=== PATIENT | male | born 1960 | race American Indian/Alaskan Native ===

== ENCOUNTER 2018-12-29 13:14 | Emergency (ER) | payer MEDICARE ==
--- NOTE | 2018-12-29 14:07 | Event Note ---
ED Screening Note Date of service: 12/29/18 Time: 14:04 ED Screening Note: 58 y o male presents to ED with cc of generalized body aches and weakness x this morning when he woke up PMH: kidney trx 2 years taking traplant rejection medication This initial assessment/diagnostic orders/clinical plan/treatment(s) is/are subject to change based on patients health status, clinical progression and re- assessment by fellow clinical providers in the ED. Further treatment and workup at subsequent clinical providers discretion. Patient/guardian urged not to elope from the ED as their condition may be serious if not clinically assessed and managed. Initial orders include: labs,IVF,UA
[2018-12-29 14:39] LABS: Bilirubin,Urine NEG (Negative); Blood,Urine NEG (Negative); Color,Urine Yellow (Yellow); Protein,Urine <15 mg/dL mg/dL (Negative); Urobilinogen,Urine < 2.0 mg/dL (<2.0)
[2018-12-29 14:41] LABS: Basophils % (Auto) 0.1 % (0.0-1.8); Eosinophils % (Auto) 0.1 % (0.0-4.3); Hematocrit 43.8 % (35.5-45.6); Hemoglobin 14.9 gm/dl (11.8-15.2); Lymphocytes # (Auto) 0.9 K/mm3 (1.2-5.4); Lymphocytes % (Auto) 11.1 % (13.4-35.0); Mean Corpuscular HGB Conc 34 % (32-34); Mean Corpuscular Volume 91 fl (84-94); Monocytes # (Auto) 0.9 K/mm3 (0.0-0.8); Monocytes % (Auto) 10.7 % (0.0-7.3); Platelet Count 113 K/mm3 (140-440); Red Cell Distribution Width 14.7 % (13.2-15.2)
[2018-12-29 14:48] LABS: Alanine Aminotransferase 10 units/L (7-56); BUN/Creatinine Ratio 8; Blood Urea Nitrogen 10 mg/dL (9-20); Calcium 9.5 mg/dL (8.4-10.2); Hemolysis Index 11
[2018-12-29] MEDS ORDERED: NACL 0.9% 500 ML 500 ML IV ONE (18:52)
[2018-12-29] MEDS ORDERED: REGLAN IV ONE (18:52)
[2018-12-29] MEDS ORDERED: BENADRYL IV ONE (18:52)
--- NOTE | 2018-12-29 19:01 | Emergency Department Report ---
ED General Adult HPI - General Chief complaint: Weakness Stated complaint: Abdominal pain, weakness Time Seen by Provider: 12/29/18 14:04 Source: patient Mode of arrival: Ambulatory Limitations: No Limitations - History of Present Illness Initial comments: 58-year-old male chief complaint of generalized weakness and chills x one day. Patient reports that he was in the rain yesterday, and began to experience some cold-like symptoms. Patient complains of diffuse abdominal tenderness and burning into his chest. Patient denies any sick contacts. Patient reports dry cough. Patient denies specific chest pain shortness of breath or vomiting. -: days(s) (1) Location: abdomen Quality: aching Consistency: constant Improves with: none Worsens with: none Associated Symptoms: cough - Related Data Home Medications Medication Instructions Recorded Confirmed Last Taken Metoprolol [Lopressor TAB] 100 mg PO BID 12/28/14 04/15/18 04/15/18 09:00 NIFEdipine 60 mg PO DAILY 02/21/15 04/15/18 04/15/18 09:30 Lisinopril [Zestril TAB] 10 mg PO DAILY 04/10/18 04/15/18 04/15/18 09:00 Mycophenolate [Cellcept] 250 mg PO BID 04/10/18 04/15/18 04/15/18 09:00 Omeprazole 40 mg PO DAILY 04/10/18 04/15/18 04/15/18 09:00 Prednisone [predniSONE (Mariluz) ER 5 mg PO QDAY 04/10/18 04/15/18 04/15/18 09:00 TAB] Tacrolimus [Prograf] 1 mg PO BID 04/10/18 04/15/18 04/15/18 09:00 Tamsulosin HCl [Flomax] 0.4 mg PO DAILY 04/10/18 04/15/18 04/15/18 09:00 Previous Rx's Medication Instructions Recorded Last Taken Type Oseltamivir [Tamiflu] 75 mg PO BID 5 Days #10 cap 12/29/18 Unknown Rx Allergies Allergy/AdvReac Type Severity Reaction Status Date / Time No Known Allergies Allergy Verified 02/21/15 11:15 ED Review of Systems ROS: Stated complaint: CHEST PAIN/DIZZINESS Other details as noted in HPI Constitutional: chills, weakness. denies: fever Respiratory: cough Cardiovascular: denies: chest pain, palpitations, dyspnea on exertion, syncope Gastrointestinal: abdominal pain, nausea Genitourinary: denies: urgency Musculoskeletal: myalgia. denies: as per HPI Neurological: denies: headache, weakness, paresthesias Psychiatric: denies: anxiety, depression ED Past Medical Hx - Past Medical History Previous Medical History?: Yes Hx Hypertension: Yes (X 18 YRS) Hx GERD: Yes Hx Renal Disease: Yes (Kidney transplant 2016) Hx HIV: No Additional medical history: Dialysis M-W-F. ANEMIA - Surgical History Past Surgical History?: Yes Hx Cholecystectomy: Yes Additional Surgical History: av graft LEFT ARM. Hernia surgery October 2014 - Social History Smoking Status: Never Smoker Substance Use Type: None - Medications Home Medications: Home Medications Medication Instructions Recorded Confirmed Last Taken Type Metoprolol [Lopressor TAB] 100 mg PO BID 12/28/14 04/15/18 04/15/18 09:00 History NIFEdipine 60 mg PO DAILY 02/21/15 04/15/18 04/15/18 09:30 History Lisinopril [Zestril TAB] 10 mg PO DAILY 04/10/18 04/15/18 04/15/18 09:00 History Mycophenolate [Cellcept] 250 mg PO BID 04/10/18 04/15/18 04/15/18 09:00 History Omeprazole 40 mg PO DAILY 04/10/18 04/15/18 04/15/18 09:00 History Prednisone [predniSONE (Mariluz) ER 5 mg PO QDAY 04/10/18 04/15/18 04/15/18 09:00 History TAB] Tacrolimus [Prograf] 1 mg PO BID 04/10/18 04/15/18 04/15/18 09:00 History Tamsulosin HCl [Flomax] 0.4 mg PO DAILY 04/10/18 04/15/18 04/15/18 09:00 History Oseltamivir [Tamiflu] 75 mg PO BID 5 Days #10 cap 12/29/18 Unknown Rx ED Physical Exam - General Limitations: No Limitations General appearance: alert, in no apparent distress - Head Head exam: Present: atraumatic, normocephalic - Eye Eye exam: Present: PERRL, EOMI - ENT ENT exam: Present: normal exam, mucous membranes moist - Neck Neck exam: Present: normal inspection, full ROM. Absent: tenderness, meningismus - Respiratory Respiratory exam: Present: normal lung sounds bilaterally. Absent: respiratory distress, wheezes, rales - Cardiovascular Cardiovascular Exam: Present: regular rate, normal rhythm, normal heart sounds - GI/Abdominal GI/Abdominal exam: Present: tenderness, normal bowel sounds. Absent: distended, guarding, rebound, hyperactive bowel sounds - Rectal Rectal exam: Present: deferred - Extremities Exam Extremities exam: Present: normal inspection, full ROM - Back Exam Back exam: Present: normal inspection, full ROM. Absent: tenderness, CVA tenderness (R), CVA tenderness (L) - Neurological Exam Neurological exam: Present: alert, altered, oriented X3, CN II-XII intact, normal gait - Psychiatric Psychiatric exam: Present: normal affect, normal mood - Skin Skin exam: Present: warm ED Course Vital Signs 12/29/18 12/29/18 12/29/18 14:02 17:10 19:28 Temperature 99.6 F 99.8 F H Pulse Rate 63 67 Respiratory 18 17 18 Rate Blood Pressure 122/79 Blood Pressure 133/69 [Left] O2 Sat by Pulse 96 97 Oximetry 12/29/18 12/29/18 21:08 23:37 Temperature 100.2 F H Pulse Rate 78 69 Respiratory 16 16 Rate Blood Pressure Blood Pressure 148/91 119/76 [Left] O2 Sat by Pulse 98 98 Oximetry - Reevaluation(s) Reevaluation #1: 12/29/18 23:11 Patient resting comfortably in no distress. Patient denies any chest pain shortness of breath. Chills and abdominal cramping has resolved. Patient needed to be discharged. Plan at discharge his second troponin is negative with no EKG changes. Reevaluation #2: 12/29/18 23:34 Patient still resting comfortably in no acute distress.. Patient needed be discharged. Repeat EKG done with no acute changes. Patient stable for [facility] vital signs stable Reevaluation #3: 12/29/18 23:42 Informed by nurse that patient now has a temperature of 100.2, just prior to discharge. Patient still asymptomatic and symptoms of markedly improved. No elevated white count on exam CT is negative. Patient comfortable and eager to be discharged and will follow-up with primary care doctor in the morning and imm ediately return to ED if sx persist. 12/29/18 23:55 ED Medical Decision Making - Lab Data Result diagrams: 12/29/18 14:17 12/29/18 14:17 - EKG Data 12/29/18 22:13 Normal sinus rhythm, normal axis, no ST elevation depression. Rate of 74. First-degree AV block. EKG changes where T-wave inversions V4 V5 and V6 are not now present when compared to EKG done 12/28/2014. 12/29/18 22:14 12/29/18 23:35 Repeat EKG Normal sinus rhythm, normal axis, no ST elevation or depression. Rate is 67. First-degree AV block. EKG similar to previous EKG done on arrival to ED. - Radiology Data FINDINGS: LOWER CHEST: No significant abnormality. LIVER: No significant abnormality. A few small cysts in the liver are stable, the largest near the dome in the right lobe. GALLBLADDER: Postcholecystectomy. BILE DUCTS: No significant abnormality. PANCREAS: No significant abnormality. SPLEEN: No significant abnormality. ADRENALS: No significant abnormality. RIGHT KIDNEY and URETER: Chronically atrophied. There are small calculi but no evidence of hydronephrosis. No acute inflammatory stranding. LEFT KIDNEY and URETER: Chronically atrophied. There are small calculi but no evidence of hydronephrosis. No acute inflammatory stranding. A transplant kidney is noted in the right lower quadrant, without hydronephrosis or acute inflammatory change. STOMACH and SMALL BOWEL: No significant abnormality. COLON: No significant abnormality. APPENDIX: Not identified. PERITONEUM: No free fluid. No free air. No fluid collection. LYMPH NODES: No significant adenopathy. AORTA and ARTERIES: No significant abnormality. IVC and VEINS: No significant abnormality. URINARY BLADDER: No significant abnormality. REPRODUCTIVE ORGANS: Penile prosthesis is noted. ADDITIONAL FINDINGS: None. SKELETAL SYSTEM: No significant abnormality. IMPRESSION: 1. No acute abnormality. No clear cause for the patient's abdominal pain is identified. FINDINGS: Support devices: None. Heart: Within normal limits. Lungs/Pleura: No acute air space or interstitial disease. No significant pleural effusion. Metallic foreign bodies at the anterior upper chest are unchanged. IMPRESSION: No acute findings. Critical Care Time: No Critical care attestation.: If time is entered above; I have spent that time in minutes in the direct care of this critically ill patient, excluding procedure time. ED Disposition Clinical Impression: Kidney transplant recipient Abdominal pain Qualifiers: Abdominal location: generalized Qualified Code(s): R10.84 - Generalized abdominal pain Disposition: TO HOME OR SELFCARE Is pt being admited?: No Does the pt Need Aspirin: No Condition: Fair Instructions: Influenza (ED), Acute Abdominal Pain (ED) Prescriptions: Oseltamivir [Tamiflu] 75 mg PO BID 5 Days #10 cap Referrals: PRIMARY CARE, [Primary Care Provider] - 3-5 Days Time of Disposition: 23:37
--- NOTE | 2018-12-29 22:52 | XRay Report ---
CHEST 2 VIEWS INDICATION: cough. COMPARISON: 12/28/2014. FINDINGS: Support devices: None. Heart: Within normal limits. Lungs/Pleura: No acute air space or interstitial disease. No significant pleural effusion. Metallic foreign bodies at the anterior upper chest are unchanged. IMPRESSION: No acute findings. Signer Name: Krunal Tate MD Signed: 12/29/2018 10:48 PM Workstation Name: [id number]
--- NOTE | 2018-12-29 22:54 | Cat Scan Report ---
CT ABDOMEN AND PELVIS WITHOUT CONTRAST INDICATION / CLINICAL INFORMATION: ABDOMINAL PAIN. TECHNIQUE: Axial CT images were obtained through the abdomen and pelvis without IV contrast. All CT scans at [facility] location are performed using CT dose reduction for ALARA by means of automated exposure control. COMPARISON: Contrast-enhanced CT of the abdomen and pelvis 12/30/2014 FINDINGS: LOWER CHEST: No significant abnormality. LIVER: No significant abnormality. A few small cysts in the liver are stable, the largest near the do me in the right lobe. GALLBLADDER: Postcholecystectomy. BILE DUCTS: No significant abnormality. PANCREAS: No significant abnormality. SPLEEN: No significant abnormality. ADRENALS: No significant abnormality. RIGHT KIDNEY and URETER: Chronically atrophied. There are small calculi but no evidence of hydronephr osis. No acute inflammatory stranding. LEFT KIDNEY and URETER: Chronically atrophied. There are small calculi but no evidence of hydronephro sis. No acute inflammatory stranding. A transplant kidney is noted in the right lower quadrant, without hydronephrosis or acute inflammator y change. STOMACH and SMALL BOWEL: No significant abnormality. COLON: No significant abnormality. APPENDIX: Not identified. PERITONEUM: No free fluid. No free air. No fluid collection. LYMPH NODES: No significant adenopathy. AORTA and ARTERIES: No significant abnormality. IVC and VEINS: No significant abnormality. URINARY BLADDER: No significant abnormality. REPRODUCTIVE ORGANS: Penile prosthesis is noted. ADDITIONAL FINDINGS: None. SKELETAL SYSTEM: No significant abnormality. IMPRESSION: 1. No acute abnormality. No clear cause for the patient's abdominal pain is identified. Signer Name: Cody Salgado MD Signed: 12/29/2018 10:49 PM Workstation Name: [id number]
[2018-12-29 23:37] VITALS: BP 119/76
[2018-12-29] MEDS ORDERED: TYLENOL PO ONE (23:50)
[2018-12-30] MEDS ORDERED: TYLENOL ONE (00:01)
== END 2018-12-30 00:08 | disposition home or self-care (01) ==
LOC: ED 13:14
DX: R10.9 Unspecified abdominal pain (principal); I10 Essential (primary) hypertension; K21.9 Gastro-esophageal reflux disease without esophagitis; D64.9 Anemia, unspecified; Z94.0 Kidney transplant status; Z98.890 Other specified postprocedural states; Z90.49 Acquired absence of other specified parts of digestive tract; Z79.899 Other long term (current) drug therapy
CPT/HCPCS: 36415; 71046; 74176; 80053; 81001; 82550; 83615; 83690; 84484; 85025; 93005; 93010; 96374; 96375; 99285; J1200; J2765; J7040

== ENCOUNTER 2020-02-14 08:22 | Outpatient (CLI) | payer MEDICARE ==
[2020-02-14] MEDS ORDERED: LIDOCAINE (4%) 40 MG/ML TOPICAL SOLN 50 ML BOTTLE TP NR (08:47)
== END 2020-02-14 08:23 | disposition home or self-care (01) ==
LOC: WOUND 08:22
PROVIDERS: ATTEND Surgery
DX: S81.801A Unspecified open wound, right lower leg, initial encounter (principal); I10 Essential (primary) hypertension; N40.0 Benign prostatic hyperplasia without lower urinary tract symptoms; Z94.0 Kidney transplant status; Z87.891 Personal history of nicotine dependence; W22.8XXA Striking against or struck by other objects, initial encounter; Y93.89 Activity, other specified; Y92.89 Other specified places as the place of occurrence of the external cause; Y99.8 Other external cause status
CPT/HCPCS: 11042; G0463; 99204; 99214

== ENCOUNTER 2020-12-14 14:44 | Inpatient (IN) | payer MEDICARE ==
[2020-12-14] MEDS ORDERED: ASPIRIN 325 MG TAB PO ONE (15:42)
--- NOTE | 2020-12-14 16:05 | XRay Report ---
CHEST 2 VIEWS INDICATION / CLINICAL INFORMATION: Chest pain and body aches beginning 4 days ago with nausea and shortness of breath. COMPARISON: 2 views of the chest from 12/29/2018. FINDINGS: SUPPORT DEVICES: None. HEART / MEDIASTINUM: No significant abnormality. LUNGS / PLEURA: No significant pulmonary abnormality. No significant pleural effusion. No pneumothora x. ADDITIONAL FINDINGS: Radiopaque foreign bodies are again noted at the level of the right sternoclavic ular joint. Mild thoracic spondylosis is unchanged. IMPRESSION: 1. No acute abnormality of the chest. Signer Name: Juventino Grijalva MD Signed: 12/14/2020 4:00 PM Workstation Name: [id number]
[2020-12-14 16:37] LABS: Alanine Aminotransferase 8 units/L (7-56); Albumin 3.8 g/dL (3.9-5); BUN/Creatinine Ratio 9; Blood Urea Nitrogen 12 mg/dL (9-20); Calcium 8.9 mg/dL (8.4-10.2); Hemolysis Index 6
[2020-12-14 16:54] LABS: Basophils % (Auto) 0.1 % (0.0-1.8); Eosinophils % (Auto) 0.1 % (0.0-4.3); Hematocrit 40.9 % (35.5-45.6); Lymphocytes % (Auto) 21.4 % (13.4-35.0); Mean Corpuscular HGB Conc 34 % (32-34); Mean Corpuscular Volume 90 fl (84-94); Monocytes # (Auto) 0.5 K/mm3 (0.0-0.8); Monocytes % (Auto) 10.7 % (0.0-7.3); Red Blood Count 4.53 M/mm3 (3.65-5.03); Red Cell Distribution Width 14.1 % (13.2-15.2)
[2020-12-14 16:55] LABS: Platelet Count 97 K/mm3 (140-440)
--- NOTE | 2020-12-14 23:23 | Event Note ---
ED Screening Note Date of service: 12/12/20 Time: 23:20 ED Screening Note: 60 y/o male pt w/ hx of left kidney transplant on immunusuppresive therapy presents to ED w/ complaints of abdominal pain and myalgias starting this week. No known sick contacts. Patient did not receive his COVID-19 vaccine series. Patient has been compliant with his transplant medications. Temperature 100.9 in triage. General: Awake, appropriately interactive, no acute distress. Neck: Supple. Full range of motion intact. Cardiovascular: Normal peripheral perfusion. Pulmonary: No respiratory distress. Patient is speaking normally without use of accessory muscles. Skin: No apparent rashes or lesions. Neurological: No facial asymmetry. Speech is clear. Follows commands. Patient is alert and oriented. Musculoskeletal: Moves all four extremities spontaneously with normal range of motion. Psych: Cooperative. Appropriate mood and affect. I have greeted and performed a focused rapid initial assessment of this patient. A comprehensive ED assessment and evaluation of the patient, analysis of all test results, and completion of the medical decision-making process will be conducted by additional ED providers. This initial assessment/diagnostic orders/clinical plan/treatment(s) is/are subject to change based on patients health status, clinical progression and re-assessment. Further treatment and workup at subsequent clinical provider's discretion. Patient/guardian urged not to elope from the ED as their condition may be serious if not clinically assessed and managed.
--- NOTE | 2020-12-15 04:14 | Emergency Department Report ---
ED General Adult HPI - General Chief complaint: Abdominal Pain Stated complaint: BODYACHES PUI?: No Time Seen by Provider: 12/15/20 04:09 Source: patient Mode of arrival: Ambulatory Limitations: No Limitations - History of Present Illness Initial comments: Patient is a 60-year-old male who presents emergency complaints of abdominal pain, body aches, fever, cough. Patient states his symptoms started 2 days ago. Patient dates his symptoms are worsening. Patient states he had both of his COVID-19 vaccines. Patient states the cough is dry. Patient states the abdominal pain is in his lower abdomen as well as his bilateral flanks. Patient denies nausea vomiting. Patient states body aches and abdominal pain are worsening. Patient states the abdominal pain is a 6 out of 10. Patient denies diarrhea. Patient denies chest pain. Patient denies shortness of breath. Patient denies recent travel. Patient denies recent international travel. Patient denies exposure to the novel coronavirus. Patient denies sick contacts. Patient denies loss of smell. Patient denies diarrhea. Patient denies coming in contact with anybody with symptoms of the novel coronavirus. -: Sudden Location: abdomen Severity scale (0 -10): 6 Quality: aching Consistency: constant Improves with: rest Worsens with: movement Associated Symptoms: cough, fever/chills. denies: confusion, chest pain, diaphoresis, headaches, loss of appetite, nausea/vomiting, rash, seizure, shortness of breath, syncope, weakness - Related Data Home Medications Medication Instructions Recorded Confirmed Last Taken Metoprolol [Lopressor TAB] 100 mg PO BID 12/28/14 04/15/18 04/15/18 09:00 NIFEdipine 60 mg PO DAILY 02/21/15 04/15/18 04/15/18 09:30 Mycophenolate [Cellcept] 250 mg PO BID 04/10/18 04/15/18 04/15/18 09:00 Omeprazole 40 mg PO DAILY 04/10/18 04/15/18 04/15/18 09:00 Prednisone [predniSONE (Mariluz) ER 5 mg PO QDAY 04/10/18 04/15/18 04/15/18 09:00 TAB] Tacrolimus [Prograf] 1 mg PO BID 04/10/18 04/15/18 04/15/18 09:00 Tamsulosin HCl [Flomax] 0.4 mg PO DAILY 04/10/18 04/15/18 04/15/18 09:00 lisinopriL [Zestril TAB] 10 mg PO DAILY 04/10/18 04/15/18 04/15/18 09:00 Previous Rx's Medication Instructions Recorded Last Taken Type Oseltamivir [Tamiflu] 75 mg PO BID 5 Days #10 cap 12/29/18 Unknown Rx Allergies Allergy/AdvReac Type Severity Reaction Status Date / Time No Known Allergies Allergy Verified 12/14/20 15:36 ED Review of Systems ROS: Stated complaint: BODYACHES Other details as noted in HPI Constitutional: chills, fever Eyes: denies: eye pain, eye discharge, vision change ENT: denies: ear pain, throat pain Respiratory: cough. denies: shortness of breath, wheezing Cardiovascular: denies: chest pain, palpitations Endocrine: no symptoms reported Gastrointestinal: abdominal pain. denies: nausea, diarrhea Genitourinary: denies: urgency, dysuria Musculoskeletal: denies: back pain, joint swelling, arthralgia Skin: denies: rash, lesions Neurological: denies: headache, weakness, paresthesias Psychiatric: denies: anxiety, depression Hematological/Lymphatic: denies: easy bleeding, easy bruising ED Past Medical Hx - Past Medical History Previous Medical History?: Yes Hx Hypertension: Yes (X 18 YRS) Hx GERD: Yes Hx Renal Disease: Yes (Kidney transplant 2016) Hx HIV: No Additional medical history: Dialysis M-W-F. ANEMIA - Surgical History Past Surgical History?: Yes Hx Cholecystectomy: Yes Additional Surgical History: av graft LEFT ARM. Hernia surgery October 2014 - Family History Family history: no significant - Social History Smoking Status: Never Smoker Substance Use Type: None - Medications Home Medications: Home Medications Medication Instructions Recorded Confirmed Last Taken Type Metoprolol [Lopressor TAB] 100 mg PO BID 12/28/14 04/15/18 04/15/18 09:00 History NIFEdipine 60 mg PO DAILY 02/21/15 04/15/18 04/15/18 09:30 History Mycophenolate [Cellcept] 250 mg PO BID 04/10/18 04/15/18 04/15/18 09:00 History Omeprazole 40 mg PO DAILY 04/10/18 04/15/18 04/15/18 09:00 History Prednisone [predniSONE (Mariluz) ER 5 mg PO QDAY 04/10/18 04/15/18 04/15/18 09:00 History TAB] Tacrolimus [Prograf] 1 mg PO BID 04/10/18 04/15/18 04/15/18 09:00 History Tamsulosin HCl [Flomax] 0.4 mg PO DAILY 04/10/18 04/15/18 04/15/18 09:00 History lisinopriL [Zestril TAB] 10 mg PO DAILY 04/10/18 04/15/18 04/15/18 09:00 History Oseltamivir [Tamiflu] 75 mg PO BID 5 Days #10 cap 12/29/18 Unknown Rx ED Physical Exam - General Limitations: No Limitations General appearance: alert, in no apparent distress - Head Head exam: Present: atraumatic, normocephalic - Eye Eye exam: Present: normal appearance - ENT ENT exam: Present: mucous membranes moist - Neck Neck exam: Present: normal inspection - Respiratory Respiratory exam: Present: normal lung sounds bilaterally. Absent: respiratory distress - Cardiovascular Cardiovascular Exam: Present: regular rate, normal rhythm. Absent: systolic murmur, diastolic murmur, rubs, gallop - GI/Abdominal GI/Abdominal exam: Present: soft, tenderness, normal bowel sounds - Rectal Rectal exam: Present: deferred - Extremities Exam Extremities exam: Present: normal inspection - Back Exam Back exam: Present: normal inspection - Neurological Exam Neurological exam: Present: alert, oriented X3 - Psychiatric Psychiatric exam: Present: normal affect, normal mood - Skin Skin exam: Present: warm, dry, intact, normal color. Absent: rash ED Course Vital Signs 12/14/20 12/15/20 12/15/20 15:39 04:22 04:31 Temperature 100.9 F H Pulse Rate 75 67 68 Respiratory 20 19 13 Rate Blood Pressure 117/68 O2 Sat by Pulse 97 99 98 Oximetry 12/15/20 12/15/20 12/15/20 04:49 05:01 05:07 Temperature Pulse Rate 71 66 Respiratory 22 19 Rate Blood Pressure O2 Sat by Pulse 98 98 100 Oximetry - Reevaluation(s) Reevaluation #1: I discussed all results with patient. I discussed plan of care with patient. Patient agrees with plan of care and admission. Patient to be admitted to the hospitalist service. 12/15/20 05:35 - Consultations Consultation #1: Hospitalist consulted for admission. Hospitalist to admit patient. 12/15/20 0538 ED Medical Decision Making - Lab Data Result diagrams: 12/14/20 15:59 12/14/20 15:59 - EKG Data -: EKG Interpreted by Me EKG shows normal: sinus rhythm, axis, intervals, QRS complexes, ST-T waves Rate: normal - Radiology Data Radiology results: report reviewed, image reviewed interpreted by me: Chest x-ray: No pneumonia, no pneumothorax, no foreign body, no osseous findings, no acute findings CHEST 2 VIEWS INDICATION / CLINICAL INFORMATION: Chest pain and body aches beginning 4 days ago with nausea and shortness of breath. COMPARISON: 2 views of the chest from 12/29/2018. FINDINGS: SUPPORT DEVICES: None. HEART / MEDIASTINUM: No significant abnormality. LUNGS / PLEURA: No significant pulmonary abnormality. No significant pleural effusion. No pneumothorax. ADDITIONAL FINDINGS: Radiopaque foreign bodies are again noted at the level of the right sternoclavicular joint. Mild thoracic spondylosis is unchanged. IMPRESSION: 1. No acute abnormality of the chest. CT ABDOMEN AND PELVIS WITHOUT CONTRAST HISTORY: Patient complains of abd pain, fever and cough x 2 days.. COMPARISON: CT abdomen/pelvis from 12/29/2018 TECHNIQUE: CT images of the abdomen and pelvis were obtained without administration of intravenous contrast. All CT scans at this location are performed using CT dose reduction for ALARA by means of automated exposure control. FINDINGS: Lungs/bones: There is minimal patchy groundglass airspace disease in the lungs. Degenerative changes are present in the spine and pelvis with nothing acute. Abdomen/pelvis: There is a simple cyst in the liver. Liver is otherwise unremarkable. The gallbladder surgically absent. The spleen, pancreas, adrenals, and proximal GI tract appear unremarkable. There is bilateral renal atrophy. A right pelvic transplant kidney is present. The urinary bladder is unremarkable. No pelvic free fluid. No acute colonic abnormality identified. Penile prosthesis is in place. IMPRESSION: 1. Findings in the lungs worrisome for Covid pneumonia. 2. No acute abnormality in the abdomen or pelvis. - Medical Decision Making Patient is a 60-year-old male who presents emergency room with complaints of fever, cough, body aches, abdominal pain. Patient states he is already had his COVID-19 vaccine. Patient had labs done which were consistent with renal insufficiency. Patient has a history of a kidney transplant is compliant with antirejection medication. Patient had a abdominal CT to rule out intra-abdominal process infection. Patient's abdominal CT was negative for acute finding however showed Covid pneumonia. Patient is high risk due to being on antirejection medications. Patient will be admitted to the hospital service for further evaluation treatment and observation. Critical care time documented due to the multiple reassessments, prolonged time at the bedside, interpretation of diagnostics and labs. - Differential Diagnosis Fever, Covid, [place], gastroenteritis, abdominal pain, cough Critical Care Time: Yes Critical care time in (mins) excluding proc time.: 35 Critical care attestation.: If time is entered above; I have spent that time in minutes in the direct care of this critically ill patient, excluding procedure time. Critical Care Time: 35 minutes ED Disposition Clinical Impression: COVID, Person under investigation for COVID-19, Renal insufficiency, Kidney transplant recipient, Cough Fever Qualifiers: Fever type: unspecified Qualified Code(s): R50.9 - Fever, unspecified Disposition: 09 ADMITTED INPATIENT Is pt being admited?: Yes Does the pt Need Aspirin: No Condition: Critical Time of Disposition: 05:38
[2020-12-15 04:56] LABS: Bilirubin,Urine NEG (Negative); Blood,Urine NEG (Negative); Color,Urine Amber (Yellow); Mucus,Urine FEW /HPF; Urobilinogen,Urine < 2.0 mg/dL (<2.0)
--- NOTE | 2020-12-15 05:13 | Cat Scan Report ---
CT ABDOMEN AND PELVIS WITHOUT CONTRAST HISTORY: Patient complains of abd pain, fever and cough x 2 days.. COMPARISON: CT abdomen/pelvis from 12/29/2018 TECHNIQUE: CT images of the abdomen and pelvis were obtained without administration of intravenous co ntrast. All CT scans at this location are performed using CT dose reduction for ALARA by means of au tomated exposure control. FINDINGS: Lungs/bones: There is minimal patchy groundglass airspace disease in the lungs. Degenerative changes are present in the spine and pelvis with nothing acute. Abdomen/pelvis: There is a simple cyst in the liver. Liver is otherwise unremarkable. The gallbladde r surgically absent. The spleen, pancreas, adrenals, and proximal GI tract appear unremarkable. There is bilateral renal atrophy. A right pelvic transplant kidney is present. The urinary bladder is unremarkable. No pelvic free flui d. No acute colonic abnormality identified. Penile prosthesis is in place. IMPRESSION: 1. Findings in the lungs worrisome for Covid pneumonia. 2. No acute abnormality in the abdomen or pelvis. Signer Name: Puma Little MD Signed: 12/15/2020 5:09 AM Workstation Name: [id number]
[2020-12-15] MEDS ORDERED: dexAMETHasone 4 MG/ML VIAL IV ONE (05:33)
--- NOTE | 2020-12-15 06:19 | History and Physical Report ---
History of Present Illness Date of examination: 12/15/20 Date of admission: 12/15/20 Chief complaint: Abdominal pain Body aches Fever Cough History of present illness: 60-year-old male with past medical history of hypertension, GERD, kidney transplant in 2017 was brought to the emergency room because of abdominal pain, body aches, fever, cough for last 2 days. Patient dates his symptoms are worsening. Patient states he had both of his COVID-19 vaccines. Patient states the cough is dry. Patient states the abdominal pain is 6/10 in his lower abdomen as well as his bilateral flanks. Patient denies nausea vomiting. Patient states body aches and abdominal pain are worsening. Patient denies diarrhea. Patient denies chest pain. Patient denies shortness of breath. Patient denies any sick contact. Patient denies loss of smell. In the emergency room CT scan of the abdomen pelvis showed suspected Covid pneumonia. Past History Past Medical History: anemia, GERD, hypertension, renal failure Medications and Allergies Allergies Allergy/AdvReac Type Severity Reaction Status Date / Time No Known Allergies Allergy Verified 12/14/20 15:36 Home Medications Medication Instructions Recorded Confirmed Last Taken Type Metoprolol [Lopressor TAB] 100 mg PO BID 12/28/14 04/15/18 04/15/18 09:00 History NIFEdipine 60 mg PO DAILY 02/21/15 04/15/18 04/15/18 09:30 History Mycophenolate [Cellcept] 250 mg PO BID 04/10/18 04/15/18 04/15/18 09:00 History Omeprazole 40 mg PO DAILY 04/10/18 04/15/18 04/15/18 09:00 History Prednisone [predniSONE (Mariluz) ER 5 mg PO QDAY 04/10/18 04/15/18 04/15/18 09:00 History TAB] Tacrolimus [Prograf] 1 mg PO BID 04/10/18 04/15/18 04/15/18 09:00 History Tamsulosin HCl [Flomax] 0.4 mg PO DAILY 04/10/18 04/15/18 04/15/18 09:00 History lisinopriL [Zestril TAB] 10 mg PO DAILY 04/10/18 04/15/18 04/15/18 09:00 History Oseltamivir [Tamiflu] 75 mg PO BID 5 Days #10 cap 12/29/18 Unknown Rx Active Meds: Active Medications Acetaminophen (Acetaminophen 325 Mg Tab) 650 mg PO Q4H PRN PRN Reason: Pain MILD(1-3)/Fever >100.5/BHARDWAJ Albuterol (Albuterol 2.5 Mg/3 Ml Nebu) 2.5 mg IH Q4HRT PRN PRN Reason: Shortness Of Breath Albuterol/Ipratropium (Ipratropium/Albuterol Sulfate 3 Ml Ampul.Neb) 1 ampul IH Q6HRT COUNT INCLUDES THE [facility] Dexamethasone (Dexamethasone 4 Mg/Ml Vial) 6 mg IV DAILY COUNT INCLUDES THE [facility] Famotidine (Famotidine 20 Mg Tab) 20 mg PO BID COUNT INCLUDES THE [facility] Heparin Sodium (Porcine) (Heparin 5,000 Unit/1 Ml Vial) 5,000 unit SUB-Q Q8HR COUNT INCLUDES THE [facility] Hydralazine HCl (Hydralazine 20 Mg/1 Ml Inj) 10 mg IV Q6H PRN PRN Reason: Blood Pressure Hydromorphone HCl (Hydromorphone 1 Mg/1 Ml Inj) 0.5 mg IV Q3H PRN PRN Reason: Pain , Severe (7-10) Azithromycin (Zithromax/Ns) 500 mg in 250 mls @ 250 mls/hr IV ONCE ONE; Protocol Stop: 12/15/20 06:32 Ceftriaxone Sodium (Rocephin/Ns 2 Gm/100 Ml) 2 gm in 100 mls @ 200 mls/hr IV Q24H COUNT INCLUDES THE [facility]; Protocol Azithromycin (Zithromax/Ns) 500 mg in 250 mls @ 250 mls/hr IV Q24H COUNT INCLUDES THE [facility]; Protocol Lisinopril (Lisinopril 40 Mg Tab) 10 mg PO DAILY COUNT INCLUDES THE [facility] Metoprolol Tartrate (Metoprolol Tartrate 50 Mg Tab) 100 mg PO BID COUNT INCLUDES THE [facility] Miscellaneous Medication (Nifedipine) 60 mg PO DAILY COUNT INCLUDES THE [facility] Miscellaneous Medication (Prednisone [Prednisone (Mariluz) Er Tab]) 5 mg PO QDAY COUNT INCLUDES THE [facility] Mycophenolate Mofetil (Mycophenolate 250 Mg Cap) 250 mg PO BID COUNT INCLUDES THE [facility] Ondansetron HCl (Ondansetron 4 Mg/2 Ml Inj) 4 mg IV Q8H PRN PRN Reason: Nausea And Vomiting Oseltamivir Phosphate (Oseltamivir 75 Mg Cap) 75 mg PO BID COUNT INCLUDES THE [facility] Oxycodone/Acetaminophen (Oxycodone /Acetaminophen 5-325mg Tab) 1 tab PO Q6H PRN PRN Reason: Pain, Moderate (4-6) Sodium Chloride (Sodium Chloride 0.9% 10 Ml Flush Syringe) 10 ml IV BID TIAN Sodium Chloride (Sodium Chloride 0.9% 10 Ml Flush Syringe) 10 ml IV PRN PRN PRN Reason: LINE FLUSH Tacrolimus (Tacrolimus 1 Mg Cap) 1 mg PO BID TIAN Tamsulosin HCl (Tamsulosin 0.4 Mg Cap) 0.4 mg PO DAILY TIAN Review of Systems Constitutional: fever (Body ache), chills, other Gastrointestinal: abdominal pain Exam - Constitutional Vitals: Temp Pulse Resp BP Pulse Ox 100.9 F H 65 16 109/70 97 12/14/20 15:39 12/15/20 06:01 12/15/20 06:01 12/15/20 06:01 12/15/20 06:01 General appearance: Present: no acute distress, well-nourished - EENT Eyes: Present: PERRL ENT: hearing intact, clear oral mucosa - Neck Neck: Present: supple, normal ROM - Respiratory Respiratory effort: normal Respiratory: bilateral: CTA - Cardiovascular Heart Sounds: Present: S1 & S2. Absent: rub, click - Extremities Extremities: pulses symmetrical, No edema Peripheral Pulses: within normal limits - Abdominal General gastrointestinal: Present: soft, non-tender, non-distended, normal bowel sounds Male genitourinary: Present: normal - Integumentary Integumentary: Present: clear, warm, dry - Musculoskeletal Musculoskeletal: gait normal, strength equal bilaterally - Psychiatric Psychiatric: appropriate mood/affect, intact judgment & insight - Neurologic Neurologic: CNII-XII intact, moves all extremities HEART Score - HEART Score Troponin: Troponin T < 0.010 ng/mL (0.00-0.029) 12/14/20 18:49 Results - Labs CBC & Chem 7: 12/14/20 15:59 12/14/20 15:59 Labs: Laboratory Last Values WBC 4.6 K/mm3 (4.5-11.0) 12/14/20 15:59 RBC 4.53 M/mm3 (3.65-5.03) 12/14/20 15:59 Hgb 14.0 gm/dl (11.8-15.2) 12/14/20 15:59 Hct 40.9 % (35.5-45.6) 12/14/20 15:59 MCV 90 fl (84-94) 12/14/20 15:59 MCH 31 pg (28-32) 12/14/20 15:59 MCHC 34 % (32-34) 12/14/20 15:59 RDW 14.1 % (13.2-15.2) 12/14/20 15:59 Plt Count 97 K/mm3 (140-440) L 12/14/20 15:59 Lymph % (Auto) 21.4 % (13.4-35.0) 12/14/20 15:59 [place] % (Auto) 10.7 % (0.0-7.3) H 12/14/20 15:59 Eos % (Auto) 0.1 % (0.0-4.3) 12/14/20 15:59 Baso % (Auto) 0.1 % (0.0-1.8) 12/14/20 15:59 Lymph # (Auto) 1.0 K/mm3 (1.2-5.4) L 12/14/20 15:59 [place] # (Auto) 0.5 K/mm3 (0.0-0.8) 12/14/20 15:59 Eos # (Auto) 0.0 K/mm3 (0.0-0.4) 12/14/20 15:59 Baso # (Auto) 0.0 K/mm3 (0.0-0.1) 12/14/20 15:59 Seg Neutrophils % 67.7 % (40.0-70.0) 12/14/20 15:59 Seg Neutrophils # 3.1 K/mm3 (1.8-7.7) 12/14/20 15:59 Sodium 129 mmol/L (137-145) L 12/14/20 15:59 Potassium 4.2 mmol/L (3.6-5.0) 12/14/20 15:59 Chloride 100.6 mmol/L (98-107) 12/14/20 15:59 Carbon Dioxide 21 mmol/L (22-30) L 12/14/20 15:59 Anion Gap 12 mmol/L 12/14/20 15:59 BUN 12 mg/dL (9-20) 12/14/20 15:59 Creatinine 1.4 mg/dL (0.8-1.3) H 12/14/20 15:59 Estimated GFR > 60 ml/min 12/14/20 15:59 BUN/Creatinine Ratio 9 % 12/14/20 15:59 Glucose 92 mg/dL (75-100) 12/14/20 15:59 Calcium 8.9 mg/dL (8.4-10.2) 12/14/20 15:59 Magnesium 1.40 mg/dL (1.7-2.3) L 12/14/20 23:30 Total Bilirubin 0.50 mg/dL (0.1-1.2) 12/14/20 15:59 AST 23 units/L (5-40) 12/14/20 15:59 ALT 8 units/L (7-56) 12/14/20 15:59 Alkaline Phosphatase 53 units/L (35-129) 12/14/20 15:59 Total Creatine Kinase 186 units/L (55-170) H 12/14/20 23:30 Troponin T < 0.010 ng/mL (0.00-0.029) 12/14/20 18:49 Total Protein 7.3 g/dL (6.3-8.2) 12/14/20 15:59 Albumin 3.8 g/dL (3.9-5) L 12/14/20 15:59 Albumin/Globulin Ratio 1.1 % 12/14/20 15:59 Urine Color [place] (Yellow) 12/15/20 04:25 Urine Turbidity Slightly-cloudy (Clear) 12/15/20 04:25 Urine pH 5.0 (5.0-7.0) 12/15/20 04:25 Ur Specific [place] 1.020 (1.003-1.030) 12/15/20 04:25 Urine Protein 30 mg/dl mg/dL (Negative) 12/15/20 04:25 Urine Glucose (UA) Neg mg/dL (Negative) 12/15/20 04:25 Urine Ketones 20 mg/dL (Negative) 12/15/20 04:25 Urine Blood Neg (Negative) 12/15/20 04:25 Urine Nitrite Neg (Negative) 12/15/20 04:25 Urine Bilirubin Neg (Negative) 12/15/20 04:25 Urine Urobilinogen < 2.0 mg/dL (<2.0) 12/15/20 04:25 Ur Leukocyte Esterase Neg (Negative) 12/15/20 04:25 Urine WBC (Auto) 1.0 /HPF (0.0-6.0) 12/15/20 04:25 Urine RBC (Auto) 2.0 /HPF (0.0-6.0) 12/15/20 04:25 U Epithel Cells (Auto) 1.0 /HPF (0-13.0) 12/15/20 04:25 Urine Mucus Few /HPF 12/15/20 04:25 - Imaging and Cardiology CT scan - abdomen: report reviewed Assessment and Plan VTE prophylaxis?: Chemical Plan of care discussed with patient/family: Yes - Patient Problems (1) Person under investigation for COVID-19 Current Visit: Yes Status: Acute Plan to address problem: Admit the patient to the medical floor. Oxygen via nasal cannula 3 L/min. DuoNeb by nebulizer every 4 hours. Albuterol via nebulizer every 4 hours as needed. Rocephin 2 g IV daily. Zithromax 500 mg IV daily. We do the blood cultures sputum culture. Reconsult infectious disease for evaluation. Follow the Covid PCR and Covid inflammatory marker (2) Fever Current Visit: Yes Status: Acute Qualifiers: Fever type: unspecified Qualified Code(s): R50.9 - Fever, unspecified Plan to address problem: Tylenol 650 mg p.o. every 6 hours as needed. Rocephin 2 g IV daily. Zithromax 500 mg IV daily. We do the blood cultures sputum culture. Reconsult infectious disease for evaluation. Follow the Covid PCR and Covid inflammatory marker (3) Renal insufficiency Current Visit: Yes Status: Acute Plan to address problem: Avoid nephrotoxic drug. Renally dose medication. Continue home medication. R echeck BMP in the morning. Consult nephrology if needed (4) GERD (gastroesophageal reflux disease) Current Visit: No Status: Acute Qualifiers: Esophagitis presence: without esophagitis Qualified Code(s): K21.9 - Gastro-esophageal reflux disease without esophagitis Plan to address problem: Pepcid 20 mg p.o. every 12 hours for GERD. We will continue the home medication (5) HTN (hypertension) Current Visit: No Status: Acute Qualifiers: Hypertension type: essential hypertension Qualified Code(s): I10 - Essential (primary) hypertension Plan to address problem: Hydralazine 10 mg IV every 6 hours as needed. We will monitor the blood pressure closely. We will continue the home medication (6) DVT prophylaxis Current Visit: No Status: Acute Plan to address problem: Heparin 5000 units subcu every 8 hours for DVT prophylaxis. Pepcid 20 mg p.o. twice daily for GI prophylaxis. Patient is a full code
[2020-12-15] MEDS: cefTRIAXone/NS 2 GM/100 ML 2 GM/100 ML BAG IV ONE ×2 (06:25→10:54)
[2020-12-15] MEDS: AZITHROMYCIN/NS 500 MG/250 ML 500 MG/250 ML BAG IV ONE ×2 (06:25→10:54)
[2020-12-15] MEDS ORDERED: ALBUTEROL 2.5 MG/3 ML NEBU IH PRN (08:00)
[2020-12-15] MEDS ORDERED: HYDROmorphone 1 MG/1 ML INJ IV PRN (08:00)
[2020-12-15] MEDS ORDERED: ONDANSETRON 4 MG/2 ML INJ IV PRN (08:00)
[2020-12-15] MEDS ORDERED: oxyCODONE /ACETAMINOPHEN 5-325MG TAB PO PRN (08:00)
[2020-12-15] MEDS: IPRATROPIUM/ALBUTEROL SULFATE 3 ML AMPUL.NEB IH SCH ×3 (08:22→20:55)
[2020-12-15 09:50] LABS: BUN/Creatinine Ratio 12; Blood Urea Nitrogen 14 mg/dL (9-20); Calcium 9.1 mg/dL (8.4-10.2); Hemolysis Index 7
[2020-12-15] MEDS ORDERED: hydrALAZINE 20 MG/1 ML INJ IV PRN (10:00)
[2020-12-15] MEDS ORDERED: NON-FORMULARY EACH (Nifedipine 60 MG) PO SCH (10:00)
[2020-12-15] MEDS ORDERED: LISINOPRIL 40 MG TAB PO SCH (10:00)
[2020-12-15] MEDS ORDERED: NON-FORMULARY EACH (Prednisone [Prednisone (Rayos) Er Tab] 5 MG Tablet.Dr) PO SCH (10:00)
--- NOTE | 2020-12-15 10:04 | Event Note ---
Date: 12/15/20 Patient with fever, cough. To r/o Covid infection.
[2020-12-15] MEDS: FAMOTIDINE 20 MG TAB PO SCH (10:15)
[2020-12-15] MEDS: METOPROLOL TARTRATE 50 MG TAB PO SCH (10:15)
[2020-12-15] MEDS: TAMSULOSIN 0.4 MG CAP PO SCH (10:15)
[2020-12-15] MEDS: MYCOPHENOLATE 250 MG CAP PO SCH (10:56)
[2020-12-15] MEDS: NIFEdipine XL 60 MG TAB PO SCH (10:57)
[2020-12-15] MEDS: TACROLIMUS 1 MG CAP PO SCH (10:58)
[2020-12-15] MEDS: OSELTAMIVIR 75 MG CAP PO SCH (10:58)
[2020-12-15] MEDS: LISINOPRIL 10 MG TAB PO SCH (13:46)
--- NOTE | 2020-12-15 14:57 | Consultation ---
History of Present Illness - Reason for Consult Consult date: 12/15/20 - History of Present Illness 60-year-old man past medical history hypertension, GERD, prior kidney transplant 2017 presented to hospital complaining of abdominal pain, myalgias, fevers. This began approximately 2 days prior to admission associated with cough. He complains that his symptoms are worsening since onset. He reports being vaccinated against Covid. Febrile to 100.9 with a white count 4.6. Covid pending. Elevated inflammatory markers. Normal renal function. On ceftriaxone and azithromycin. Currently on room air. Imaging personally reviewed: CT abdomen pelvis: Patchy groundglass bilateral lung bases no abdominal pathology Review of systems: Deferred to reduce to the risk of transmission of COVID-19 Past History Past Medical History: anemia, GERD, hypertension, renal failure Medications and Allergies Allergies Allergy/AdvReac Type Severity Reaction Status Date / Time No Known Allergies Allergy Verified 12/14/20 15:36 Home Medications Medication Instructions Recorded Confirmed Last Taken Type Metoprolol [Lopressor TAB] 100 mg PO BID 12/28/14 04/15/18 04/15/18 09:00 History NIFEdipine 60 mg PO DAILY 02/21/15 04/15/18 04/15/18 09:30 History Mycophenolate [Cellcept] 250 mg PO BID 04/10/18 04/15/18 04/15/18 09:00 History Omeprazole 40 mg PO DAILY 04/10/18 04/15/18 04/15/18 09:00 History Prednisone [predniSONE (Mariluz) ER 5 mg PO QDAY 04/10/18 04/15/18 04/15/18 09:00 History TAB] Tacrolimus [Prograf] 1 mg PO BID 04/10/18 04/15/18 04/15/18 09:00 History Tamsulosin HCl [Flomax] 0.4 mg PO DAILY 04/10/18 04/15/18 04/15/18 09:00 History lisinopriL [Zestril TAB] 10 mg PO DAILY 04/10/18 04/15/18 04/15/18 09:00 History Oseltamivir [Tamiflu] 75 mg PO BID 5 Days #10 cap 12/29/18 Unknown Rx Active Meds: Active Medications Acetaminophen (Acetaminophen 325 Mg Tab) 650 mg PO Q4H PRN PRN Reason: Pain MILD(1-3)/Fever >100.5/BHARDWAJ Albuterol (Albuterol 2.5 Mg/3 Ml Nebu) 2.5 mg IH Q4HRT PRN PRN Reason: Shortness Of Breath Albuterol/Ipratropium (Ipratropium/Albuterol Sulfate 3 Ml Ampul.Neb) 1 ampul IH Q6HRT [facility] Last Admin: 12/15/20 14:06 Dose: 1 ampul Documented by: Dexamethasone (Dexamethasone 4 Mg/Ml Vial) 6 mg IV DAILY [facility] Famotidine (Famotidine 20 Mg Tab) 20 mg PO BID [facility] Last Admin: 12/15/20 10:15 Dose: Not Given Documented by: Heparin Sodium (Porcine) (Heparin 5,000 Unit/1 Ml Vial) 5,000 unit SUB-Q Q8HR [facility] Hydralazine HCl (Hydralazine 20 Mg/1 Ml Inj) 10 mg IV Q6H PRN PRN Reason: Blood Pressure Hydromorphone HCl (Hydromorphone 1 Mg/1 Ml Inj) 0.5 mg IV Q3H PRN PRN Reason: Pain , Severe (7-10) Ceftriaxone Sodium (Rocephin/Ns 2 Gm/100 Ml) 2 gm in 100 mls @ 200 mls/hr IV Q24H [facility]; Protocol Azithromycin (Zithromax/Ns) 500 mg in 250 mls @ 250 mls/hr IV Q24H [facility]; Protocol Lisinopril (Lisinopril 10 Mg Tab) 10 mg PO QDAY [facility] Last Admin: 12/15/20 13:46 Dose: Not Given Documented by: Metoprolol Tartrate (Metoprolol Tartrate 50 Mg Tab) 100 mg PO BID [facility] Last Admin: 12/15/20 10:15 Dose: 100 mg Documented by: Miscellaneous Medication (Prednisone [Prednisone (Mariluz) Er Tab]) 5 mg PO QDAY [facility] Last Admin: 12/15/20 10:57 Dose: Not Given Documented by: Mycophenolate Mofetil (Mycophenolate 250 Mg Cap) 250 mg PO BID [facility] Last Admin: 12/15/20 10:56 Dose: Not Given Documented by: Nifedipine (Nifedipine Xl 60 Mg Tab) 60 mg PO QDAY [facility] Last Admin: 12/15/20 10:57 Dose: Not Given Documented by: Ondansetron HCl (Ondansetron 4 Mg/2 Ml Inj) 4 mg IV Q8H PRN PRN Reason: Nausea And Vomiting Oseltamivir Phosphate (Oseltamivir 75 Mg Cap) 75 mg PO BID [facility] Last Admin: 12/15/20 10:58 Dose: Not Given Documented by: Oxycodone/Acetaminophen (Oxycodone /Acetaminophen 5-325mg Tab) 1 tab PO Q6H PRN PRN Reason: Pain, Moderate (4-6) Sodium Chloride (Sodium Chloride 0.9% 10 Ml Flush Syringe) 10 ml IV BID [facility] Last Admin: 12/15/20 10:58 Dose: Not Given Documented by: Sodium Chloride (Sodium Chloride 0.9% 10 Ml Flush Syringe) 10 ml IV PRN PRN PRN Reason: LINE FLUSH Tacrolimus (Tacrolimus 1 Mg Cap) 1 mg PO BID [facility] Last Admin: 12/15/20 10:58 Dose: Not Given Documented by: Tamsulosin HCl (Tamsulosin 0.4 Mg Cap) 0.4 mg PO DAILY [facility] Last Admin: 12/15/20 10:15 Dose: 0.4 mg Documented by: Physical Examination - Physical Exam Narrative exam: Physical exam deferred to reduce risk of transmission of COVID-19. Please refer to primary team's note. - Constitutional Vitals: Vital Signs Temp Pulse Resp BP Pulse Ox 100.9 F H 71 16 109/70 96 12/14/20 15:39 12/15/20 14:04 12/15/20 14:04 12/15/20 06:45 12/15/20 08:22 Temperature -Last 24 Hours Temperature 100.9 F Results - Labs CBC & Chem 7: 12/14/20 15:59 12/15/20 09:19 Labs: Abnormal lab results 12/14/20 12/14/20 12/14/20 Range/Units 15:59 15:59 23:30 Plt Count 97 L (140-440) K/mm3 [place] % (Auto) 10.7 H (0.0-7.3) % Lymph # (Auto) 1.0 L (1.2-5.4) K/mm3 D-Dimer (0-234) ng/mlDDU Sodium 129 L (137-145) mmol/L Carbon Dioxide 21 L (22-30) mmol/L Creatinine 1.4 H (0.8-1.3) mg/dL Magnesium 1.40 L (1.7-2.3) mg/dL Ferritin (30.0-300.0) ng/mL Total Creatine Kinase 186 H (55-170) units/L C-Reactive Protein (0.00-1.30) mg/dL Albumin 3.8 L (3.9-5) g/dL Coronavirus (PCR) (Negative) 12/15/20 12/15/20 12/15/20 Range/Units 05:53 05:53 05:53 Plt Count (140-440) K/mm3 [place] % (Auto) (0.0-7.3) % Lymph # (Auto) (1.2-5.4) K/mm3 D-Dimer 342.13 H (0-234) ng/mlDDU Sodium (137-145) mmol/L Carbon Dioxide (22-30) mmol/L Creatinine (0.8-1.3) mg/dL Magnesium (1.7-2.3) mg/dL Ferritin 2188.0 H (30.0-300.0) ng/mL Total Creatine Kinase (55-170) units/L C-Reactive Protein 2.00 H (0.00-1.30) mg/dL Albumin (3.9-5) g/dL Coronavirus (PCR) (Negative) 12/15/20 12/15/20 Range/Units 09:19 Unknown Plt Count (140-440) K/mm3 [place] % (Auto) (0.0-7.3) % Lymph # (Auto) (1.2-5.4) K/mm3 D-Dimer (0-234) ng/mlDDU Sodium 133 L (137-145) mmol/L Carbon Dioxide 21 L (22-30) mmol/L Creatinine (0.8-1.3) mg/dL Magnesium (1.7-2.3) mg/dL Ferritin (30.0-300.0) ng/mL Total Creatine Kinase (55-170) units/L C-Reactive Protein (0.00-1.30) mg/dL Albumin (3.9-5) g/dL Coronavirus (PCR) Positive A (Negative) Assessment and Plan Cultures: Covid PCR: Pending A/P: 60-year-old man past medical history hypertension, GERD, prior kidney transplant 2017 admitted as Covid PUI #Covid PUI: PCR pending, CT abdomen pelvis was concerning for groundglass opacities typical Covid. His symptoms are also concerning. He was vaccinated against Covid however due to immunosuppressed status may not have had robust response. On room air. #History of kidney transplant/immunosuppressed host: Currently on mycophenolate and tacrolimus. Renal function is good. #Hypertension Recs: -Follow-up Covid PCR -Recommend starting remdesivir if positive given immunocompromise state -Continue ceftriaxone and azithromycin to complete 5 days -If Covid negative and improving, okay to discharge with Levaquin 750 mg every 2 4 hours to complete the above 5 days. -Anticoagulation per hospital protocol -New recommendations include a third dose of COVID-19 vaccine for immunocompromised individuals. Thank you for the consult, we will continue to follow. Dr. Foss covering this weekend, Dr. Goodrich taking over Friday Kai Rene MD [facility] O: [phone] F: [phone]
[2020-12-15] MEDS: HEPARIN 5,000 UNIT/1 ML VIAL SUB-Q SCH (15:13)
[2020-12-16] MEDS: HEPARIN 5,000 UNIT/1 ML VIAL SUB-Q SCH ×4 (02:43→22:41)
[2020-12-16] MEDS: METOPROLOL TARTRATE 50 MG TAB PO SCH ×3 (02:44→22:39)
[2020-12-16] MEDS: FAMOTIDINE 20 MG TAB PO SCH ×3 (02:46→22:41)
[2020-12-16] MEDS: IPRATROPIUM/ALBUTEROL SULFATE 3 ML AMPUL.NEB IH SCH (02:49)
[2020-12-16] MEDS: cefTRIAXone/NS 2 GM/100 ML 2 GM/100 ML BAG IV SCH (08:27)
[2020-12-16] MEDS: AZITHROMYCIN/NS 500 MG/250 ML 500 MG/250 ML BAG IV SCH (09:00)
[2020-12-16] MEDS: TAMSULOSIN 0.4 MG CAP PO SCH (09:04)
[2020-12-16] MEDS: NIFEdipine XL 60 MG TAB PO SCH (09:04)
[2020-12-16] MEDS: LISINOPRIL 10 MG TAB PO SCH (09:13)
[2020-12-16] MEDS: dexAMETHasone 4 MG/ML VIAL IV SCH (09:13)
[2020-12-16] MEDS: MYCOPHENOLATE 250 MG CAP PO SCH ×3 (10:25→22:38)
[2020-12-16] MEDS: TACROLIMUS 1 MG CAP PO SCH ×3 (10:25→22:39)
[2020-12-16] MEDS: OSELTAMIVIR 75 MG CAP PO SCH ×3 (10:25→22:41)
--- NOTE | 2020-12-16 10:49 | Progress Note ---
Assessment and Plan Assessment and plan: - Patient Problems (1) Person under investigation for COVID-19 Current Visit: Yes Status: Acute Plan to address problem: Admit the patient to the medical floor. Oxygen via nasal cannula 3 L/min. DuoNeb by nebulizer every 4 hours. Albuterol via nebulizer every 4 hours as needed. Rocephin 2 g IV daily. Zithromax 500 mg IV daily. We do the blood cultures sputum culture. Reconsult infectious disease for evaluation. Follow the Covid PCR and Covid inflammatory marker (2) Fever Current Visit: Yes Status: Acute Qualifiers: Fever type: unspecified Qualified Code(s): R50.9 - Fever, unspecified Plan to address problem: Tylenol 650 mg p.o. every 6 hours as needed. Rocephin 2 g IV daily. Zithromax 500 mg IV daily. We do the blood cultures sputum culture. Reconsult infectious disease for evaluation. Follow the Covid PCR and Covid inflammatory marker (3) Renal insufficiency Current Visit: Yes Status: Acute Plan to address problem: Avoid nephrotoxic drug. Renally dose medication. Continue home medication. Recheck BMP in the morning. Consult nephrology if needed (4) GERD (gastroesophageal reflux disease) Current Visit: No Status: Acute Qualifiers: Esophagitis presence: without esophagitis Qualified Code(s): K21.9 - Gastro-esophageal reflux disease without esophagitis Plan to address problem: Pepcid 20 mg p.o. every 12 hours for GERD. We will continue the home medication (5) HTN (hypertension) Current Visit: No Status: Acute Qualifiers: Hypertension type: essential hypertension Qualified Code(s): I10 - Essential (primary) hypertension Plan to address problem: Hydralazine 10 mg IV every 6 hours as needed. We will monitor the blood pressure closely. We will continue the home medication (6) DVT prophylaxis Current Visit: No Status: Acute Plan to address problem: Heparin 5000 units subcu every 8 hours for DVT prophylaxis. Pepcid 20 mg p.o. twice daily for GI prophylaxis. Patient is a full code 12/16/20 Patient with acute respiratory failure due to Covid-19 infection. He feels better. No more fever. He is on room air History Interval history: Fever Cough Hospitalist Physical - Physical exam Narrative exam: Gen:Not in acute distress, lying in bed HEENT:Normocephalic, atraumatic Neck:supple, no JVD Lungs: bilateral rales, no wheeze Heart:S1 and S2 reg, no murmurs, rubs or gallop Abd:Soft, non tender, non distended, normal bowel sounds Ext:No edema. no clubbing, no cyanosis Neuro:Awake, alert, oriented X 3, No focal neurological signs - Constitutional Vitals: Temp Pulse Resp BP Pulse Ox 98.6 F 60 18 131/77 98 12/16/20 05:43 12/16/20 09:13 12/16/20 05:43 12/16/20 09:13 12/16/20 07:23 General appearance: Present: no acute distress, well-nourished HEART Score - HEART Score Troponin: Troponin T < 0.010 ng/mL (0.00-0.029) 12/14/20 18:49 Results - Labs CBC & Chem 7: 12/14/20 15:59 12/15/20 09:19 Labs: Laboratory Last Values WBC 4.6 K/mm3 (4.5-11.0) 12/14/20 15:59 RBC 4.53 M/mm3 (3.65-5.03) 12/14/20 15:59 Hgb 14.0 gm/dl (11.8-15.2) 12/14/20 15:59 Hct 40.9 % (35.5-45.6) 12/14/20 15:59 MCV 90 fl (84-94) 12/14/20 15:59 MCH 31 pg (28-32) 12/14/20 15:59 MCHC 34 % (32-34) 12/14/20 15:59 RDW 14.1 % (13.2-15.2) 12/14/20 15:59 Plt Count 97 K/mm3 (140-440) L 12/14/20 15:59 Lymph % (Auto) 21.4 % (13.4-35.0) 12/14/20 15:59 [place] % (Auto) 10.7 % (0.0-7.3) H 12/14/20 15:59 Eos % (Auto) 0.1 % (0.0-4.3) 12/14/20 15:59 Baso % (Auto) 0.1 % (0.0-1.8) 12/14/20 15:59 Lymph # (Auto) 1.0 K/mm3 (1.2-5.4) L 12/14/20 15:59 [place] # (Auto) 0.5 K/mm3 (0.0-0.8) 12/14/20 15:59 Eos # (Auto) 0.0 K/mm3 (0.0-0.4) 12/14/20 15:59 Baso # (Auto) 0.0 K/mm3 (0.0-0.1) 12/14/20 15:59 Seg Neutrophils % 67.7 % (40.0-70.0) 12/14/20 15:59 Seg Neutrophils # 3.1 K/mm3 (1.8-7.7) 12/14/20 15:59 D-Dimer 342.13 ng/mlDDU (0-234) H 12/15/20 05:53 Sodium 133 mmol/L (137-145) L 12/15/20 09:19 Potassium 4.1 mmol/L (3.6-5.0) 12/15/20 09:19 Chloride 98.2 mmol/L (98-107) 12/15/20 09:19 Carbon Dioxide 21 mmol/L (22-30) L 12/15/20 09:19 Anion Gap 18 mmol/L 12/15/20 09:19 BUN 14 mg/dL (9-20) 12/15/20 09:19 Creatinine 1.2 mg/dL (0.8-1.3) 12/15/20 09:19 Estimated GFR > 60 ml/min 12/15/20 09:19 BUN/Creatinine Ratio 12 % 12/15/20 09:19 Glucose 90 mg/dL (75-100) 12/15/20 09:19 Calcium 9.1 mg/dL (8.4-10.2) 12/15/20 09:19 Magnesium 1.40 mg/dL (1.7-2.3) L 12/14/20 23:30 Ferritin 2188.0 ng/mL (30.0-300.0) H 12/15/20 05:53 Total Bilirubin 0.50 mg/dL (0.1-1.2) 12/14/20 15:59 AST 23 units/L (5-40) 12/14/20 15:59 ALT 8 units/L (7-56) 12/14/20 15:59 Alkaline Phosphatase 53 units/L (35-129) 12/14/20 15:59 Lactate Dehydrogenase 158 units/L (91-180) 12/15/20 05:53 Total Creatine Kinase 186 units/L (55-170) H 12/14/20 23:30 Troponin T < 0.010 ng/mL (0.00-0.029) 12/14/20 18:49 C-Reactive Protein 2.00 mg/dL (0.00-1.30) H 12/15/20 05:53 Total Protein 7.3 g/dL (6.3-8.2) 12/14/20 15:59 Albumin 3.8 g/dL (3.9-5) L 12/14/20 15:59 Albumin/Globulin Ratio 1.1 % 12/14/20 15:59 Procalcitonin < 0.05 ng/mL (<0.15) 12/15/20 05:53 Urine Color [place] (Yellow) 12/15/20 04:25 Urine Turbidity Slightly-cloudy (Clear) 12/15/20 04:25 Urine pH 5.0 (5.0-7.0) 12/15/20 04:25 Ur Specific [place] 1.020 (1.003-1.030) 12/15/20 04:25 Urine Protein 30 mg/dl mg/dL (Negative) 12/15/20 04:25 Urine Glucose (UA) Neg mg/dL (Negative) 12/15/20 04:25 Urine Ketones 20 mg/dL (Negative) 12/15/20 04:25 Urine Blood Neg (Negative) 12/15/20 04:25 Urine Nitrite Neg (Negative) 12/15/20 04:25 Urine Bilirubin Neg (Negative) 12/15/20 04:25 Urine Urobilinogen < 2.0 mg/dL (<2.0) 12/15/20 04:25 Ur Leukocyte Esterase Neg (Negative) 12/15/20 04:25 Urine WBC (Auto) 1.0 /HPF (0.0-6.0) 12/15/20 04:25 Urine RBC (Auto) 2.0 /HPF (0.0-6.0) 12/15/20 04:25 U Epithel Cells (Auto) 1.0 /HPF (0-13.0) 12/15/20 04:25 Urine Mucus Few /HPF 12/15/20 04:25 Coronavirus (PCR) Positive (Negative) A 12/15/20 Unknown [place]/IV: Voiding Method Urinal Active Medications - Current Medications Current Medications: Generic Name Dose Route Start Last Admin Trade Name Freq PRN Reason Stop Dose Admin Acetaminophen 650 mg 12/15/20 08:00 Acetaminophen 325 Mg Tab PO Q4H PRN Pain MILD(1-3)/Fever >100.5/BHARDWAJ Albuterol 2.5 mg 12/15/20 08:00 Albuterol 2.5 Mg/3 Ml Nebu IH Q4HRT PRN Shortness Of Breath Dexamethasone 6 mg 12/16/20 10:00 12/16/20 09:13 Dexamethasone 4 Mg/Ml Vial IV 6 mg DAILY TIAN Administration Famotidine 20 mg 12/15/20 10:00 12/16/20 09:04 Famotidine 20 Mg Tab PO 20 mg BID TIAN Administration Heparin Sodium (Porcine) 5,000 unit 12/15/20 14:00 12/16/20 06:47 Heparin 5,000 Unit/1 Ml Vial SUB-Q 5,000 unit Q8HR TIAN Administration Hydralazine HCl 10 mg 12/15/20 10:00 Hydralazine 20 Mg/1 Ml Inj IV Q6H PRN Blood Pressure Hydromorphone HCl 0.5 mg 12/15/20 08:00 Hydromorphone 1 Mg/1 Ml Inj IV Q3H PRN Pain , Severe (7-10) Ceftriaxone Sodium 2 gm in 100 mls @ 200 mls/hr 12/16/20 08:00 12/16/20 08:57 Rocephin/Ns 2 Gm/100 Ml IV Infused Q24H TIAN Infusion Protocol Azithromycin 500 mg in 250 mls @ 250 mls/hr 12/16/20 08:00 12/16/20 09:00 Zithromax/Ns IV 250 mls/hr Q24H TIAN Administration Protocol Lisinopril 10 mg 12/15/20 12:00 12/16/20 09:13 Lisinopril 10 Mg Tab PO 10 mg QDAY TIAN Administration Metoprolol Tartrate 100 mg 12/15/20 10:00 12/16/20 09:04 Metoprolol Tartrate 50 Mg Tab PO 100 mg BID TIAN Administration Mycophenolate Mofetil 250 mg 12/15/20 10:00 12/16/20 10:25 Mycophenolate 250 Mg Cap PO 250 mg BID TIAN Administration Nifedipine 60 mg 12/15/20 10:00 12/16/20 09:04 Nifedipine Xl 60 Mg Tab PO 60 mg QDAY TIAN Administration Ondansetron HCl 4 mg 12/15/20 08:00 Ondansetron 4 Mg/2 Ml Inj IV Q8H PRN Nausea And Vomiting Oseltamivir Phosphate 75 mg 12/15/20 10:00 12/16/20 10:25 Oseltamivir 75 Mg Cap PO 75 mg BID TIAN Administration Oxycodone/Acetaminophen 1 tab 12/15/20 08:00 Oxycodone /Acetaminophen 5-325mg Tab PO Q6H PRN Pain, Moderate (4-6) Sodium Chloride 10 ml 12/15/20 10:00 12/16/20 09:04 Sodium Chloride 0.9% 10 Ml Flush Syringe IV 10 ml BID TIAN Administration Sodium Chloride 10 ml 12/15/20 08:00 Sodium Chloride 0.9% 10 Ml Flush Syringe IV PRN PRN LINE FLUSH Tacrolimus 1 mg 12/15/20 10:00 12/16/20 10:25 Tacrolimus 1 Mg Cap PO 1 mg BID TIAN Administration Tamsulosin HCl 0.4 mg 12/15/20 10:00 12/16/20 09:04 Tamsulosin 0.4 Mg Cap PO 0.4 mg DAILY TIAN Administration
[2020-12-16 11:34] LABS: Basophils % (Auto) 0.3 % (0.0-1.8); Hematocrit 38.9 % (35.5-45.6); Hemoglobin 13.5 gm/dl (11.8-15.2); Lymphocytes # (Auto) 0.7 K/mm3 (1.2-5.4); Lymphocytes % (Auto) 18.4 % (13.4-35.0); Mean Corpuscular HGB Conc 35 % (32-34); Mean Corpuscular Volume 90 fl (84-94); Monocytes # (Auto) 0.2 K/mm3 (0.0-0.8); Monocytes % (Auto) 4.5 % (0.0-7.3); Red Blood Count 4.32 M/mm3 (3.65-5.03); Red Cell Distribution Width 14.4 % (13.2-15.2)
[2020-12-16 11:42] LABS: Platelet Count 81 K/mm3 (140-440)
[2020-12-16 11:57] LABS: BUN/Creatinine Ratio 11; Blood Urea Nitrogen 12 mg/dL (9-20); Calcium 8.2 mg/dL (8.4-10.2); Hemolysis Index 0
[2020-12-16] MEDS: ACETAMINOPHEN 325 MG TAB PO PRN (13:47)
[2020-12-17] MEDS: HEPARIN 5,000 UNIT/1 ML VIAL SUB-Q SCH ×3 (06:20→21:57)
[2020-12-17] MEDS: TACROLIMUS 1 MG CAP PO SCH ×2 (10:08→21:58)
[2020-12-17] MEDS: MYCOPHENOLATE 250 MG CAP PO SCH ×2 (10:08→21:57)
[2020-12-17] MEDS: OSELTAMIVIR 75 MG CAP PO SCH ×2 (10:09→22:00)
[2020-12-17] MEDS: TAMSULOSIN 0.4 MG CAP PO SCH (10:09)
[2020-12-17] MEDS: NIFEdipine XL 60 MG TAB PO SCH ×2 (10:09→10:35)
[2020-12-17] MEDS: FAMOTIDINE 20 MG TAB PO SCH ×2 (10:10→21:58)
[2020-12-17] MEDS: dexAMETHasone 4 MG/ML VIAL IV SCH (10:10)
[2020-12-17] MEDS: cefTRIAXone/NS 2 GM/100 ML 2 GM/100 ML BAG IV SCH (10:16)
[2020-12-17] MEDS: AZITHROMYCIN/NS 500 MG/250 ML 500 MG/250 ML BAG IV SCH (10:16)
[2020-12-17] MEDS: LISINOPRIL 10 MG TAB PO SCH (10:34)
[2020-12-17] MEDS: METOPROLOL TARTRATE 50 MG TAB PO SCH ×2 (10:34→21:57)
--- NOTE | 2020-12-17 11:14 | Progress Note ---
Assessment and Plan Assessment and plan: - Patient Problems (1) Person under investigation for COVID-19 Current Visit: Yes Status: Acute Plan to address problem: Admit the patient to the medical floor. Oxygen via nasal cannula 3 L/min. DuoNeb by nebulizer every 4 hours. Albuterol via nebulizer every 4 hours as needed. Rocephin 2 g IV daily. Zithromax 500 mg IV daily. We do the blood cultures sputum culture. Reconsult infectious disease for evaluation. Follow the Covid PCR and Covid inflammatory marker (2) Fever Current Visit: Yes Status: Acute Qualifiers: Fever type: unspecified Qualified Code(s): R50.9 - Fever, unspecified Plan to address problem: Tylenol 650 mg p.o. every 6 hours as needed. Rocephin 2 g IV daily. Zithromax 500 mg IV daily. We do the blood cultures sputum culture. Reconsult infectious disease for evaluation. Follow the Covid PCR and Covid inflammatory marker (3) Renal insufficiency Current Visit: Yes Status: Acute Plan to address problem: Avoid nephrotoxic drug. Renally dose medication. Continue home medication. Recheck BMP in the morning. Consult nephrology if needed (4) GERD (gastroesophageal reflux disease) Current Visit: No Status: Acute Qualifiers: Esophagitis presence: without esophagitis Qualified Code(s): K21.9 - Gastro-esophageal reflux disease without esophagitis Plan to address problem: Pepcid 20 mg p.o. every 12 hours for GERD. We will continue the home medication (5) HTN (hypertension) Current Visit: No Status: Acute Qualifiers: Hypertension type: essential hypertension Qualified Code(s): I10 - Essential (primary) hypertension Plan to address problem: Hydralazine 10 mg IV every 6 hours as needed. We will monitor the blood pressure closely. We will continue the home medication (6) DVT prophylaxis Current Visit: No Status: Acute Plan to address problem: Heparin 5000 units subcu every 8 hours for DVT prophylaxis. Pepcid 20 mg p.o. twice daily for GI prophylaxis. Patient is a full code 12/16/20 Patient with acute respiratory failure due to Covid-19 infection. He feels better. No more fever. He is on room air 12/17/20 Patient with acute respiratory failure due to Covid-19 infection. He feels better. Fever yesterday. T max 100.0 F. patient has history of renal transplant on Immunosupressants History Interval history: Fever. T max 100.0 F Cough Shortness of breath Kidney transplant about 5 yrs ago Hospitalist Physical - Physical exam Narrative exam: Gen:Not in acute distress, lying in bed HEENT:Normocephalic, atraumatic Neck:supple, no JVD Lungs: bilateral rales, no wheeze Heart:S1 and S2 reg, no murmurs, rubs or gallop Abd:Soft, non tender, non distended, normal bowel sounds Ext:No edema. no clubbing, no cyanosis Neuro:Awake, alert, oriented X 3, No focal neurological signs - Constitutional Vitals: Temp Pulse Resp BP Pulse Ox 99.1 F 72 20 109/63 99 12/17/20 04:28 12/17/20 10:34 12/17/20 10:33 12/17/20 10:34 12/17/20 10:00 General appearance: Present: no acute distress, well-nourished HEART Score - HEART Score Troponin: Troponin T < 0.010 ng/mL (0.00-0.029) 12/14/20 18:49 Results - Labs CBC & Chem 7: 12/16/20 09:40 12/16/20 09:40 Labs: Laboratory Last Values WBC 3.8 K/mm3 (4.5-11.0) L 12/16/20 09:40 RBC 4.32 M/mm3 (3.65-5.03) 12/16/20 09:40 Hgb 13.5 gm/dl (11.8-15.2) 12/16/20 09:40 Hct 38.9 % (35.5-45.6) 12/16/20 09:40 MCV 90 fl (84-94) 12/16/20 09:40 MCH 31 pg (28-32) 12/16/20 09:40 MCHC 35 % (32-34) H 12/16/20 09:40 RDW 14.4 % (13.2-15.2) 12/16/20 09:40 Plt Count 81 K/mm3 (140-440) L 12/16/20 09:40 Lymph % (Auto) 18.4 % (13.4-35.0) 12/16/20 09:40 [place] % (Auto) 4.5 % (0.0-7.3) 12/16/20 09:40 Eos % (Auto) 0.0 % (0.0-4.3) 12/16/20 09:40 Baso % (Auto) 0.3 % (0.0-1.8) 12/16/20 09:40 Lymph # (Auto) 0.7 K/mm3 (1.2-5.4) L 12/16/20 09:40 [place] # (Auto) 0.2 K/mm3 (0.0-0.8) 12/16/20 09:40 Eos # (Auto) 0.0 K/mm3 (0.0-0.4) 12/16/20 09:40 Baso # (Auto) 0.0 K/mm3 (0.0-0.1) 12/16/20 09:40 Seg Neutrophils % 76.8 % (40.0-70.0) H 12/16/20 09:40 Seg Neutrophils # 2.9 K/mm3 (1.8-7.7) 12/16/20 09:40 D-Dimer 342.13 ng/mlDDU (0-234) H 12/15/20 05:53 Sodium 135 mmol/L (137-145) L 12/16/20 09:40 Potassium 4.1 mmol/L (3.6-5.0) 12/16/20 09:40 Chloride 103.1 mmol/L (98-107) 12/16/20 09:40 Carbon Dioxide 19 mmol/L (22-30) L 12/16/20 09:40 Anion Gap 17 mmol/L 12/16/20 09:40 BUN 12 mg/dL (9-20) 12/16/20 09:40 Creatinine 1.1 mg/dL (0.8-1.3) 12/16/20 09:40 Estimated GFR > 60 ml/min 12/16/20 09:40 BUN/Creatinine Ratio 11 % 12/16/20 09:40 Glucose 132 mg/dL (75-100) H 12/16/20 09:40 Calcium 8.2 mg/dL (8.4-10.2) L 12/16/20 09:40 Magnesium 1.40 mg/dL (1.7-2.3) L 12/14/20 23:30 Ferritin 2188.0 ng/mL (30.0-300.0) H 12/15/20 05:53 Total Bilirubin 0.50 mg/dL (0.1-1.2) 12/14/20 15:59 AST 23 units/L (5-40) 12/14/20 15:59 ALT 8 units/L (7-56) 12/14/20 15:59 Alkaline Phosphatase 53 units/L (35-129) 12/14/20 15:59 Lactate Dehydrogenase 158 units/L (91-180) 12/15/20 05:53 Total Creatine Kinase 186 units/L (55-170) H 12/14/20 23:30 Troponin T < 0.010 ng/mL (0.00-0.029) 12/14/20 18:49 C-Reactive Protein 2.00 mg/dL (0.00-1.30) H 12/15/20 05:53 Total Protein 7.3 g/dL (6.3-8.2) 12/14/20 15:59 Albumin 3.8 g/dL (3.9-5) L 12/14/20 15:59 Albumin/Globulin Ratio 1.1 % 12/14/20 15:59 Procalcitonin < 0.05 ng/mL (<0.15) 12/15/20 05:53 Urine Color [place] (Yellow) 12/15/20 04:25 Urine Turbidity Slightly-cloudy (Clear) 12/15/20 04:25 Urine pH 5.0 (5.0-7.0) 12/15/20 04:25 Ur Specific [place] 1.020 (1.003-1.030) 12/15/20 04:25 Urine Protein 30 mg/dl mg/dL (Negative) 12/15/20 04:25 Urine Glucose (UA) Neg mg/dL (Negative) 12/15/20 04:25 Urine Ketones 20 mg/dL (Negative) 12/15/20 04:25 Urine Blood Neg (Negative) 12/15/20 04:25 Urine Nitrite Neg (Negative) 12/15/20 04:25 Urine Bilirubin Neg (Negative) 12/15/20 04:25 Urine Urobilinogen < 2.0 mg/dL (<2.0) 12/15/20 04:25 Ur Leukocyte Esterase Neg (Negative) 12/15/20 04:25 Urine WBC (Auto) 1.0 /HPF (0.0-6.0) 12/15/20 04:25 Urine RBC (Auto) 2.0 /HPF (0.0-6.0) 12/15/20 04:25 U Epithel Cells (Auto) 1.0 /HPF (0-13.0) 12/15/20 04:25 Urine Mucus Few /HPF 12/15/20 04:25 Coronavirus (PCR) Positive (Negative) A 12/15/20 Unknown [place]/IV: Voiding Method Toilet Active Medications - Current Medications Current Medications: Generic Name Dose Route Start Last Admin Trade Name Freq PRN Reason Stop Dose Admin Acetaminophen 650 mg 12/15/20 08:00 12/16/20 13:47 Acetaminophen 325 Mg Tab PO 650 mg Q4H PRN Administration Pain MILD(1-3)/Fever >100.5/BHARDWAJ Albuterol 2.5 mg 12/15/20 08:00 Albuterol 2.5 Mg/3 Ml Nebu IH Q4HRT PRN Shortness Of Breath Dexamethasone 6 mg 12/16/20 10:00 12/17/20 10:10 Dexamethasone 4 Mg/Ml Vial IV 6 mg DAILY TIAN Administration Famotidine 20 mg 12/15/20 10:00 12/17/20 10:10 Famotidine 20 Mg Tab PO 20 mg BID TIAN Administration Heparin Sodium (Porcine) 5,000 unit 12/15/20 14:00 12/17/20 06:20 Heparin 5,000 Unit/1 Ml Vial SUB-Q 5,000 unit Q8HR TIAN Administration Hydralazine HCl 10 mg 12/15/20 10:00 Hydralazine 20 Mg/1 Ml Inj IV Q6H PRN Blood Pressure Hydromorphone HCl 0.5 mg 12/15/20 08:00 Hydromorphone 1 Mg/1 Ml Inj IV Q3H PRN Pain , Severe (7-10) Ceftriaxone Sodium 2 gm in 100 mls @ 200 mls/hr 12/16/20 08:00 12/17/20 10:16 Rocephin/Ns 2 Gm/100 Ml IV 12/20/20 08:29 200 mls/hr Q24H TIAN Administration Protocol Azithromycin 500 mg in 250 mls @ 250 mls/hr 12/16/20 08:00 12/17/20 10:16 Zithromax/Ns IV 12/20/20 08:59 250 mls/hr Q24H TIAN Administration Protocol Lisinopril 10 mg 12/15/20 12:00 12/17/20 10:34 Lisinopril 10 Mg Tab PO Not Given QDAY TIAN Metoprolol Tartrate 100 mg 12/15/20 10:00 12/17/20 10:34 Metoprolol Tartrate 50 Mg Tab PO Not Given BID TIAN Mycophenolate Mofetil 250 mg 12/15/20 10:00 12/17/20 10:08 Mycophenolate 250 Mg Cap PO 250 mg BID TIAN Administration Nifedipine 60 mg 12/15/20 10:00 12/17/20 10:35 Nifedipine Xl 60 Mg Tab PO Not Given QDAY TIAN Ondansetron HCl 4 mg 12/15/20 08:00 Ondansetron 4 Mg/2 Ml Inj IV Q8H PRN Nausea And Vomiting Oseltamivir Phosphate 75 mg 12/15/20 10:00 12/17/20 10:09 Oseltamivir 75 Mg Cap PO 75 mg BID TIAN Administration Oxycodone/Acetaminophen 1 tab 12/15/20 08:00 12/17/20 10:33 Oxycodone /Acetaminophen 5-325mg Tab PO 1 tab Q6H PRN Administration Pain, Moderate (4-6) Sodium Chloride 10 ml 12/15/20 10:00 12/17/20 10:12 Sodium Chloride 0.9% 10 Ml Flush Syringe IV 10 ml BID TIAN Administration Sodium Chloride 10 ml 12/15/20 08:00 Sodium Chloride 0.9% 10 Ml Flush Syringe IV PRN PRN LINE FLUSH Tacrolimus 1 mg 12/15/20 10:00 12/17/20 10:08 Tacrolimus 1 Mg Cap PO 1 mg BID TIAN Administration Tamsulosin HCl 0.4 mg 12/15/20 10:00 12/17/20 10:09 Tamsulosin 0.4 Mg Cap PO 0.4 mg DAILY TIAN Administration
[2020-12-17] MEDS ORDERED: MAGNESIUM SULFATE 3 GM in SODIUM CHLORIDE 0.9% 100 ML IV ONE (13:00)
[2020-12-18] MEDS: HEPARIN 5,000 UNIT/1 ML VIAL SUB-Q SCH ×3 (06:06→22:06)
[2020-12-18 06:53] LABS: BUN/Creatinine Ratio 14; Blood Urea Nitrogen 14 mg/dL (9-20); Calcium 9.1 mg/dL (8.4-10.2); Hemolysis Index 4
[2020-12-18] MEDS: cefTRIAXone/NS 2 GM/100 ML 2 GM/100 ML BAG IV SCH (08:55)
[2020-12-18] MEDS: AZITHROMYCIN/NS 500 MG/250 ML 500 MG/250 ML BAG IV SCH (08:55)
[2020-12-18] MEDS: OSELTAMIVIR 75 MG CAP PO SCH (09:04)
[2020-12-18] MEDS: NIFEdipine XL 60 MG TAB PO SCH (09:04)
[2020-12-18] MEDS: LISINOPRIL 10 MG TAB PO SCH (09:05)
[2020-12-18] MEDS: MYCOPHENOLATE 250 MG CAP PO SCH ×2 (09:05→22:15)
[2020-12-18] MEDS: TACROLIMUS 1 MG CAP PO SCH ×2 (09:05→22:12)
[2020-12-18] MEDS: dexAMETHasone 4 MG/ML VIAL IV SCH (09:07)
[2020-12-18] MEDS: FAMOTIDINE 20 MG TAB PO SCH ×2 (09:07→22:06)
[2020-12-18] MEDS: METOPROLOL TARTRATE 50 MG TAB PO SCH ×2 (09:07→22:21)
[2020-12-18] MEDS: TAMSULOSIN 0.4 MG CAP PO SCH (09:07)
[2020-12-18] MEDS: ACETAMINOPHEN 325 MG TAB PO PRN (10:28)
--- NOTE | 2020-12-18 11:38 | Progress Note ---
Assessment and Plan Assessment and plan: - Patient Problems (1) Person under investigation for COVID-19 Current Visit: Yes Status: Acute Plan to address problem: Admit the patient to the medical floor. Oxygen via nasal cannula 3 L/min. DuoNeb by nebulizer every 4 hours. Albuterol via nebulizer every 4 hours as needed. Rocephin 2 g IV daily. Zithromax 500 mg IV daily. We do the blood cultures sputum culture. Reconsult infectious disease for evaluation. Follow the Covid PCR and Covid inflammatory marker (2) Fever Current Visit: Yes Status: Acute Qualifiers: Fever type: unspecified Qualified Code(s): R50.9 - Fever, unspecified Plan to address problem: Tylenol 650 mg p.o. every 6 hours as needed. Rocephin 2 g IV daily. Zithromax 500 mg IV daily. We do the blood cultures sputum culture. Reconsult infectious disease for evaluation. Follow the Covid PCR and Covid inflammatory marker (3) Renal insufficiency Current Visit: Yes Status: Acute Plan to address problem: Avoid nephrotoxic drug. Renally dose medication. Continue home medication. Recheck BMP in the morning. Consult nephrology if needed (4) GERD (gastroesophageal reflux disease) Current Visit: No Status: Acute Qualifiers: Esophagitis presence: without esophagitis Qualified Code(s): K21.9 - Gastro-esophageal reflux disease without esophagitis Plan to address problem: Pepcid 20 mg p.o. every 12 hours for GERD. We will continue the home medication (5) HTN (hypertension) Current Visit: No Status: Acute Qualifiers: Hypertension type: essential hypertension Qualified Code(s): I10 - Essential (primary) hypertension Plan to address problem: Hydralazine 10 mg IV every 6 hours as needed. We will monitor the blood pressure closely. We will continue the home medication (6) DVT prophylaxis Current Visit: No Status: Acute Plan to address problem: Heparin 5000 units subcu every 8 hours for DVT prophylaxis. Pepcid 20 mg p.o. twice daily for GI prophylaxis. Patient is a full code 12/16/20 Patient with acute respiratory failure due to Covid-19 infection. He feels better. No more fever. He is on room air 12/17/20 Patient with acute respiratory failure due to Covid-19 infection. He feels better. Fever yesterday. T max 100.0 F. patient has history of renal transplant on Immunosupressants 12/18/20 Patient with acute respiratory failure due to Covid-19 infection. He feels better. No more fever x 24 hrs. Patient has history of renal transplant on Immunosupressants. ID Physician following. On Oxygen at 2 l/min History Interval history: Fever. T max 100.0 F Cough Shortness of breath Kidney transplant about 5 yrs ago Hospitalist Physical - Physical exam Narrative exam: Gen:Not in acute distress, lying in bed HEENT:Normocephalic, atraumatic Neck:supple, no JVD Lungs: bilateral rales, no wheeze Heart:S1 and S2 reg, no murmurs, rubs or gallop Abd:Soft, non tender, non distended, normal bowel sounds Ext:No edema. no clubbing, no cyanosis Neuro:Awake, alert, oriented X 3, No focal neurological signs - Constitutional Vitals: Temp Pulse Resp BP Pulse Ox 97.9 F 60 20 141/84 100 12/18/20 04:41 12/18/20 04:41 12/18/20 10:28 12/18/20 09:05 12/18/20 04:41 General appearance: Present: no acute distress, well-nourished HEART Score - HEART Score Troponin: Troponin T < 0.010 ng/mL (0.00-0.029) 12/14/20 18:49 Results - Labs CBC & Chem 7: 12/16/20 09:40 12/18/20 15:43 Labs: Laboratory Last Values WBC 3.8 K/mm3 (4.5-11.0) L 12/16/20 09:40 RBC 4.32 M/mm3 (3.65-5.03) 12/16/20 09:40 Hgb 13.5 gm/dl (11.8-15.2) 12/16/20 09:40 Hct 38.9 % (35.5-45.6) 12/16/20 09:40 MCV 90 fl (84-94) 12/16/20 09:40 MCH 31 pg (28-32) 12/16/20 09:40 MCHC 35 % (32-34) H 12/16/20 09:40 RDW 14.4 % (13.2-15.2) 12/16/20 09:40 Plt Count 81 K/mm3 (140-440) L 12/16/20 09:40 Lymph % (Auto) 18.4 % (13.4-35.0) 12/16/20 09:40 [place] % (Auto) 4.5 % (0.0-7.3) 12/16/20 09:40 Eos % (Auto) 0.0 % (0.0-4.3) 12/16/20 09:40 Baso % (Auto) 0.3 % (0.0-1.8) 12/16/20 09:40 Lymph # (Auto) 0.7 K/mm3 (1.2-5.4) L 12/16/20 09:40 [place] # (Auto) 0.2 K/mm3 (0.0-0.8) 12/16/20 09:40 Eos # (Auto) 0.0 K/mm3 (0.0-0.4) 12/16/20 09:40 Baso # (Auto) 0.0 K/mm3 (0.0-0.1) 12/16/20 09:40 Seg Neutrophils % 76.8 % (40.0-70.0) H 12/16/20 09:40 Seg Neutrophils # 2.9 K/mm3 (1.8-7.7) 12/16/20 09:40 D-Dimer 342.13 ng/mlDDU (0-234) H 12/15/20 05:53 Sodium 136 mmol/L (137-145) L 12/18/20 06:18 Potassium 4.4 mmol/L (3.6-5.0) 12/18/20 06:18 Chloride 104.1 mmol/L (98-107) 12/18/20 06:18 Carbon Dioxide 21 mmol/L (22-30) L 12/18/20 06:18 Anion Gap 15 mmol/L 12/18/20 06:18 BUN 14 mg/dL (9-20) 12/18/20 06:18 Creatinine 1.0 mg/dL (0.8-1.3) 12/18/20 06:18 Estimated GFR > 60 ml/min 12/18/20 06:18 BUN/Creatinine Ratio 14 % 12/18/20 06:18 Glucose 97 mg/dL (75-100) 12/18/20 06:18 POC Glucose 95 mg/dL (70-105) 12/18/20 07:46 Calcium 9.1 mg/dL (8.4-10.2) 12/18/20 06:18 Magnesium 2.00 mg/dL (1.7-2.3) 12/18/20 06:18 Ferritin 2188.0 ng/mL (30.0-300.0) H 12/15/20 05:53 Total Bilirubin 0.50 mg/dL (0.1-1.2) 12/14/20 15:59 AST 23 units/L (5-40) 12/14/20 15:59 ALT 8 units/L (7-56) 12/14/20 15:59 Alkaline Phosphatase 53 units/L (35-129) 12/14/20 15:59 Lactate Dehydrogenase 158 units/L (91-180) 12/15/20 05:53 Total Creatine Kinase 186 units/L (55-170) H 12/14/20 23:30 Troponin T < 0.010 ng/mL (0.00-0.029) 12/14/20 18:49 C-Reactive Protein 2.00 mg/dL (0.00-1.30) H 12/15/20 05:53 Total Protein 7.3 g/dL (6.3-8.2) 12/14/20 15:59 Albumin 3.8 g/dL (3.9-5) L 12/14/20 15:59 Albumin/Globulin Ratio 1.1 % 12/14/20 15:59 Procalcitonin < 0.05 ng/mL (<0.15) 12/15/20 05:53 Urine Color [place] (Yellow) 12/15/20 04:25 Urine Turbidity Slightly-cloudy (Clear) 12/15/20 04:25 Urine pH 5.0 (5.0-7.0) 12/15/20 04:25 Ur Specific [place] 1.020 (1.003-1.030) 12/15/20 04:25 Urine Protein 30 mg/dl mg/dL (Negative) 12/15/20 04:25 Urine Glucose (UA) Neg mg/dL (Negative) 12/15/20 04:25 Urine Ketones 20 mg/dL (Negative) 12/15/20 04:25 Urine Blood Neg (Negative) 12/15/20 04:25 Urine Nitrite Neg (Negative) 12/15/20 04:25 Urine Bilirubin Neg (Negative) 12/15/20 04:25 Urine Urobilinogen < 2.0 mg/dL (<2.0) 12/15/20 04:25 Ur Leukocyte Esterase Neg (Negative) 12/15/20 04:25 Urine WBC (Auto) 1.0 /HPF (0.0-6.0) 12/15/20 04:25 Urine RBC (Auto) 2.0 /HPF (0.0-6.0) 12/15/20 04:25 U Epithel Cells (Auto) 1.0 /HPF (0-13.0) 12/15/20 04:25 Urine Mucus Few /HPF 12/15/20 04:25 Coronavirus (PCR) Positive (Negative) A 12/15/20 Unknown [place]/IV: Voiding Method Toilet Active Medications - Current Medications Current Medications: Generic Name Dose Route Start Last Admin Trade Name Freq PRN Reason Stop Dose Admin Acetaminophen 650 mg 12/15/20 08:00 12/18/20 10:28 Acetaminophen 325 Mg Tab PO 650 mg Q4H PRN Administration Pain MILD(1-3)/Fever >100.5/BHARDWAJ Albuterol 2.5 mg 12/15/20 08:00 Albuterol 2.5 Mg/3 Ml Nebu IH Q4HRT PRN Shortness Of Breath Dexamethasone 6 mg 12/16/20 10:00 12/18/20 09:07 Dexamethasone 4 Mg/Ml Vial IV 12/24/20 10:01 6 mg DAILY TIAN Administration Famotidine 20 mg 12/15/20 10:00 12/18/20 09:07 Famotidine 20 Mg Tab PO 20 mg BID TIAN Administration Heparin Sodium (Porcine) 5,000 unit 12/15/20 14:00 12/18/20 06:06 Heparin 5,000 Unit/1 Ml Vial SUB-Q 5,000 unit Q8HR TIAN Administration Hydralazine HCl 10 mg 12/15/20 10:00 Hydralazine 20 Mg/1 Ml Inj IV Q6H PRN Blood Pressure Hydromorphone HCl 0.5 mg 12/15/20 08:00 Hydromorphone 1 Mg/1 Ml Inj IV Q3H PRN Pain , Severe (7-10) Ceftriaxone Sodium 2 gm in 100 mls @ 200 mls/hr 12/16/20 08:00 12/18/20 08:55 Rocephin/Ns 2 Gm/100 Ml IV 12/19/20 08:29 200 mls/hr Q24H TIAN Administration Protocol Azithromycin 500 mg in 250 mls @ 250 mls/hr 12/16/20 08:00 12/18/20 08:55 Zithromax/Ns IV 12/19/20 08:59 250 mls/hr Q24H TIAN Administration Protocol Lisinopril 10 mg 12/15/20 12:00 12/18/20 09:05 Lisinopril 10 Mg Tab PO 10 mg QDAY TIAN Administration Metoprolol Tartrate 100 mg 12/15/20 10:00 12/18/20 09:07 Metoprolol Tartrate 50 Mg Tab PO 100 mg BID TIAN Administration Mycophenolate Mofetil 250 mg 12/15/20 10:00 12/18/20 09:05 Mycophenolate 250 Mg Cap PO 250 mg BID TIAN Administration Nifedipine 60 mg 12/15/20 10:00 12/18/20 09:04 Nifedipine Xl 60 Mg Tab PO 60 mg QDAY TIAN Administration Ondansetron HCl 4 mg 12/15/20 08:00 12/18/20 10:28 Ondansetron 4 Mg/2 Ml Inj IV 4 mg Q8H PRN Administration Nausea And Vomiting Oxycodone/Acetaminophen 1 tab 12/15/20 08:00 12/17/20 10:33 Oxycodone /Acetaminophen 5-325mg Tab PO 1 tab Q6H PRN Administration Pain, Moderate (4-6) Sodium Chloride 10 ml 12/15/20 10:00 12/18/20 09:06 Sodium Chloride 0.9% 10 Ml Flush Syringe IV 10 ml BID TIAN Administration Sodium Chloride 10 ml 12/15/20 08:00 Sodium Chloride 0.9% 10 Ml Flush Syringe IV PRN PRN LINE FLUSH Tacrolimus 1 mg 12/15/20 10:00 12/18/20 09:05 Tacrolimus 1 Mg Cap PO 1 mg BID TIAN Administration Tamsulosin HCl 0.4 mg 12/15/20 10:00 12/18/20 09:07 Tamsulosin 0.4 Mg Cap PO 0.4 mg DAILY TIAN Administration
--- NOTE | 2020-12-18 15:40 | Progress Note ---
Assessment and Plan Cultures: COVID-19 PCR: Positive A/P: 60-year-old man past medical history hypertension, GERD, prior kidney transplant 2017 admitted as Covid PUI #COVID-19 pneumonia: PCR positive, CT abdomen pelvis was concerning for groundglass opacities typical Covid. He was vaccinated against Covid however due to immunosuppressed status may not have had robust response. #History of kidney transplant/immunosuppressed host: Currently on mycophenolate and tacrolimus. Renal function is good. #Hypertension #Leukopenia: Likely from COVID-19. Recs: -Procalcitonin is low, antibiotics discontinued -Continue steroids -IV remdesivir ordered given immunocompromised status Magno Goodrich MD, FACP [facility] ([facility] O: [phone] F: [phone] Subjective Date of service: 12/18/20 Interval history: Afebrile. On oxygen by nasal cannula 3 L/min. Objective - Exam Narrative Exam: Physical Exam (reviewed in chart to minimize risk of transmission) Constitutional: deferred Head, Ears, Nose: deferred Eyes: deferred Neck: deferred Oral: deferred Cardiovascular: deferred Respiratory: deferred GI: deferred Musculoskeletal: deferred Skin: deferred Hem/Lymphatic: deferred Psych: deferred Neurological: deferred - Constitutional Vitals: Vital Signs Temp Pulse Resp BP Pulse Ox 97.9 F 60 20 141/84 100 12/18/20 04:41 12/18/20 04:41 12/18/20 10:28 12/18/20 09:05 12/18/20 04:41 Temperature -Last 24 Hours Temperature 97.9 F Temperature 98.2 F Temperature 98.6 F - Labs CBC & Chem 7: 12/16/20 09:40 12/18/20 06:18 Labs: Abnormal lab results 12/17/20 12/17/20 12/18/20 Range/Units 16:40 21:37 06:18 Sodium 136 L (137-145) mmol/L Carbon Dioxide 21 L (22-30) mmol/L POC Glucose 158 H 139 H (70-105) mg/dL 12/18/20 Range/Units 11:43 Sodium (137-145) mmol/L Carbon Dioxide (22-30) mmol/L POC Glucose 135 H (70-105) mg/dL
[2020-12-18 16:23] LABS: Alanine Aminotransferase 12 units/L (7-56); Albumin 3.6 g/dL (3.9-5); BUN/Creatinine Ratio 13; Blood Urea Nitrogen 14 mg/dL (9-20); Calcium 8.8 mg/dL (8.4-10.2); Hemolysis Index 8
[2020-12-18] MEDS ORDERED: REMDESIVIR 200 MG in SODIUM CHLORIDE 0.9% 250ML 250 ML IV ONE (16:30)
[2020-12-18] MEDS: SODIUM CHLORIDE 0.9% 50 ML IVPB IV SCH ×2 (17:42→22:16)
--- NOTE | 2020-12-18 21:16 | Consultation ---
History of Present Illness - Reason for Consult Consult date: 12/18/20 other (Kidney transplant status) Requesting physician: FRANNIE STALLINGS - History of Present Illness 58-year-old male who is well-known to me with history of end-stage renal disease status post donor kidney transplant November 2016 after been on dialysis since March 2009. Stable transplant kidney function with no episodes of acute rejection and creatinine stable at around 1 mg/dL. Patient has longstanding history of hypertension which has been controlled. Presented to hospital on account of 2-day history of abdominal pain generalized body aches fever and cough. Patient denies any nausea or vomiting. COVID-19 PCR is positive and is being managed for COVID-19 pneumonia. He actually received 2 doses of the COVID-19 vaccine. Blood and sputum cultures were negative and procalcitonin level was low. I am consulted to assist with managing his kidney transplant status. Patient is receiving immunosuppression Past History Past Medical History: anemia, GERD, hypertension, renal failure Past Surgical History: Other (Kidney transplant, AV access placement) Social history: lives with family. denies: smoking (with smoking in 1998), alcohol abuse, prescription drug abuse, IV drug use Family history: hypertension Medications and Allergies Allergies Allergy/AdvReac Type Severity Reaction Status Date / Time No Known Allergies Allergy Verified 12/14/20 15:36 Home Medications Medication Instructions Recorded Confirmed Last Taken Type Metoprolol [Lopressor TAB] 100 mg PO BID 12/28/14 12/15/20 04/15/18 09:00 History NIFEdipine 60 mg PO 3XW 02/21/15 12/16/20 04/15/18 09:30 History Mycophenolate [Cellcept] 250 mg PO BID 04/10/18 12/15/20 04/15/18 09:00 History Omeprazole 40 mg PO DAILY 04/10/18 12/15/20 04/15/18 09:00 History Prednisone [predniSONE (Mariluz) ER 5 mg PO QDAY 04/10/18 12/15/20 04/15/18 09:00 History TAB] Tacrolimus [Prograf] 7 mg PO DAILY 04/10/18 12/16/20 04/15/18 09:00 History Tamsulosin HCl [Flomax] 0.4 mg PO BID 04/10/18 12/16/20 04/15/18 09:00 History lisinopriL [Zestril TAB] 40 mg PO QPM 04/10/18 12/16/20 04/15/18 09:00 History Oseltamivir [Tamiflu] 75 mg PO BID 5 Days #10 cap 12/29/18 12/15/20 Unknown Rx Active Meds: Active Medications Acetaminophen (Acetaminophen 325 Mg Tab) 650 mg PO Q4H PRN PRN Reason: Pain MILD(1-3)/Fever >100.5/BHARDWAJ Last Admin: 12/18/20 10:28 Dose: 650 mg Documented by: Albuterol (Albuterol 2.5 Mg/3 Ml Nebu) 2.5 mg IH Q4HRT PRN PRN Reason: Shortness Of Breath Dexamethasone (Dexamethasone 4 Mg/Ml Vial) 6 mg IV DAILY [facility] Stop: 12/24/20 10:01 Last Admin: 12/18/20 09:07 Dose: 6 mg Documented by: Famotidine (Famotidine 20 Mg Tab) 20 mg PO BID [facility] Last Admin: 12/18/20 09:07 Dose: 20 mg Documented by: Heparin Sodium (Porcine) (Heparin 5,000 Unit/1 Ml Vial) 5,000 unit SUB-Q Q8HR [facility] Last Admin: 12/18/20 13:44 Dose: 5,000 unit Documented by: Hydralazine HCl (Hydralazine 20 Mg/1 Ml Inj) 10 mg IV Q6H PRN PRN Reason: Blood Pressure Hydromorphone HCl (Hydromorphone 1 Mg/1 Ml Inj) 0.5 mg IV Q3H PRN PRN Reason: Pain , Severe (7-10) REMDESIVIR 100 mg/ Sodium (Chloride) 250 mls @ 500 mls/hr IV Q24HR@2100 [facility] Stop: 12/22/20 21:29 Lisinopril (Lisinopril 10 Mg Tab) 10 mg PO QDAY [facility] Last Admin: 12/18/20 09:05 Dose: 10 mg Documented by: Metoprolol Tartrate (Metoprolol Tartrate 50 Mg Tab) 100 mg PO BID [facility] Last Admin: 12/18/20 09:07 Dose: 100 mg Documented by: Mycophenolate Mofetil (Mycophenolate 250 Mg Cap) 250 mg PO BID [facility] Last Admin: 12/18/20 09:05 Dose: 250 mg Documented by: Nifedipine (Nifedipine Xl 60 Mg Tab) 60 mg PO QDAY [facility] Last Admin: 12/18/20 09:04 Dose: 60 mg Documented by: Ondansetron HCl (Ondansetron 4 Mg/2 Ml Inj) 4 mg IV Q8H PRN PRN Reason: Nausea And Vomiting Last Admin: 12/18/20 10:28 Dose: 4 mg Documented by: Oxycodone/Acetaminophen (Oxycodone /Acetaminophen 5-325mg Tab) 1 tab PO Q6H PRN PRN Reason: Pain, Moderate (4-6) Last Admin: 12/17/20 10:33 Dose: 1 tab Documented by: Sodium Chloride (Sodium Chloride 0.9% 10 Ml Flush Syringe) 10 ml IV BID [facility] Last Admin: 12/18/20 09:06 Dose: 10 ml Documented by: Sodium Chloride (Sodium Chloride 0.9% 10 Ml Flush Syringe) 10 ml IV PRN PRN PRN Reason: LINE FLUSH Sodium Chloride (Sodium Chloride 0.9% 50 Ml Ivpb) 50 ml IV Q24HR@2100 [facility] Stop: 12/21/20 21:01 Last Admin: 12/18/20 17:42 Dose: 50 ml Documented by: Tacrolimus (Tacrolimus 1 Mg Cap) 1 mg PO BID [facility] Last Admin: 12/18/20 09:05 Dose: 1 mg Documented by: Tamsulosin HCl (Tamsulosin 0.4 Mg Cap) 0.4 mg PO DAILY [facility] Last Admin: 12/18/20 09:07 Dose: 0.4 mg Documented by: Review of Systems All systems: negative (Unable to obtain due to ID- status decrease exposure of Physician) Exam - Vital Signs Vital signs: Vital Signs Temp Pulse Resp BP Pulse Ox 100.9 F H 75 20 117/68 97 12/14/20 15:39 12/14/20 15:39 12/14/20 15:39 12/14/20 15:39 12/14/20 15:39 - Physical Exam Narrative exam: Patient was not examined at the bedside today due to personal protective equipment preservation during the COVID-19 pandemic Results - Lab Results 12/20/20 07:35 12/20/20 07:35 Most recent lab results Calcium 8.8 mg/dL (8.4-10.2) 12/18/20 15:43 Magnesium 2.00 mg/dL (1.7-2.3) 12/18/20 06:18 Assessment and Plan - Patient Problems (1) Kidney transplant status Current Visit: Yes Status: Acute Plan to address problem: Continue immunosuppression. Follow-up Prograf level. (2) Hyponatremia Current Visit: Yes Status: Acute Plan to address problem: Improving. Follow-up level (3) Pneumonia due to COVID-19 virus Current Visit: Yes Status: Acute Plan to address problem: Continue management per infectious disease client relationship consultant. IV/PO Dexamethasone Supplemental oxygen/Respiratory support as needed Proning as tolerated Remdesevir Prophylactic anticoagulation Trend inflammatory markers to assess disease progression and prognosis (4) Leukopenia Current Visit: Yes Status: Acute Plan to address problem: Follow-up white blood cell count (5) Hypertensive chronic kidney disease with stage 1 through stage 4 chronic kidney disease, or unspecified chronic kidney disease Current Visit: No Status: Acute Plan to address problem: Follow-up blood pressure on current medications (6) GERD (gastroesophageal reflux disease) Current Visit: No Status: Chronic Plan to address problem: Continue proton pump inhibitor
[2020-12-19] MEDS: HEPARIN 5,000 UNIT/1 ML VIAL SUB-Q SCH ×3 (05:47→21:23)
--- NOTE | 2020-12-19 08:37 | Progress Note ---
Assessment and Plan - Patient Problems (1) Kidney transplant status Current Visit: Yes Status: Acute Plan to address problem: Continue immunosuppression but adjust to the correct doses patient was taking prior to admission. Follow-up Prograf level. (2) Hyponatremia Current Visit: Yes Status: Acute Plan to address problem: Improving. Follow-up level (3) Pneumonia due to COVID-19 virus Current Visit: Yes Status: Acute Plan to address problem: Continue management per infectious disease forestry consultant. IV/PO Dexamethasone Supplemental oxygen/Respiratory support as needed Proning as tolerated Remdesevir Prophylactic anticoagulation Trend inflammatory markers to assess disease progression and prognosis (4) Leukopenia Current Visit: Yes Status: Acute Plan to address problem: Follow-up white blood cell count (5) Hypertensive chronic kidney disease with stage 1 through stage 4 chronic kidney disease, or unspecified chronic kidney disease Current Visit: No Status: Acute Plan to address problem: Follow-up blood pressure on current medications (6) GERD (gastroesophageal reflux disease) Current Visit: No Status: Chronic Plan to address problem: Continue proton pump inhibitor Subjective Date of service: 12/19/20 Principal diagnosis: Kidney transplant status: COVID-19 pneumonia Interval history: Patient seen lying in bed. He has no complaints. Shortness of breath improv ing. No nausea vomiting. No chest pain. Patient notes he has not been getting the correct doses of mycophenolate and tacrolimus Objective - Exam Narrative Exam: Middle-aged -[place] male lying in bed in no acute distress HEENT: NCAT, Neck: Supple, no venous distention CVS: S1S2 RRR with no murmur, rub or gallop Chest: Coarse breath sounds bilaterally Abdomen: Protuberant, soft, nontender, no organomegaly, bowel sounds are present Extremities: No edema Neuro: Awake, alert no focal deficits - Vital Signs Vital signs: Vital Signs - 12hr 12/18/20 12/18/20 12/18/20 21:00 21:58 22:21 Temperature 98.8 F Pulse Rate 61 61 Respiratory 18 Rate Blood Pressure 123/71 123/71 O2 Sat by Pulse 100 98 Oximetry 12/19/20 04:41 Temperature 98.4 F Pulse Rate 77 Respiratory 18 Rate Blood Pressure 113/58 O2 Sat by Pulse 97 Oximetry - Lab 12/20/20 07:35 12/20/20 07:35 Most recent lab results Calcium 8.8 mg/dL (8.4-10.2) 12/18/20 15:43 Magnesium 2.00 mg/dL (1.7-2.3) 12/18/20 06:18 Medications & Allergies - Medications Allergies/Adverse Reactions: Allergies No Known Allergies Allergy (Verified 12/14/20 15:36) Home Medications: Home Medications Medication Instructions Recorded Confirmed Last Taken Type Metoprolol [Lopressor TAB] 100 mg PO BID 12/28/14 12/15/20 04/15/18 09:00 History NIFEdipine 60 mg PO 3XW 02/21/15 12/16/20 04/15/18 09:30 History Mycophenolate [Cellcept] 250 mg PO BID 04/10/18 12/15/20 04/15/18 09:00 History Omeprazole 40 mg PO DAILY 04/10/18 12/15/20 04/15/18 09:00 History Prednisone [predniSONE (Mariluz) ER 5 mg PO QDAY 04/10/18 12/15/20 04/15/18 09:00 History TAB] Tacrolimus [Prograf] 7 mg PO DAILY 04/10/18 12/16/20 04/15/18 09:00 History Tamsulosin HCl [Flomax] 0.4 mg PO BID 04/10/18 12/16/20 04/15/18 09:00 History lisinopriL [Zestril TAB] 40 mg PO QPM 04/10/18 12/16/20 04/15/18 09:00 History Oseltamivir [Tamiflu] 75 mg PO BID 5 Days #10 cap 12/29/18 12/15/20 Unknown Rx Active Medications: Generic Name Dose Route Start Last Admin Trade Name Freq PRN Reason Stop Dose Admin Acetaminophen 650 mg 12/15/20 08:00 12/18/20 10:28 Acetaminophen 325 Mg Tab PO 650 mg Q4H PRN Administration Pain MILD(1-3)/Fever >100.5/BHARDWAJ Albuterol 2.5 mg 12/15/20 08:00 Albuterol 2.5 Mg/3 Ml Nebu IH Q4HRT PRN Shortness Of Breath Dexamethasone 6 mg 12/16/20 10:00 12/18/20 09:07 Dexamethasone 4 Mg/Ml Vial IV 12/24/20 10:01 6 mg DAILY TIAN Administration Famotidine 20 mg 12/15/20 10:00 12/18/20 22:06 Famotidine 20 Mg Tab PO 20 mg BID TIAN Administration Heparin Sodium (Porcine) 5,000 unit 12/15/20 14:00 12/19/20 05:47 Heparin 5,000 Unit/1 Ml Vial SUB-Q 5,000 unit Q8HR TIAN Administration Hydralazine HCl 10 mg 12/15/20 10:00 Hydralazine 20 Mg/1 Ml Inj IV Q6H PRN Blood Pressure Hydromorphone HCl 0.5 mg 12/15/20 08:00 Hydromorphone 1 Mg/1 Ml Inj IV Q3H PRN Pain , Severe (7-10) REMDESIVIR 100 mg/ Sodium 250 mls @ 500 mls/hr 12/19/20 21:00 Chloride IV 12/22/20 21:29 Q24HR@2100 TIAN Lisinopril 10 mg 12/15/20 12:00 12/18/20 09:05 Lisinopril 10 Mg Tab PO 10 mg QDAY TIAN Administration Metoprolol Tartrate 100 mg 12/15/20 10:00 12/18/20 22:21 Metoprolol Tartrate 50 Mg Tab PO 100 mg BID TIAN Administration Mycophenolate Mofetil 250 mg 12/15/20 10:00 12/18/20 22:15 Mycophenolate 250 Mg Cap PO 250 mg BID TIAN Administration Nifedipine 60 mg 12/15/20 10:00 12/18/20 09:04 Nifedipine Xl 60 Mg Tab PO 60 mg QDAY TIAN Administration Ondansetron HCl 4 mg 12/15/20 08:00 12/18/20 10:28 Ondansetron 4 Mg/2 Ml Inj IV 4 mg Q8H PRN Administration Nausea And Vomiting Oxycodone/Acetaminophen 1 tab 12/15/20 08:00 12/17/20 10:33 Oxycodone /Acetaminophen 5-325mg Tab PO 1 tab Q6H PRN Administration Pain, Moderate (4-6) Sodium Chloride 10 ml 12/15/20 10:00 12/18/20 22:08 Sodium Chloride 0.9% 10 Ml Flush Syringe IV 10 ml BID TIAN Administration Sodium Chloride 10 ml 12/15/20 08:00 Sodium Chloride 0.9% 10 Ml Flush Syringe IV PRN PRN LINE FLUSH Sodium Chloride 50 ml 12/18/20 16:30 12/18/20 22:16 Sodium Chloride 0.9% 50 Ml Ivpb IV 12/21/20 21:01 50 ml Q24HR@2100 TIAN Administration Tacrolimus 1 mg 12/15/20 10:00 12/18/20 22:12 Tacrolimus 1 Mg Cap PO 1 mg BID TIAN Administration Tamsulosin HCl 0.4 mg 12/15/20 10:00 12/18/20 09:07 Tamsulosin 0.4 Mg Cap PO 0.4 mg DAILY TIAN Administration
[2020-12-19 09:18] LABS: BUN/Creatinine Ratio 17; Blood Urea Nitrogen 15 mg/dL (9-20); Calcium 9.4 mg/dL (8.4-10.2); Hemolysis Index 8
[2020-12-19 09:46] LABS: Mean Corpuscular HGB Conc 35 % (32-34); Mean Corpuscular Volume 88 fl (84-94); Platelet Count 108 K/mm3 (140-440); Red Cell Distribution Width 14.3 % (13.2-15.2)
[2020-12-19] MEDS: LISINOPRIL 10 MG TAB PO SCH (09:48)
[2020-12-19] MEDS: METOPROLOL TARTRATE 50 MG TAB PO SCH ×2 (09:48→21:36)
[2020-12-19] MEDS: NIFEdipine XL 60 MG TAB PO SCH (09:48)
[2020-12-19] MEDS: FAMOTIDINE 20 MG TAB PO SCH ×2 (09:48→23:55)
[2020-12-19] MEDS: dexAMETHasone 4 MG/ML VIAL IV SCH (09:49)
[2020-12-19] MEDS: TAMSULOSIN 0.4 MG CAP PO SCH (09:50)
[2020-12-19] MEDS: MYCOPHENOLATE 250 MG CAP PO SCH ×2 (10:28→21:19)
[2020-12-19] MEDS: TACROLIMUS 1 MG CAP PO SCH ×2 (10:28→21:21)
[2020-12-19] MEDS: guaiFENesin ER 600 MG TAB PO SCH ×2 (12:11→21:22)
--- NOTE | 2020-12-19 14:59 | Progress Note ---
Assessment and Plan Cultures: COVID-19 PCR: Positive A/P: 60-year-old man past medical history hypertension, GERD, prior kidney transplant 2017 admitted as Covid PUI #COVID-19 pneumonia: PCR positive, CT abdomen pelvis was concerning for groundglass opacities typical Covid. He was vaccinated against Covid however due to immunosuppressed status may not have had robust response. #History of kidney transplant/immunosuppressed host: Currently on mycophenolate and tacrolimus. Renal function is good. #Hypertension #Leukopenia: Likely from COVID-19. Recs: -rechecking markers tomorrow -Continue steroids -continue IV remdesivir, D2 -ambulatory sats in AM Magno Goodrich MD, FACP [facility] ([facility] O: [phone] F: [phone] Subjective Date of service: 12/19/20 Interval history: Afebrile. No respiratory distress. Objective - Exam Narrative Exam: Physical Exam (reviewed in chart to minimize risk of transmission) Constitutional: deferred Head, Ears, Nose: deferred Eyes: deferred Neck: deferred Oral: deferred Cardiovascular: deferred Respiratory: deferred GI: deferred Musculoskeletal: deferred Skin: deferred Hem/Lymphatic: deferred Psych: deferred Neurological: deferred - Constitutional Vitals: Vital Signs Temp Pulse Resp BP Pulse Ox 98.4 F 77 18 113/58 97 12/19/20 04:41 12/19/20 04:41 12/19/20 04:41 12/19/20 04:41 12/19/20 04:41 Temperature -Last 24 Hours Temperature 98.4 F Temperature 98.8 F Temperature 98.7 F - Labs CBC & Chem 7: 12/19/20 08:10 12/19/20 08:10 Labs: Abnormal lab results 12/18/20 12/18/20 12/18/20 Range/Units 15:43 16:46 21:55 WBC (4.5-11.0) K/mm3 MCHC (32-34) % Plt Count (140-440) K/mm3 Sodium 132 L (137-145) mmol/L Carbon Dioxide 20 L (22-30) mmol/L Glucose 138 H (75-100) mg/dL POC Glucose 128 H 139 H (70-105) mg/dL Albumin 3.6 L (3.9-5) g/dL 12/19/20 12/19/20 12/19/20 Range/Units 08:10 08:10 12:11 WBC 4.1 L (4.5-11.0) K/mm3 MCHC 35 H (32-34) % Plt Count 108 L (140-440) K/mm3 Sodium 135 L (137-145) mmol/L Carbon Dioxide (22-30) mmol/L Glucose (75-100) mg/dL POC Glucose 120 H (70-105) mg/dL Albumin (3.9-5) g/dL
--- NOTE | 2020-12-19 15:30 | Progress Note ---
Assessment and Plan 60-year-old male who had both of his COVID-19 vaccines with past medical history of hypertension, GERD, kidney transplant in 2017 was brought to the emergency room because of abdominal pain, body aches, fever, cough for last 2 days. In the emergency room CT scan of the abdomen pelvis showed suspected Covid pneumonia. Patient tested positive for COVID-19, admitted for further evaluation and management Assessment and plan: --COVID-19 pneumonia -Patient tested positive for COVID-19 -Placed on dexamethasone for total 10 days and remdesivir total 5 days -No need for antibiotic as procalcitonin level is normal -Infectious disease consulted, appreciate recommendations -Droplet/contact isolation -Continue SPO2 monitoring -Supplemental oxygen as needed -Pulmonary hygiene -Prone to sleep -Vitamin C, vitamin D, zinc -Anticoagulation per protocol -Lasix IV as needed to prevent pulmonary edema -- Fever due to COVID-19 --MARSHA due to vasomotor nephropathy, follow BMP, nephrology consulted --Status post kidney transplant, continue home meds -- GERD (gastroesophageal reflux disease), continue PPI -- HTN (hypertension), monitor BP and continue home meds --DVT prophylaxis Heparin 5000 units subcu every 8 hours for DVT prophylaxis. Pepcid 20 mg p.o. twice daily for GI prophylaxis. Patient is a full code Daily clinical course: 12/16/20 Patient with acute respiratory failure due to Covid-19 infection. He feels better. No more fever. He is on room air 12/17/20 Patient with acute respiratory failure due to Covid-19 infection. He feels better. Fever yesterday. T max 100.0 F. patient has history of renal transplant on Immunosupressants 12/18/20 Patient with acute respiratory failure due to Covid-19 infection. He feels better. No more fever x 24 hrs. Patient has history of renal transplant on Immunosupressants. ID Physician following. On Oxygen at 2 l/min 12/19/20: Continue dexamethasone for 10 days and added remdesivir for 5 days for patient's immunocompromised state with transplant kidney. Continue to follow inflammatory markers and renal function. Patient resting at room air. Subjective Date of service: 12/19/20 Interval history: Patient seen and examined. Medical records and medication list reviewed. No acute event overnight noted by the RN. Patient complains of pleuritic chest pain and difficulty breathing on ambulation and following cough. Patient is tolerating diet. Discussed plan of care at bedside with patient. Objective - Exam Narrative Exam: Limited physical exam due to COVID-19 pandemic to minimize transmission of the disease and to preserve PPE. Vital reviewed and stable. GENERAL: well-developed well-nourished sitting in a chair without any discomfort HEENT: Normocephalic. Atraumatic. NECK: Supple. CHEST/LUNGS: breathing nonlabored. HEART/CARDIOVASCULAR: Heart rate stable on telemetry ABDOMEN: Visibly not distended SKIN: There is no rash NEURO: No focal motor deficit. Follows command. MUSCULOSKELETAL: No joint effusion EXTRIMITY: No swelling, no cyanosis or clubbing. PSYCH: Cooperative. - Constitutional Vitals: Vital Signs - 12hr 12/19/20 04:41 Temperature 98.4 F Pulse Rate 77 Respiratory 18 Rate Blood Pressure 113/58 O2 Sat by Pulse 97 Oximetry - Labs CBC & Chem 7: 12/20/20 07:35 12/21/20 06:05 Labs: Abnormal lab results 12/18/20 12/18/20 12/18/20 Range/Units 15:43 16:46 21:55 WBC (4.5-11.0) K/mm3 MCHC (32-34) % Plt Count (140-440) K/mm3 Sodium 132 L (137-145) mmol/L Carbon Dioxide 20 L (22-30) mmol/L Glucose 138 H (75-100) mg/dL POC Glucose 128 H 139 H (70-105) mg/dL Albumin 3.6 L (3.9-5) g/dL 12/19/20 12/19/20 12/19/20 Range/Units 08:10 08:10 12:11 WBC 4.1 L (4.5-11.0) K/mm3 MCHC 35 H (32-34) % Plt Count 108 L (140-440) K/mm3 Sodium 135 L (137-145) mmol/L Carbon Dioxide (22-30) mmol/L Glucose (75-100) mg/dL POC Glucose 120 H (70-105) mg/dL Albumin (3.9-5) g/dL HEART Score - HEART Score Troponin: Troponin T < 0.010 ng/mL (0.00-0.029) 12/14/20 18:49
[2020-12-19] MEDS: SODIUM CHLORIDE 0.9% 50 ML IVPB IV SCH (21:23)
[2020-12-19] MEDS: REMDESIVIR 100 MG in SODIUM CHLORIDE 0.9% 250ML 250 ML IV SCH (21:23)
[2020-12-19] MEDS: DOCUSATE SODIUM 100 MG/10 ML ORAL LIQD PO SCH (21:23)
[2020-12-20] MEDS: HEPARIN 5,000 UNIT/1 ML VIAL SUB-Q SCH ×3 (06:03→22:15)
[2020-12-20 09:01] LABS: Basophils % (Auto) 0.1 % (0.0-1.8); Hemoglobin 13.7 gm/dl (11.8-15.2); Lymphocytes # (Auto) 0.7 K/mm3 (1.2-5.4); Lymphocytes % (Auto) 21.1 % (13.4-35.0); Mean Corpuscular HGB Conc 35 % (32-34); Mean Corpuscular Volume 88 fl (84-94); Monocytes # (Auto) 0.3 K/mm3 (0.0-0.8); Monocytes % (Auto) 8.4 % (0.0-7.3); Platelet Count 120 K/mm3 (140-440); Red Blood Count 4.42 M/mm3 (3.65-5.03); Red Cell Distribution Width 14.5 % (13.2-15.2)
[2020-12-20 09:37] LABS: Alanine Aminotransferase 15 units/L (7-56); Albumin 3.6 g/dL (3.9-5); BUN/Creatinine Ratio 18; Blood Urea Nitrogen 16 mg/dL (9-20); Calcium 8.8 mg/dL (8.4-10.2); Hemolysis Index 4
--- NOTE | 2020-12-20 10:24 | Progress Note ---
Assessment and Plan 60-year-old male who had both of his COVID-19 vaccines with past medical history of hypertension, GERD, kidney transplant in 2017 was brought to the emergency room because of abdominal pain, body aches, fever, cough for last 2 days. In the emergency room CT scan of the abdomen pelvis showed suspected Covid pneumonia. Patient tested positive for COVID-19, admitted for further evaluation and management Assessment and plan: --COVID-19 pneumonia -Patient tested positive for COVID-19 -Placed on dexamethasone for total 10 days and remdesivir total 5 days -No need for antibiotic as procalcitonin level is normal -Infectious disease consulted, appreciate recommendations -Droplet/contact isolation -Continue SPO2 monitoring -Supplemental oxygen as needed -Pulmonary hygiene -Prone to sleep -Vitamin C, vitamin D, zinc -Anticoagulation per protocol -Lasix IV as needed to prevent pulmonary edema -- Fever due to COVID-19 --MARSHA due to vasomotor nephropathy, follow BMP, nephrology consulted --Status post kidney transplant, continue home meds -- GERD (gastroesophageal reflux disease), continue PPI -- HTN (hypertension), monitor BP and continue home meds --DVT prophylaxis Heparin 5000 units subcu every 8 hours for DVT prophylaxis. Pepcid 20 mg p.o. twice daily for GI prophylaxis. Patient is a full code Daily clinical course: 12/16/20 Patient with acute respiratory failure due to Covid-19 infection. He feels better. No more fever. He is on room air 12/17/20 Patient with acute respiratory failure due to Covid-19 infection. He feels better. Fever yesterday. T max 100.0 F. patient has history of renal transplant on Immunosupressants 12/18/20 Patient with acute respiratory failure due to Covid-19 infection. He feels better. No more fever x 24 hrs. Patient has history of renal transplant on Immunosupressants. ID Physician following. On Oxygen at 2 l/min 12/19/20: Continue dexamethasone for 10 days and added remdesivir for 5 days for patient's immunocompromised state with transplant kidney. Continue to follow inflammatory markers and renal function. Patient resting at room air. 12/20/20; renal function remains stable, today's remdesivir day 3, continue dexamethasone and other home medications. Patient on 3 L nasal cannula today. Continue to follow clinically. Follow respiratory markers. Subjective Date of service: 12/20/20 Interval history: Patient seen and examined. Medical records and medication list reviewed. No acute event overnight noted by the RN. Patient complains of pleuritic chest pain and difficulty breathing on ambulation and following cough. Patient is tolerating diet. Discussed plan of care at bedside with patient. Objective - Exam Narrative Exam: Limited physical exam due to COVID-19 pandemic to minimize transmission of the disease and to preserve PPE. Vital reviewed and stable. GENERAL: well-developed well-nourished sitting in a chair without any discomfort HEENT: Normocephalic. Atraumatic. NECK: Supple. CHEST/LUNGS: breathing nonlabored. HEART/CARDIOVASCULAR: Heart rate stable on telemetry ABDOMEN: Visibly not distended SKIN: There is no rash NEURO: No focal motor deficit. Follows command. MUSCULOSKELETAL: No joint effusion EXTRIMITY: No swelling, no cyanosis or clubbing. PSYCH: Cooperative. - Constitutional Vitals: Vital Signs - 12hr 12/20/20 03:40 Temperature 99.1 F Pulse Rate 60 Respiratory 22 Rate Blood Pressure 108/73 O2 Sat by Pulse 91 Oximetry - Labs CBC & Chem 7: 12/20/20 07:35 12/21/20 06:05 Labs: Abnormal lab results 12/19/20 12/19/20 12/19/20 Range/Units 12:11 17:08 21:53 WBC (4.5-11.0) K/mm3 MCHC (32-34) % Plt Count (140-440) K/mm3 [place] % (Auto) (0.0-7.3) % Lymph # (Auto) (1.2-5.4) K/mm3 Seg Neutrophils % (40.0-70.0) % Sodium (137-145) mmol/L Carbon Dioxide (22-30) mmol/L POC Glucose 120 H 120 H 118 H (70-105) mg/dL Albumin (3.9-5) g/dL 12/20/20 12/20/20 Range/Units 07:35 07:35 WBC 3.1 L (4.5-11.0) K/mm3 MCHC 35 H (32-34) % Plt Count 120 L (140-440) K/mm3 [place] % (Auto) 8.4 H (0.0-7.3) % Lymph # (Auto) 0.7 L (1.2-5.4) K/mm3 Seg Neutrophils % 70.4 H (40.0-70.0) % Sodium 135 L (137-145) mmol/L Carbon Dioxide 19 L (22-30) mmol/L POC Glucose (70-105) mg/dL Albumin 3.6 L (3.9-5) g/dL HEART Score - HEART Score Troponin: Troponin T < 0.010 ng/mL (0.00-0.029) 12/14/20 18:49
[2020-12-20] MEDS: guaiFENesin ER 600 MG TAB PO SCH ×2 (11:21→22:15)
[2020-12-20] MEDS: DOCUSATE SODIUM 100 MG/10 ML ORAL LIQD PO SCH ×2 (11:21→22:14)
[2020-12-20] MEDS: MYCOPHENOLATE 250 MG CAP PO SCH ×2 (11:21→22:14)
[2020-12-20] MEDS: TAMSULOSIN 0.4 MG CAP PO SCH (11:22)
[2020-12-20] MEDS: dexAMETHasone 4 MG/ML VIAL IV SCH (11:23)
[2020-12-20] MEDS: TACROLIMUS 1 MG CAP PO SCH ×2 (11:24→22:14)
[2020-12-20] MEDS: FAMOTIDINE 20 MG TAB PO SCH ×2 (11:30→22:29)
[2020-12-20] MEDS: METOPROLOL TARTRATE 50 MG TAB PO SCH ×2 (11:55→22:16)
[2020-12-20] MEDS: LISINOPRIL 10 MG TAB PO SCH (11:57)
[2020-12-20] MEDS: NIFEdipine XL 60 MG TAB PO SCH ×2 (11:57→18:35)
--- NOTE | 2020-12-20 14:09 | Progress Note ---
Assessment and Plan Cultures: COVID-19 PCR: Positive A/P: 60-year-old man past medical history hypertension, GERD, prior kidney transplant 2017 admitted as Covid PUI #COVID-19 pneumonia: PCR positive, CT abdomen pelvis was concerning for groundglass opacities typical Covid. He was vaccinated against Covid however due to immunosuppressed status may not have had robust response. #History of kidney transplant/immunosuppressed host: Currently on mycophenolate and tacrolimus. Renal function is good. #Hypertension #Leukopenia: Likely from COVID-19. Also probably from cellcept. Recs: -f/u pending markers -Continue steroids -continue IV remdesivir, D3 -ambulatory sats and oxygen weaning Magno Goodrich MD, FACP [facility] ([facility] O: [phone] F: [phone] Subjective Date of service: 12/20/20 Interval history: Low-grade fever. Remains on oxygen by nasal cannula. D-dimer 186, other markers pending. Objective - Exam Narrative Exam: Physical Exam (reviewed in chart to minimize risk of transmission) Constitutional: deferred Head, Ears, Nose: deferred Eyes: deferred Neck: deferred Oral: deferred Cardiovascular: deferred Respiratory: deferred GI: deferred Musculoskeletal: deferred Skin: deferred Hem/Lymphatic: deferred Psych: deferred Neurological: deferred - Constitutional Vitals: Vital Signs Temp Pulse Resp BP Pulse Ox 99.2 F 62 16 109/64 93 12/20/20 11:51 12/20/20 11:51 12/20/20 11:51 12/20/20 11:51 12/20/20 11:51 Temperature -Last 24 Hours Temperature 99.2 F Temperature 99.1 F Temperature 99.0 F Temperature 98.7 F Temperature 100.0 F - Labs CBC & Chem 7: 12/20/20 07:35 12/20/20 07:35 Labs: Abnormal lab results 12/19/20 12/19/20 12/20/20 Range/Units 17:08 21:53 07:35 WBC (4.5-11.0) K/mm3 MCHC (32-34) % Plt Count (140-440) K/mm3 [place] % (Auto) (0.0-7.3) % Lymph # (Auto) (1.2-5.4) K/mm3 Seg Neutrophils % (40.0-70.0) % Sodium 135 L (137-145) mmol/L Carbon Dioxide 19 L (22-30) mmol/L POC Glucose 120 H 118 H (70-105) mg/dL Albumin 3.6 L (3.9-5) g/dL 12/20/ Range/Units 07:35 WBC 3.1 L (4.5-11.0) K/mm3 MCHC 35 H (32-34) % Plt Count 120 L (140-440) K/mm3 [place] % (Auto) 8.4 H (0.0-7.3) % Lymph # (Auto) 0.7 L (1.2-5.4) K/mm3 Seg Neutrophils % 70.4 H (40.0-70.0) % Sodium (137-145) mmol/L Carbon Dioxide (22-30) mmol/L POC Glucose (70-105) mg/dL Albumin (3.9-5) g/dL
--- NOTE | 2020-12-20 17:14 | Electrocardiograph Report ---
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
--- NOTE | 2020-12-20 18:10 | Progress Note ---
Assessment and Plan - Patient Problems (1) Kidney transplant status Current Visit: Yes Status: Acute Plan to address problem: transplant kidney function remains stable. Continue immunosuppression -adjusted back to his baseline. Follow-up Prograf level. (2) Hyponatremia Current Visit: Yes Status: Acute Plan to address problem: Improving. Follow-up level (3) Pneumonia due to COVID-19 virus Current Visit: Yes Status: Acute Plan to address problem: Continue management per infectious disease home energy consultant. IV/PO Dexamethasone Supplemental oxygen/Respiratory support as needed Proning as tolerated Remdesevir Prophylactic anticoagulation Trend inflammatory markers to assess disease progression and prognosis (4) Leukopenia Current Visit: Yes Status: Acute Plan to address problem: Follow-up white blood cell count (5) Hypertensive chronic kidney disease with stage 1 through stage 4 chronic kidney disease, or unspecified chronic kidney disease Current Visit: No Status: Acute Plan to address problem: Blood pressure is now low. Decrease hypotensive medications. Follow-up blood pressure on adjusted medications (6) GERD (gastroesophageal reflux disease) Current Visit: No Status: Chronic Plan to address problem: Continue proton pump inhibitor Subjective Date of service: 12/20/20 Principal diagnosis: Kidney transplant status: COVID-19 pneumonia Interval history: Patient was not examined today due to the Covid 19 status to decrease exposure of the rounding physician and for PPE preservation during Covid 19 pandemic. Objective - Exam Narrative Exam: patient was not examined at bedside today due to Covid 19 status - Vital Signs Vital signs: Vital Signs - 12hr 12/20/20 11:51 Temperature 99.2 F Pulse Rate 62 Respiratory 16 Rate Blood Pressure 109/64 [Right] O2 Sat by Pulse 93 Oximetry - Lab 12/20/20 07:35 12/20/20 07:35 Most recent lab results Calcium 8.8 mg/dL (8.4-10.2) 12/20/20 07:35 Magnesium 2.00 mg/dL (1.7-2.3) 12/18/20 06:18 Medications & Allergies - Medications Allergies/Adverse Reactions: Allergies No Known Allergies Allergy (Verified 12/14/20 15:36) Home Medications: Home Medications Medication Instructions Recorded Confirmed Last Taken Type Metoprolol [Lopressor TAB] 100 mg PO BID 12/28/14 12/15/20 04/15/18 09:00 History NIFEdipine 60 mg PO 3XW 02/21/15 12/16/2018 09:30 History Mycophenolate [Cellcept] 250 mg PO BID 04/10/18 12/15/20 04/15/18 09:00 History Omeprazole 40 mg PO DAILY 04/10/18 12/15/20 04/15/18 09:00 History Prednisone [predniSONE (Mariluz) ER 5 mg PO QDAY 04/10/18 12/15/20 04/15/18 09:00 History TAB] Tacrolimus [Prograf] 7 mg PO DAILY 04/10/18 12/16/20 04/15/18 09:00 History Tamsulosin HCl [Flomax] 0.4 mg PO BID 04/10/18 12/16/20 04/15/18 09:00 History lisinopriL [Zestril TAB] 40 mg PO QPM 04/10/18 12/16/20 04/15/18 09:00 History Oseltamivir [Tamiflu] 75 mg PO BID 5 Days #10 cap 12/29/18 12/15/20 Unknown Rx Active Medications: Generic Name Dose Route Start Last Admin Trade Name Freq PRN Reason Stop Dose Admin Acetaminophen 650 mg 12/15/20 08:00 12/18/20 10:28 Acetaminophen 325 Mg Tab PO 650 mg Q4H PRN Administration Pain MILD(1-3)/Fever >100.5/BHARDWAJ Albuterol 2.5 mg 12/15/20 08:00 Albuterol 2.5 Mg/3 Ml Nebu IH Q4HRT PRN Shortness Of Breath Dexamethasone 6 mg 12/21/20 10:00 Dexamethasone 4 Mg Tab PO 12/24/20 12:00 DAILY TIAN Docusate Sodium 100 mg 12/19/20 20:30 12/20/20 11:21 Docusate Sodium 100 Mg/10 Ml Oral Liqd PO 100 mg BID TIAN Administration Famotidine 20 mg 12/15/20 10:00 12/20/20 11:30 Famotidine 20 Mg Tab PO 20 mg BID TIAN Administration Guaifenesin 600 mg 12/19/20 11:00 12/20/20 11:21 Guaifenesin Er 600 Mg Tab PO 600 mg BID TIAN Administration Heparin Sodium (Porcine) 5,000 unit 12/15/20 14:00 12/20/20 06:03 Heparin 5,000 Unit/1 Ml Vial SUB-Q 5,000 unit Q8HR TIAN Administration Hydralazine HCl 10 mg 12/15/20 10:00 Hydralazine 20 Mg/1 Ml Inj IV Q6H PRN Blood Pressure Hydromorphone HCl 0.5 mg 12/15/20 08:00 Hydromorphone 1 Mg/1 Ml Inj IV Q3H PRN Pain , Severe (7-10) REMDESIVIR 100 mg/ Sodium 250 mls @ 500 mls/hr 12/19/20 21:00 12/20/20 00:00 Chloride IV 12/22/20 21:29 Infused Q24HR@2100 [facility] Infusion Lisinopril 10 mg 12/15/20 12:00 12/20/20 11:57 Lisinopril 10 Mg Tab PO Not Given QDAY TIAN Metoprolol Tartrate 100 mg 12/15/20 10:00 12/20/20 11:55 Metoprolol Tartrate 50 Mg Tab PO 100 mg BID TIAN Administration Mycophenolate Mofetil 500 mg 12/19/20 10:00 12/20/20 11:21 Mycophenolate 250 Mg Cap PO 500 mg BID TIAN Administration Nifedipine 30 mg 12/20/20 16:00 Nifedipine Xl 60 Mg Tab PO QDAY TIAN Ondansetron HCl 4 mg 12/15/20 08:00 12/18/20 10:28 Ondansetron 4 Mg/2 Ml Inj IV 4 mg Q8H PRN Administration Nausea And Vomiting Oxycodone/Acetaminophen 1 tab 12/15/20 08:00 12/17/20 10:33 Oxycodone /Acetaminophen 5-325mg Tab PO 1 tab Q6H PRN Administration Pain, Moderate (4-6) Prednisone 5 mg 12/25/20 10:00 Prednisone 5 Mg Tab PO QDAY TIAN Sodium Chloride 10 ml 12/15/20 10:00 12/20/20 11:32 Sodium Chloride 0.9% 10 Ml Flush Syringe IV 10 ml BID TIAN Administration Sodium Chloride 10 ml 12/15/20 08:00 Sodium Chloride 0.9% 10 Ml Flush Syringe IV PRN PRN LINE FLUSH Sodium Chloride 50 ml 12/18/20 16:30 12/19/20 21:23 Sodium Chloride 0.9% 50 Ml Ivpb IV 12/21/20 21:01 50 ml Q24HR@2100 TIAN Administration Tacrolimus 3 mg 12/19/20 10:00 12/20/20 11:24 Tacrolimus 1 Mg Cap PO 3 mg BID TIAN Administration Tamsulosin HCl 0.4 mg 12/15/20 10:00 12/20/20 11:22 Tamsulosin 0.4 Mg Cap PO 0.4 mg DAILY TIAN Administration
[2020-12-20] MEDS: REMDESIVIR 100 MG in SODIUM CHLORIDE 0.9% 250ML 250 ML IV SCH (22:15)
[2020-12-20] MEDS: SODIUM CHLORIDE 0.9% 50 ML IVPB IV SCH (22:16)
[2020-12-21] MEDS: HEPARIN 5,000 UNIT/1 ML VIAL SUB-Q SCH ×3 (05:53→22:00)
[2020-12-21 07:11] LABS: Alanine Aminotransferase 17 units/L (7-56); Albumin 3.5 g/dL (3.9-5); BUN/Creatinine Ratio 23; Blood Urea Nitrogen 18 mg/dL (9-20); Calcium 9.5 mg/dL (8.4-10.2); Hemolysis Index 5
--- NOTE | 2020-12-21 08:08 | Progress Note ---
Assessment and Plan - Patient Problems (1) Kidney transplant status Current Visit: Yes Status: Acute Plan to address problem: transplant kidney function remains stable. Continue immunosuppression -adjusted back to his baseline. Follow-up Prograf level -still pending. (2) Hyponatremia Current Visit: Yes Status: Acute Plan to address problem: Improving. Follow-up level (3) Pneumonia due to COVID-19 virus Current Visit: Yes Status: Acute Plan to address problem: Continue management per infectious disease technology methodology consultant. IV/PO Dexamethasone Supplemental oxygen/Respiratory support as needed Proning as tolerated Remdesevir Prophylactic anticoagulation Trend inflammatory markers to assess disease progression and prognosis (4) Leukopenia Current Visit: Yes Status: Acute Plan to address problem: Follow-up white blood cell count (5) Hypertensive chronic kidney disease with stage 1 through stage 4 chronic kidney disease, or unspecified chronic kidney disease Current Visit: No Status: Acute Plan to address problem: Blood pressure improved on adjusted medications.. Follow-up blood pressure (6) GERD (gastroesophageal reflux disease) Current Visit: No Status: Chronic Plan to address problem: Continue proton pump inhibitor Subjective Date of service: 12/22/20 Principal diagnosis: Kidney transplant status: COVID-19 pneumonia Interval history: Patient was not examined today due to the Covid 19 status to decrease exposure of the rounding physician and for PPE preservation during Covid 19 pandemic. Objective - Exam Narrative Exam: patient was not examined at bedside today due to Covid 19 status - Vital Signs Vital signs: Vital Signs - 12hr 12/20/20 12/21/20 22:16 04:40 Temperature 98.2 F Pulse Rate 65 61 Respiratory 18 Rate Blood Pressure 117/83 143/85 O2 Sat by Pulse 96 Oximetry - Lab 12/20/20 07:35 12/21/20 06:05 Most recent lab results Calcium 9.5 mg/dL (8.4-10.2) 12/21/20 06:05 Magnesium 2.00 mg/dL (1.7-2.3) 12/18/20 06:18 Medications & Allergies - Medications Allergies/Adverse Reactions: Allergies No Known Allergies Allergy (Verified 12/14/20 15:36) Home Medications: Home Medications Medication Instructions Recorded Confirmed Last Taken Type Metoprolol [Lopressor TAB] 100 mg PO BID 12/28/14 12/15/20 04/15/18 09:00 History NIFEdipine 60 mg PO 3XW 02/21/15 12/16/20 04/15/18 09:30 History Mycophenolate [Cellcept] 250 mg PO BID 04/10/18 12/15/20 04/15/18 09:00 History Omeprazole 40 mg PO DAILY 04/10/18 12/15/20 04/15/18 09:00 History Prednisone [predniSONE (Mariluz) ER 5 mg PO QDAY 04/10/18 12/15/20 04/15/18 09:00 History TAB] Tacrolimus [Prograf] 7 mg PO DAILY 04/10/18 12/16/20 04/15/18 09:00 History Tamsulosin HCl [Flomax] 0.4 mg PO BID 04/10/18 12/16/20 04/15/18 09:00 History lisinopriL [Zestril TAB] 40 mg PO QPM 04/10/18 12/16/20 04/15/18 09:00 History Oseltamivir [Tamiflu] 75 mg PO BID 5 Days #10 cap 12/29/18 12/15/20 Unknown Rx Active Medications: Generic Name Dose Route Start Last Admin Trade Name Freq PRN Reason Stop Dose Admin Acetaminophen 650 mg 12/15/20 08:00 12/18/20 10:28 Acetaminophen 325 Mg Tab PO 650 mg Q4H PRN Administration Pain MILD(1-3)/Fever >100.5/BHARDWAJ Albuterol 2.5 mg 12/15/20 08:00 Albuterol 2.5 Mg/3 Ml Nebu IH Q4HRT PRN Shortness Of Breath Dexamethasone 6 mg 12/21/20 10:00 Dexamethasone 4 Mg Tab PO 12/24/20 12:00 DAILY TIAN Docusate Sodium 100 mg 12/19/20 20:30 12/20/20 22:14 Docusate Sodium 100 Mg/10 Ml Oral Liqd PO 100 mg BID TIAN Administration Famotidine 20 mg 12/15/20 10:00 12/20/20 22:29 Famotidine 20 Mg Tab PO 20 mg BID TIAN Administration Guaifenesin 600 mg 12/19/20 11:00 12/20/20 22:15 Guaifenesin Er 600 Mg Tab PO 600 mg BID TIAN Administration Heparin Sodium (Porcine) 5,000 unit 12/15/20 14:00 12/21/20 05:53 Heparin 5,000 Unit/1 Ml Vial SUB-Q 5,000 unit Q8HR TIAN Administration Hydralazine HCl 10 mg 12/15/20 10:00 Hydralazine 20 Mg/1 Ml Inj IV Q6H PRN Blood Pressure Hydromorphone HCl 0.5 mg 12/15/20 08:00 Hydromorphone 1 Mg/1 Ml Inj IV Q3H PRN Pain , Severe (7-10) REMDESIVIR 100 mg/ Sodium 250 mls @ 500 mls/hr 12/19/20 21:00 12/20/20 22:15 Chloride IV 12/22/20 21:29 500 mls/hr Q24HR@2100 TIAN Administration Lisinopril 10 mg 12/15/20 12:00 12/20/20 11:57 Lisinopril 10 Mg Tab PO Not Given QDAY TIAN Metoprolol Tartrate 100 mg 12/15/20 10:00 12/20/20 22:16 Metoprolol Tartrate 50 Mg Tab PO 100 mg BID TIAN Administration Mycophenolate Mofetil 500 mg 12/19/20 10:00 12/20/20 22:14 Mycophenolate 250 Mg Cap PO 500 mg BID TIAN Administration Nifedipine 30 mg 12/20/20 16:00 12/20/20 18:35 Nifedipine Xl 60 Mg Tab PO Not Given QDAY [facility] Ondansetron HCl 4 mg 12/15/20 08:00 12/18/20 10:28 Ondansetron 4 Mg/2 Ml Inj IV 4 mg Q8H PRN Administration Nausea And Vomiting Oxycodone/Acetaminophen 1 tab 12/15/20 08:00 12/17/20 10:33 Oxycodone /Acetaminophen 5-325mg Tab PO 1 tab Q6H PRN Administration Pain, Moderate (4-6) Prednisone 5 mg 12/25/20 10:00 Prednisone 5 Mg Tab PO QDAY TIAN Sodium Chloride 10 ml 12/15/20 10:00 12/20/20 22:30 Sodium Chloride 0.9% 10 Ml Flush Syringe IV 10 ml BID TIAN Administration Sodium Chloride 10 ml 12/15/20 08:00 Sodium Chloride 0.9% 10 Ml Flush Syringe IV PRN PRN LINE FLUSH Sodium Chloride 50 ml 12/18/20 16:30 12/20/20 22:16 Sodium Chloride 0.9% 50 Ml Ivpb IV 12/21/20 21:01 50 ml Q24HR@2100 TIAN Administration Tacrolimus 3 mg 12/19/20 10:00 12/20/20 22:14 Tacrolimus 1 Mg Cap PO 3 mg BID TIAN Administration Tamsulosin HCl 0.4 mg 12/15/20 10:00 12/20/20 11:22 Tamsulosin 0.4 Mg Cap PO 0.4 mg DAILY TIAN Administration
[2020-12-21] MEDS: DOCUSATE SODIUM 100 MG/10 ML ORAL LIQD PO SCH ×2 (11:52→21:35)
[2020-12-21] MEDS: LISINOPRIL 10 MG TAB PO SCH (11:52)
[2020-12-21] MEDS: METOPROLOL TARTRATE 50 MG TAB PO SCH ×2 (11:52→22:00)
[2020-12-21] MEDS: NIFEdipine XL 60 MG TAB PO SCH (11:53)
[2020-12-21] MEDS: TACROLIMUS 1 MG CAP PO SCH ×2 (11:54→21:35)
[2020-12-21] MEDS: TAMSULOSIN 0.4 MG CAP PO SCH (11:54)
[2020-12-21] MEDS: FAMOTIDINE 20 MG TAB PO SCH ×2 (11:54→21:35)
[2020-12-21] MEDS: MYCOPHENOLATE 250 MG CAP PO SCH ×2 (11:54→21:34)
[2020-12-21] MEDS: guaiFENesin ER 600 MG TAB PO SCH ×2 (11:58→21:35)
[2020-12-21] MEDS: DEXAMETHASONE 4 MG TAB PO SCH (11:59)
--- NOTE | 2020-12-21 14:32 | Progress Note ---
Assessment and Plan 60-year-old male who had both of his COVID-19 vaccines with past medical history of hypertension, GERD, kidney transplant in 2017 was brought to the emergency room because of abdominal pain, body aches, fever, cough for last 2 days. In the emergency room CT scan of the abdomen pelvis showed suspected Covid pneumonia. Patient tested positive for COVID-19, admitted for further evaluation and management Assessment and plan: --COVID-19 pneumonia -Patient tested positive for COVID-19 -Placed on dexamethasone for total 10 days and remdesivir total 5 days -No need for antibiotic as procalcitonin level is normal -Infectious disease consulted, appreciate recommendations -Droplet/contact isolation -Continue SPO2 monitoring -Supplemental oxygen as needed -Pulmonary hygiene -Prone to sleep -Vitamin C, vitamin D, zinc -Anticoagulation per protocol -Lasix IV as needed to prevent pulmonary edema -- Fever due to COVID-19 --MARSHA due to vasomotor nephropathy, follow BMP, nephrology consulted --Status post kidney transplant, continue home meds -- GERD (gastroesophageal reflux disease), continue PPI -- HTN (hypertension), monitor BP and continue home meds --DVT prophylaxis Heparin 5000 units subcu every 8 hours for DVT prophylaxis. Pepcid 20 mg p.o. twice daily for GI prophylaxis. Patient is a full code Daily clinical course: 12/16/20 Patient with acute respiratory failure due to Covid-19 infection. He feels better. No more fever. He is on room air 12/17/20 Patient with acute respiratory failure due to Covid-19 infection. He feels better. Fever yesterday. T max 100.0 F. patient has history of renal transplant on Immunosupressants 12/18/20 Patient with acute respiratory failure due to Covid-19 infection. He feels better. No more fever x 24 hrs. Patient has history of renal transplant on Immunosupressants. ID Physician following. On Oxygen at 2 l/min 12/19/20: Continue dexamethasone for 10 days and added remdesivir for 5 days for patient's immunocompromised state with transplant kidney. Continue to follow inflammatory markers and renal function. Patient resting at room air. 12/20/20; renal function remains stable, today's remdesivir day 3, continue dexamethasone and other home medications. Patient on 3 L nasal cannula today. Continue to follow clinically. Follow respiratory markers. 12/21/20: Remains on 3 L nasal cannula, renal function is stable, day 4 of remdesivir today. Will assess for home O2 requirement, continue to follow inflammatory markers. ID and nephrology following. Subjective Date of service: 12/21/20 Principal diagnosis: Kidney transplant status: COVID-19 pneumonia Interval history: Patient seen and examined. Medical records and medication list reviewed. No acute event overnight noted by the RN. Patient complains of pleuritic chest pain and difficulty breathing on ambulation and following cough. Patient is tolerating diet. Discussed plan of care at bedside with patient. Objective - Exam Narrative Exam: Limited physical exam due to COVID-19 pandemic to minimize transmission of the disease and to preserve PPE. Vital reviewed and stable. GENERAL: well-developed well-nourished sitting in a chair without any discomfort HEENT: Normocephalic. Atraumatic. NECK: Supple. CHEST/LUNGS: breathing nonlabored. HEART/CARDIOVASCULAR: Heart rate stable on telemetry ABDOMEN: Visibly not distended SKIN: There is no rash NEURO: No focal motor deficit. Follows command. MUSCULOSKELETAL: No joint effusion EXTRIMITY: No swelling, no cyanosis or clubbing. PSYCH: Cooperative. - Constitutional Vitals: Vital Signs - 12hr 12/21/20 04:40 Temperature 98.2 F Pulse Rate 61 Respiratory 18 Rate Blood Pressure 143/85 O2 Sat by Pulse 96 Oximetry - Labs CBC & Chem 7: 12/20/20 07:35 12/21/20 06:05 Labs: Abnormal lab results 12/20/20 12/20/20 12/21/20 Range/Units 07:35 07:35 06:05 Sodium 136 L (137-145) mmol/L Carbon Dioxide 20 L (22-30) mmol/L Glucose 103 H (75-100) mg/dL Ferritin 2428.0 H (30.0-300.0) ng/mL C-Reactive Protein 5.00 H (0.00-1.30) mg/dL Albumin 3.5 L (3.9-5) g/dL HEART Score - HEART Score Troponin: Troponin T < 0.010 ng/mL (0.00-0.029) 12/14/20 18:49
--- NOTE | 2020-12-21 15:29 | Progress Note ---
Assessment and Plan Cultures: COVID-19 PCR: Positive A/P: 60-year-old man past medical history hypertension, GERD, prior kidney transplant 2017 admitted as Covid PUI #COVID-19 pneumonia: PCR positive, CT abdomen pelvis was concerning for groundglass opacities typical Covid. He was vaccinated against Covid however due to immunosuppressed status may not have had robust response. #History of kidney transplant/immunosuppressed host: Currently on mycophenolate and tacrolimus. Renal function is good. #Hypertension #Leukopenia: Likely from COVID-19. Also probably from cellcept. Recs: -CRP went up yesterday. -Continue steroids -continue IV remdesivir, D4 of 5 -ambulatory sats and oxygen weaning -rechecking CRP tomorrow Magno Goodrich MD, FACP [facility] O: [phone] F: [phone] Subjective Date of service: 12/21/20 Principal diagnosis: Kidney transplant status: COVID-19 pneumonia Interval history: No fever. Remains stable on nasal cannula oxygen. CRP went up yesterday. Objective - Exam Narrative Exam: Physical Exam (reviewed in chart to minimize risk of transmission) Constitutional: deferred Head, Ears, Nose: deferred Eyes: deferred Neck: deferred Oral: deferred Cardiovascular: deferred Respiratory: deferred GI: deferred Musculoskeletal: deferred Skin: deferred Hem/Lymphatic: deferred Psych: deferred Neurological: deferred - Constitutional Vitals: Vital Signs Temp Pulse Resp BP Pulse Ox 98.2 F 61 18 143/85 96 12/21/20 04:40 12/21/20 04:40 12/21/20 04:40 12/21/20 04:40 12/21/20 04:40 Temperature -Last 24 Hours Temperature 98.2 F Temperature 98.8 F - Labs CBC & Chem 7: 12/20/20 07:35 12/21/20 06:05 Labs: Abnormal lab results 12/20/20 12/21/20 Range/Units 07:35 06:05 Sodium 136 L (137-145) mmol/L Carbon Dioxide 20 L (22-30) mmol/L Glucose 103 H (75-100) mg/dL Ferritin 2428.0 H (30.0-300.0) ng/mL Albumin 3.5 L (3.9-5) g/dL
[2020-12-21] MEDS: SODIUM CHLORIDE 0.9% 50 ML IVPB IV SCH (21:34)
[2020-12-21] MEDS: REMDESIVIR 100 MG in SODIUM CHLORIDE 0.9% 250ML 250 ML IV SCH (21:34)
[2020-12-22] MEDS: HEPARIN 5,000 UNIT/1 ML VIAL SUB-Q SCH ×2 (05:59→17:35)
[2020-12-22] MEDS ORDERED: MYCOPHENOLATE 250 MG CAP PO SCH (07:48)
--- NOTE | 2020-12-22 09:02 | Progress Note ---
Assessment and Plan - Patient Problems (1) Kidney transplant status Current Visit: Yes Status: Acute Plan to address problem: transplant kidney function remains stable. Continue immunosuppression -adjusted back to his baseline. Prograf level was low but Prograf dose has been adjusted back to his baseline. Follow-up Prograf level again in the morning. Discussed with the nursing staff to ensure the patient receives his Prograf every 12 hours as prescribed. Follow-up kidney function and electrolytes (2) Hyponatremia Current Visit: Yes Status: Acute Plan to address problem: Improving. Follow-up level (3) Pneumonia due to COVID-19 virus Current Visit: Yes Status: Acute Plan to address problem: Continue management per infectious disease design center consultant. IV/PO Dexamethasone Supplemental oxygen/Respiratory support as needed Proning as tolerated Remdesevir Prophylactic anticoagulation Trend inflammatory markers to assess disease progression and prognosis (4) Leukopenia Current Visit: Yes Status: Acute Plan to address problem: Follow-up white blood cell count (5) Hypertensive chronic kidney disease with stage 1 through stage 4 chronic kidney disease, or unspecified chronic kidney disease Current Visit: No Status: Acute Plan to address problem: Blood pressure improved on adjusted medications.. Follow-up blood pressure (6) GERD (gastroesophageal reflux disease) Current Visit: No Status: Chronic Plan to address problem: Continue proton pump inhibitor Subjective Principal diagnosis: Kidney transplant status: COVID-19 pneumonia Interval history: Patient seen lying in bed. He is upset. He is not getting his Prograf as prescribed. Gets the morning dose of Lasix -12 noon yesterday-and he says he did not receive evening dose yesterday. I discussed this with the charge nurse. Breathing a bit better but still gets short of breath on walking to the bathroom Objective - Exam Narrative Exam: Middle-aged -[place] male lying in bed in no acute distress HEENT: NCAT, Neck: Supple, no venous distention CVS: S1S2 RRR with no murmur, rub or gallop Chest: Diminished breath sounds Abdomen: Protuberant, soft, nontender, no organomegaly, bowel sounds are present Extremities: No edema Neuro: Awake, alert no focal deficits - Vital Signs Vital signs: Vital Signs - 12hr 12/21/20 12/21/20 12/22/20 21:23 22:00 03:33 Temperature 97.6 F 98.6 F Pulse Rate 67 68 55 L Respiratory 22 18 Rate Respiratory 17 Rate [Abdomen] Blood Pressure 122/70 120/73 O2 Sat by Pulse 92 97 Oximetry - Lab 12/20/20 07:35 12/21/20 06:05 Most recent lab results Calcium 9.5 mg/dL (8.4-10.2) 12/21/20 06:05 Magnesium 2.00 mg/dL (1.7-2.3) 12/18/20 06:18 Medications & Allergies - Medications Allergies/Adverse Reactions: Allergies No Known Allergies Allergy (Verified 12/14/20 15:36) Home Medications: Home Medications Medication Instructions Recorded Confirmed Last Taken Type Metoprolol [Lopressor TAB] 100 mg PO BID 12/28/14 12/15/20 04/15/18 09:00 History NIFEdipine 60 mg PO 3XW 02/21/15 12/16/20 04/15/18 09:30 History Mycophenolate [Cellcept] 250 mg PO BID 04/10/18 12/15/20 04/15/18 09:00 History Omeprazole 40 mg PO DAILY 04/10/18 12/15/20 04/15/18 09:00 History Prednisone [predniSONE (Mariluz) ER 5 mg PO QDAY 04/10/18 12/15/20 04/15/18 09:00 History TAB] Tacrolimus [Prograf] 7 mg PO DAILY 04/10/18 12/16/20 04/15/18 09:00 History Tamsulosin HCl [Flomax] 0.4 mg PO BID 04/10/18 12/16/20 04/15/18 09:00 History lisinopriL [Zestril TAB] 40 mg PO QPM 04/10/18 12/16/20 04/15/18 09:00 History Oseltamivir [Tamiflu] 75 mg PO BID 5 Days #10 cap 12/29/18 12/15/20 Unknown Rx Active Medications: Generic Name Dose Route Start Last Admin Trade Name Freq PRN Reason Stop Dose Admin Acetaminophen 650 mg 12/15/20 08:00 12/18/20 10:28 Acetaminophen 325 Mg Tab PO 650 mg Q4H PRN Administration Pain MILD(1-3)/Fever >100.5/BHARDWAJ Albuterol 2.5 mg 12/15/20 08:00 Albuterol 2.5 Mg/3 Ml Nebu IH Q4HRT PRN Shortness Of Breath Dexamethasone 6 mg 12/21/20 10:00 12/21/20 11:59 Dexamethasone 4 Mg Tab PO 12/24/20 12:00 6 mg DAILY TIAN Administration Docusate Sodium 100 mg 12/19/20 20:30 12/21/20 21:35 Docusate Sodium 100 Mg/10 Ml Oral Liqd PO 100 mg BID TIAN Administration Famotidine 20 mg 12/15/20 10:00 12/21/20 21:35 Famotidine 20 Mg Tab PO 20 mg BID TIAN Administration Guaifenesin 600 mg 12/19/20 11:00 12/21/20 21:35 Guaifenesin Er 600 Mg Tab PO 600 mg BID TIAN Administration Heparin Sodium (Porcine) 5,000 unit 12/15/20 14:00 12/22/20 05:59 Heparin 5,000 Unit/1 Ml Vial SUB-Q 5,000 unit Q8HR TIAN Administration Hydralazine HCl 10 mg 12/15/20 10:00 Hydralazine 20 Mg/1 Ml Inj IV Q6H PRN Blood Pressure Hydromorphone HCl 0.5 mg 12/15/20 08:00 Hydromorphone 1 Mg/1 Ml Inj IV Q3H PRN Pain , Severe (7-10) REMDESIVIR 100 mg/ Sodium 250 mls @ 500 mls/hr 12/19/20 21:00 12/21/20 21:34 Chloride IV 12/22/20 21:29 500 mls/hr Q24HR@2100 TIAN Administration Lisinopril 10 mg 12/15/20 12:00 12/21/20 11:52 Lisinopril 10 Mg Tab PO 10 mg QDAY TIAN Administration Metoprolol Tartrate 100 mg 12/15/20 10:00 12/21/20 22:00 Metoprolol Tartrate 50 Mg Tab PO 100 mg BID TIAN Administration Mycophenolate Mofetil 1,000 mg 12/22/20 10:00 Mycophenolate 500 Mg Tab PO BID TIAN Nifedipine 30 mg 12/20/20 16:00 12/21/20 11:53 Nifedipine Xl 60 Mg Tab PO 30 mg QDAY TIAN Administration Ondansetron HCl 4 mg 12/15/20 08:00 12/18/20 10:28 Ondansetron 4 Mg/2 Ml Inj IV 4 mg Q8H PRN Administration Nausea And Vomiting Oxycodone/Acetaminophen 1 tab 12/15/20 08:00 12/17/20 10:33 Oxycodone /Acetaminophen 5-325mg Tab PO 1 tab Q6H PRN Administration Pain, Moderate (4-6) Prednisone 5 mg 12/25/20 10:00 Prednisone 5 Mg Tab PO QDAY TIAN Sodium Chloride 10 ml 12/15/20 10:00 12/21/20 21:36 Sodium Chloride 0.9% 10 Ml Flush Syringe IV 10 ml BID TIAN Administration Sodium Chloride 10 ml 12/15/20 08:00 Sodium Chloride 0.9% 10 Ml Flush Syringe IV PRN PRN LINE FLUSH Tacrolimus 3 mg 12/19/20 10:00 12/21/20 21:35 Tacrolimus 1 Mg Cap PO 3 mg BID TIAN Administration Tamsulosin HCl 0.4 mg 12/15/20 10:00 12/21/20 11:54 Tamsulosin 0.4 Mg Cap PO 0.4 mg DAILY TIAN Administration
[2020-12-22] MEDS ORDERED: MYCOPHENOLATE 500 MG TAB PO SCH (10:00)
[2020-12-22] MEDS: LISINOPRIL 10 MG TAB PO SCH (10:29)
[2020-12-22] MEDS: NIFEdipine XL 60 MG TAB PO SCH (10:29)
[2020-12-22] MEDS: METOPROLOL TARTRATE 50 MG TAB PO SCH (10:30)
[2020-12-22] MEDS: TAMSULOSIN 0.4 MG CAP PO SCH (10:30)
[2020-12-22] MEDS: TACROLIMUS 1 MG CAP PO SCH (10:30)
[2020-12-22] MEDS: FAMOTIDINE 20 MG TAB PO SCH (10:31)
[2020-12-22] MEDS: DEXAMETHASONE 4 MG TAB PO SCH (10:31)
[2020-12-22] MEDS: DOCUSATE SODIUM 100 MG/10 ML ORAL LIQD PO SCH (10:33)
[2020-12-22] MEDS: guaiFENesin ER 600 MG TAB PO SCH (10:38)
[2020-12-22 11:29] LABS: C-Reactive Protein 5.9 mg/dL (0.00-1.30)
[2020-12-22 12:21] VITALS: BP 129/74
--- NOTE | 2020-12-22 13:43 | Progress Note ---
Assessment and Plan Cultures: COVID-19 PCR: Positive A/P: 60-year-old man past medical history hypertension, GERD, prior kidney transplant 2017 admitted as Covid PUI #COVID-19 pneumonia: PCR positive, CT abdomen pelvis was concerning for groundglass opacities typical Covid. He was vaccinated against Covid however due to immunosuppressed status may not have had robust response. #History of kidney transplant/immunosuppressed host: Currently on mycophenolate and tacrolimus. Renal function is good. #Hypertension #Leukopenia: Likely from COVID-19. Also probably from cellcept. Recs: -Remains on oxygen. CRP 5.9. Did not clear ambulatory saturation test -Continue steroids -continue IV remdesivir, D5 of 5 -anticoagulation per protocol Magno Goodrich MD, FACP [facility] O: [phone] F: [phone] Subjective Date of service: 12/22/20 Principal diagnosis: Kidney transplant status: COVID-19 pneumonia Interval history: No fever. Remains on oxygen. CRP 5.9. Did not clear ambulatory saturation test Objective - Exam Narrative Exam: Physical Exam (reviewed in chart to minimize risk of transmission) Constitutional: deferred Head, Ears, Nose: deferred Eyes: deferred Neck: deferred Oral: deferred Cardiovascular: deferred Respiratory: deferred GI: deferred Musculoskeletal: deferred Skin: deferred Hem/Lymphatic: deferred Psych: deferred Neurological: deferred - Constitutional Vitals: Vital Signs Temp Pulse Resp BP Pulse Ox 98.0 F 71 20 129/74 98 12/22/20 12:19 12/22/20 12:19 12/22/20 12:54 12/22/20 12:19 12/22/20 12:54 Temperature -Last 24 Hours Temperature 98.0 F Temperature 98.6 F Temperature 97.6 F Temperature 99.0 F - Labs CBC & Chem 7: 12/20/20 07:35 12/21/20 06:05 Labs: Abnormal lab results 12/22/20 12/22/20 Range/Units 05:28 05:28 Lactate Dehydrogenase 269 H (91-180) units/L C-Reactive Protein 5.70 H 5.90 H (0.00-1.30) mg/dL
--- NOTE | 2020-12-22 15:28 | Discharge Summary ---
Providers - Providers Date of Admission: 12/15/20 15:55 Date of discharge: 12/22/20 Attending physician: ANGY SHAW 12/15/20 06:08 Consult to Physician [CONS] Routine Comment: Consulting Provider: MARISELA DYE Physician Instructions: Reason For Exam: covid 12/18/20 00:31 Consult to Physician [CONS] Routine Comment: Consulting Provider: IDALIA MACEDO Physician Instructions: Reason For Exam: esrd Primary care physician: MARCEL ASHER Hospitalization Condition: Critical Pertinent studies: Chest x-ray, CT abdomen pelvis Hospital course: 60-year-old male who had both of his COVID-19 vaccines with past medical history of hypertension, GERD, kidney transplant in 2017 was brought to the emergency room because of abdominal pain, body aches, fever, cough for last 2 days. In the emergency room CT scan of the abdomen pelvis showed suspected Covid pneumonia. Chest x-ray had no acute finding Patient tested positive for COVID-19, admitted for further evaluation and management. -Placed on dexamethasone for total 10 days and remdesivir total 5 days as patient is immunocompromised patient -Antibiotic was not required as procalcitonin level was normal - Placed on Droplet/contact isolation, continuous SPO2 monitoring, supplemental oxygen as needed, pulmonary hygiene, prone to sleep, Vitamin C, vitamin D, zinc -Patient was given anticoagulation per protocol, -Infectious disease was consulted. Assessed for Home O2 requirement. -Patient's symptoms improved with current Mx and was assessed for home O2 requirement. - Patient was then discharged home in stable condition with outpt followup. Daily clinical course: 12/16/20 Patient with acute respiratory failure due to Covid-19 infection. He feels better. No more fever. He is on room air Patient initiated on Covid protocol, ID consulted 12/17/20 Patient with acute respiratory failure due to Covid-19 infection. He feels better. Fever yesterday. T max 100.0 F. patient has history of renal transplant on Immunosupressants 12/18/20 Patient with acute respiratory failure due to Covid-19 infection. He feels better. No more fever x 24 hrs. Patient has history of renal transplant on Immunosupressants. ID Physician following. On Oxygen at 2 l/min 12/19/20: Continue dexamethasone for 10 days and added remdesivir for 5 days for patient's immunocompromised state with transplant kidney. Continue to follow inflammatory markers and renal function. Patient resting at room air. 12/20/20; renal function remains stable, today's remdesivir day 3, continue dexamethasone and other home medications. Patient on 3 L nasal cannula today. Continue to follow clinically. Follow respiratory markers. 12/21/20: Remains on 3 L nasal cannula, renal function is stable, day 4 of remdesivir today. Will assess for home O2 requirement, continue to follow inflammatory markers. ID and nephrology following. 12/22/20: Remains on 3 L nasal cannula, needs home O2 on discharge. Last dose of remdesivir today. Noted Prograf level which is lower than the therapeutic range. Discussed with button riveter and patient will take Prograf as instructed 3 mg in the morning and 4 mg at night., Will also need repeat level in 1 week as outpatient. Discharge planning management was thoroughly discussed with the patient and he verbalized understanding. Patient will be discharged home with home O2 after getting last dose of remdesivir. Disposition: HOME HEALTH CARE SERVICE Final Discharge Diagnosis (Prints w/discharge instructions): --COVID-19 pneumonia. -- Fever due to COVID-19. --MARSHA due to vasomotor nephropathy. --Status post kidney transplant. -- GERD (gastroesophageal reflux disease). -- HTN (hypertension). --Hyponatremia, stable Core Measure Documentation - Palliative Care Palliative Care/ Comfort Measures: Not Applicable - Core Measures Any of the following diagnoses?: none Exam - Physical Exam Narrative exam: Limited physical exam due to COVID-19 pandemic to minimize transmission of the disease and to preserve PPE. Vital reviewed and stable. GENERAL: well-developed well-nourished sitting in a chair without any discomfort HEENT: Normocephalic. Atraumatic. NECK: Supple. CHEST/LUNGS: breathing nonlabored. HEART/CARDIOVASCULAR: Heart rate stable on telemetry ABDOMEN: Visibly not distended SKIN: There is no rash NEURO: No focal motor deficit. Follows command. MUSCULOSKELETAL: No joint effusion EXTRIMITY: No swelling, no cyanosis or clubbing. PSYCH: Cooperative. - Constitutional Vitals: Temp Pulse Resp BP Pulse Ox 98.0 F 71 20 129/74 98 12/22/20 12:19 12/22/20 12:19 12/22/20 12:54 12/22/20 12:19 12/22/20 12:54 Plan Activity: advance as tolerated Weight Bearing Status: Weight Bear as Tolerated Diet: renal Additional Instructions: Need to repeat Prograf level in 1 week. Upon discharge patient should self-quarantine at home up to 2 weeks from the onset of sympt oms. Patients should return to hospital regardless if they have worsening fevers or respiratory status. Follow up with: MARCEL ASHER NP-C [Primary Care Provider] - 3-5 Days Prescriptions: Mycophenolate [Cellcept] 1,000 mg PO BID #60 tablet dexAMETHasone [Decadron] 6 mg PO DAILY #4 tablet guaiFENesin ER [Mucinex ER] 600 mg PO BID #14 tablet Albuterol Mdi (or & Nicu Only) [ProAir HFA Inhaler] 2 puff IH QID PRN #8.5 gram PRN Reason: Shortness Of Breath NIFEdipine XL [Procardia Xl] 30 mg PO QDAY #30 tablet lisinopriL [Zestril TAB] 10 mg PO QDAY #30 tablet
[2020-12-22] MEDS: REMDESIVIR 100 MG in SODIUM CHLORIDE 0.9% 250ML 250 ML IV SCH (17:34)
[2020-12-25] MEDS ORDERED: predniSONE 5 MG TAB PO SCH (10:00)
== END 2020-12-22 18:30 | disposition home or self-care (01) | DRG 177 ==
LOC: ED 14:44 → 3A 12-15 06:10 → OBSVTOIN 12-15 15:55 → 3A 12-15 20:40
PROVIDERS: ADMIT Hospitalist; ATTEND Internal Medicine
PROC: XW033E5 Introduction of Remdesivir Anti-infective into Peripheral Vein, Percutaneous Approach, New Technology Group 5 (ICD-10-PCS; principal; 2020-12-18)
DX: U07.1 COVID-19 (principal); J12.82 Pneumonia due to coronavirus disease 2019; N17.0 Acute kidney failure with tubular necrosis; J96.01 Acute respiratory failure with hypoxia; I12.9 Hypertensive chronic kidney disease with stage 1 through stage 4 chronic kidney disease, or unspecified chronic kidney disease; N18.9 Chronic kidney disease, unspecified; E87.1 Hypo-osmolality and hyponatremia; Z94.0 Kidney transplant status; K21.9 Gastro-esophageal reflux disease without esophagitis; Z79.899 Other long term (current) drug therapy; Z82.49 Family history of ischemic heart disease and other diseases of the circulatory system; Z90.49 Acquired absence of other specified parts of digestive tract
CPT/HCPCS: 36415; 71046; 74176; 80048; 80053; 80197; 81001; 82550; 82728; 82947; 82962; 83615; 83735; 84132; 84145; 84484; 85025; 85027; 85379; 86140; 93005; 94640; G0378; J0456; J0696; J1100; J1644; J2405; J3475; J7050; J7507; J7517; J8540; U0003

== ENCOUNTER 2020-12-25 06:46 | Inpatient (IN) | payer MEDICARE ==
[2020-12-25] MEDS ORDERED: CEFEPIME/NS 2 GM/100 ML 2 GM/100 ML BAG IV SCH (08:00)
--- NOTE | 2020-12-25 08:07 | Emergency Department Report ---
ED General Adult HPI - General Stated complaint: AZEB Time Seen by Provider: 12/25/20 07:44 Source: patient Limitations: No Limitations - History of Present Illness Initial comments: Patient presents to the emergency department the chief complaint of increasing shortness of breath. Patient was recently admitted to this hospital in December 15 for Covid pneumonia. Patient has a history of renal transplant and has been vaccinated completely for the novel coronavirus. Patient was discharged home on oxygen via nasal cannula 2 L. Upon EMS arrival to the home today the patient's O2 sats were in the 70s on 2 L nasal cannula. Patient states over the last week he has become more difficult to breathe. Patient complains of chest tightness but denies danya chest pain. Patient has no abdominal pain. -: Gradual, week(s) (1) Consistency: constant Improves with: none Worsens with: none Associated Symptoms: denies other symptoms Treatments Prior to Arrival: other (Nonrebreather at 15 L) - Related Data Home Medications Medication Instructions Recorded Confirmed Last Taken Metoprolol [Lopressor TAB] 100 mg PO BID 12/28/14 12/15/20 04/15/18 09:00 Omeprazole 40 mg PO DAILY 04/10/18 12/15/20 04/15/18 09:00 Prednisone [predniSONE (Mariluz) ER 5 mg PO QDAY 04/10/18 12/15/20 04/15/18 09:00 TAB] Tacrolimus [Prograf] 7 mg PO DAILY 04/10/18 12/16/20 04/15/18 09:00 Tamsulosin HCl [Flomax] 0.4 mg PO BID 04/10/18 12/16/20 04/15/18 09:00 Previous Rx's Medication Instructions Recorded Last Taken Type Albuterol Mdi (or & Nicu Only) 2 puff IH QID PRN #8.5 gram 12/22/20 Unknown Rx [ProAir HFA Inhaler] Mycophenolate [Cellcept] 1,000 mg PO BID #60 tablet 12/22/20 Unknown Rx NIFEdipine XL [Procardia Xl] 30 mg PO QDAY #30 tablet 12/22/20 Unknown Rx dexAMETHasone [Decadron] 6 mg PO DAILY #4 tablet 12/22/20 Unknown Rx guaiFENesin ER [Mucinex ER] 600 mg PO BID #14 tablet 12/22/20 Unknown Rx lisinopriL [Zestril TAB] 10 mg PO QDAY #30 tablet 12/22/20 Unknown Rx Allergies Allergy/AdvReac Type Severity Reaction Status Date / Time No Known Allergies Allergy Verified 12/14/20 15:36 ED Review of Systems ROS: Stated complaint: AZEB Other details as noted in HPI Comment: All other systems reviewed and negative Constitutional: denies: chills, fever Eyes: denies: eye pain, eye discharge, vision change ENT: denies: ear pain, throat pain Respiratory: shortness of breath. denies: cough, wheezing Cardiovascular: denies: chest pain, palpitations Endocrine: no symptoms reported Gastrointestinal: denies: abdominal pain, nausea, diarrhea Genitourinary: denies: urgency, dysuria Musculoskeletal: denies: back pain, joint swelling, arthralgia Skin: denies: rash, lesions Neurological: denies: headache, weakness, paresthesias Psychiatric: denies: anxiety, depression Hematological/Lymphatic: denies: easy bleeding, easy bruising ED Past Medical Hx - Past Medical History Hx Hypertension: Yes Hx GERD: Yes Hx Renal Disease: Yes (Kidney transplant 2016) Hx HIV: No Additional medical history: Dialysis M-W-F. ANEMIA - Surgical History Hx Cholecystectomy: Yes Additional Surgical History: av graft LEFT ARM. Hernia surgery October 2014 - Social History Smoking Status: Never Smoker - Medications Home Medications: Home Medications Medication Instructions Recorded Confirmed Last Taken Type Metoprolol [Lopressor TAB] 100 mg PO BID 12/28/14 12/15/20 04/15/18 09:00 History Omeprazole 40 mg PO DAILY 04/10/18 12/15/20 04/15/18 09:00 History Prednisone [predniSONE (Mariluz) ER 5 mg PO QDAY 04/10/18 12/15/20 04/15/18 09:00 History TAB] Tacrolimus [Prograf] 7 mg PO DAILY 04/10/18 12/16/20 04/15/18 09:00 History Tamsulosin HCl [Flomax] 0.4 mg PO BID 04/10/18 12/16/20 04/15/18 09:00 History Albuterol Mdi (or & Nicu Only) 2 puff IH QID PRN #8.5 gram 12/22/20 Unknown Rx [ProAir HFA Inhaler] Mycophenolate [Cellcept] 1,000 mg PO BID #60 tablet 12/22/20 Unknown Rx NIFEdipine XL [Procardia Xl] 30 mg PO QDAY #30 tablet 12/22/20 Unknown Rx dexAMETHasone [Decadron] 6 mg PO DAILY #4 tablet 12/22/20 Unknown Rx guaiFENesin ER [Mucinex ER] 600 mg PO BID #14 tablet 12/22/20 Unknown Rx lisinopriL [Zestril TAB] 10 mg PO QDAY #30 tablet 12/22/20 Unknown Rx ED Physical Exam - General General appearance: alert, in distress (mild) - Head Head exam: Present: atraumatic, normocephalic - Eye Eye exam: Present: normal appearance, PERRL, EOMI - ENT ENT exam: Present: mucous membranes moist - Neck Neck exam: Present: normal inspection - Respiratory Respiratory exam: Present: respiratory distress, rales, decreased breath sounds - Cardiovascular Cardiovascular Exam: Present: normal rhythm, tachycardia. Absent: systolic murmur, diastolic murmur, rubs, gallop - GI/Abdominal GI/Abdominal exam: Present: soft, normal bowel sounds. Absent: distended, tend erness - Rectal Rectal exam: Present: deferred - Extremities Exam Extremities exam: Present: normal inspection - Back Exam Back exam: Present: normal inspection - Neurological Exam Neurological exam: Present: alert, oriented X3, CN II-XII intact. Absent: motor sensory deficit - Psychiatric Psychiatric exam: Present: normal affect, normal mood - Skin Skin exam: Present: warm, dry, intact, normal color. Absent: rash ED Course Vital Signs 12/25/20 12/25/20 12/25/20 07:45 09:00 10:11 Temperature 99 F Pulse Rate 92 H 92 H Respiratory 33 H 46 H Rate Blood Pressure 126/81 132/88 O2 Sat by Pulse 90 91 97 Oximetry ED Medical Decision Making - Lab Data Result diagrams: 12/25/20 08:33 12/25/20 08:33 Lab Results 12/25/20 12/25/20 12/25/20 Range/Units 08:33 08:33 08:33 WBC 15.9 H (4.5-11.0) K/mm3 RBC 4.85 (3.65-5.03) M/mm3 Hgb 15.3 H (11.8-15.2) gm/dl Hct 42.6 (35.5-45.6) % MCV 88 (84-94) fl MCH 31 (28-32) pg MCHC 36 H (32-34) % RDW 14.1 (13.2-15.2) % Plt Count 133 L (140-440) K/mm3 Seg Neutrophils % Breast Worker APTT 32.3 (24.2-36.6) Sec. ABG pH (7.320-7.450) POC ABG pCO2 (32.0-48.0) mmHg POC ABG pO2 (83-108) mmHg POC ABG HCO3 ABG O2 Saturation (0-100) POC ABG Base Excess ABG Hemoglobin (12.0-17.5) ABG Oxyhemoglobin (94-98) ABG Methemoglobin (0.0-1.5) ABG Sodium (136.0-145.0) mmol/L ABG Potassium (3.40-4.50) mmol/L ABG Chloride (98-107) mmol/L ABG Glucose (65-95) mg/dL Carboxyhemoglobin (0.5-1.5) FiO2 % Sodium 120 L D (137-145) mmol/L Potassium 4.2 (3.6-5.0) mmol/L Chloride 90.2 L (98-107) mmol/L Carbon Dioxide 16 L (22-30) mmol/L Anion Gap 18 mmol/L BUN 15 (9-20) mg/dL Creatinine 0.8 (0.8-1.3) mg/dL Estimated GFR > 60 ml/min BUN/Creatinine Ratio 19 % Glucose 116 H (75-100) mg/dL Lactic Acid (0.7-2.0) mmol/L Calcium 9.5 (8.4-10.2) mg/dL Total Bilirubin 1.30 H (0.1-1.2) mg/dL AST 37 (5-40) units/L ALT 13 (7-56) units/L Alkaline Phosphatase 70 (35-129) units/L Troponin T < 0.010 (0.00-0.029) ng/mL Total Protein 7.5 (6.3-8.2) g/dL Albumin 3.1 L (3.9-5) g/dL Albumin/Globulin Ratio 0.7 % Arterial Blood Glucose (65-95) mg/dL Arterial Blood Ionized Calcium (4.6-5.3) mg/dL 08/23/21 08/23/21 Range/Units 08:33 10:13 WBC (4.5-11.0) K/mm3 RBC (3.65-5.03) M/mm3 Hgb (11.8-15.2) gm/dl Hct (35.5-45.6) % MCV (84-94) fl MCH (28-32) pg MCHC (32-34) % RDW (13.2-15.2) % Plt Count (140-440) K/mm3 Seg Neutrophils % APTT (24.2-36.6) Sec. ABG pH 7.481 H (7.320-7.450) POC ABG pCO2 20.7 L (32.0-48.0) mmHg POC ABG pO2 62.0 L (83-108) mmHg POC ABG HCO3 15.1 ABG O2 Saturation 92.4 (0-100) POC ABG Base Excess -5.8 ABG Hemoglobin 15.0 (12.0-17.5) ABG Oxyhemoglobin 91.6 L (94-98) ABG Methemoglobin 0.3 (0.0-1.5) ABG Sodium 119.3 L (136.0-145.0) mmol/L ABG Potassium 4.2 (3.40-4.50) mmol/L ABG Chloride 95.0 L (98-107) mmol/L ABG Glucose 122 H (65-95) mg/dL Carboxyhemoglobin 0.6 (0.5-1.5) FiO2 % 100.0 Sodium (137-145) mmol/L Potassium (3.6-5.0) mmol/L Chloride (98-107) mmol/L Carbon Dioxide (22-30) mmol/L Anion Gap mmol/L BUN (9-20) mg/dL Creatinine (0.8-1.3) mg/dL Estimated GFR ml/min BUN/Creatinine Ratio % Glucose (75-100) mg/dL Lactic Acid 2.40 H* (0.7-2.0) mmol/L Calcium (8.4-10.2) mg/dL Total Bilirubin (0.1-1.2) mg/dL AST (5-40) units/L ALT (7-56) units/L Alkaline Phosphatase (35-129) units/L Troponin T (0.00-0.029) ng/mL Total Protein (6.3-8.2) g/dL Albumin (3.9-5) g/dL Albumin/Globulin Ratio % Arterial Blood Glucose 122 H (65-95) mg/dL Arterial Blood Ionized Calcium 4.8 (4.6-5.3) mg/dL - Radiology Data Radiology results: report reviewed - Medical Decision Making Patient was placed on high flow O2 VQ scan was ordered for evaluation of pulmonary emboli Discussed results with patient Critical Care Time: Yes Critical care time in (mins) excluding proc time.: 35 Critical care attestation.: If time is entered above; I have spent that time in minutes in the direct care of this critically ill patient, excluding procedure time. ED Disposition Clinical Impression: Hypoxia, Acute respiratory failure Disposition: ADMITTED INPATIENT Is pt being admited?: Yes Does the pt Need Aspirin: No Condition: Fair Referrals: PRIMARY CARE, [Referring] - 3-5 Days
--- NOTE | 2020-12-25 08:55 | XRay Report ---
CHEST 1 VIEW INDICATION: sob. COMPARISON: 12/14/2020 FINDINGS: Support devices: None. Heart: Within normal limits. Lungs/Pleura: No acute air space or interstitial disease. Additional findings: Stable metallic foreign bodies in the right upper chest. IMPRESSION: No acute findings. No change since 12/14/2020. Signer Name: Jaylen Espinal Jr, MD Signed: 12/25/2020 8:50 AM Workstation Name: [id number]
[2020-12-25 09:00] LABS: Mean Corpuscular HGB Conc 36 % (32-34); Mean Corpuscular Volume 88 fl (84-94); Platelet Count 133 K/mm3 (140-440); Red Blood Count 4.85 M/mm3 (3.65-5.03); Red Cell Distribution Width 14.1 % (13.2-15.2)
[2020-12-25 09:10] LABS: Alanine Aminotransferase 13 units/L (7-56); Albumin 3.1 g/dL (3.9-5); BUN/Creatinine Ratio 19; Blood Urea Nitrogen 15 mg/dL (9-20); Calcium 9.5 mg/dL (8.4-10.2); Hemolysis Index 7
[2020-12-25] MEDS ORDERED: ONDANSETRON 4 MG/2 ML INJ IV ONE (09:35)
[2020-12-25] MEDS: CEFEPIME/NS 2 GM/100 ML 2 GM/100 ML BAG IV SCH ×2 (09:41→22:24)
[2020-12-25 10:17] LABS: Hematocrit 42.6 % (35.5-45.6); Hemoglobin 15.3 gm/dl (11.8-15.2)
--- NOTE | 2020-12-25 11:20 | Nuclear Medicine Report ---
NUCLEAR MEDICINE PERFUSION SCAN INDICATION: sob/covid CORRELATION: AP chest performed earlier today RADIOPHARMACEUTICAL: Perfusion: mCi Tc-99m MAA given IV FINDINGS: Perfusion images show symmetric and uniform radiotracer distribution throughout bilateral lung zones with no evidence of unmatched segmental perfusion defects. Normal cardiac silhouette. IMPRESSION: Low probability perfusion scan for pulmonary embolism. Signer Name: Jaylen Espinal Jr, MD Signed: 12/25/2020 11:16 AM Workstation Name: [id number]
--- NOTE | 2020-12-25 11:58 | History and Physical Report ---
History of Present Illness Chief complaint: I cannot breathe History of present illness: 60 YO Male with Obesity Hypoventilation Syndrome, HTN, GERD, Anemia Chronic Disease, Coronavirus Infection diagnosed 2 weeks who failed outpatient therapy and currently on 2L/min Home oxygen via [place], CKD S/P Renal Transplant currently on anti graft rejection therapy presents to ED for evaluation. Patient reports "I cannot breathe". Patient states that he has experienced shortness of breath over the past 1 week with persistent and worsening symptoms over the same timeframe. Patient was diagnosed with coronavirus infection 2 weeks ago and was treated with outpatient therapy as well as supplemental oxygen at 2 L via nasal cannula. Patient states that he has experienced worsening shortness of breath over the past 1 week, fatigue, malaise, generalized weakness. EMS was notified and upon arrival the patient was found to be in distress and was found to have a pulse oximetry in the 70s while on 2 L nasal cannula. The patient was treated with oxygen via nonrebreather mask and subsequently transported to [facility] for further care and evaluation of the aforementioned symptoms. The patient was seen and evaluated in the emergency department. All lab and imaging studies reviewed. Patient found to have a pulse oximetry in the 70s on submental oxygen and was subsequently placed on high flow supplemental oxygen due to acute hypoxemic respiratory failure. Patient underwent chest x-ray and was found to have bilateral pneumonia secondary to sepsis. Patient also found to have acidosis. Patient initiated on sepsis protocol as well as coronavirus pneumonia protocol and admitted to medical floor. Patient denies fever, chills, chest pain, palpitation, skin rash, trauma, or known ill contacts. Prior admission on 12/15/2020 reviewed. All medication listed at time of admission has been reconciled. Advanced care planning conducted in ED. Past History Past Medical History: anemia, GERD, hypertension, renal failure Past Surgical History: hernia repair, Other (Dialysis access, renal transplant,) Social history: . denies: smoking, alcohol abuse, prescription drug abuse Family history: diabetes, hypertension Medications and Allergies Allergies Allergy/AdvReac Type Severity Reaction Status Date / Time No Known Allergies Allergy Verified 12/14/20 15:36 Home Medications Medication Instructions Recorded Confirmed Last Taken Type Metoprolol [Lopressor TAB] 100 mg PO BID 12/28/14 12/15/20 04/15/18 09:00 Hi story Omeprazole 40 mg PO DAILY 1212/15/20 04/15/18 09:00 History Prednisone [predniSONE (Mariluz) ER 5 mg PO QDAY 04/10/18 12/15/20 04/15/18 09:00 History TAB] Tacrolimus [Prograf] 7 mg PO DAILY 04/10/18 12/16/20 04/15/18 09:00 History Tamsulosin HCl [Flomax] 0.4 mg PO BID 04/10/18 12/16/20 04/15/18 09:00 History Albuterol Mdi (or & Nicu Only) 2 puff IH QID PRN #8.5 gram 12/22/20 Unknown Rx [ProAir HFA Inhaler] Mycophenolate [Cellcept] 1,000 mg PO BID #60 tablet 12/22/20 Unknown Rx NIFEdipine XL [Procardia Xl] 30 mg PO QDAY #30 tablet 12/22/20 Unknown Rx dexAMETHasone [Decadron] 6 mg PO DAILY #4 tablet 12/22/20 Unknown Rx guaiFENesin ER [Mucinex ER] 600 mg PO BID #14 tablet 12/22/20 Unknown Rx lisinopriL [Zestril TAB] 10 mg PO QDAY #30 tablet 12/22/20 Unknown Rx Active Meds: Active Medications Cefepime HCl (Cefepime/Ns 2 Gm/100 Ml) 2 gm in 100 mls @ 200 mls/hr IV Q12H TIAN Last Admin: 12/25/20 09:41 Dose: 200 mls/hr Documented by: Review of Systems Constitutional: fatigue, weakness, malaise, lethargy, no weight loss, no weight gain Ears, nose, mouth and throat: no ear pain, no ear discharge, no tinnitis, no decreased hearing, no nose pain Cardiovascular: shortness of breath, no chest pain, no palpitations, no r apid/irregular heart beat Respiratory: cough, shortness of breath, no pleurisy, no pain on inspiration Gastrointestinal: no abdominal pain, no nausea, no vomiting, no diarrhea, no constipation Genitourinary Male: no hematuria, no flank pain, no discharge, no urinary frequency Rectal: no pain, no incontinence, no bleeding Musculoskeletal: no neck stiffness, no neck pain, no arm numbness/tingling, no low back pain, no leg numbness/tingling Integumentary: no rash, no pruritis, no redness, no sores, no wounds Neurological: no head injury, no transient paralysis, no paralysis, no weakness, no parathesias, no numbness, no tingling, no syncope Psychiatric: no anxiety, no change in sleep habits, no sleep disturbances, no hypersomnia, no change in appetite, no change in libido Endocrine: no cold intolerance, no polyphagia, no excessive thirst, no polyuria, no nocturia Hematologic/Lymphatic: no easy bruising, no lymphadenopathy Allergic/Immunologic: no urticaria, no allergic rhinitis, no persistent infections, no anaphylaxis Exam - Constitutional Vitals: Temp Pulse Resp BP Pulse Ox 99 F 92 H 46 H 132/88 97 12/25/20 07:45 12/25/20 09:00 12/25/20 09:00 12/25/20 09:00 12/25/20 10:11 General appearance: Present: mild distress, obese - EENT Eyes: Present: PERRL ENT: hearing intact, clear oral mucosa - Neck Neck: Present: supple, normal ROM - Respiratory Respiratory effort: labored, accessory muscle use, stridor Respiratory: bilateral: diminished, rhonchi - Cardiovascular Heart Sounds: Present: S1 & S2. Absent: rub, click - Extremities Extremities: pulses symmetrical, No edema Peripheral Pulses: within normal limits - Abdominal General gastrointestinal: Present: soft, non-tender, non-distended, normal bowel sounds Male genitourinary: Present: normal - Integumentary Integumentary: Present: clear, warm, dry - Musculoskeletal Musculoskeletal: gait normal, strength equal bilaterally - Psychiatric Psychiatric: appropriate mood/affect, intact judgment & insight - Neurologic Neurologic: CNII-XII intact, moves all extremities HEART Score - HEART Score Troponin: Troponin T < 0.010 ng/mL (0.00-0.029) 12/25/20 08:33 Results - Labs CBC & Chem 7: 12/25/20 12:11 12/25/20 08:33 Labs: Abnormal lab results 12/25/20 12/25/20 12/25/20 Range/Units 08:33 08:33 08:33 WBC 15.9 H (4.5-11.0) K/mm3 Hgb 15.3 H (11.8-15.2) gm/dl MCHC 36 H (32-34) % Plt Count 133 L (140-440) K/mm3 ABG pH (7.320-7.450) POC ABG pCO2 (32.0-48.0) mmHg POC ABG pO2 (83-108) mmHg ABG Oxyhemoglobin (94-98) ABG Sodium (136.0-145.0) mmol/L ABG Chloride (98-107) mmol/L ABG Glucose (65-95) mg/dL Sodium 120 L D (137-145) mmol/L Chloride 90.2 L (98-107) mmol/L Carbon Dioxide 16 L (22-30) mmol/L Glucose 116 H (75-100) mg/dL Lactic Acid 2.40 H* (0.7-2.0) mmol/L Total Bilirubin 1.30 H (0.1-1.2) mg/dL Albumin 3.1 L (3.9-5) g/dL Arterial Blood Glucose (65-95) mg/dL 12/25/20 Range/Units 10:13 WBC (4.5-11.0) K/mm3 Hgb (11.8-15.2) gm/dl MCHC (32-34) % Plt Count (140-440) K/mm3 ABG pH 7.481 H (7.320-7.450) POC ABG pCO2 20.7 L (32.0-48.0) mmHg POC ABG pO2 62.0 L (83-108) mmHg ABG Oxyhemoglobin 91.6 L (94-98) ABG Sodium 119.3 L (136.0-145.0) mmol/L ABG Chloride 95.0 L (98-107) mmol/L ABG Glucose 122 H (65-95) mg/dL Sodium (137-145) mmol/L Chloride (98-107) mmol/L Carbon Dioxide (22-30) mmol/L Glucose (75-100) mg/dL Lactic Acid (0.7-2.0) mmol/L Total Bilirubin (0.1-1.2) mg/dL Albumin (3.9-5) g/dL Arterial Blood Glucose 122 H (65-95) mg/dL Assessment and Plan - Patient Problems (1) Sepsis Current Visit: Yes Status: Acute Qualifiers: Acute respiratory failure type: with hypoxia Plan to address problem: Sepsis protocol: Chest x-ray, CBC, CMP, urinalysis, IV antibiotic therapy, IV fluid resuscitation therapy, monitor urine output every shift, monitor fluid balance, maintain mean arterial pressure greater than or equal to 65, blood culture. Serial lactic acid level. (2) Pneumonia Current Visit: Yes Status: Acute Plan to address problem: Pneumonia protocol: Chest x-ray, CBC, CMP, supplemental oxygen, pulse oximetry, nebulizer therapy, (3) Acidosis Current Visit: Yes Status: Acute Plan to address problem: Supportive care, BMP, repeat BMP in a.m. (4) Obesity hypoventilation syndrome Current Visit: Yes Status: Acute Plan to address problem: Balanced diet, increase physical activity discharge, outpatient pulmonary follow-up for sleep study. (5) Acute respiratory failure Current Visit: Yes Status: Acute Plan to address problem: Supplemental oxygen, pulse oximetry, nebulizer therapy, proposition while in bed, chest x-ray, pulmonary team consulted. (6) DVT prophylaxis Current Visit: Yes Status: Acute Plan to address problem: SCD to bilateral lower extremities while in bed, prophylactic anticoagulation (7) Advance care planning Current Visit: Yes Status: Acute Plan to address problem: Disease education conducted, care plan discussed, diagnosis discussed, prognosis discussed, patient is full code, patient knowledges understanding and agreement with care plan.
[2020-12-25] MEDS ORDERED: ALBUTEROL 2.5 MG/3 ML NEBU IH PRN (11:59)
[2020-12-25] MEDS ORDERED: ACETAMINOPHEN 325 MG TAB PO PRN ×2 (11:59→12:10)
[2020-12-25] MEDS ORDERED: HYDROmorphone 1 MG/1 ML INJ IV PRN (12:10)
[2020-12-25] MEDS ORDERED: SODIUM CHLORIDE 0.9% 1000 ML IV SOLN IV ONE (12:30)
[2020-12-25 13:39] LABS: Hematocrit 40.4 % (35.5-45.6); Hemoglobin 14.7 gm/dl (11.8-15.2)
[2020-12-25] MEDS: cefTRIAXone/NS 2 GM/100 ML 2 GM/100 ML BAG IV SCH (13:48)
[2020-12-25] MEDS: methylPREDNISolone Sod Succinate 40 MG/1 ML INJ IV SCH ×2 (13:48→22:43)
[2020-12-25 14:18] LABS: Bilirubin,Urine NEG (Negative); Blood,Urine SM (Negative); Color,Urine Straw (Yellow); Protein,Urine <15 mg/dL mg/dL (Negative); RBC,Urine < 1.0 /HPF (0.0-6.0); Urobilinogen,Urine < 2.0 mg/dL (<2.0)
[2020-12-25 15:56] LABS: Band Neutrophils # (Manual) 0.2 K/mm3; Total Cells Counted 100
[2020-12-25 15:57] LABS: Platelet Estimate Consistent w Auto; RBC Morphology Normal
[2020-12-25] MEDS: AZITHROMYCIN/NS 500 MG/250 ML 500 MG/250 ML BAG IV SCH (17:44)
[2020-12-25] MEDS: METOPROLOL TARTRATE 100 MG TAB PO SCH (22:22)
[2020-12-25] MEDS: guaiFENesin ER 600 MG TAB PO SCH (22:22)
[2020-12-25] MEDS: TAMSULOSIN 0.4 MG CAP PO SCH (22:22)
[2020-12-25] MEDS: MYCOPHENOLATE 500 MG TAB PO SCH (22:23)
[2020-12-25] MEDS: HEPARIN 5,000 UNIT/1 ML VIAL SUB-Q SCH (22:23)
[2020-12-25] MEDS: ASCORBIC ACID 500 MG TAB PO SCH (22:43)
[2020-12-25] MEDS: ZINC SULFATE 220 MG CAP PO SCH (22:43)
[2020-12-26] MEDS: ONDANSETRON 4 MG/2 ML INJ IV PRN (01:33)
[2020-12-26 05:51] LABS: Hematocrit 40.6 % (35.5-45.6); Hemoglobin 14.1 gm/dl (11.8-15.2); Mean Corpuscular HGB Conc 35 % (32-34); Mean Corpuscular Volume 90 fl (84-94); Platelet Count 113 K/mm3 (140-440); Red Blood Count 4.53 M/mm3 (3.65-5.03)
[2020-12-26 06:03] LABS: Blood Urea Nitrogen 14 mg/dL (9-20); Calcium 9.2 mg/dL (8.4-10.2); Hemolysis Index 4
[2020-12-26 06:08] LABS: BUN/Creatinine Ratio 20
[2020-12-26] MEDS: methylPREDNISolone Sod Succinate 125 MG/2 ML INJ IV SCH ×3 (08:58→22:24)
--- NOTE | 2020-12-26 09:07 | Consultation ---
History of Present Illness Consult date: 12/26/20 Requesting physician: MELINA YANEZ Reason for consult: other (PUI but patient is a known COVID positive patient) History of present illness: 60 y/o obese male, just discharge 3 days ago, known COVID readmitted yesterday with worsening respiratory failure. ID was following on last admit as well. Past History Past Medical History: anemia, GERD, hypertension, renal failure Past Surgical History: hernia repair, Other (Dialysis access, renal transplant,) Social history: . denies: smoking, alcohol abuse, prescription drug abuse Family history: diabetes, hypertension Medications and Allergies Allergies Allergy/AdvReac Type Severity Reaction Status Date / Time No Known Allergies Allergy Verified 12/14/20 15:36 Home Medications Medication Instructions Recorded Confirmed Last Taken Type Metoprolol [Lopressor TAB] 100 mg PO BID 12/28/14 12/28/20 04/15/18 09:00 History Omeprazole 40 mg PO DAILY 04/10/18 12/28/20 04/15/18 09:00 History Prednisone [predniSONE (Mariluz) ER 5 mg PO QDAY 04/10/18 12/28/20 04/15/18 09:00 History TAB] Tamsulosin HCl [Flomax] 0.4 mg PO BID 04/10/18 12/28/20 04/15/18 09:00 History Albuterol Mdi (or & Nicu Only) 2 puff IH QID PRN #8.5 gram 12/22/20 12/28/20 Unknown Rx [ProAir HFA Inhaler] Mycophenolate [Cellcept] 1,000 mg PO BID #60 tablet 12/22/20 12/28/20 Unknown Rx NIFEdipine XL [Procardia Xl] 30 mg PO QDAY #30 tablet 12/22/20 12/28/20 Unknown Rx dexAMETHasone [Decadron] 6 mg PO DAILY #4 tablet 12/22/20 12/28/20 Unknown Rx guaiFENesin ER [Mucinex ER] 600 mg PO BID #14 tablet 12/22/20 12/28/20 Unknown Rx lisinopriL [Zestril TAB] 10 mg PO QDAY #30 tablet 12/22/20 12/28/20 Unknown Rx Tacrolimus [Prograf] 4 mg PO QAM 12/26/20 12/28/20 Unknown History Tacrolimus [Prograf] 5 mg PO QPM 12/26/20 12/28/20 Unknown History Active Meds: Active Medications Acetaminophen (Acetaminophen 325 Mg Tab) 650 mg PO Q4H PRN PRN Reason: Pain MILD(1-3)/Fever >100.5/BHARDWAJ Albuterol (Albuterol 2.5 Mg/3 Ml Nebu) 2.5 mg IH Q4HRT PRN PRN Reason: Shortness Of Breath Ascorbic Acid (Ascorbic Acid 500 Mg Tab) 500 mg PO BID COUNTS INCLUDE 234 BEDS AT THE [facility] Last Admin: 12/25/20 22:43 Dose: 500 mg Documented by: Cholecalciferol (Cholecalciferol (Vit D3) 1000 Unit (25 Mcg) Tab) 1,000 unit PO QDAY COUNTS INCLUDE 234 BEDS AT THE [facility] Guaifenesin (Guaifenesin Er 600 Mg Tab) 600 mg PO BID COUNTS INCLUDE 234 BEDS AT THE [facility] Last Admin: 12/25/20 22:22 Dose: 600 mg Documented by: Heparin Sodium (Porcine) (Heparin 5,000 Unit/1 Ml Vial) 5,000 unit SUB-Q Q12HR COUNTS INCLUDE 234 BEDS AT THE [facility] Last Admin: 12/25/20 22:23 Dose: 5,000 unit Documented by: Hydromorphone HCl (Hydromorphone 1 Mg/1 Ml Inj) 0.5 mg IV Q12H PRN PRN Reason: Pain , Severe (7-10) Hydromorphone HCl (Hydromorphone 1 Mg/1 Ml Inj) 0.25 mg IV Q4H PRN PRN Reason: Pain, Moderate (4-6) Ceftriaxone Sodium (Rocephin/Ns 2 Gm/100 Ml) 2 gm in 100 mls @ 200 mls/hr IV Q2 4H COUNTS INCLUDE 234 BEDS AT THE [facility]; Protocol Stop: 12/29/20 14:29 Last Admin: 12/25/20 13:48 Dose: 200 mls/hr Documented by: Azithromycin (Zithromax/Ns) 500 mg in 250 mls @ 250 mls/hr IV Q24H COUNTS INCLUDE 234 BEDS AT THE [facility]; Protocol Stop: 12/29/20 13:59 Last Admin: 12/25/20 17:44 Dose: 250 mls/hr Documented by: Lisinopril (Lisinopril 10 Mg Tab) 10 mg PO QDAY COUNTS INCLUDE 234 BEDS AT THE [facility] Methylprednisolone Sodium Succinate (Methylprednisolone Sod Succinate 125 Mg/2 Ml Inj) 40 mg IV Q8H COUNTS INCLUDE 234 BEDS AT THE [facility] Last Admin: 12/26/20 08:58 Dose: 40 mg Documented by: Metoprolol Tartrate (Metoprolol Tartrate 100 Mg Tab) 100 mg PO BID COUNTS INCLUDE 234 BEDS AT THE [facility] Last Admin: 12/25/20 22:22 Dose: 100 mg Documented by: Mycophenolate Mofetil (Mycophenolate 500 Mg Tab) 1,000 mg PO BID COUNTS INCLUDE 234 BEDS AT THE [facility] Last Admin: 12/25/20 22:23 Dose: 1,000 mg Documented by: Nifedipine (Nifedipine Xl 30 Mg Tab) 30 mg PO QDAY COUNTS INCLUDE 234 BEDS AT THE [facility] Ondansetron HCl (Ondansetron 4 Mg/2 Ml Inj) 4 mg IV Q8H PRN PRN Reason: Nausea And Vomiting Last Admin: 12/26/20 01:33 Dose: 4 mg Documented by: Oxycodone/Acetaminophen (Oxycodone /Acetaminophen 5-325mg Tab) 1 tab PO Q12H PRN PRN Reason: Pain, Moderate (4-6) Pantoprazole Sodium (Pantoprazole 40 Mg Tab) 40 mg PO DAILY COUNTS INCLUDE 234 BEDS AT THE [facility] Sodium Chloride (Sodium Chloride 0.9% 10 Ml Flush Syringe) 10 ml IV BID COUNTS INCLUDE 234 BEDS AT THE [facility] Last Admin: 12/25/20 22:31 Dose: 10 ml Documented by: Sodium Chloride (Sodium Chloride 0.9% 10 Ml Flush Syringe) 10 ml IV PRN PRN PRN Reason: LINE FLUSH Tacrolimus (Tacrolimus 1 Mg Cap) 3 mg PO QAM TIAN Tacrolimus (Tacrolimus 1 Mg Cap) 4 mg PO QHS COUNTS INCLUDE 234 BEDS AT THE [facility] Tamsulosin HCl (Tamsulosin 0.4 Mg Cap) 0.4 mg PO BID COUNTS INCLUDE 234 BEDS AT THE [facility] Last Admin: 12/25/20 22:22 Dose: 0.4 mg Documented by: Zinc Sulfate (Zinc Sulfate 220 Mg Cap) 220 mg PO BID COUNTS INCLUDE 234 BEDS AT THE [facility] Last Admin: 12/25/20 22:43 Dose: 220 mg Documented by: Physical Examination Vital signs: Vital Signs Temp Pulse Resp BP Pulse Ox 99 F 92 H 33 H 126/81 90 12/25/20 07:45 12/25/20 07:45 12/25/20 07:45 12/25/20 07:45 12/25/20 07:45 Results - Laboratory Findings CBC and BMP: 12/28/20 10:02 12/28/20 10:02 ABG ABG pH 7.481 (7.320-7.450) H 12/25/20 10:13 POC ABG pCO2 20.7 mmHg (32.0-48.0) L 12/25/20 10:13 POC ABG pO2 62.0 mmHg (83-108) L 12/25/20 10:13 POC ABG HCO3 15.1 12/25/20 10:13 ABG O2 Saturation 92.4 (0-100) 12/25/20 10:13 Abnormal lab findings: Abnormal Labs 12/25/20 12/25/20 12/25/20 08:33 08:33 08:33 WBC 15.9 H Hgb 15.3 H MCHC 36 H Plt Count 133 L Seg Neuts % (Manual) 98.0 H Lymphocytes % (Manual) 1.0 L Seg Neutrophils # Man 15.6 H Lymphocytes # (Manual) 0.2 L ABG pH POC ABG pCO2 POC ABG pO2 ABG Oxyhemoglobin ABG Sodium ABG Chloride ABG Glucose Sodium 120 L D Chloride 90.2 L Carbon Dioxide 16 L Creatinine Glucose 116 H Lactic Acid 2.40 H* Total Bilirubin 1.30 H Albumin 3.1 L Arterial Blood Glucose 12/25/20 12/25/20 12/26/20 10:13 11:13 04:58 WBC 13.1 H Hgb MCHC 35 H Plt Count 113 L Seg Neuts % (Manual) Lymphocytes % (Manual) Seg Neutrophils # Man Lymphocytes # (Manual) ABG pH 7.481 H POC ABG pCO2 20.7 L POC ABG pO2 62.0 L ABG Oxyhemoglobin 91.6 L ABG Sodium 119.3 L ABG Chloride 95.0 L ABG Glucose 122 H Sodium Chloride Carbon Dioxide Creatinine Glucose Lactic Acid 2.20 H* Total Bilirubin Albumin Arterial Blood Glucose 122 H 12/26/20 04:58 WBC Hgb MCHC Plt Count Seg Neuts % (Manual) Lymphocytes % (Manual) Seg Neutrophils # Man Lymphocytes # (Manual) ABG pH POC ABG pCO2 POC ABG pO2 ABG Oxyhemoglobin ABG Sodium ABG Chloride ABG Glucose Sodium 129 L D Chloride Carbon Dioxide 17 L Creatinine 0.7 L Glucose 112 H Lactic Acid Total Bilirubin Albumin Arterial Blood Glucose - Diagnostic Findings Chest x-ray: image reviewed Assessment and Plan 60 y/o male with acute respiratory failure secondary to COVID 19 pneumonia 1. IV steroids 2. Remdesivir 3. Ask about Actemra 4. Prone 5. Net negative volume state 6. Guarded prognosis
[2020-12-26] MEDS ORDERED: TACROLIMUS 1 MG CAP PO SCH (10:00)
[2020-12-26] MEDS ORDERED: NON-FORMULARY EACH (Omeprazole [Omeprazole] 40 MG Capsule.Dr) PO SCH (10:00)
--- NOTE | 2020-12-26 10:21 | Electrocardiograph Report ---
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
[2020-12-26] MEDS: MYCOPHENOLATE 500 MG TAB PO SCH ×2 (11:29→22:21)
[2020-12-26] MEDS: TAMSULOSIN 0.4 MG CAP PO SCH ×2 (11:30→22:26)
[2020-12-26] MEDS: HEPARIN 5,000 UNIT/1 ML VIAL SUB-Q SCH (11:30)
[2020-12-26] MEDS: METOPROLOL TARTRATE 100 MG TAB PO SCH ×2 (11:30→22:22)
[2020-12-26] MEDS: guaiFENesin ER 600 MG TAB PO SCH (11:31)
[2020-12-26] MEDS: TACROLIMUS 1 MG CAP PO SCH ×2 (11:31→22:25)
[2020-12-26] MEDS: ASCORBIC ACID 500 MG TAB PO SCH ×2 (11:32→22:23)
[2020-12-26] MEDS: PANTOPRAZOLE 40 MG TAB PO SCH (11:32)
[2020-12-26] MEDS: LISINOPRIL 10 MG TAB PO SCH (11:33)
[2020-12-26] MEDS: ZINC SULFATE 220 MG CAP PO SCH ×2 (11:33→22:23)
[2020-12-26] MEDS: CHOLECALCIFEROL (VIT D3) 1000 UNIT (25 mcg) TAB PO SCH (11:33)
[2020-12-26] MEDS: NIFEdipine XL 30 MG TAB PO SCH (11:34)
[2020-12-26 13:50] LABS: Band Neutrophils # (Manual) 0.1 K/mm3; Total Cells Counted 100
[2020-12-26 13:51] LABS: Platelet Estimate Consistent w Auto; RBC Morphology Normal
--- NOTE | 2020-12-26 14:06 | Progress Note ---
Assessment and Plan Assessment and plan: 60 YO Male with Obesity Hypoventilation Syndrome, kidney transplant, HTN, GERD, Anemia Chronic Disease, Coronavirus Infection diagnosed 2 weeks and discharged 3 days sorry, who failed outpatient therapy and currently on 2L/min Home oxygen via NC, CKD S/P Renal Transplant currently on anti graft rejection therapy presents to ED for evaluation. Patient reports "I cannot breathe". Patient states that he has experienced shortness of breath over the past 1 week with persistent and worsening symptoms over the same timeframe. Patient was diagnosed with coronavirus infection 2 weeks ago and was treated with outpatient therapy as well as supplemental oxygen at 2 L via nasal cannula. Patient states that he has experienced worsening shortness of breath over the past 1 week, fatigue, malaise, generalized weakness. EMS was notified and upon arrival the patient was found to be in distress and was found to have a pulse oximetry in the 70s while on 2 L nasal cannula. The patient was treated with oxygen via nonrebreather mask and subsequently transported to [facility] for further care and evaluation of the aforementioned symptoms. The patient was seen and evaluated in the emergency department. All lab and imaging studies reviewed. Patient found to have a pulse oximetry in the 70s on submental oxygen and was subsequently placed on high flow supplemental oxygen due to acute hypoxemic respiratory failure. Patient underwent chest x- ray and was found to have bilateral pneumonia secondary to sepsis. Patient also found to have acidosis. Patient initiated on sepsis protocol as well as coronavirus pneumonia protocol and admitted to medical floor. Patient denies fever, chills, chest pain, palpitation, skin rash, trauma, or known ill contacts. Prior admission on 12/15/2020 reviewed. All medication listed at time of admission has been reconciled. Advanced care planning conducted in ED. Patient reports that he had both of his COVID-19 vaccines with past medical history of hypertension, GERD, kidney transplant in 2017 was brought to the emergency room because of abdominal pain, body aches, fever, cough for last 2 days. The patient had been treated on dexamethasone for total 10 days and remdesivir total 5 days as patient is immunocompromised patient,-Antibiotic was not required as procalcitonin level was normal, -Patient was given anticoagulation per protocol, Patient was deemed to be stable and was discharged on home oxygen but returned as noted above with worsening hypoxia and now on Full dose 12/26: Continue current management, will check d,dimer and possible VQ scan, Will keep on full dose anticoagulation until proven not to have Pulmonary Embolism. Check Doppler for DVT prophy. Monitor Plt. (1) Sepsis Current Visit: Yes Status: Acute Qualifiers: Acute respiratory failure type: with hypoxia Plan to address problem: Sepsis protocol: Chest x-ray, CBC, CMP, urinalysis, IV antibiotic therapy, IV fluid resuscitation therapy, monitor urine output every shift, monitor fluid balance, maintain mean arterial pressure greater than or equal to 65, blood culture. Serial lactic acid level. (2) Pneumonia Current Visit: Yes Status: Acute Plan to address problem: Pneumonia protocol: Chest x-ray, CBC, CMP, supplemental oxygen, pulse oximetry, nebulizer therapy, (3) Acidosis Current Visit: Yes Status: Acute Plan to address problem: Supportive care, BMP, repeat BMP in a.m. (4) Obesity hypoventilation syndrome Current Visit: Yes Status: Acute Plan to address problem: Balanced diet, increase physical activity discharge, outpatient pulmonary follow-up for sleep study. (5) Acute Hypoxia respiratory failure Current Visit: Yes Status: Acute Plan to address problem: Supplemental oxygen, pulse oximetry, nebulizer therapy, proposition while in bed, chest x-ray, pulmonary team consulted. (6) Hyponatremia (7) Thrombocytopenia (8) DVT prophylaxis Current Visit: Yes Status: Acute Plan to address problem: SCD to bilateral lower extremities while in bed, prophylactic anticoagulation (9) Advance care planning Current Visit: Yes Status: Acute Plan to address problem: Disease education conducted, care plan discussed, diagnosis discussed, prognosis discussed, patient is full code, patient knowledges understanding and agreement with care plan. History Interval history: Patient seen and examined, Hypoxic and on NRMB, High flow. Hospitalist Physical - Physical exam Narrative exam: Limited physical exam due to COVID-19 pandemic to minimize transmission of the disease and to preserve PPE. Vital reviewed and stable. GENERAL: well-developed well-nourished lying in bed, acute shortness of breath on NRBM AND Highflow HEENT: Normocephalic. Atraumatic. NECK: Supple. CHEST/LUNGS: breathing labored. HEART/CARDIOVASCULAR: Heart rate stable on telemetry ABDOMEN: Visibly not distended SKIN: There is no rash, left UE AV Fistula NEURO: No focal motor deficit. Follows command. MUSCULOSKELETAL: No joint effusion EXTRIMITY: No swelling, no cyanosis or clubbing. PSYCH: Cooperative. - Constitutional Vitals: Temp Pulse Resp BP Pulse Ox 98.2 F 95 H 29 H 125/85 90 12/25/20 20:00 12/26/20 10:46 12/26/20 10:46 12/26/20 10:46 12/26/20 10:46 General appearance: Present: mild distress, obese HEART Score - HEART Score Troponin: Troponin T < 0.010 ng/mL (0.00-0.029) 12/25/20 08:33 Results - Labs CBC & Chem 7: 12/26/20 04:58 12/26/20 04:58 Labs: Laboratory Last Values WBC 13.1 K/mm3 (4.5-11.0) H 12/26/20 04:58 RBC 4.53 M/mm3 (3.65-5.03) 12/26/20 04:58 Hgb 14.1 gm/dl (11.8-15.2) 12/26/20 04:58 Hct 40.6 % (35.5-45.6) 12/26/20 04:58 MCV 90 fl (84-94) 12/26/20 04:58 MCH 31 pg (28-32) 12/26/20 04:58 MCHC 35 % (32-34) H 12/26/20 04:58 RDW 14.0 % (13.2-15.2) 12/26/20 04:58 Plt Count 113 K/mm3 (140-440) L 12/26/20 04:58 Add Manual Diff Complete 12/26/20 04:58 Total Counted 100 12/26/20 04:58 Seg Neutrophils % Fish Liver Sorter 12/26/20 04:58 Seg Neuts % (Manual) 96.0 % (40.0-70.0) H 12/26/20 04:58 Band Neutrophils % 1.0 % 12/26/20 04:58 Lymphocytes % (Manual) 3.0 % (13.4-35.0) L 12/26/20 04:58 Nucleated RBC % Not Reportable 12/26/20 04:58 Seg Neutrophils # Man 12.6 K/mm3 (1.8-7.7) H 12/26/20 04:58 Band Neutrophils # 0.1 K/mm3 12/26/20 04:58 Lymphocytes # (Manual) 0.4 K/mm3 (1.2-5.4) L 12/26/20 04:58 Abs React Lymphs (Man) 0.0 K/mm3 12/26/20 04:58 Monocytes # (Manual) 0.0 K/mm3 (0.0-0.8) 12/26/20 04:58 Eosinophils # (Manual) 0.0 K/mm3 (0.0-0.4) 12/26/20 04:58 Basophils # (Manual) 0.0 K/mm3 (0.0-0.1) 12/26/20 04:58 Metamyelocytes # 0.0 K/mm3 12/26/20 04:58 Myelocytes # 0.0 K/mm3 12/26/20 04:58 Promyelocytes # 0.0 K/mm3 12/26/20 04:58 Blast Cells # 0.0 K/mm3 12/26/20 04:58 WBC Morphology Not Reportable 12/26/20 04:58 Hypersegmented Neuts Not Reportable 12/26/20 04:58 Hyposegmented Neuts Not Reportable 12/26/20 04:58 Hypogranular Neuts Not Reportable 12/26/20 04:58 Smudge Cells Not Reportable 12/26/20 04:58 Toxic Granulation Not Reportable 12/26/20 04:58 Toxic Vacuolation Not Reportable 12/26/20 04:58 Dohle Bodies Not Reportable 12/26/20 04:58 Pelger-Huet Anomaly Not Reportable 12/26/20 04:58 Marbin Rods Not Reportable 12/26/20 04:58 Platelet Estimate Consistent w auto 12/26/20 04:58 Clumped Platelets Not Reportable 12/26/20 04:58 Plt Clumps, EDTA Not Reportable 12/26/20 04:58 Large Platelets Not Reportable 12/26/20 04:58 Giant Platelets Not Reportable 12/26/20 04:58 Platelet Satelliting Not Reportable 12/26/20 04:58 Plt Morphology Comment Not Reportable 12/26/20 04:58 RBC Morphology Normal 12/26/20 04:58 Dimorphic RBCs Not Reportable 12/26/20 04:58 Polychromasia Not Reportable 12/26/20 04:58 Hypochromasia Not Reportable 12/26/20 04:58 Poikilocytosis Not Reportable 12/26/20 04:58 Anisocytosis Not Reportable 12/26/20 04:58 Microcytosis Not Reportable 12/26/20 04:58 Macrocytosis Not Reportable 12/26/20 04:58 Spherocytes Not Reportable 12/26/20 04:58 Pappenheimer Bodies Not Reportable 12/26/20 04:58 Sickle Cells Not Reportable 12/26/20 04:58 Target Cells Not Reportable 12/26/20 04:58 Tear Drop Cells Not Reportable 12/26/20 04:58 Ovalocytes Not Reportable 12/26/20 04:58 Helmet Cells Not Reportable 12/26/20 04:58 David-[place]worth Bodies Not Reportable 12/26/20 04:58 [place] Rings Not Reportable 12/26/20 04:58 [place] Cells Not Reportable 12/26/20 04:58 Bite Cells Not Reportable 12/26/20 04:58 Crenated Cell Not Reportable 12/26/20 04:58 Elliptocytes Not Reportable 12/26/20 04:58 Acanthocytes (Spur) Not Reportable 12/26/20 04:58 Rouleaux Not Reportable 12/26/20 04:58 Hemoglobin C Crystals Not Reportable 12/26/20 04:58 Schistocytes Not Reportable 12/26/20 04:58 Malaria parasites Not Reportable 12/26/20 04:58 Woodrow Bodies Not Reportable 12/26/20 04:58 Hem Pathologist Commnt No 12/26/20 04:58 APTT 32.3 Sec. (24.2-36.6) 12/25/20 08:33 ABG pH 7.481 (7.320-7.450) H 12/25/20 10:13 POC ABG pCO2 20.7 mmHg (32.0-48.0) L 12/25/20 10:13 POC ABG pO2 62.0 mmHg (83-108) L 12/25/20 10:13 POC ABG HCO3 15.1 12/25/20 10:13 ABG O2 Saturation 92.4 (0-100) 12/25/20 10:13 POC ABG Base Excess -5.8 12/25/20 10:13 ABG Hemoglobin 15.0 (12.0-17.5) 12/25/20 10:13 ABG Oxyhemoglobin 91.6 (94-98) L 12/25/20 10:13 ABG Methemoglobin 0.3 (0.0-1.5) 12/25/20 10:13 ABG Sodium 119.3 mmol/L (136.0-145.0) L 12/25/20 10:13 ABG Potassium 4.2 mmol/L (3.40-4.50) 12/25/20 10:13 ABG Chloride 95.0 mmol/L (98-107) L 12/25/20 10:13 ABG Glucose 122 mg/dL (65-95) H 12/25/20 10:13 Carboxyhemoglobin 0.6 (0.5-1.5) 12/25/20 10:13 FiO2 % 100.0 12/25/20 10:13 Sodium 129 mmol/L (137-145) L D 12/26/20 04:58 Potassium 4.7 mmol/L (3.6-5.0) 12/26/20 04:58 Chloride 103.1 mmol/L (98-107) 12/26/20 04:58 Carbon Dioxide 17 mmol/L (22-30) L 12/26/20 04:58 Anion Gap 14 mmol/L 12/26/20 04:58 BUN 14 mg/dL (9-20) 12/26/20 04:58 Creatinine 0.7 mg/dL (0.8-1.3) L 12/26/20 04:58 Estimated GFR > 60 ml/min 12/26/20 04:58 BUN/Creatinine Ratio 20 % 12/26/20 04:58 Glucose 112 mg/dL (75-100) H 12/26/20 04:58 Lactic Acid 1.50 mmol/L (0.7-2.0) 12/25/20 23:38 Calcium 9.2 mg/dL (8.4-10.2) 12/26/20 04:58 Total Bilirubin 1.30 mg/dL (0.1-1.2) H 12/25/20 08:33 AST 37 units/L (5-40) 12/25/20 08:33 ALT 13 units/L (7-56) 12/25/20 08:33 Alkaline Phosphatase 70 units/L (35-129) 12/25/20 08:33 Troponin T < 0.010 ng/mL (0.00-0.029) 12/25/20 08:33 Total Protein 7.5 g/dL (6.3-8.2) 12/25/20 08:33 Albumin 3.1 g/dL (3.9-5) L 12/25/20 08:33 Albumin/Globulin Ratio 0.7 % 12/25/20 08:33 Arterial Blood Glucose 122 mg/dL (65-95) H 12/25/20 10:13 Arterial Blood Ionized Calcium 4.8 mg/dL (4.6-5.3) 12/25/20 10:13 Urine Color Straw (Yellow) 12/25/20 13:30 Urine Turbidity Clear (Clear) 12/25/20 13:30 Urine pH 7.0 (5.0-7.0) 12/25/20 13:30 Ur Specific [place] 1.003 (1.003-1.030) 12/25/20 13:30 Urine Protein <15 mg/dl mg/dL (Negative) 12/25/20 13:30 Urine Glucose (UA) Neg mg/dL (Negative) 12/25/20 13:30 Urine Ketones Neg mg/dL (Negative) 12/25/20 13:30 Urine Blood Sm (Negative) 12/25/20 13:30 Urine Nitrite Neg (Negative) 12/25/20 13:30 Urine Bilirubin Neg (Negative) 12/25/20 13:30 Urine Urobilinogen < 2.0 mg/dL (<2.0) 12/25/20 13:30 Ur Leukocyte Esterase Neg (Negative) 12/25/20 13:30 Urine WBC (Auto) 1.0 /HPF (0.0-6.0) 12/25/20 13:30 Urine RBC (Auto) < 1.0 /HPF (0.0-6.0) 12/25/20 13:30 U Epithel Cells (Auto) < 1.0 /HPF (0-13.0) 12/25/20 13:30 Blood Type A POSITIVE 12/25/20 08:36 Antibody Screen Negative 12/25/20 08:36 Microbiology: Microbiology 12/25/20 Unknown Urine,Clean Catch Urine Culture - Preliminary NO GROWTH AFTER 24 HOURS 12/25/20 08:33 Peripheral/Venous Blood Culture - Preliminary NO GROWTH AFTER 24 HOURS 12/25/20 08:33 Peripheral/Venous Blood Culture - Preliminary NO GROWTH AFTER 24 HOURS Active Medications - Current Medications Current Medications: Generic Name Dose Route Start Last Admin Trade Name Freq PRN Reason Stop Dose Admin Acetaminophen 650 mg 12/25/20 11:59 Acetaminophen 325 Mg Tab PO Q4H PRN Pain MILD(1-3)/Fever >100.5/BHARDWAJ Albuterol 2.5 mg 12/25/20 11:59 Albuterol 2.5 Mg/3 Ml Nebu IH Q4HRT PRN Shortness Of Breath Ascorbic Acid 500 mg 12/25/20 22:00 12/26/20 11:32 Ascorbic Acid 500 Mg Tab PO 500 mg BID TIAN Administration Cholecalciferol 1,000 unit 12/26/20 10:00 12/26/20 11:33 Cholecalciferol (Vit D3) 1000 Unit (25 Mcg) Tab PO 1,000 unit QDAY TIAN Administration Guaifenesin 600 mg 12/25/20 22:00 12/26/20 11:31 Guaifenesin Er 600 Mg Tab PO 600 mg BID TIAN Administration Heparin Sodium (Porcine) 5,000 unit 12/25/20 22:00 12/26/20 11:30 Heparin 5,000 Unit/1 Ml Vial SUB-Q 5,000 unit Q12HR TIAN Administration Hydromorphone HCl 0.5 mg 12/25/20 11:59 Hydromorphone 1 Mg/1 Ml Inj IV Q12H PRN Pain , Severe (7-10) Hydromorphone HCl 0.25 mg 12/25/20 12:10 Hydromorphone 1 Mg/1 Ml Inj IV Q4H PRN Pain, Moderate (4-6) Ceftriaxone Sodium 2 gm in 100 mls @ 200 mls/hr 12/25/20 14:00 12/25/20 13:48 Rocephin/Ns 2 Gm/100 Ml IV 12/29/20 14:29 200 mls/hr Q24H TIAN Administration Protocol Azithromycin 500 mg in 250 mls @ 250 mls/hr 12/25/20 13:00 12/25/20 17:44 Zithromax/Ns IV 12/29/20 13:59 250 mls/hr Q24H TIAN Administration Protocol Lisinopril 10 mg 12/26/20 10:00 12/26/20 11:33 Lisinopril 10 Mg Tab PO 10 mg QDAY TIAN Administration Methylprednisolone Sodium Succinate 40 mg 12/26/20 06:00 12/26/20 08:58 Methylprednisolone Sod Succinate 125 Mg/2 Ml Inj IV 40 mg Q8H TIAN Administration Metoprolol Tartrate 100 mg 12/25/20 22:00 12/26/20 11:30 Metoprolol Tartrate 100 Mg Tab PO 100 mg BID TIAN Administration Mycophenolate Mofetil 1,000 mg 12/25/20 22:00 12/26/20 11:29 Mycophenolate 500 Mg Tab PO 1,000 mg BID TIAN Administration Nifedipine 30 mg 12/26/20 10:00 12/26/20 11:34 Nifedipine Xl 30 Mg Tab PO Not Given QDAY TIAN Ondansetron HCl 4 mg 12/25/20 11:59 12/26/20 01:33 Ondansetron 4 Mg/2 Ml Inj IV 4 mg Q8H PRN Administration Nausea And Vomiting Oxycodone/Acetaminophen 1 tab 12/25/20 11:59 Oxycodone /Acetaminophen 5-325mg Tab PO Q12H PRN Pain, Moderate (4-6) Pantoprazole Sodium 40 mg 12/26/20 10:00 12/26/20 11:32 Pantoprazole 40 Mg Tab PO 40 mg DAILY TIAN Administration Sodium Chloride 10 ml 12/25/20 22:00 12/25/20 22:31 Sodium Chloride 0.9% 10 Ml Flush Syringe IV 10 ml BID TIAN Administration Sodium Chloride 10 ml 12/25/20 11:59 Sodium Chloride 0.9% 10 Ml Flush Syringe IV PRN PRN LINE FLUSH Tacrolimus 3 mg 12/26/20 10:00 12/26/20 11:31 Tacrolimus 1 Mg Cap PO 3 mg QAM TIAN Administration Tacrolimus 4 mg 12/26/20 22:00 Tacrolimus 1 Mg Cap PO QHS TIAN Tamsulosin HCl 0.4 mg 12/25/20 22:00 12/26/20 11:30 Tamsulosin 0.4 Mg Cap PO 0.4 mg BID TIAN Administration Zinc Sulfate 220 mg 12/25/20 22:00 12/26/20 11:33 Zinc Sulfate 220 Mg Cap PO 220 mg BID TIAN Administration
[2020-12-26] MEDS: AZITHROMYCIN/NS 500 MG/250 ML 500 MG/250 ML BAG IV SCH (14:29)
[2020-12-26] MEDS: cefTRIAXone/NS 2 GM/100 ML 2 GM/100 ML BAG IV SCH (15:51)
[2020-12-26] MEDS: ENOXAPARIN 100 MG/1 ML INJ SUB-Q SCH ×2 (16:00→22:27)
--- NOTE | 2020-12-26 16:23 | Consultation ---
History of Present Illness - Reason for Consult Consult date: 12/26/20 COVID Requesting physician: CAMMY PARKER - History of Present Illness The patient is a 60-year-old male with obesity, renal transplant in 2017, hypertension, anemia was diagnosed with COVID-19 infection and was discharged on 12/22/2020 after having completed Remdesivir and was also receiving steroids has now been readmitted to the hospital with worsening shortness of breath. Noted to be hypoxic. Labs revealed increased leukocytosis, ferritin 2775, CRP pending Review of Systems: reviewed in the chart, unable to obtain, minimize risk of transmission Past History Past Medical History: anemia, GERD, hypertension, renal failure Past Surgical History: hernia repair, Other (Dialysis access, renal transplant,) Social history: . denies: smoking, alcohol abuse, prescription drug abuse Family history: diabetes, hypertension Medications and Allergies Allergies Allergy/AdvReac Type Severity Reaction Status Date / Time No Known Allergies Allergy Verified 12/14/20 15:36 Home Medications Medication Instructions Recorded Confirmed Last Taken Type Metoprolol [Lopressor TAB] 100 mg PO BID 12/28/14 12/15/20 04/15/18 09:00 History Omeprazole 40 mg PO DAILY 04/10/18 12/15/20 04/15/18 09:00 History Prednisone [predniSONE (Mariluz) ER 5 mg PO QDAY 04/10/18 12/15/20 04/15/18 09:00 History TAB] Tamsulosin HCl [Flomax] 0.4 mg PO BID 04/10/18 12/16/20 04/15/18 09:00 History Albuterol Mdi (or & Nicu Only) 2 puff IH QID PRN #8.5 gram 12/22/20 Unknown Rx [ProAir HFA Inhaler] Mycophenolate [Cellcept] 1,000 mg PO BID #60 tablet 12/22/20 12/26/20 Unknown Rx NIFEdipine XL [Procardia Xl] 30 mg PO QDAY #30 tablet 12/22/20 Unknown Rx dexAMETHasone [Decadron] 6 mg PO DAILY #4 tablet 12/22/20 Unknown Rx guaiFENesin ER [Mucinex ER] 600 mg PO BID #14 tablet 12/22/20 Unknown Rx lisinopriL [Zestril TAB] 10 mg PO QDAY #30 tablet 12/22/20 Unknown Rx Tacrolimus [Prograf] 4 mg PO QAM 12/26/20 12/26/20 Unknown History Tacrolimus [Prograf] 5 mg PO QPM 12/26/20 12/26/20 Unknown History Active Meds: Active Medications Acetaminophen (Acetaminophen 325 Mg Tab) 650 mg PO Q4H PRN PRN Reason: Pain MILD(1-3)/Fever >100.5/BHARDWAJ Albuterol (Albuterol 2.5 Mg/3 Ml Nebu) 2.5 mg IH Q4HRT PRN PRN Reason: Shortness Of Breath Ascorbic Acid (Ascorbic Acid 500 Mg Tab) 500 mg PO BID [facility] Last Admin: 12/26/20 11:32 Dose: 500 mg Documented by: Cholecalciferol (Cholecalciferol (Vit D3) 1000 Unit (25 Mcg) Tab) 1,000 unit PO QDAY [facility] Last Admin: 12/26/20 11:33 Dose: 1,000 unit Documented by: Enoxaparin Sodium (Enoxaparin 100 Mg/1 Ml Inj) 90 mg 1 mg/kg (90 mg) SUB-Q BID [facility]; Protocol Guaifenesin (Guaifenesin Er 600 Mg Tab) 600 mg PO BID [facility] Last Admin: 12/26/20 11:31 Dose: 600 mg Documented by: Hydromorphone HCl (Hydromorphone 1 Mg/1 Ml Inj) 0.5 mg IV Q12H PRN PRN Reason: Pain , Severe (7-10) Hydromorphone HCl (Hydromorphone 1 Mg/1 Ml Inj) 0.25 mg IV Q4H PRN PRN Reason: Pain, Moderate (4-6) Ceftriaxone Sodium (Rocephin/Ns 2 Gm/100 Ml) 2 gm in 100 mls @ 200 mls/hr IV Q24H [facility]; Protocol Stop: 12/29/20 14:29 Last Admin: 12/26/20 15:51 Dose: 200 mls/hr Documented by: Azithromycin (Zithromax/Ns) 500 mg in 250 mls @ 250 mls/hr IV Q24H [facility]; Protocol Stop: 12/29/20 13:59 Last Admin: 12/26/20 14:29 Dose: 250 mls/hr Documented by: Lisinopril (Lisinopril 10 Mg Tab) 10 mg PO QDAY [facility] Last Admin: 12/26/20 11:33 Dose: 10 mg Documented by: Methylprednisolone Sodium Succinate (Methylprednisolone Sod Succinate 125 Mg/2 Ml Inj) 40 mg IV Q8H [facility] Last Admin: 12/26/20 14:30 Dose: 40 mg Documented by: Metoprolol Tartrate (Metoprolol Tartrate 100 Mg Tab) 100 mg PO BID [facility] Last Admin: 12/26/20 11:30 Dose: 100 mg Documented by: Mycophenolate Mofetil (Mycophenolate 500 Mg Tab) 1,000 mg PO BID [facility] Last Admin: 12/26/20 11:29 Dose: 1,000 mg Documented by: Nifedipine (Nifedipine Xl 30 Mg Tab) 30 mg PO QDAY [facility] Last Admin: 12/26/20 11:34 Dose: Not Given Documented by: Ondansetron HCl (Ondansetron 4 Mg/2 Ml Inj) 4 mg IV Q8H PRN PRN Reason: Nausea And Vomiting Last Admin: 12/26/20 01:33 Dose: 4 mg Documented by: Oxycodone/Acetaminophen (Oxycodone /Acetaminophen 5-325mg Tab) 1 tab PO Q12H PRN PRN Reason: Pain, Moderate (4-6) Pantoprazole Sodium (Pantoprazole 40 Mg Tab) 40 mg PO DAILY [facility] Last Admin: 12/26/20 11:32 Dose: 40 mg Documented by: Sodium Chloride (Sodium Chloride 0.9% 10 Ml Flush Syringe) 10 ml IV BID [facility] Last Admin: 12/25/20 22:31 Dose: 10 ml Documented by: Sodium Chloride (Sodium Chloride 0.9% 10 Ml Flush Syringe) 10 ml IV PRN PRN PRN Reason: LINE FLUSH Tacrolimus (Tacrolimus 1 Mg Cap) 3 mg PO QAM [facility] Last Admin: 12/26/20 11:31 Dose: 3 mg Documented by: Tacrolimus (Tacrolimus 1 Mg Cap) 4 mg PO QHS [facility] Tamsulosin HCl (Tamsulosin 0.4 Mg Cap) 0.4 mg PO BID [facility] Last Admin: 12/26/20 11:30 Dose: 0.4 mg Documented by: Zinc Sulfate (Zinc Sulfate 220 Mg Cap) 220 mg PO BID [facility] Last Admin: 12/26/20 11:33 Dose: 220 mg Documented by: Physical Examination - Physical Exam Narrative exam: Physical Exam (reviewed in chart to minimize risk of transmission) Constitutional: deferred Head, Ears, Nose: deferred Eyes: deferred Neck: deferred Oral: deferred Cardiovascular: deferred Respiratory: deferred GI: deferred Musculoskeletal: deferred Skin: deferred Hem/Lymphatic: deferred Psych: deferred Neurological: deferred - Constitutional Vitals: Vital Signs Temp Pulse Resp BP Pulse Ox 98.2 F 95 H 29 H 125/85 90 12/25/20 20:00 12/26/20 10:46 12/26/20 10:46 12/26/20 10:46 12/26/20 10:46 Temperature -Last 24 Hours Temperature 98.2 F Results - Labs CBC & Chem 7: 12/26/20 04:58 12/26/20 04:58 Labs: Abnormal lab results 12/26/20 12/26/20 Range/Units 04:58 04:58 WBC 13.1 H (4.5-11.0) K/mm3 MCHC 35 H (32-34) % Plt Count 113 L (140-440) K/mm3 Seg Neuts % (Manual) 96.0 H (40.0-70.0) % Lymphocytes % (Manual) 3.0 L (13.4-35.0) % Seg Neutrophils # Man 12.6 H (1.8-7.7) K/mm3 Lymphocytes # (Manual) 0.4 L (1.2-5.4) K/mm3 Sodium 129 L D (137-145) mmol/L Carbon Dioxide 17 L (22-30) mmol/L Creatinine 0.7 L (0.8-1.3) mg/dL Glucose 112 H (75-100) mg/dL - Imaging and Cardiology Chest x-ray: report reviewed, image reviewed (b/l pna, no interval change) Assessment and Plan Cultures: 12/15/2020 SARS CoV2 PCR: Positive 12/25/2020 blood culture: No growth 12/25/2020 urine culture: No growth A/P: 60-year-old male with obesity, renal transplant in 2017, hypertension, anemia was diagnosed with COVID-19 infection and was discharged on 12/22/2020 after having completed Remdesivir and was also receiving steroids has now been readmitted to the hospital with worsening shortness of breath: #Bilateral pneumonia: Secondary to COVID-19. Rule out other complications including PE, VQ negative. #Acute hypoxic respiratory failure: secondary to above #Kidney transplant/immunosuppressed host: Currently on mycophenolate and tacrolimus. Recs: continue steroids, empiric abx Recently received remdesivir, no benefit with repeating course VTE evaluation. VQ negative f/u markers: d-dimer, CRP and procalcitonin prophylactic anticoagulation based on d-dimer per hospital protocol Magno Goodrich MD, FACP [facility] ([facility] O: [phone] F: [phone]
--- NOTE | 2020-12-26 16:58 | Vascular Lab Report ---
DUPLEX DOPPLER LOWER EXTREMITY VEINS, BILATERAL INDICATION / CLINICAL INFORMATION: dvt. TECHNIQUE: Duplex doppler imaging was performed through the veins of both lower extremities using taina ous compression and other maneuvers. COMPARISON: None available. FINDINGS: RIGHT COMMON FEMORAL VEIN: Negative. RIGHT FEMORAL VEIN: Negative. RIGHT POPLITEAL VEIN: Negative. RIGHT CALF VEINS: Negative. LEFT COMMON FEMORAL VEIN: Negative. LEFT FEMORAL VEIN: Negative. LEFT POPLITEAL VEIN: Negative. LEFT CALF VEINS: Negative. ADDITIONAL FINDINGS: None. IMPRESSION: 1. No sonographic evidence for DVT in either lower extremity. Signer Name: Jose Lay MD Signed: 12/26/2020 4:54 PM Workstation Name: [id number]
--- NOTE | 2020-12-26 18:35 | Cat Scan Report ---
CT CHEST WITHOUT CONTRAST INDICATION / CLINICAL INFORMATION: hypoxic respiratory failure. TECHNIQUE: Axial CT images were obtained through the chest without contrast. All CT scans at this location are p erformed using CT dose reduction for ALARA by means of automated exposure control. COMPARISON: One view of the chest dated 12/25/2020. CT abdomen and pelvis without contrast dated 12/15/2020. FINDINGS: HEART: No significant abnormality. CORONARY ARTERY CALCIFICATION: Moderate. THORACIC AORTA: Normal in caliber and mildly calcified. LYMPH NODES: Multiple shotty mediastinal nodes are present. No other significant adenopathy. TRACHEA AND BRONCHI:No significant abnormality. LUNGS: Generalized bilateral ground glass opacities are noted with interlobular septal thickening and more dense areas of consolidation that are most notable along the lower lobes. These changes have p rogressed significantly since the 12/15/2020 CT. PLEURA: No significant pleural effusion. No pneumothorax. UPPER ABDOMEN: No acute abnormality or other significant interval changes. BONES: No acute abnormality. Mild degenerative changes are seen along the spine. ADDITIONAL FINDINGS: None. IMPRESSION: 1. Interval progression of suspected bilateral pneumonia. 2. Shoddy mediastinal nodes are likely reactive. Signer Name: Juventino Grijalva MD Signed: 12/26/2020 6:31 PM Workstation Name: [employer]-[id number]
[2020-12-27] MEDS ORDERED: ZOLPIDEM 5 MG TAB PO ONE (01:00)
[2020-12-27] MEDS: guaiFENesin ER 600 MG TAB PO SCH ×3 (01:08→22:58)
[2020-12-27 06:31] LABS: Hematocrit 41.4 % (35.5-45.6); Hemoglobin 14.5 gm/dl (11.8-15.2); Mean Corpuscular HGB Conc 35 % (32-34); Mean Corpuscular Volume 89 fl (84-94); Platelet Count 108 K/mm3 (140-440); Red Blood Count 4.66 M/mm3 (3.65-5.03); Red Cell Distribution Width 14.1 % (13.2-15.2)
[2020-12-27 06:41] LABS: BUN/Creatinine Ratio 26; Blood Urea Nitrogen 21 mg/dL (9-20); Calcium 9.7 mg/dL (8.4-10.2); Hemolysis Index 13
[2020-12-27] MEDS: methylPREDNISolone Sod Succinate 125 MG/2 ML INJ IV SCH ×2 (09:00→16:54)
[2020-12-27] MEDS: ENOXAPARIN 100 MG/1 ML INJ SUB-Q SCH ×3 (10:19→22:57)
[2020-12-27] MEDS: TACROLIMUS 1 MG CAP PO SCH ×2 (13:00→23:00)
[2020-12-27] MEDS: CHOLECALCIFEROL (VIT D3) 1000 UNIT (25 mcg) TAB PO SCH (13:00)
[2020-12-27] MEDS: NIFEdipine XL 30 MG TAB PO SCH (13:00)
[2020-12-27] MEDS: PANTOPRAZOLE 40 MG TAB PO SCH (13:01)
[2020-12-27] MEDS: ASCORBIC ACID 500 MG TAB PO SCH ×2 (13:01→23:01)
[2020-12-27] MEDS: METOPROLOL TARTRATE 100 MG TAB PO SCH ×2 (13:01→23:42)
[2020-12-27] MEDS: TAMSULOSIN 0.4 MG CAP PO SCH ×2 (13:04→22:58)
[2020-12-27] MEDS: LISINOPRIL 10 MG TAB PO SCH (13:13)
[2020-12-27] MEDS: ZINC SULFATE 220 MG CAP PO SCH ×2 (13:13→23:01)
[2020-12-27] MEDS: MYCOPHENOLATE 500 MG TAB PO SCH ×2 (13:14→22:57)
[2020-12-27] MEDS: AZITHROMYCIN/NS 500 MG/250 ML 500 MG/250 ML BAG IV SCH (13:16)
--- NOTE | 2020-12-27 13:20 | Progress Note ---
Assessment and Plan Assessment and plan: 60 YO Male with Obesity Hypoventilation Syndrome, kidney transplant, HTN, GERD, Anemia Chronic Disease, Coronavirus Infection diagnosed 2 weeks and discharged 3 days sorry, who failed outpatient therapy and currently on 2L/min Home oxygen via NC, CKD S/P Renal Transplant currently on anti graft rejection therapy presents to ED for evaluation. Patient reports "I cannot breathe". Patient states that he has experienced shortness of breath over the past 1 week with persistent and worsening symptoms over the same timeframe. Patient was diagnosed with coronavirus infection 2 weeks ago and was treated with outpatient therapy as well as supplemental oxygen at 2 L via nasal cannula. Patient states that he has experienced worsening shortness of breath over the past 1 week, fatigue, malaise, generalized weakness. EMS was notified and upon arrival the patient was found to be in distress and was found to have a pulse oximetry in the 70s while on 2 L nasal cannula. The patient was treated with oxygen via nonrebreather mask and subsequently transported to [facility] for further care and evaluation of the aforementioned symptoms. The patient was seen and evaluated in the emergency department. All lab and imaging studies reviewed. Patient found to have a pulse oximetry in the 70s on submental oxygen and was subsequently placed on high flow supplemental oxygen due to acute hypoxemic respiratory failure. Patient underwent chest x- ray and was found to have bilateral pneumonia secondary to sepsis. Patient also found to have acidosis. Patient initiated on sepsis protocol as well as coronavirus pneumonia protocol and admitted to medical floor. Patient denies fever, chills, chest pain, palpitation, skin rash, trauma, or known ill contacts. Prior admission on 12/15/2020 reviewed. All medication listed at time of admission has been reconciled. Advanced care planning conducted in ED. Patient reports that he had both of his COVID-19 vaccines with past medical history of hypertension, GERD, kidney transplant in 2017 was brought to the emergency room because of abdominal pain, body aches, fever, cough for last 2 days. The patient had been treated on dexamethasone for total 10 days and remdesivir total 5 days as patient is immunocompromised patient,-Antibiotic was not required as procalcitonin level was normal, -Patient was given anticoagulation per protocol, Patient was deemed to be stable and was discharged on home oxygen but returned as noted above with worsening hypoxia and now on Full dose 12/26: Continue current management, will check d,dimer and possible VQ scan, Will keep on full dose anticoagulation until proven not to have Pulmonary Embolism. Check Doppler for DVT prophy. Monitor Plt. 12/27: Patient remains critically ill sepsis secondary to Covid plan to vaccine ID input noted patient had previously completed remdesivir no indication for noted. Continue steroid therapy and has home antirejection medications. No pulmonary embolism noted home or DVT noted continue to monitor on anticoagulation monitor thrombocytopenia closely. Will give additional dose of Lasix today for negative fluid balance we will monitor renal function closely (1) Sepsis Current Visit: Yes Status: Acute Qualifiers: Acute respiratory failure type: with hypoxia Plan to address problem: Sepsis protocol: Chest x-ray, CBC, CMP, urinalysis, IV antibiotic therapy, IV fluid resuscitation therapy, monitor urine output every shift, monitor fluid balance, maintain mean arterial pressure greater than or equal to 65, blood culture. Serial lactic acid level. (2) Pneumonia secondary to COVID-19 Current Visit: Yes Status: Acute Plan to address problem: Pneumonia protocol: Chest x-ray, CBC, CMP, supplemental oxygen, pulse oximetry, nebulizer therapy, (3) Acidosis Current Visit: Yes Status: Acute Plan to address problem: Supportive care, BMP, repeat BMP in a.m. (4) Obesity hypoventilation syndrome Current Visit: Yes Status: Acute Plan to address problem: Balanced diet, increase physical activity discharge, outpatient pulmonary follow-up for sleep study. (5) Acute Hypoxia respiratory failure Current Visit: Yes Status: Acute Plan to address problem: Supplemental oxygen, pulse oximetry, nebulizer therapy, proposition while in bed, chest x-ray, pulmonary team consulted. (6) Hyponatremia (7) Thrombocytopenia (8) DVT prophylaxis Current Visit: Yes Status: Acute Plan to address problem: SCD to bilateral lower extremities while in bed, prophylactic anticoagulation (9) Advance care planning Current Visit: Yes Status: Acute Plan to address problem: Disease education conducted, care plan discussed, diagnosis discussed, prognosis discussed, patient is full code, patient knowledges understanding and agreement with care plan. History Interval history: Patient seen and examined, Hypoxic and on NRMB, High flow. Denies any chest pain Hospitalist Physical - Physical exam Narrative exam: Limited physical exam due to COVID-19 pandemic to minimize transmission of the disease and to preserve PPE. Vital reviewed and stable. GENERAL: well-developed well-nourished lying in bed, acute shortness of breath on NRBM AND Highflow HEENT: Normocephalic. Atraumatic. NECK: Supple. CHEST/LUNGS: breathing labored. HEART/CARDIOVASCULAR: Heart rate stable on telemetry ABDOMEN: Visibly not distended SKIN: There is no rash, left UE AV Fistula NEURO: No focal motor deficit. Follows command. MUSCULOSKELETAL: No joint effusion EXTRIMITY: No swelling, clubbing. PSYCH: Cooperative. - Constitutional Vitals: Temp Pulse Resp BP Pulse Ox 98.2 F 108 H 28 H 124/88 88 12/25/20 20:00 12/27/20 13:01 12/26/20 16:46 12/27/20 13:01 12/27/20 09:00 General appearance: Present: mild distress, obese HEART Score - HEART Score Troponin: Troponin T < 0.010 ng/mL (0.00-0.029) 12/25/20 08:33 Results - Labs CBC & Chem 7: 12/27/20 05:28 12/27/20 05:28 Labs: Laboratory Last Values WBC 17.5 K/mm3 (4.5-11.0) H 12/27/20 05:28 RBC 4.66 M/mm3 (3.65-5.03) 12/27/20 05:28 Hgb 14.5 gm/dl (11.8-15.2) 12/27/20 05:28 Hct 41.4 % (35.5-45.6) 12/27/20 05:28 MCV 89 fl (84-94) 12/27/20 05:28 MCH 31 pg (28-32) 12/27/20 05:28 MCHC 35 % (32-34) H 12/27/20 05:28 RDW 14.1 % (13.2-15.2) 12/27/20 05:28 Plt Count 108 K/mm3 (140-440) L 12/27/20 05:28 Add Manual Diff Complete 12/26/20 04:58 Total Counted 100 12/26/20 04:58 Seg Neutrophils % Spiral Runner 12/26/20 04:58 Seg Neuts % (Manual) 96.0 % (40.0-70.0) H 12/26/20 04:58 Band Neutrophils % 1.0 % 12/26/20 04:58 Lymphocytes % (Manual) 3.0 % (13.4-35.0) L 12/26/20 04:58 Nucleated RBC % Not Reportable 12/26/20 04:58 Seg Neutrophils # Man 12.6 K/mm3 (1.8-7.7) H 12/26/20 04:58 Band Neutrophils # 0.1 K/mm3 12/26/20 04:58 Lymphocytes # (Manual) 0.4 K/mm3 (1.2-5.4) L 12/26/20 04:58 Abs React Lymphs (Man) 0.0 K/mm3 12/26/20 04:58 Monocytes # (Manual) 0.0 K/mm3 (0.0-0.8) 12/26/20 04:58 Eosinophils # (Manual) 0.0 K/mm3 (0.0-0.4) 12/26/20 04:58 Basophils # (Manual) 0.0 K/mm3 (0.0-0.1) 12/26/20 04:58 Metamyelocytes # 0.0 K/mm3 12/26/20 04:58 Myelocytes # 0.0 K/mm3 12/26/20 04:58 Promyelocytes # 0.0 K/mm3 12/26/20 04:58 Blast Cells # 0.0 K/mm3 12/26/20 04:58 WBC Morphology Not Reportable 12/26/20 04:58 Hypersegmented Neuts Not Reportable 12/26/20 04:58 Hyposegmented Neuts Not Reportable 12/26/20 04:58 Hypogranular Neuts Not Reportable 12/26/20 04:58 Smudge Cells Not Reportable 12/26/20 04:58 Toxic Granulation Not Reportable 12/26/20 04:58 Toxic Vacuolation Not Reportable 12/26/20 04:58 Dohle Bodies Not Reportable 12/26/20 04:58 Pelger-Huet Anomaly Not Reportable 12/26/20 04:58 Marbin Rods Not Reportable 12/26/20 04:58 Platelet Estimate Consistent w auto 12/26/20 04:58 Clumped Platelets Not Reportable 12/26/20 04:58 Plt Clumps, EDTA Not Reportable 12/26/20 04:58 Large Platelets Not Reportable 12/26/20 04:58 Giant Platelets Not Reportable 12/26/20 04:58 Platelet Satelliting Not Reportable 12/26/20 04:58 Plt Morphology Comment Not Reportable 12/26/20 04:58 RBC Morphology Normal 12/26/20 04:58 Dimorphic RBCs Not Reportable 12/26/20 04:58 Polychromasia Not Reportable 12/26/20 04:58 Hypochromasia Not Reportable 12/26/20 04:58 Poikilocytosis Not Reportable 12/26/20 04:58 Anisocytosis Not Reportable 12/26/20 04:58 Microcytosis Not Reportable 12/26/20 04:58 Macrocytosis Not Reportable 12/26/20 04:58 Spherocytes Not Reportable 12/26/20 04:58 Pappenheimer Bodies Not Reportable 12/26/20 04:58 Sickle Cells Not Reportable 12/26/20 04:58 Target Cells Not Reportable 12/26/20 04:58 Tear Drop Cells Not Reportable 12/26/20 04:58 Ovalocytes Not Reportable 12/26/20 04:58 Helmet Cells Not Reportable 12/26/20 04:58 David-Kiskimere Bodies Not Reportable 12/26/20 04:58 Hollister Rings Not Reportable 12/26/20 04:58 Spencer Cells Not Reportable 12/26/20 04:58 Bite Cells Not Reportable 12/26/20 04:58 Crenated Cell Not Reportable 12/26/20 04:58 Elliptocytes Not Reportable 12/26/20 04:58 Acanthocytes (Spur) Not Reportable 12/26/20 04:58 Rouleaux Not Reportable 12/26/20 04:58 Hemoglobin C Crystals Not Reportable 12/26/20 04:58 Schistocytes Not Reportable 12/26/20 04:58 Malaria parasites Not Reportable 12/26/20 04:58 Woodrow Bodies Not Reportable 12/26/20 04:58 Hem Pathologist Commnt No 12/26/20 04:58 APTT 32.3 Sec. (24.2-36.6) 12/25/20 08:33 D-Dimer > 27395 ng/mlDDU (0-234) H 12/27/20 05:28 ABG pH 7.481 (7.320-7.450) H 12/25/20 10:13 POC ABG pCO2 20.7 mmHg (32.0-48.0) L 12/25/20 10:13 POC ABG pO2 62.0 mmHg (83-108) L 12/25/20 10:13 POC ABG HCO3 15.1 12/25/20 10:13 ABG O2 Saturation 92.4 (0-100) 12/25/20 10:13 POC ABG Base Excess -5.8 12/25/20 10:13 ABG Hemoglobin 15.0 (12.0-17.5) 12/25/20 10:13 ABG Oxyhemoglobin 91.6 (94-98) L 12/25/20 10:13 ABG Methemoglobin 0.3 (0.0-1.5) 12/25/20 10:13 ABG Sodium 119.3 mmol/L (136.0-145.0) L 12/25/20 10:13 ABG Potassium 4.2 mmol/L (3.40-4.50) 12/25/20 10:13 ABG Chloride 95.0 mmol/L (98-107) L 12/25/20 10:13 ABG Glucose 122 mg/dL (65-95) H 12/25/20 10:13 Carboxyhemoglobin 0.6 (0.5-1.5) 12/25/20 10:13 FiO2 % 100.0 12/25/20 10:13 Sodium 131 mmol/L (137-145) L 12/27/20 05:28 Potassium 4.5 mmol/L (3.6-5.0) 12/27/20 05:28 Chloride 103.7 mmol/L (98-107) 12/27/20 05:28 Carbon Dioxide 17 mmol/L (22-30) L 12/27/20 05:28 Anion Gap 15 mmol/L 12/27/20 05:28 BUN 21 mg/dL (9-20) H 12/27/20 05:28 Creatinine 0.8 mg/dL (0.8-1.3) 12/27/20 05:28 Estimated GFR > 60 ml/min 12/27/20 05:28 BUN/Creatinine Ratio 26 % 12/27/20 05:28 Glucose 117 mg/dL (75-100) H 12/27/20 05:28 Lactic Acid 1.50 mmol/L (0.7-2.0) 12/25/20 23:38 Calcium 9.7 mg/dL (8.4-10.2) 12/27/20 05:28 Total Bilirubin 1.30 mg/dL (0.1-1.2) H 12/25/20 08:33 AST 37 units/L (5-40) 12/25/20 08:33 ALT 13 units/L (7-56) 12/25/20 08:33 Alkaline Phosphatase 70 units/L (35-129) 12/25/20 08:33 Troponin T < 0.010 ng/mL (0.00-0.029) 12/25/20 08:33 C-Reactive Protein 22.20 mg/dL (0.00-1.30) H 12/27/20 05:28 Total Protein 7.5 g/dL (6.3-8.2) 12/25/20 08:33 Albumin 3.1 g/dL (3.9-5) L 12/25/20 08:33 Albumin/Globulin Ratio 0.7 % 12/25/20 08:33 Arterial Blood Glucose 122 mg/dL (65-95) H 12/25/20 10:13 Arterial Blood Ionized Calcium 4.8 mg/dL (4.6-5.3) 12/25/20 10:13 Urine Color Straw (Yellow) 12/25/20 13:30 Urine Turbidity Clear (Clear) 12/25/20 13:30 Urine pH 7.0 (5.0-7.0) 12/25/20 13:30 Ur Specific Jennings 1.003 (1.003-1.030) 12/25/20 13:30 Urine Protein <15 mg/dl mg/dL (Negative) 12/25/20 13:30 Urine Glucose (UA) Neg mg/dL (Negative) 12/25/20 13:30 Urine Ketones Neg mg/dL (Negative) 12/25/20 13:30 Urine Blood Sm (Negative) 12/25/20 13:30 Urine Nitrite Neg (Negative) 12/25/20 13:30 Urine Bilirubin Neg (Negative) 12/25/20 13:30 Urine Urobilinogen < 2.0 mg/dL (<2.0) 12/25/20 13:30 Ur Leukocyte Esterase Neg (Negative) 12/25/20 13:30 Urine WBC (Auto) 1.0 /HPF (0.0-6.0) 12/25/20 13:30 Urine RBC (Auto) < 1.0 /HPF (0.0-6.0) 12/25/20 13:30 U Epithel Cells (Auto) < 1.0 /HPF (0-13.0) 12/25/20 13:30 Blood Type A POSITIVE 12/25/20 08:36 Antibody Screen Negative 12/25/20 08:36 Microbiology: Microbiology 12/25/20 08:33 Peripheral/Venous Blood Culture - Preliminary NO GROWTH AFTER 48 HOURS 12/25/20 08:33 Peripheral/Venous Blood Culture - Preliminary NO GROWTH AFTER 48 HOURS 12/25/20 Unknown Urine,Clean Catch Urine Culture - Preliminary NO GROWTH AFTER 24 HOURS Active Medications - Current Medications Current Medications: Generic Name Dose Route Start Last Admin Trade Name Freq PRN Reason Stop Dose Admin Acetaminophen 650 mg 12/25/20 11:59 Acetaminophen 325 Mg Tab PO Q4H PRN Pain MILD(1-3)/Fever >100.5/BHARDWAJ Albuterol 2.5 mg 12/25/20 11:59 Albuterol 2.5 Mg/3 Ml Nebu IH Q4HRT PRN Shortness Of Breath Ascorbic Acid 500 mg 12/25/20 22:00 12/27/20 13:01 Ascorbic Acid 500 Mg Tab PO 500 mg BID TIAN Administration Cholecalciferol 1,000 unit 12/26/20 10:00 12/27/20 13:00 Cholecalciferol (Vit D3) 1000 Unit (25 Mcg) Tab PO 1,000 unit QDAY TIAN Administration Enoxaparin Sodium 90 mg 12/26/20 15:00 12/27/20 13:04 Enoxaparin 100 Mg/1 Ml Inj 1 mg/kg (90 mg) Not Given SUB-Q BID [facility] Protocol Guaifenesin 600 mg 12/25/20 22:00 12/27/20 13:00 Guaifenesin Er 600 Mg Tab PO 600 mg BID TIAN Administration Hydromorphone HCl 0.5 mg 12/25/20 11:59 Hydromorphone 1 Mg/1 Ml Inj IV Q12H PRN Pain , Severe (7-10) Hydromorphone HCl 0.25 mg 12/25/20 12:10 Hydromorphone 1 Mg/1 Ml Inj IV Q4H PRN Pain, Moderate (4-6) Ceftriaxone Sodium 2 gm in 100 mls @ 200 mls/hr 12/25/20 14:00 12/26/20 15:51 Rocephin/Ns 2 Gm/100 Ml IV 12/29/20 14:29 200 mls/hr Q24H TIAN Administration Protocol Azithromycin 500 mg in 250 mls @ 250 mls/hr 12/25/20 13:00 12/27/20 13:16 Zithromax/Ns IV 12/29/20 13:59 250 mls/hr Q24H TIAN Administration Protocol Lisinopril 10 mg 12/26/20 10:00 12/27/20 13:13 Lisinopril 10 Mg Tab PO Not Given QDAY TIAN Methylprednisolone Sodium Succinate 40 mg 12/26/20 06:00 12/27/20 09:00 Methylprednisolone Sod Succinate 125 Mg/2 Ml Inj IV 40 mg Q8H TIAN Administration Metoprolol Tartrate 100 mg 12/25/20 22:00 12/27/20 13:01 Metoprolol Tartrate 100 Mg Tab PO 100 mg BID TIAN Administration Mycophenolate Mofetil 1,000 mg 12/25/20 22:00 12/27/20 13:14 Mycophenolate 500 Mg Tab PO Not Given BID TIAN Nifedipine 30 mg 12/26/20 10:00 12/27/20 13:00 Nifedipine Xl 30 Mg Tab PO 30 mg QDAY TIAN Administration Ondansetron HCl 4 mg 12/25/20 11:59 12/26/20 01:33 Ondansetron 4 Mg/2 Ml Inj IV 4 mg Q8H PRN Administration Nausea And Vomiting Oxycodone/Acetaminophen 1 tab 12/25/20 11:59 Oxycodone /Acetaminophen 5-325mg Tab PO Q12H PRN Pain, Moderate (4-6) Pantoprazole Sodium 40 mg 12/26/20 10:00 12/27/20 13:01 Pantoprazole 40 Mg Tab PO 40 mg DAILY TIAN Administration Sodium Chloride 10 ml 12/25/20 22:00 12/27/20 13:14 Sodium Chloride 0.9% 10 Ml Flush Syringe IV Not Given BID TIAN Sodium Chloride 10 ml 12/25/20 11:59 Sodium Chloride 0.9% 10 Ml Flush Syringe IV PRN PRN LINE FLUSH Tacrolimus 3 mg 12/26/20 10:00 12/27/20 13:00 Tacrolimus 1 Mg Cap PO 3 mg QAM TIAN Administration Tacrolimus 4 mg 12/26/20 22:00 12/26/20 22:25 Tacrolimus 1 Mg Cap PO 4 mg QHS TIAN Administration Tamsulosin HCl 0.4 mg 12/25/20 22:00 12/27/20 13:04 Tamsulosin 0.4 Mg Cap PO 0.4 mg BID TIAN Administration Zinc Sulfate 220 mg 12/25/20 22:00 12/27/20 13:13 Zinc Sulfate 220 Mg Cap PO Not Given BID TIAN
--- NOTE | 2020-12-27 13:58 | Progress Note ---
Assessment and Plan Cultures: 12/15/2020 SARS CoV2 PCR: Positive 12/25/2020 blood culture: No growth 12/25/2020 urine culture: No growth A/P: 60-year-old male with obesity, renal transplant in 2017, hypertension, anemia was diagnosed with COVID-19 infection and was discharged on 12/22/2020 after having completed Remdesivir and was also receiving steroids has now been readmitted to the hospital with worsening shortness of breath: #Bilateral pneumonia: Secondary to COVID-19. D-dimer extremely high but VQ negative for PE and DVT scan also negative. CT scan showed progression of pneumonia, CRP has worsened to 22.2. #Acute hypoxic respiratory failure: secondary to above #Kidney transplant/immunosuppressed host: Currently on mycophenolate and tacrolimus. Recs: continue steroids, empiric abx Recently received remdesivir, no benefit with repeating course D-dimer extremely high but VQ negative for PE and DVT scan also negative f/u procalcitonin prophylactic anticoagulation based on d-dimer per hospital protocol guarded prognosis given disease progression in spite of treatment. Magno Goodrich MD, FACP [facility] ([facility] O: [phone] F: [phone] Subjective Date of service: 12/27/20 Interval history: No fever. Remains hypoxic. CT scan showed progression of pneumonia, DVT scan negative. CRP has worsened to 22.2. Objective - Exam Narrative Exam: Physical Exam (reviewed in chart to minimize risk of transmission) Constitutional: deferred Head, Ears, Nose: deferred Eyes: deferred Neck: deferred Oral: deferred Cardiovascular: deferred Respiratory: deferred GI: deferred Musculoskeletal: deferred Skin: deferred Hem/Lymphatic: deferred Psych: deferred Neurological: deferred - Constitutional Vitals: Vital Signs Temp Pulse Resp BP Pulse Ox 98.2 F 108 H 28 H 124/88 88 12/25/20 20:00 12/27/20 13:01 12/26/20 16:46 12/27/20 13:01 12/27/20 09:00 - Labs CBC & Chem 7: 12/27/20 05:28 12/27/20 05:28 Labs: Abnormal lab results 12/26/20 12/27/20 12/27/20 Range/Units 04:58 05:28 05:28 WBC 17.5 H (4.5-11.0) K/mm3 MCHC 35 H (32-34) % Plt Count 108 L (140-440) K/mm3 Seg Neuts % (Manual) 96.0 H (40.0-70.0) % Lymphocytes % (Manual) 3.0 L (13.4-35.0) % Seg Neutrophils # Man 12.6 H (1.8-7.7) K/mm3 Lymphocytes # (Manual) 0.4 L (1.2-5.4) K/mm3 D-Dimer (0-234) ng/mlDDU Sodium 131 L (137-145) mmol/L Carbon Dioxide 17 L (22-30) mmol/L BUN 21 H (9-20) mg/dL Glucose 117 H (75-100) mg/dL C-Reactive Protein 22.20 H (0.00-1.30) mg/dL 12/27/20 Range/Units 05:28 WBC (4.5-11.0) K/mm3 MCHC (32-34) % Plt Count (140-440) K/mm3 Seg Neuts % (Manual) (40.0-70.0) % Lymphocytes % (Manual) (13.4-35.0) % Seg Neutrophils # Man (1.8-7.7) K/mm3 Lymphocytes # (Manual) (1.2-5.4) K/mm3 D-Dimer > 90824 H (0-234) ng/mlDDU Sodium (137-145) mmol/L Carbon Dioxide (22-30) mmol/L BUN (9-20) mg/dL Glucose (75-100) mg/dL C-Reactive Protein (0.00-1.30) mg/dL
[2020-12-27] MEDS ORDERED: FUROSEMIDE 40 MG/4 ML INJ IV ONE (14:11)
[2020-12-27] MEDS: cefTRIAXone/NS 2 GM/100 ML 2 GM/100 ML BAG IV SCH (16:54)
--- NOTE | 2020-12-27 18:31 | Progress Note ---
Assessment and Plan 60 y/o male with acute respiratory failure secondary to COVID 19 pneumonia 12/27/20: No new recs for today. Please see below. 1. IV steroids 2. Remdesivir 3. Ask about Actemra 4. Prone 5. Net negative volume state 6. Guarded prognosis Subjective Date of service: 12/27/20 Interval history: Patient now admitted with COVID 19. REmains on HFNC and NRB. Asleep, but not proned. Objective Vital Signs - 12hr 12/27/20 12/27/20 12/27/20 07:51 09:00 13:01 Pulse Rate 108 H Respiratory 26 H Rate Blood Pressure 124/88 O2 Sat by Pulse 90 88 Oximetry CBC and BMP: 12/27/20 05:28 12/27/20 05:28 ABG, PT/INR, D-dimer: ABG ABG pH 7.481 (7.320-7.450) H 12/25/20 10:13 POC ABG pCO2 20.7 mmHg (32.0-48.0) L 12/25/20 10:13 POC ABG pO2 62.0 mmHg (83-108) L 12/25/20 10:13 POC ABG HCO3 15.1 12/25/20 10:13 ABG O2 Saturation 92.4 (0-100) 12/25/20 10:13 PT/INR, D-dimer D-Dimer > 95511 ng/mlDDU (0-234) H 12/27/20 05:28 Abnormal lab findings: Abnormal Labs 12/25/20 12/25/20 12/25/20 08:33 08:33 08:33 WBC 15.9 H Hgb 15.3 H MCHC 36 H Plt Count 133 L Seg Neuts % (Manual) 98.0 H Lymphocytes % (Manual) 1.0 L Seg Neutrophils # Man 15.6 H Lymphocytes # (Manual) 0.2 L D-Dimer ABG pH POC ABG pCO2 POC ABG pO2 ABG Oxyhemoglobin ABG Sodium ABG Chloride ABG Glucose Sodium 120 L D Chloride 90.2 L Carbon Dioxide 16 L BUN Creatinine Glucose 116 H Lactic Acid 2.40 H* Total Bilirubin 1.30 H C-Reactive Protein Albumin 3.1 L Arterial Blood Glucose Coronavirus (PCR) 12/25/20 12/25/20 12/26/20 10:13 11:13 04:58 WBC 13.1 H Hgb MCHC 35 H Plt Count 113 L Seg Neuts % (Manual) 96.0 H Lymphocytes % (Manual) 3.0 L Seg Neutrophils # Man 12.6 H Lymphocytes # (Manual) 0.4 L D-Dimer ABG pH 7.481 H POC ABG pCO2 20.7 L POC ABG pO2 62.0 L ABG Oxyhemoglobin 91.6 L ABG Sodium 119.3 L ABG Chloride 95.0 L ABG Glucose 122 H Sodium Chloride Carbon Dioxide BUN Creatinine Glucose Lactic Acid 2.20 H* Total Bilirubin C-Reactive Protein Albumin Arterial Blood Glucose 122 H Coronavirus (PCR) 12/26/20 12/27/20 12/27/20 04:58 05:28 05:28 WBC 17.5 H Hgb MCHC 35 H Plt Count 108 L Seg Neuts % (Manual) Lymphocytes % (Manual) Seg Neutrophils # Man Lymphocytes # (Manual) D-Dimer ABG pH POC ABG pCO2 POC ABG pO2 ABG Oxyhemoglobin ABG Sodium ABG Chloride ABG Glucose Sodium 129 L D 131 L Chloride Carbon Dioxide 17 L 17 L BUN 21 H Creatinine 0.7 L Glucose 112 H 117 H Lactic Acid Total Bilirubin C-Reactive Protein 22.20 H Albumin Arterial Blood Glucose Coronavirus (PCR) 12/27/20 12/27/20 05:28 Unknown WBC Hgb MCHC Plt Count Seg Neuts % (Manual) Lymphocytes % (Manual) Seg Neutrophils # Man Lymphocytes # (Manual) D-Dimer > 50493 H ABG pH POC ABG pCO2 POC ABG pO2 ABG Oxyhemoglobin ABG Sodium ABG Chloride ABG Glucose Sodium Chloride Carbon Dioxide BUN Creatinine Glucose Lactic Acid Total Bilirubin C-Reactive Protein Albumin Arterial Blood Glucose Coronavirus (PCR) Positive A
[2020-12-28] MEDS: methylPREDNISolone Sod Succinate 125 MG/2 ML INJ IV SCH ×4 (01:10→21:12)
[2020-12-28 10:32] LABS: Hematocrit 44.6 % (35.5-45.6); Hemoglobin 15.5 gm/dl (11.8-15.2); Mean Corpuscular HGB Conc 35 % (32-34); Mean Corpuscular Volume 89 fl (84-94); Platelet Count 106 K/mm3 (140-440); Red Blood Count 5.03 M/mm3 (3.65-5.03); Red Cell Distribution Width 14.4 % (13.2-15.2)
--- NOTE | 2020-12-28 10:38 | Consultation ---
History of Present Illness - Reason for Consult chronic renal failure, hyponatremia - History of Present Illness 60 y/o male, with h/o of previous ESRD in the setting of HTN s/p DDKTx in 2017, with stable renal allograft function post transplant, who follows with my colleague Dr Menendez, presented to the ED secondary to worsening shortness of breath. Patient had just been discharged from this hospital ~1 week prior in the setting of COVID-19 pneumonia, having complete course of remdesivir as inpatient. Renal function had been stable throughout previous stay and remains so at this time. Past History Past Medical History: anemia, GERD, hypertension, renal failure Past Surgical History: hernia repair, Other (Dialysis access, renal transplant,) Social history: . denies: smoking, alcohol abuse, prescription drug abuse Family history: diabetes, hypertension Medications and Allergies Allergies Allergy/AdvReac Type Severity Reaction Status Date / Time No Known Allergies Allergy Verified 12/14/20 15:36 Home Medications Medication Instructions Recorded Confirmed Last Taken Type Metoprolol [Lopressor TAB] 100 mg PO BID 12/28/14 12/28/20 04/15/18 09:00 History Omeprazole 40 mg PO DAILY 04/10/18 12/28/20 04/15/18 09:00 History Prednisone [predniSONE (Mariluz) ER 5 mg PO QDAY 04/10/18 12/28/20 04/15/18 09:00 History TAB] Tamsulosin HCl [Flomax] 0.4 mg PO BID 04/10/18 12/28/20 04/15/18 09:00 History Albuterol Mdi (or & Nicu Only) 2 puff IH QID PRN #8.5 gram 12/22/20 12/28/20 Unknown Rx [ProAir HFA Inhaler] Mycophenolate [Cellcept] 1,000 mg PO BID #60 tablet 12/22/20 12/28/20 Unknown Rx NIFEdipine XL [Procardia Xl] 30 mg PO QDAY #30 tablet 12/22/20 12/28/20 Unknown Rx dexAMETHasone [Decadron] 6 mg PO DAILY #4 tablet 12/22/20 12/28/20 Unknown Rx guaiFENesin ER [Mucinex ER] 600 mg PO BID #14 tablet 12/22/20 12/28/20 Unknown Rx lisinopriL [Zestril TAB] 10 mg PO QDAY #30 tablet 12/22/20 12/28/20 Unknown Rx Tacrolimus [Prograf] 4 mg PO QAM 12/26/20 12/28/20 Unknown History Tacrolimus [Prograf] 5 mg PO QPM 12/26/20 12/28/20 Unknown History Active Meds: Active Medications Acetaminophen (Acetaminophen 325 Mg Tab) 650 mg PO Q4H PRN PRN Reason: Pain MILD(1-3)/Fever >100.5/BHARDWAJ Albuterol (Albuterol 2.5 Mg/3 Ml Nebu) 2.5 mg IH Q4HRT PRN PRN Reason: Shortness Of Breath Ascorbic Acid (Ascorbic Acid 500 Mg Tab) 500 mg PO BID [facility] Last Admin: 12/27/20 23:01 Dose: 500 mg Documented by: Cholecalciferol (Cholecalciferol (Vit D3) 1000 Unit (25 Mcg) Tab) 1,000 unit PO QDAY [facility] Last Admin: 12/27/20 13:00 Dose: 1,000 unit Documented by: Enoxaparin Sodium (Enoxaparin 100 Mg/1 Ml Inj) 90 mg 1 mg/kg (90 mg) SUB-Q BID [facility]; Protocol Last Admin: 12/27/20 22:57 Dose: 90 mg Documented by: Guaifenesin (Guaifenesin Er 600 Mg Tab) 600 mg PO BID [facility] Last Admin: 12/27/20 22:58 Dose: 600 mg Documented by: Hydromorphone HCl (Hydromorphone 1 Mg/1 Ml Inj) 0.5 mg IV Q12H PRN PRN Reason: Pain , Severe (7-10) Hydromorphone HCl (Hydromorphone 1 Mg/1 Ml Inj) 0.25 mg IV Q4H PRN PRN Reason: Pain, Moderate (4-6) Ceftriaxone Sodium (Rocephin/Ns 2 Gm/100 Ml) 2 gm in 100 mls @ 200 mls/hr IV Q24H [facility]; Protocol Stop: 12/29/20 14:29 Last Admin: 12/27/20 16:54 Dose: 200 mls/hr Documented by: Azithromycin (Zithromax/Ns) 500 mg in 250 mls @ 250 mls/hr IV Q24H [facility]; Protocol Stop: 12/29/20 13:59 Last Admin: 12/27/20 13:16 Dose: 250 mls/hr Documented by: Lisinopril (Lisinopril 10 Mg Tab) 10 mg PO QDAY [facility] Last Admin: 12/27/20 13:13 Dose: Not Given Documented by: Methylprednisolone Sodium Succinate (Methylprednisolone Sod Succinate 125 Mg/2 Ml Inj) 40 mg IV Q8H [facility] Last Admin: 12/28/20 06:38 Dose: 40 mg Documented by: Metoprolol Tartrate (Metoprolol Tartrate 100 Mg Tab) 100 mg PO BID [facility] Last Admin: 12/27/20 23:42 Dose: Not Given Documented by: Mycophenolate Mofetil (Mycophenolate 500 Mg Tab) 1,000 mg PO BID [facility] Last Admin: 12/27/20 22:57 Dose: 1,000 mg Documented by: Nifedipine (Nifedipine Xl 30 Mg Tab) 30 mg PO QDAY [facility] Last Admin: 12/27/20 13:00 Dose: 30 mg Documented by: Ondansetron HCl (Ondansetron 4 Mg/2 Ml Inj) 4 mg IV Q8H PRN PRN Reason: Nausea And Vomiting Last Admin: 12/26/20 01:33 Dose: 4 mg Documented by: Oxycodone/Acetaminophen (Oxycodone /Acetaminophen 5-325mg Tab) 1 tab PO Q12H PRN PRN Reason: Pain, Moderate (4-6) Pantoprazole Sodium (Pantoprazole 40 Mg Tab) 40 mg PO DAILY [facility] Last Admin: 12/27/20 13:01 Dose: 40 mg Documented by: Sodium Chloride (Sodium Chloride 0.9% 10 Ml Flush Syringe) 10 ml IV BID [facility] Last Admin: 12/27/20 23:00 Dose: 10 ml Documented by: Sodium Chloride (Sodium Chloride 0.9% 10 Ml Flush Syringe) 10 ml IV PRN PRN PRN Reason: LINE FLUSH Tacrolimus (Tacrolimus 1 Mg Cap) 3 mg PO QAM [facility] Last Admin: 12/27/20 13:00 Dose: 3 mg Documented by: Tacrolimus (Tacrolimus 1 Mg Cap) 4 mg PO QHS [facility] Last Admin: 12/27/20 23:00 Dose: 4 mg Documented by: Tamsulosin HCl (Tamsulosin 0.4 Mg Cap) 0.4 mg PO BID [facility] Last Admin: 12/27/20 22:58 Dose: 0.4 mg Documented by: Zinc Sulfate (Zinc Sulfate 220 Mg Cap) 220 mg PO BID [facility] Last Admin: 12/27/20 23:01 Dose: 220 mg Documented by: Exam - Vital Signs Vital signs: Vital Signs Temp Pulse Resp BP Pulse Ox 99 F 92 H 33 H 126/81 90 12/25/20 07:45 12/25/20 07:45 12/25/20 07:45 12/25/20 07:45 12/25/20 07:45 - Physical Exam Narrative exam: Patient not directly examined in order to preserve PPE and decrease chance of transmission of COVID-19. Physical examination from primary notes reviewed. Results - Lab Results 12/28/20 10:02 12/27/20 05:28 Most recent lab results ABG pH 7.481 (7.320-7.450) H 12/25/20 10:13 ABG O2 Saturation 92.4 (0-100) 12/25/20 10:13 Calcium 9.7 mg/dL (8.4-10.2) 12/27/20 05:28 Assessment and Plan - Patient Problems (1) Hyponatremia Current Visit: No Status: Chronic Plan to address problem: In the setting of COVID-19 pneumonia, possible SIADH component. Will obtain serum and urine osmolalities along with urine electrolytes. Serum sodium levels are showing slight improvement today. (2) Kidney transplant recipient Current Visit: No Status: Acute Plan to address problem: Continue current immunosuppression regimen. Overall renal allograft function remains stable. (3) Pneumonia due to COVID-19 virus Current Visit: No Status: Acute Plan to address problem: Continues on IV steriods and empiric antibiotics. CT chest was concerning for progression of b/l pneumonia. No clinical benefit from repeating another course of remdesivir, as he had completed the full regimen during his most recent hospital visit. ID recommendations appreciated. (4) Hypertensive chronic kidney disease with stage 1 through stage 4 chronic kidney disease, or unspecified chronic kidney disease Current Visit: No Status: Chronic Plan to address problem: Monitor blood pressure under current regimen.
[2020-12-28 10:47] LABS: Alanine Aminotransferase 16 units/L (7-56); Albumin 2.3 g/dL (3.9-5); BUN/Creatinine Ratio 33; Blood Urea Nitrogen 30 mg/dL (9-20); Hemolysis Index 17
--- NOTE | 2020-12-28 12:21 | Progress Note ---
Assessment and Plan Cultures: 12/15/2020 SARS CoV2 PCR: Positive 12/25/2020 blood culture: No growth 12/25/2020 urine culture: No growth A/P: 60-year-old male with obesity, renal transplant in 2017, hypertension, anemia was diagnosed with COVID-19 infection and was discharged on 12/22/2020 after having completed Remdesivir and was also receiving steroids has now been readmitted to the hospital with worsening shortness of breath: #Bilateral pneumonia: Secondary to COVID-19. D-dimer extremely high but VQ negative for PE and DVT scan also negative. CT scan showed progression of pneumonia, Hypoxia progressed to requiring nonrebreather mask with high flow nasal cannula. CRP 10.9, ferritin >2000 #Acute hypoxic respiratory failure: secondary to above. Progressed to requiring nonrebreather mask with high flow nasal cannula #Kidney transplant/immunosuppressed host: Currently on mycophenolate and tacrolimus. Recs: continue steroids, empiric abx Recently received remdesivir, no benefit with repeating course IV Actemra ordered Poor prognosis given disease progression in spite of treatment Magno Goodrich MD, FACP [facility] O: [phone] F: [phone] Subjective Date of service: 12/28/20 Interval history: No fever. Hypoxia progressed to requiring nonrebreather mask with high flow nasal cannula. CRP 10.9, ferritin >2000 Objective - Exam Narrative Exam: Physical Exam (reviewed in chart to minimize risk of transmission) Constitutional: deferred Head, Ears, Nose: deferred Eyes: deferred Neck: deferred Oral: deferred Cardiovascular: deferred Respiratory: deferred GI: deferred Musculoskeletal: deferred Skin: deferred Hem/Lymphatic: deferred Psych: deferred Neurological: deferred - Constitutional Vitals: Vital Signs Temp Pulse Resp BP Pulse Ox 98.2 F 117 H 32 H 123/77 87 12/28/20 09:06 12/28/20 09:06 12/28/20 09:06 12/28/20 09:06 12/28/20 09:06 Temperature -Last 24 Hours Temperature 98.2 F - Labs CBC & Chem 7: 12/28/20 10:02 12/28/20 10:02 Labs: Abnormal lab results 12/27/20 12/28/20 12/28/20 Range/Units Unknown 10:02 10:02 WBC 16.9 H (4.5-11.0) K/mm3 Hgb 15.5 H (11.8-15.2) gm/dl MCHC 35 H (32-34) % Plt Count 106 L (140-440) K/mm3 Sodium 132 L (137-145) mmol/L Carbon Dioxide 16 L (22-30) mmol/L BUN 30 H (9-20) mg/dL Glucose 127 H (75-100) mg/dL Ferritin (30.0-300.0) ng/mL C-Reactive Protein 10.90 H (0.00-1.30) mg/dL Albumin 2.3 L (3.9-5) g/dL Coronavirus (PCR) Positive A (Negative) 12/28/20 Range/Units 10:02 WBC (4.5-11.0) K/mm3 Hgb (11.8-15.2) gm/dl MCHC (32-34) % Plt Count (140-440) K/mm3 Sodium (137-145) mmol/L Carbon Dioxide (22-30) mmol/L BUN (9-20) mg/dL Glucose (75-100) mg/dL Ferritin > 2000.0 H (30.0-300.0) ng/mL C-Reactive Protein (0.00-1.30) mg/dL Albumin (3.9-5) g/dL Coronavirus (PCR) (Negative)
--- NOTE | 2020-12-28 12:35 | Progress Note ---
Assessment and Plan Assessment and plan: 60 YO Male with Obesity Hypoventilation Syndrome, kidney transplant, HTN, GERD, Anemia Chronic Disease, Coronavirus Infection diagnosed 2 weeks and discharged 3 days sorry, who failed outpatient therapy and currently on 2L/min Home oxygen via [place], CKD S/P Renal Transplant currently on anti graft rejection therapy presents to ED for evaluation. Patient reports "I cannot breathe". Patient states that he has experienced shortness of breath over the past 1 week with persistent and worsening symptoms over the same timeframe. Patient was diagnosed with coronavirus infection 2 weeks ago and was treated with outpatient therapy as well as supplemental oxygen at 2 L via nasal cannula. Patient states that he has experienced worsening shortness of breath over the past 1 week, fatigue, malaise, generalized weakness. EMS was notified and upon arrival the patient was found to be in distress and was found to have a pulse oximetry in the 70s while on 2 L nasal cannula. The patient was treated with oxygen via nonrebreather mask and subsequently transported to [facility] for further care and evaluation of the aforementioned symptoms. The patient was seen and evaluated in the emergency department. All lab and imaging studies reviewed. Patient found to have a pulse oximetry in the 70s on submental oxygen and was subsequently placed on high flow supplemental oxygen due to acute hypoxemic respiratory failure. Patient underwent chest x- ray and was found to have bilateral pneumonia secondary to sepsis. Patient also found to have acidosis. Patient initiated on sepsis protocol as well as coronavirus pneumonia protocol and admitted to medical floor. Patient denies fever, chills, chest pain, palpitation, skin rash, trauma, or known ill contacts. Prior admission on 12/15/2020 reviewed. All medication listed at time of admission has been reconciled. Advanced care planning conducted in ED. Patient reports that he had both of his COVID-19 vaccines with past medical history of hypertension, GERD, kidney transplant in 2017 was brought to the emergency room because of abdominal pain, body aches, fever, cough for last 2 days. The patient had been treated on dexamethasone for total 10 days and remdesivir total 5 days as patient is immunocompromised patient,-Antibiotic was not required as procalcitonin level was normal, -Patient was given anticoagulation per protocol, Patient was deemed to be stable and was discharged on home oxygen but returned as noted above with worsening hypoxia and now on Full dose 12/26: Continue current management, will check d,dimer and possible VQ scan, Will keep on full dose anticoagulation until proven not to have Pulmonary Embolism. Check Doppler for DVT prophy. Monitor Plt. 12/27: Patient remains critically ill sepsis secondary to Covid plan to vaccine ID input noted patient had previously completed remdesivir no indication for noted. Continue steroid therapy and has home antirejection medications. No pulmonary embolism noted home or DVT noted continue to monitor on anticoagulation monitor thrombocytopenia closely. Will give additional dose of Lasix today for negative fluid balance we will monitor renal function closely 12/28: Continue supportive care, steroids, oxygen, anticoagulation. Wean oxygen as tolerated, nephrology consulted to assist with management as patient is a renal transplant. Patient still with tachycardic. Will likely need LTAC for slow weaning. Unfortunately I cannot place him in IMCU or ICU due to lack of be d in the hospital ideally he is appropriate for dose units minimum stepdown unit. (1) Sepsis Current Visit: Yes Status: Acute Qualifiers: Acute respiratory failure type: with hypoxia Plan to address problem: Sepsis protocol: Chest x-ray, CBC, CMP, urinalysis, IV antibiotic therapy, IV fluid resuscitation therapy, monitor urine output every shift, monitor fluid balance, maintain mean arterial pressure greater than or equal to 65, blood culture. Serial lactic acid level. (2) Pneumonia secondary to COVID-19 Current Visit: Yes Status: Acute Plan to address problem: Pneumonia protocol: Chest x-ray, CBC, CMP, supplemental oxygen, pulse oximetry, nebulizer therapy, (3) Acidosis Current Visit: Yes Status: Acute Plan to address problem: Supportive care, BMP, repeat BMP in a.m. (4) Obesity hypoventilation syndrome Current Visit: Yes Status: Acute Plan to address problem: Balanced diet, increase physical activity discharge, outpatient pulmonary follow-up for sleep study. (5) Acute Hypoxia respiratory failure Current Visit: Yes Status: Acute Plan to address problem: Supplemental oxygen, pulse oximetry, nebulizer therapy, proposition while in bed, chest x-ray, pulmonary team consulted. (6) Hyponatremia (7) Thrombocytopenia (8) DVT prophylaxis Current Visit: Yes Status: Acute Plan to address problem: SCD to bilateral lower extremities while in bed, prophylactic anticoagulation (9) Advance care planning Current Visit: Yes Status: Acute Plan to address problem: Disease education conducted, care plan discussed, diagnosis discussed, prognosis discussed, patient is full code, patient knowledges understanding and agreement with care plan. The high probability of a clinically significant, sudden or life threatening deterioration of the [pulmonary, renal, immunocompromised] system(s) required my full and direct attention, intervention and personal management. The aggregate critical care time was [35] minutes. This time is in addition to time spent performing reported procedures but includes the following: [x] Data Review and interpretation [x] Patient assessment and monitoring of vital signs [x] Documentation [x] Medication orders and management History Interval history: Patient seen and examined, Hypoxic and on NRMB, High flow. Hospitalist Physical - Physical exam Narrative exam: Limited physical exam due to COVID-19 pandemic to minimize transmission of the disease and to preserve PPE. Vital reviewed and stable. GENERAL: well-developed well-nourished lying in bed, acute shortness of breath on NRBM AND Highflow, anxious HEENT: Normocephalic. Atraumatic. NECK: Supple. CHEST/LUNGS: breathing labored. HEART/CARDIOVASCULAR: Heart rate stable on telemetry ABDOMEN: Visibly not distended SKIN: There is no rash, left UE AV Fistula NEURO: No focal motor deficit. Follows command. MUSCULOSKELETAL: No joint effusion EXTRIMITY: No swelling, clubbing. PSYCH: Cooperative. - Constitutional Vitals: Temp Pulse Resp BP Pulse Ox 98.2 F 117 H 32 H 123/77 87 12/28/20 09:06 12/28/20 09:06 12/28/20 09:06 12/28/20 09:06 12/28/20 09:06 General appearance: Present: mild distress, obese HEART Score - HEART Score Troponin: Troponin T < 0.010 ng/mL (0.00-0.029) 12/25/20 08:33 Results - Labs CBC & Chem 7: 12/28/20 10:02 12/28/20 10:02 Labs: Laboratory Last Values WBC 16.9 K/mm3 (4.5-11.0) H 12/28/20 10:02 RBC 5.03 M/mm3 (3.65-5.03) 12/28/20 10:02 Hgb 15.5 gm/dl (11.8-15.2) H 12/28/20 10:02 Hct 44.6 % (35.5-45.6) 12/28/20 10:02 MCV 89 fl (84-94) 12/28/20 10:02 MCH 31 pg (28-32) 12/28/20 10:02 MCHC 35 % (32-34) H 12/28/20 10:02 RDW 14.4 % (13.2-15.2) 12/28/20 10:02 Plt Count 106 K/mm3 (140-440) L 12/28/20 10:02 Add Manual Diff Complete 12/26/20 04:58 Total Counted 100 12/26/20 04:58 Seg Neutrophils % [employer] Technician 12/26/20 04:58 Seg Neuts % (Manual) 96.0 % (40.0-70.0) H 12/26/20 04:58 Band Neutrophils % 1.0 % 12/26/20 04:58 Lymphocytes % (Manual) 3.0 % (13.4-35.0) L 12/26/20 04:58 Nucleated RBC % Not Reportable 12/26/20 04:58 Seg Neutrophils # Man 12.6 K/mm3 (1.8-7.7) H 12/26/20 04:58 Band Neutrophils # 0.1 K/mm3 12/26/20 04:58 Lymphocytes # (Manual) 0.4 K/mm3 (1.2-5.4) L 12/26/20 04:58 Abs React Lymphs (Man) 0.0 K/mm3 12/26/20 04:58 Monocytes # (Manual) 0.0 K/mm3 (0.0-0.8) 12/26/20 04:58 Eosinophils # (Manual) 0.0 K/mm3 (0.0-0.4) 12/26/20 04:58 Basophils # (Manual) 0.0 K/mm3 (0.0-0.1) 12/26/20 04:58 Metamyelocytes # 0.0 K/mm3 12/26/20 04:58 Myelocytes # 0.0 K/mm3 12/26/20 04:58 Promyelocytes # 0.0 K/mm3 12/26/20 04:58 Blast Cells # 0.0 K/mm3 12/26/20 04:58 WBC Morphology Not Reportable 12/26/20 04:58 Hypersegmented Neuts Not Reportable 12/26/20 04:58 Hyposegmented Neuts Not Reportable 12/26/20 04:58 Hypogranular Neuts Not Reportable 12/26/20 04:58 Smudge Cells Not Reportable 12/26/20 04:58 Toxic Granulation Not Reportable 12/26/20 04:58 Toxic Vacuolation Not Reportable 12/26/20 04:58 Dohle Bodies Not Reportable 12/26/20 04:58 Pelger-Huet Anomaly Not Reportable 12/26/20 04:58 Marbin Rods Not Reportable 12/26/20 04:58 Platelet Estimate Consistent w auto 12/26/20 04:58 Clumped Platelets Not Reportable 12/26/20 04:58 Plt Clumps, EDTA Not Reportable 12/26/20 04:58 Large Platelets Not Reportable 12/26/20 04:58 Giant Platelets Not Reportable 12/26/20 04:58 Platelet Satelliting Not Reportable 12/26/20 04:58 Plt Morphology Comment Not Reportable 12/26/20 04:58 RBC Morphology Normal 12/26/20 04:58 Dimorphic RBCs Not Reportable 12/26/20 04:58 Polychromasia Not Reportable 12/26/20 04:58 Hypochromasia Not Reportable 12/26/20 04:58 Poikilocytosis Not Reportable 12/26/20 04:58 Anisocytosis Not Reportable 12/26/20 04:58 Microcytosis Not Reportable 12/26/20 04:58 Macrocytosis Not Reportable 12/26/20 04:58 Spherocytes Not Reportable 12/26/20 04:58 Pappenheimer Bodies Not Reportable 12/26/20 04:58 Sickle Cells Not Reportable 12/26/20 04:58 Target Cells Not Reportable 12/26/20 04:58 Tear Drop Cells Not Reportable 12/26/20 04:58 Ovalocytes Not Reportable 12/26/20 04:58 Helmet Cells Not Reportable 12/26/20 04:58 [place] Bodies Not Reportable 12/26/20 04:58 [place] Rings Not Reportable 12/26/20 04:58 [place] Cells Not Reportable 12/26/20 04:58 Bite Cells Not Reportable 12/26/20 04:58 Crenated Cell Not Reportable 12/26/20 04:58 Elliptocytes Not Reportable 12/26/20 04:58 Acanthocytes (Spur) Not Reportable 12/26/20 04:58 Rouleaux Not Reportable 12/26/20 04:58 Hemoglobin C Crystals Not Reportable 12/26/20 04:58 Schistocytes Not Reportable 12/26/20 04:58 Malaria parasites Not Reportable 12/26/20 04:58 [place] Bodies Not Reportable 12/26/20 04:58 Hem Pathologist Commnt No 12/26/20 04:58 APTT 32.3 Sec. (24.2-36.6) 12/25/20 08:33 D-Dimer > 51052 ng/mlDDU (0-234) H 12/27/20 05:28 ABG pH 7.481 (7.320-7.450) H 12/25/20 10:13 POC ABG pCO2 20.7 mmHg (32.0-48.0) L 12/25/20 10:13 POC ABG pO2 62.0 mmHg (83-108) L 12/25/20 10:13 POC ABG HCO3 15.1 12/25/20 10:13 ABG O2 Saturation 92.4 (0-100) 12/25/20 10:13 POC ABG Base Excess -5.8 12/25/20 10:13 ABG Hemoglobin 15.0 (12.0-17.5) 12/25/20 10:13 ABG Oxyhemoglobin 91.6 (94-98) L 12/25/20 10:13 ABG Methemoglobin 0.3 (0.0-1.5) 12/25/20 10:13 ABG Sodium 119.3 mmol/L (136.0-145.0) L 12/25/20 10:13 ABG Potassium 4.2 mmol/L (3.40-4.50) 12/25/20 10:13 ABG Chloride 95.0 mmol/L (98-107) L 12/25/20 10:13 ABG Glucose 122 mg/dL (65-95) H 12/25/20 10:13 Carboxyhemoglobin 0.6 (0.5-1.5) 12/25/20 10:13 FiO2 % 100.0 12/25/20 10:13 Sodium 132 mmol/L (137-145) L 12/28/20 10:02 Potassium 4.3 mmol/L (3.6-5.0) 12/28/20 10:02 Chloride 102.5 mmol/L (98-107) 12/28/20 10:02 Carbon Dioxide 16 mmol/L (22-30) L 12/28/20 10:02 Anion Gap 18 mmol/L 12/28/20 10:02 BUN 30 mg/dL (9-20) H 12/28/20 10:02 Creatinine 0.9 mg/dL (0.8-1.3) 12/28/20 10:02 Estimated GFR > 60 ml/min 12/28/20 10:02 BUN/Creatinine Ratio 33 % 12/28/20 10:02 Glucose 127 mg/dL (75-100) H 12/28/20 10:02 Osmolality 291 Mosm/kg 12/28/20 10:02 Lactic Acid 1.50 mmol/L (0.7-2.0) 12/25/20 23:38 Calcium 10.0 mg/dL (8.4-10.2) 12/28/20 10:02 Ferritin > 2000.0 ng/mL (30.0-300.0) H 12/28/20 10:02 Total Bilirubin 0.70 mg/dL (0.1-1.2) 12/28/20 10:02 AST 27 units/L (5-40) 12/28/20 10:02 ALT 16 units/L (7-56) 12/28/20 10:02 Alkaline Phosphatase 102 units/L (35-129) 12/28/20 10:02 Troponin T < 0.010 ng/mL (0.00-0.029) 12/25/20 08:33 C-Reactive Protein 10.90 mg/dL (0.00-1.30) H 12/28/20 10:02 Total Protein 6.8 g/dL (6.3-8.2) 12/28/20 10:02 Albumin 2.3 g/dL (3.9-5) L 12/28/20 10:02 Albumin/Globulin Ratio 0.5 % 12/28/20 10:02 Arterial Blood Glucose 122 mg/dL (65-95) H 12/25/20 10:13 Arterial Blood Ionized Calcium 4.8 mg/dL (4.6-5.3) 12/25/20 10:13 Urine Color Straw (Yellow) 12/25/20 13:30 Urine Turbidity Clear (Clear) 12/25/20 13:30 Urine pH 7.0 (5.0-7.0) 12/25/20 13:30 Ur Specific [place] 1.003 (1.003-1.030) 12/25/20 13:30 Urine Protein <15 mg/dl mg/dL (Negative) 12/25/20 13:30 Urine Glucose (UA) Neg mg/dL (Negative) 12/25/20 13:30 Urine Ketones Neg mg/dL (Negative) 12/25/20 13:30 Urine Blood Sm (Negative) 12/25/20 13:30 Urine Nitrite Neg (Negative) 12/25/20 13:30 Urine Bilirubin Neg (Negative) 12/25/20 13:30 Urine Urobilinogen < 2.0 mg/dL (<2.0) 12/25/20 13:30 Ur Leukocyte Esterase Neg (Negative) 12/25/20 13:30 Urine WBC (Auto) 1.0 /HPF (0.0-6.0) 12/25/20 13:30 Urine RBC (Auto) < 1.0 /HPF (0.0-6.0) 12/25/20 13:30 U Epithel Cells (Auto) < 1.0 /HPF (0-13.0) 12/25/20 13:30 Coronavirus (PCR) Positive (Negative) A 12/27/20 Unknown Blood Type A POSITIVE 12/25/20 08:36 Antibody Screen Negative 12/25/20 08:36 Microbiology: Microbiology 12/25/20 08:33 Peripheral/Venous Blood Culture - Preliminary NO GROWTH AFTER 72 HOURS 12/25/20 08:33 Peripheral/Venous Blood Culture - Preliminary NO GROWTH AFTER 72 HOURS 12/25/20 Unknown Urine,Clean Catch Urine Culture - Final NO GROWTH AFTER 48 HOURS Active Medications - Current Medications Current Medications: Generic Name Dose Route Start Last Admin Trade Name Freq PRN Reason Stop Dose Admin Acetaminophen 650 mg 12/25/20 11:59 Acetaminophen 325 Mg Tab PO Q4H PRN Pain MILD(1-3)/Fever >100.5/BHARDWAJ Albuterol 2.5 mg 12/25/20 11:59 Albuterol 2.5 Mg/3 Ml Nebu IH Q4HRT PRN Shortness Of Breath Ascorbic Acid 500 mg 12/25/20 22:00 12/27/20 23:01 Ascorbic Acid 500 Mg Tab PO 500 mg BID TIAN Administration Cholecalciferol 1,000 unit 12/26/20 10:00 12/27/20 13:00 Cholecalciferol (Vit D3) 1000 Unit (25 Mcg) Tab PO 1,000 unit QDAY [facility] Administration Enoxaparin Sodium 90 mg 12/26/20 15:00 12/27/20 22:57 Enoxaparin 100 Mg/1 Ml Inj 1 mg/kg (90 mg) 90 mg SUB-Q Administration BID [facility] Protocol Guaifenesin 600 mg 12/25/20 22:00 12/27/20 22:58 Guaifenesin Er 600 Mg Tab PO 600 mg BID TIAN Administration Hydromorphone HCl 0.5 mg 12/25/20 11:59 Hydromorphone 1 Mg/1 Ml Inj IV Q12H PRN Pain , Severe (7-10) Hydromorphone HCl 0.25 mg 12/25/20 12:10 Hydromorphone 1 Mg/1 Ml Inj IV Q4H PRN Pain, Moderate (4-6) Ceftriaxone Sodium 2 gm in 100 mls @ 200 mls/hr 12/25/20 14:00 12/27/20 16:54 Rocephin/Ns 2 Gm/100 Ml IV 12/29/20 14:29 200 mls/hr Q24H [facility] Administration Protocol Azithromycin 500 mg in 250 mls @ 250 mls/hr 12/25/20 13:00 12/27/20 13:16 Zithromax/Ns IV 12/29/20 13:59 250 mls/hr Q24H [facility] Administration Protocol TOCILIZUMAB 600 mg/ Sodium 130 mls @ 120 mls/hr 12/28/20 12:19 Chloride IV 12/28/20 13:23 ONCE ONE Lisinopril 10 mg 12/26/20 10:00 12/27/20 13:13 Lisinopril 10 Mg Tab PO Not Given QDAY [facility] Methylprednisolone Sodium Succinate 40 mg 12/26/20 06:00 12/28/20 06:38 Methylprednisolone Sod Succinate 125 Mg/2 Ml Inj IV 40 mg Q8H TIAN Administration Metoprolol Tartrate 100 mg 12/25/20 22:00 12/27/20 23:42 Metoprolol Tartrate 100 Mg Tab PO Not Given BID TIAN Mycophenolate Mofetil 1,000 mg 12/25/20 22:00 12/27/20 22:57 Mycophenolate 500 Mg Tab PO 1,000 mg BID TIAN Administration Nifedipine 30 mg 12/26/20 10:00 12/27/20 13:00 Nifedipine Xl 30 Mg Tab PO 30 mg QDAY TIAN Administration Ondansetron HCl 4 mg 12/25/20 11:59 12/26/20 01:33 Ondansetron 4 Mg/2 Ml Inj IV 4 mg Q8H PRN Administration Nausea And Vomiting Oxycodone/Acetaminophen 1 tab 12/25/20 11:59 Oxycodone /Acetaminophen 5-325mg Tab PO Q12H PRN Pain, Moderate (4-6) Pantoprazole Sodium 40 mg 12/26/20 10:00 12/27/20 13:01 Pantoprazole 40 Mg Tab PO 40 mg DAILY TIAN Administration Sodium Chloride 10 ml 12/25/20 22:00 12/27/20 23:00 Sodium Chloride 0.9% 10 Ml Flush Syringe IV 10 ml BID TIAN Administration Sodium Chloride 10 ml 12/25/20 11:59 Sodium Chloride 0.9% 10 Ml Flush Syringe IV PRN PRN LINE FLUSH Tacrolimus 3 mg 12/26/20 10:00 12/27/20 13:00 Tacrolimus 1 Mg Cap PO 3 mg QAM TIAN Administration Tacrolimus 4 mg 12/26/20 22:00 12/27/20 23:00 Tacrolimus 1 Mg Cap PO 4 mg QHS TIAN Administration Tamsulosin HCl 0.4 mg 12/25/20 22:00 12/27/20 22:58 Tamsulosin 0.4 Mg Cap PO 0.4 mg BID TIAN Administration Zinc Sulfate 220 mg 12/25/20 22:00 12/27/20 23:01 Zinc Sulfate 220 Mg Cap PO 220 mg BID TIAN Administration
[2020-12-28] MEDS: ONDANSETRON 4 MG/2 ML INJ IV PRN ×2 (13:13→22:39)
[2020-12-28] MEDS: oxyCODONE /ACETAMINOPHEN 5-325MG TAB PO PRN (13:20)
[2020-12-28] MEDS: NIFEdipine XL 30 MG TAB PO SCH (13:21)
[2020-12-28] MEDS: ASCORBIC ACID 500 MG TAB PO SCH ×2 (13:22→21:06)
[2020-12-28] MEDS: TAMSULOSIN 0.4 MG CAP PO SCH ×2 (13:22→21:06)
[2020-12-28] MEDS: METOPROLOL TARTRATE 100 MG TAB PO SCH ×2 (13:22→21:05)
[2020-12-28] MEDS: PANTOPRAZOLE 40 MG TAB PO SCH (13:22)
[2020-12-28] MEDS: CHOLECALCIFEROL (VIT D3) 1000 UNIT (25 mcg) TAB PO SCH (13:23)
[2020-12-28] MEDS: ZINC SULFATE 220 MG CAP PO SCH ×2 (13:23→21:05)
[2020-12-28] MEDS: LISINOPRIL 10 MG TAB PO SCH (13:23)
[2020-12-28] MEDS: MYCOPHENOLATE 500 MG TAB PO SCH ×2 (13:24→21:03)
[2020-12-28] MEDS: AZITHROMYCIN/NS 500 MG/250 ML 500 MG/250 ML BAG IV SCH (13:44)
[2020-12-28] MEDS: TACROLIMUS 1 MG CAP PO SCH ×2 (13:45→21:09)
[2020-12-28] MEDS: guaiFENesin ER 600 MG TAB PO SCH ×2 (13:51→21:07)
[2020-12-28] MEDS ORDERED: TOCILIZUMAB 648 MG in SODIUM CHLORIDE 0.9% 100 ML IV ONE (14:00)
--- NOTE | 2020-12-28 14:44 | Progress Note ---
Assessment and Plan 60 y/o male with acute respiratory failure secondary to COVID 19 pneumonia 12/28/20: Iv steroids, Proning, net negative volume state, guarded prognosis. 12/27/20: No new recs for today. Please see below. 1. IV steroids 2. Remdesivir 3. Ask about Actemra 4. Prone 5. Net negative volume state 6. Guarded prognosis Subjective Date of service: 12/28/20 Interval history: No acute events. FLoor bed now, but oxygen requirement is still the same. Objective Vital Signs - 12hr 12/28/20 12/28/20 12/28/20 02:46 03:00 03:16 Temperature Pulse Rate 103 H 105 H 104 H Respiratory 36 H 19 38 H Rate Blood Pressure 124/85 124/89 124/89 O2 Sat by Pulse 90 93 91 Oximetry 12/28/20 12/28/20 12/28/20 03:30 03:46 04:00 Temperature Pulse Rate 103 H 103 H 106 H Respiratory 38 H 37 H 42 H Rate Blood Pressure 124/89 124/89 120/87 O2 Sat by Pulse 90 90 91 Oximetry 12/28/20 12/28/20 12/28/20 04:16 04:30 04:46 Temperature Pulse Rate 108 H 104 H 106 H Respiratory 44 H 36 H 36 H Rate Blood Pressure 120/87 120/87 120/87 O2 Sat by Pulse 89 90 88 Oximetry 12/28/20 12/28/20 12/28/20 05:00 05:16 05:30 Temperature Pulse Rate 107 H 107 H 111 H Respiratory 42 H 40 H 39 H Rate Blood Pressure 118/87 118/87 118/87 O2 Sat by Pulse 89 91 90 Oximetry 12/28/20 12/28/20 12/28/20 05:46 07:00 07:16 Temperature Pulse Rate 108 H 108 H 112 H Respiratory 44 H 43 H 26 H Rate Blood Pressure 118/87 120/90 120/90 O2 Sat by Pulse 91 91 91 Oximetry 12/28/20 12/28/20 12/28/20 07:30 07:46 08:00 Temperature Pulse Rate 106 H 106 H 107 H Respiratory 34 H 35 H 38 H Rate Blood Pressure 120/90 120/90 117/82 O2 Sat by Pulse 92 95 93 Oximetry 12/28/20 12/28/20 12/28/20 09:00 09:06 13:22 Temperature 98.2 F Pulse Rate 117 H 117 H Respiratory 32 H Rate Blood Pressure 123/77 123/77 O2 Sat by Pulse 89 87 Oximetry 12/28/20 13:23 Temperature Pulse Rate 117 H Respiratory Rate Blood Pressure 123/77 O2 Sat by Pulse Oximetry CBC and BMP: 12/28/20 10:02 12/28/20 10:02 ABG, PT/INR, D-dimer: ABG ABG pH 7.481 (7.320-7.450) H 12/25/20 10:13 POC ABG pCO2 20.7 mmHg (32.0-48.0) L 12/25/20 10:13 POC ABG pO2 62.0 mmHg (83-108) L 12/25/20 10:13 POC ABG HCO3 15.1 12/25/20 10:13 ABG O2 Saturation 92.4 (0-100) 12/25/20 10:13 PT/INR, D-dimer D-Dimer > 00203 ng/mlDDU (0-234) H 12/27/20 05:28 Abnormal lab findings: Abnormal Labs 12/25/20 12/25/20 12/25/20 08:33 08:33 08:33 WBC 15.9 H Hgb 15.3 H MCHC 36 H Plt Count 133 L Seg Neuts % (Manual) 98.0 H Lymphocytes % (Manual) 1.0 L Seg Neutrophils # Man 15.6 H Lymphocytes # (Manual) 0.2 L D-Dimer ABG pH POC ABG pCO2 POC ABG pO2 ABG Oxyhemoglobin ABG Sodium ABG Chloride ABG Glucose Sodium 120 L D Chloride 90.2 L Carbon Dioxide 16 L BUN Creatinine Glucose 116 H Lactic Acid 2.40 H* Ferritin Total Bilirubin 1.30 H C-Reactive Protein Albumin 3.1 L Arterial Blood Glucose Coronavirus (PCR) SARS-CoV-2 IgG Ab 12/25/20 12/25/20 12/26/20 10:13 11:13 04:58 WBC 13.1 H Hgb MCHC 35 H Plt Count 113 L Seg Neuts % (Manual) 96.0 H Lymphocytes % (Manual) 3.0 L Seg Neutrophils # Man 12.6 H Lymphocytes # (Manual) 0.4 L D-Dimer ABG pH 7.481 H POC ABG pCO2 20.7 L POC ABG pO2 62.0 L ABG Oxyhemoglobin 91.6 L ABG Sodium 119.3 L ABG Chloride 95.0 L ABG Glucose 122 H Sodium Chloride Carbon Dioxide BUN Creatinine Glucose Lactic Acid 2.20 H* Ferritin Total Bilirubin C-Reactive Protein Albumin Arterial Blood Glucose 122 H Coronavirus (PCR) SARS-CoV-2 IgG Ab 12/26/20 12/27/20 12/27/20 04:58 05:28 05:28 WBC 17.5 H Hgb MCHC 35 H Plt Count 108 L Seg Neuts % (Manual) Lymphocytes % (Manual) Seg Neutrophils # Man Lymphocytes # (Manual) D-Dimer ABG pH POC ABG pCO2 POC ABG pO2 ABG Oxyhemoglobin ABG Sodium ABG Chloride ABG Glucose Sodium 129 L D 131 L Chloride Carbon Dioxide 17 L 17 L BUN 21 H Creatinine 0.7 L Glucose 112 H 117 H Lactic Acid Ferritin Total Bilirubin C-Reactive Protein 22.20 H Albumin Arterial Blood Glucose Coronavirus (PCR) SARS-CoV-2 IgG Ab 12/27/20 12/27/20 12/28/20 05:28 Unknown 10:02 WBC 16.9 H Hgb 15.5 H MCHC 35 H Plt Count 106 L Seg Neuts % (Manual) Lymphocytes % (Manual) Seg Neutrophils # Man Lymphocytes # (Manual) D-Dimer > 99712 H ABG pH POC ABG pCO2 POC ABG pO2 ABG Oxyhemoglobin ABG Sodium ABG Chloride ABG Glucose Sodium Chloride Carbon Dioxide BUN Creatinine Glucose Lactic Acid Ferritin Total Bilirubin C-Reactive Protein Albumin Arterial Blood Glucose Coronavirus (PCR) Positive A SARS-CoV-2 IgG Ab 12/28/20 12/28/20 12/28/20 10:02 10:02 10:02 WBC Hgb MCHC Plt Count Seg Neuts % (Manual) Lymphocytes % (Manual) Seg Neutrophils # Man Lymphocytes # (Manual) D-Dimer ABG pH POC ABG pCO2 POC ABG pO2 ABG Oxyhemoglobin ABG Sodium ABG Chloride ABG Glucose Sodium 132 L Chloride Carbon Dioxide 16 L BUN 30 H Creatinine Glucose 127 H Lactic Acid Ferritin > 2000.0 H Total Bilirubin C-Reactive Protein 10.90 H Albumin 2.3 L Arterial Blood Glucose Coronavirus (PCR) SARS-CoV-2 IgG Ab Reactive A
[2020-12-28] MEDS: ENOXAPARIN 100 MG/1 ML INJ SUB-Q SCH ×2 (15:06→21:03)
[2020-12-28] MEDS: cefTRIAXone/NS 2 GM/100 ML 2 GM/100 ML BAG IV SCH (15:10)
[2020-12-28] MEDS: HYDROmorphone 1 MG/1 ML INJ IV PRN (22:39)
[2020-12-29] MEDS: methylPREDNISolone Sod Succinate 125 MG/2 ML INJ IV SCH ×3 (05:34→21:42)
--- NOTE | 2020-12-29 07:36 | Progress Note ---
Assessment and Plan Assessment and plan: 60 YO Male with Obesity Hypoventilation Syndrome, kidney transplant, HTN, GERD, Anemia Chronic Disease, Coronavirus Infection diagnosed 2 weeks and discharged 3 days sorry, who failed outpatient therapy and currently on 2L/min Home oxygen via NC, CKD S/P Renal Transplant currently on anti graft rejection therapy presents to ED for evaluation. Patient reports "I cannot breathe". Patient states that he has experienced shortness of breath over the past 1 week with persistent and worsening symptoms over the same timeframe. Patient was diagnosed with coronavirus infection 2 weeks ago and was treated with outpatient therapy as well as supplemental oxygen at 2 L via nasal cannula. Patient states that he has experienced worsening shortness of breath over the past 1 week, fatigue, malaise, generalized weakness. EMS was notified and upon arrival the patient was found to be in distress and was found to have a pulse oximetry in the 70s while on 2 L nasal cannula. The patient was treated with oxygen via nonrebreather mask and subsequently transported to [facility] for further care and evaluation of the aforementioned symptoms. The patient was seen and evaluated in the emergency department. All lab and imaging studies reviewed. Patient found to have a pulse oximetry in the 70s on submental oxygen and was subsequently placed on high flow supplemental oxygen due to acute hypoxemic respiratory failure. Patient underwent chest x- ray and was found to have bilateral pneumonia secondary to sepsis. Patient also found to have acidosis. Patient initiated on sepsis protocol as well as coronavirus pneumonia protocol and admitted to medical floor. Patient denies fever, chills, chest pain, palpitation, skin rash, trauma, or known ill contacts. Prior admission on 12/15/2020 reviewed. All medication listed at time of admission has been reconciled. Advanced care planning conducted in ED. Patient reports that he had both of his COVID-19 vaccines with past medical history of hypertension, GERD, kidney transplant in 2017 was brought to the emergency room because of abdominal pain, body aches, fever, cough for last 2 days. The patient had been treated on dexamethasone for total 10 days and remdesivir total 5 days as patient is immunocompromised patient,-Antibiotic was not required as procalcitonin level was normal, -Patient was given anticoagulation per protocol, Patient was deemed to be stable and was discharged on home oxygen but returned as noted above with worsening hypoxia and now on Full dose 12/26: Continue current management, will check d,dimer and possible VQ scan, Will keep on full dose anticoagulation until proven not to have Pulmonary Embolism. Check Doppler for DVT prophy. Monitor Plt. 12/27: Patient remains critically ill sepsis secondary to Covid plan to vaccine ID input noted patient had previously completed remdesivir no indication for noted. Continue steroid therapy and has home antirejection medications. No pulmonary embolism noted home or DVT noted continue to monitor on anticoagulation monitor thrombocytopenia closely. Will give additional dose of Lasix today for negative fluid balance we will monitor renal function closely 12/28: Continue supportive care, steroids, oxygen, anticoagulation. Wean oxygen as tolerated, nephrology consulted to assist with management as patient is a renal transplant. Patient still with tachycardic. Will likely need LTAC for slow weaning. Unfortunately I cannot place him in IMCU or ICU due to lack of b ed in the hospital ideally he is appropriate for dose units minimum stepdown unit. 12/29; patient is on 40 L of high flow oxygen. Was given Actemra yesterday. Continue with Solu-Medrol 40 mg 3 times daily. Pulmonary and ID is following. Patient may need LTAC placement at discharge. Patient is concerned about his transplant medications but they were resumed. (1) Sepsis Current Visit: Yes Status: Acute Qualifiers: Acute respiratory failure type: with hypoxia Plan to address problem: Sepsis protocol: Chest x-ray, CBC, CMP, urinalysis, IV antibiotic therapy, IV fluid resuscitation therapy, monitor urine output every shift, monitor fluid balance, maintain mean arterial pressure greater than or equal to 65, blood culture. Serial lactic acid level. (2) Pneumonia secondary to COVID-19 Current Visit: Yes Status: Acute Plan to address problem: Pneumonia protocol: Chest x-ray, CBC, CMP, supplemental oxygen, pulse oximetry, nebulizer therapy, (3) Acidosis Current Visit: Yes Status: Acute Plan to address problem: Supportive care, BMP, repeat BMP in a.m. (4) Obesity hypoventilation syndrome Current Visit: Yes Status: Acute Plan to address problem: Balanced diet, increase physical activity discharge, outpatient pulmonary follow-up for sleep study. (5) Acute Hypoxia respiratory failure Current Visit: Yes Status: Acute Plan to address problem: Supplemental oxygen, pulse oximetry, nebulizer therapy, proposition while in bed, chest x-ray, pulmonary team consulted. (6) Hyponatremia (7) Thrombocytopenia (8) DVT prophylaxis Current Visit: Yes Status: Acute Plan to address problem: SCD to bilateral lower extremities while in bed, prophylactic anticoagulation (9) Advance care planning Current Visit: Yes Status: Acute Plan to address problem: Disease education conducted, care plan discussed, diagnosis discussed, prognosis discussed, patient is full code, patient knowledges understanding and agreement with care plan. History Interval history: Patient was seen and evaluated this morning Patient was on 40 L of high flow oxygen and 15 L of nonrebreather mask Patient is concerned about his transplant medications Hospitalist Physical - Physical exam Narrative exam: Patient was on 40 L of oxygen The patient is obese. Vital signs as documented. Head exam is unremarkable. No scleral icterus . Neck is without jugular venous distension, thyromegaly, or carotid bruits. Lungs patient has labored breathing Cardiac exam reveals regular rate and Rhythm. Abdominal exam reveals normal bowel sounds, nontender, no organomegaly. Extremities are nonedematous and both femoral and pedal pulses are normal. ACCESS REPRESENTATIVE: Alert and oriented 3. No focal weakness. - Constitutional Vitals: Temp Pulse Resp BP Pulse Ox 98.3 F 81 18 116/76 84 12/29/20 03:56 12/29/20 03:56 12/29/20 03:56 12/29/20 03:56 12/29/20 03:56 General appearance: Present: mild distress, obese HEART Score - HEART Score Troponin: Troponin T < 0.010 ng/mL (0.00-0.029) 12/25/20 08:33 Results - Labs CBC & Chem 7: 12/28/20 10:02 12/28/20 10:02 Labs: Laboratory Last Values WBC 16.9 K/mm3 (4.5-11.0) H 12/28/20 10:02 RBC 5.03 M/mm3 (3.65-5.03) 12/28/20 10:02 Hgb 15.5 gm/dl (11.8-15.2) H 12/28/20 10:02 Hct 44.6 % (35.5-45.6) 12/28/20 10:02 MCV 89 fl (84-94) 12/28/20 10:02 MCH 31 pg (28-32) 12/28/20 10:02 MCHC 35 % (32-34) H 12/28/20 10:02 RDW 14.4 % (13.2-15.2) 12/28/20 10:02 Plt Count 106 K/mm3 (140-440) L 12/28/20 10:02 Add Manual Diff Complete 12/26/20 04:58 Total Counted 100 12/26/20 04:58 Seg Neutrophils % Software Engineering Associate Manager 12/26/20 04:58 Seg Neuts % (Manual) 96.0 % (40.0-70.0) H 12/26/20 04:58 Band Neutrophils % 1.0 % 12/26/20 04:58 Lymphocytes % (Manual) 3.0 % (13.4-35.0) L 12/26/20 04:58 Nucleated RBC % Not Reportable 12/26/20 04:58 Seg Neutrophils # Man 12.6 K/mm3 (1.8-7.7) H 12/26/20 04:58 Band Neutrophils # 0.1 K/mm3 12/26/20 04:58 Lymphocytes # (Manual) 0.4 K/mm3 (1.2-5.4) L 12/26/20 04:58 Abs React Lymphs (Man) 0.0 K/mm3 12/26/20 04:58 Monocytes # (Manual) 0.0 K/mm3 (0.0-0.8) 12/26/20 04:58 Eosinophils # (Manual) 0.0 K/mm3 (0.0-0.4) 12/26/20 04:58 Basophils # (Manual) 0.0 K/mm3 (0.0-0.1) 12/26/20 04:58 Metamyelocytes # 0.0 K/mm3 12/26/20 04:58 Myelocytes # 0.0 K/mm3 12/26/20 04:58 Promyelocytes # 0.0 K/mm3 12/26/20 04:58 Blast Cells # 0.0 K/mm3 12/26/20 04:58 WBC Morphology Not Reportable 12/26/20 04:58 Hypersegmented Neuts Not Reportable 12/26/20 04:58 Hyposegmented Neuts Not Reportable 12/26/20 04:58 Hypogranular Neuts Not Reportable 12/26/20 04:58 Smudge Cells Not Reportable 12/26/20 04:58 Toxic Granulation Not Reportable 12/26/20 04:58 Toxic Vacuolation Not Reportable 12/26/20 04:58 Dohle Bodies Not Reportable 12/26/20 04:58 Pelger-Huet Anomaly Not Reportable 12/26/20 04:58 Marbin Rods Not Reportable 12/26/20 04:58 Platelet Estimate Consistent w auto 12/26/20 04:58 Clumped Platelets Not Reportable 12/26/20 04:58 Plt Clumps, EDTA Not Reportable 12/26/20 04:58 Large Platelets Not Reportable 12/26/20 04:58 Giant Platelets Not Reportable 12/26/20 04:58 Platelet Satelliting Not Reportable 12/26/20 04:58 Plt Morphology Comment Not Reportable 12/26/20 04:58 RBC Morphology Normal 12/26/20 04:58 Dimorphic RBCs Not Reportable 12/26/20 04:58 Polychromasia Not Reportable 12/26/20 04:58 Hypochromasia Not Reportable 12/26/20 04:58 Poikilocytosis Not Reportable 12/26/20 04:58 Anisocytosis Not Reportable 12/26/20 04:58 Microcytosis Not Reportable 12/26/20 04:58 Macrocytosis Not Reportable 12/26/20 04:58 Spherocytes Not Reportable 12/26/20 04:58 Pappenheimer Bodies Not Reportable 12/26/20 04:58 Sickle Cells Not Reportable 12/26/20 04:58 Target Cells Not Reportable 12/26/20 04:58 Tear Drop Cells Not Reportable 12/26/20 04:58 Ovalocytes Not Reportable 12/26/20 04:58 Helmet Cells Not Reportable 12/26/20 04:58 David-Milladore Bodies Not Reportable 12/26/20 04:58 Modena Rings Not Reportable 12/26/20 04:58 Mukesh Cells Not Reportable 12/26/20 04:58 Bite Cells Not Reportable 12/26/20 04:58 Crenated Cell Not Reportable 12/26/20 04:58 Elliptocytes Not Reportable 12/26/20 04:58 Acanthocytes (Spur) Not Reportable 12/26/20 04:58 Rouleaux Not Reportable 12/26/20 04:58 Hemoglobin C Crystals Not Reportable 12/26/20 04:58 Schistocytes Not Reportable 12/26/20 04:58 Malaria parasites Not Reportable 12/26/20 04:58 Woodrow Bodies Not Reportable 12/26/20 04:58 Hem Pathologist Commnt No 12/26/20 04:58 APTT 32.3 Sec. (24.2-36.6) 12/25/20 08:33 D-Dimer > 43448 ng/mlDDU (0-234) H 12/27/20 05:28 ABG pH 7.481 (7.320-7.450) H 12/25/20 10:13 POC ABG pCO2 20.7 mmHg (32.0-48.0) L 12/25/20 10:13 POC ABG pO2 62.0 mmHg (83-108) L 12/25/20 10:13 POC ABG HCO3 15.1 12/25/20 10:13 ABG O2 Saturation 92.4 (0-100) 12/25/20 10:13 POC ABG Base Excess -5.8 12/25/20 10:13 ABG Hemoglobin 15.0 (12.0-17.5) 12/25/20 10:13 ABG Oxyhemoglobin 91.6 (94-98) L 12/25/20 10:13 ABG Methemoglobin 0.3 (0.0-1.5) 12/25/20 10:13 ABG Sodium 119.3 mmol/L (136.0-145.0) L 12/25/20 10:13 ABG Potassium 4.2 mmol/L (3.40-4.50) 12/25/20 10:13 ABG Chloride 95.0 mmol/L (98-107) L 12/25/20 10:13 ABG Glucose 122 mg/dL (65-95) H 12/25/20 10:13 Carboxyhemoglobin 0.6 (0.5-1.5) 12/25/20 10:13 FiO2 % 100.0 12/25/20 10:13 Sodium 132 mmol/L (137-145) L 12/28/20 10:02 Potassium 4.3 mmol/L (3.6-5.0) 12/28/20 10:02 Chloride 102.5 mmol/L (98-107) 12/28/20 10:02 Carbon Dioxide 16 mmol/L (22-30) L 12/28/20 10:02 Anion Gap 18 mmol/L 12/28/20 10:02 BUN 30 mg/dL (9-20) H 12/28/20 10:02 Creatinine 0.9 mg/dL (0.8-1.3) 12/28/20 10:02 Estimated GFR > 60 ml/min 12/28/20 10:02 BUN/Creatinine Ratio 33 % 12/28/20 10:02 Glucose 127 mg/dL (75-100) H 12/28/20 10:02 Osmolality 291 Mosm/kg 12/28/20 10:02 Lactic Acid 1.50 mmol/L (0.7-2.0) 12/25/20 23:38 Calcium 10.0 mg/dL (8.4-10.2) 12/28/20 10:02 Ferritin > 2000.0 ng/mL (30.0-300.0) H 12/28/20 10:02 Total Bilirubin 0.70 mg/dL (0.1-1.2) 12/28/20 10:02 AST 27 units/L (5-40) 12/28/20 10:02 ALT 16 units/L (7-56) 12/28/20 10:02 Alkaline Phosphatase 102 units/L (35-129) 12/28/20 10:02 Troponin T < 0.010 ng/mL (0.00-0.029) 12/25/20 08:33 C-Reactive Protein 10.90 mg/dL (0.00-1.30) H 12/28/20 10:02 Total Protein 6.8 g/dL (6.3-8.2) 12/28/20 10:02 Albumin 2.3 g/dL (3.9-5) L 12/28/20 10:02 Albumin/Globulin Ratio 0.5 % 12/28/20 10:02 Arterial Blood Glucose 122 mg/dL (65-95) H 12/25/20 10:13 Arterial Blood Ionized Calcium 4.8 mg/dL (4.6-5.3) 12/25/20 10:13 Urine Color Straw (Yellow) 12/25/20 13:30 Urine Turbidity Clear (Clear) 12/25/20 13:30 Urine pH 7.0 (5.0-7.0) 12/25/20 13:30 Ur Specific Proctor 1.003 (1.003-1.030) 12/25/20 13:30 Urine Protein <15 mg/dl mg/dL (Negative) 12/25/20 13:30 Urine Glucose (UA) Neg mg/dL (Negative) 12/25/20 13:30 Urine Ketones Neg mg/dL (Negative) 12/25/20 13:30 Urine Blood Sm (Negative) 12/25/20 13:30 Urine Nitrite Neg (Negative) 12/25/20 13:30 Urine Bilirubin Neg (Negative) 12/25/20 13:30 Urine Urobilinogen < 2.0 mg/dL (<2.0) 12/25/20 13:30 Ur Leukocyte Esterase Neg (Negative) 12/25/20 13:30 Urine WBC (Auto) 1.0 /HPF (0.0-6.0) 12/25/20 13:30 Urine RBC (Auto) < 1.0 /HPF (0.0-6.0) 12/25/20 13:30 U Epithel Cells (Auto) < 1.0 /HPF (0-13.0) 12/25/20 13:30 Coronavirus (PCR) Positive (Negative) A 12/27/20 Unknown SARS-CoV-2 IgG Ab Reactive (NonReactive) A 12/28/20 10:02 Blood Type A POSITIVE 12/25/20 08:36 Antibody Screen Negative 12/25/20 08:36 Microbiology: Microbiology 12/25/20 08:33 Peripheral/Venous Blood Culture - Preliminary NO GROWTH AFTER 72 HOURS 12/25/20 08:33 Peripheral/Venous Blood Culture - Preliminary NO GROWTH AFTER 72 HOURS Winters/IV: Voiding Method Urinal Active Medications - Current Medications Current Medications: Generic Name Dose Route Start Last Admin Trade Name Freq PRN Reason Stop Dose Admin Acetaminophen 650 mg 12/25/20 11:59 Acetaminophen 325 Mg Tab PO Q4H PRN Pain MILD(1-3)/Fever >100.5/BHARDWAJ Albuterol 2.5 mg 12/25/20 11:59 Albuterol 2.5 Mg/3 Ml Nebu IH Q4HRT PRN Shortness Of Breath Ascorbic Acid 500 mg 12/25/20 22:00 12/28/20 21:06 Ascorbic Acid 500 Mg Tab PO 500 mg BID TIAN Administration Cholecalciferol 1,000 unit 12/26/20 10:00 12/28/20 13:23 Cholecalciferol (Vit D3) 1000 Unit (25 Mcg) Tab PO 1,000 unit QDAY TIAN Administration Enoxaparin Sodium 90 mg 12/26/20 15:00 12/28/20 21:03 Enoxaparin 100 Mg/1 Ml Inj 1 mg/kg (90 mg) 90 mg SUB-Q Administration BID [facility] Protocol Guaifenesin 600 mg 12/25/20 22:00 12/28/20 21:07 Guaifenesin Er 600 Mg Tab PO 600 mg BID TIAN Administration Hydromorphone HCl 0.5 mg 12/25/20 11:59 12/28/20 22:39 Hydromorphone 1 Mg/1 Ml Inj IV 0.5 mg Q12H PRN Administration Pain , Severe (7-10) Hydromorphone HCl 0.25 mg 12/25/20 12:10 Hydromorphone 1 Mg/1 Ml Inj IV Q4H PRN Pain, Moderate (4-6) Ceftriaxone Sodium 2 gm in 100 mls @ 200 mls/hr 12/25/20 14:00 12/28/20 15:10 Rocephin/Ns 2 Gm/100 Ml IV 12/29/20 14:29 200 mls/hr Q24H TIAN Administration Protocol Azithromycin 500 mg in 250 mls @ 250 mls/hr 12/25/20 13:00 12/28/20 13:44 Zithromax/Ns IV 12/29/20 13:59 250 mls/hr Q24H TIAN Administration Protocol Lisinopril 10 mg 12/26/20 10:00 12/28/20 13:23 Lisinopril 10 Mg Tab PO 10 mg QDAY TIAN Administration Methylprednisolone Sodium Succinate 40 mg 12/26/20 06:00 12/29/20 05:34 Methylprednisolone Sod Succinate 125 Mg/2 Ml Inj IV 40 mg Q8H TIAN Administration Metoprolol Tartrate 100 mg 12/25/20 22:00 12/28/20 21:05 Metoprolol Tartrate 100 Mg Tab PO 100 mg BID TIAN Administration Mycophenolate Mofetil 1,000 mg 12/25/20 22:00 12/28/20 21:03 Mycophenolate 500 Mg Tab PO 1,000 mg BID TIAN Administration Nifedipine 30 mg 12/26/20 10:00 12/28/20 13:21 Nifedipine Xl 30 Mg Tab PO 30 mg QDAY TIAN Administration Ondansetron HCl 4 mg 12/25/20 11:59 12/28/20 22:39 Ondansetron 4 Mg/2 Ml Inj IV 4 mg Q8H PRN Administration Nausea And Vomiting Oxycodone/Acetaminophen 1 tab 12/25/20 11:59 12/28/20 13:20 Oxycodone /Acetaminophen 5-325mg Tab PO 1 tab Q12H PRN Administration Pain, Moderate (4-6) Pantoprazole Sodium 40 mg 12/26/20 10:00 12/28/20 13:22 Pantoprazole 40 Mg Tab PO 40 mg DAILY TIAN Administration Sodium Chloride 10 ml 12/25/20 22:00 12/28/20 21:09 Sodium Chloride 0.9% 10 Ml Flush Syringe IV 10 ml BID TIAN Administration Sodium Chloride 10 ml 12/25/20 11:59 Sodium Chloride 0.9% 10 Ml Flush Syringe IV PRN PRN LINE FLUSH Tacrolimus 3 mg 12/26/20 10:00 12/28/20 13:45 Tacrolimus 1 Mg Cap PO 3 mg QAM TIAN Administration Tacrolimus 4 mg 12/26/20 22:00 12/28/20 21:09 Tacrolimus 1 Mg Cap PO 4 mg QHS TIAN Administration Tamsulosin HCl 0.4 mg 12/25/20 22:00 12/28/20 21:06 Tamsulosin 0.4 Mg Cap PO 0.4 mg BID TIAN Administration Zinc Sulfate 220 mg 12/25/20 22:00 12/28/20 21:05 Zinc Sulfate 220 Mg Cap PO 220 mg BID TIAN Administration
--- NOTE | 2020-12-29 10:24 | Progress Note ---
Assessment and Plan - Patient Problems (1) Hyponatremia Current Visit: No Status: Chronic Plan to address problem: In the setting of COVID-19 pneumonia, possible SIADH component. Will obtain serum and urine osmolalities along with urine electrolytes. Serum sodium levels are showing slight improvement today. (2) Kidney transplant recipient Current Visit: No Status: Acute Plan to address problem: Continue current immunosuppression regimen. Overall renal allograft function remains stable. (3) Pneumonia due to COVID-19 virus Current Visit: No Status: Acute Plan to address problem: Continues on IV steriods and empiric antibiotics. Given dose of Acterma. CT chest was concerning for progression of b/l pneumonia. No clinical benefit from repeating another course of remdesivir, as he had completed the full regimen during his most recent hospital visit. ID recommendations appreciated. (4) Hypertensive chronic kidney disease with stage 1 through stage 4 chronic kidney disease, or unspecified chronic kidney disease Current Visit: No Status: Chronic Plan to address problem: Monitor blood pressure under current regimen. Subjective Date of service: 12/29/20 Interval history: placed on high flow nasal cannula overnight. Renal function remained stable. Received dose of acterma and IV dexamethasone Objective - Exam Narrative Exam: Patient not directly examined in order to preserve PPE and decrease chance of transmission of COVID-19. Physical examination from primary notes reviewed. - Vital Signs Vital signs: Vital Signs - 12hr 12/29/20 12/29/20 12/29/20 01:05 03:56 09:41 Temperature 98.3 F Pulse Rate 81 Respiratory 18 Rate Blood Pressure 116/76 O2 Sat by Pulse 92 84 89 Oximetry - Lab 12/28/20 10:02 12/28/20 10:02 Most recent lab results ABG pH 7.481 (7.320-7.450) H 12/25/20 10:13 ABG O2 Saturation 92.4 (0-100) 12/25/20 10:13 Calcium 10.0 mg/dL (8.4-10.2) 12/28/20 10:02 Medications & Allergies - Medications Allergies/Adverse Reactions: Allergies No Known Allergies Allergy (Verified 12/14/20 15:36) Home Medications: Home Medications Medication Instructions Recorded Confirmed Last Taken Type Metoprolol [Lopressor TAB] 100 mg PO BID 12/28/14 12/28/20 04/15/18 09:00 History Omeprazole 40 mg PO DAILY 04/10/18 12/28/20 04/15/18 09:00 History Prednisone [predniSONE (Mariluz) ER 5 mg PO QDAY 04/10/18 12/28/20 04/15/18 09:00 History TAB] Tamsulosin HCl [Flomax] 0.4 mg PO BID 04/10/18 12/28/20 04/15/18 09:00 History Albuterol Mdi (or & Nicu Only) 2 puff IH QID PRN #8.5 gram 12/22/20 12/28/20 Unknown Rx [ProAir HFA Inhaler] Mycophenolate [Cellcept] 1,000 mg PO BID #60 tablet 12/22/20 12/28/20 Unknown Rx NIFEdipine XL [Procardia Xl] 30 mg PO QDAY #30 tablet 12/22/20 12/28/20 Unknown Rx dexAMETHasone [Decadron] 6 mg PO DAILY #4 tablet 12/22/20 12/28/20 Unknown Rx guaiFENesin ER [Mucinex ER] 600 mg PO BID #14 tablet 12/22/20 12/28/20 Unknown Rx lisinopriL [Zestril TAB] 10 mg PO QDAY #30 tablet 12/22/20 12/28/20 Unknown Rx Tacrolimus [Prograf] 4 mg PO QAM 12/26/20 12/28/20 Unknown History Tacrolimus [Prograf] 5 mg PO QPM 12/26/20 12/28/20 Unknown History Active Medications: Generic Name Dose Route Start Last Admin Trade Name Freq PRN Reason Stop Dose Admin Acetaminophen 650 mg 12/25/20 11:59 Acetaminophen 325 Mg Tab PO Q4H PRN Pain MILD(1-3)/Fever >100.5/BHARDWAJ Albuterol 2.5 mg 12/25/20 11:59 Albuterol 2.5 Mg/3 Ml Nebu IH Q4HRT PRN Shortness Of Breath Ascorbic Acid 500 mg 12/25/20 22:00 12/28/20 21:06 Ascorbic Acid 500 Mg Tab PO 500 mg BID TIAN Administration Cholecalciferol 1,000 unit 12/26/20 10:00 12/28/20 13:23 Cholecalciferol (Vit D3) 1000 Unit (25 Mcg) Tab PO 1,000 unit QDAY TIAN Administration Enoxaparin Sodium 90 mg 12/26/20 15:00 12/28/20 21:03 Enoxaparin 100 Mg/1 Ml Inj 1 mg/kg (90 mg) 90 mg SUB-Q Administration BID [facility] Protocol Guaifenesin 600 mg 12/25/20 22:00 12/28/20 21:07 Guaifenesin Er 600 Mg Tab PO 600 mg BID TIAN Administration Hydromorphone HCl 0.5 mg 12/25/20 11:59 12/28/20 22:39 Hydromorphone 1 Mg/1 Ml Inj IV 0.5 mg Q12H PRN Administration Pain , Severe (7-10) Hydromorphone HCl 0.25 mg 12/25/20 12:10 Hydromorphone 1 Mg/1 Ml Inj IV Q4H PRN Pain, Moderate (4-6) Ceftriaxone Sodium 2 gm in 100 mls @ 200 mls/hr 12/25/20 14:00 12/28/20 15:10 Rocephin/Ns 2 Gm/100 Ml IV 200 mls/hr Q24H TIAN Administration Protocol Azithromycin 500 mg in 250 mls @ 250 mls/hr 12/25/20 13:00 12/28/20 13:44 Zithromax/Ns IV 250 mls/hr Q24H TIAN Administration Protocol Lisinopril 10 mg 12/26/20 10:00 12/28/20 13:23 Lisinopril 10 Mg Tab PO 10 mg QDAY TIAN Administration Methylprednisolone Sodium Succinate 40 mg 12/26/20 06:00 12/29/20 05:34 Methylprednisolone Sod Succinate 125 Mg/2 Ml Inj IV 40 mg Q8H TIAN Administration Metoprolol Tartrate 100 mg 12/25/20 22:00 12/28/20 21:05 Metoprolol Tartrate 100 Mg Tab PO 100 mg BID TIAN Administration Mycophenolate Mofetil 1,000 mg 12/25/20 22:00 12/28/20 21:03 Mycophenolate 500 Mg Tab PO 1,000 mg BID TIAN Administration Nifedipine 30 mg 12/26/20 10:00 12/28/20 13:21 Nifedipine Xl 30 Mg Tab PO 30 mg QDAY TIAN Administration Ondansetron HCl 4 mg 12/25/20 11:59 12/28/20 22:39 Ondansetron 4 Mg/2 Ml Inj IV 4 mg Q8H PRN Administration Nausea And Vomiting Oxycodone/Acetaminophen 1 tab 12/25/20 11:59 12/28/20 13:20 Oxycodone /Acetaminophen 5-325mg Tab PO 1 tab Q12H PRN Administration Pain, Moderate (4-6) Pantoprazole Sodium 40 mg 12/26/20 10:00 12/28/20 13:22 Pantoprazole 40 Mg Tab PO 40 mg DAILY TIAN Administration Sodium Chloride 10 ml 12/25/20 22:00 12/28/20 21:09 Sodium Chloride 0.9% 10 Ml Flush Syringe IV 10 ml BID TIAN Administration Sodium Chloride 10 ml 12/25/20 11:59 Sodium Chloride 0.9% 10 Ml Flush Syringe IV PRN PRN LINE FLUSH Tacrolimus 3 mg 12/26/20 10:00 12/28/20 13:45 Tacrolimus 1 Mg Cap PO 3 mg QAM TIAN Administration Tacrolimus 4 mg 12/26/20 22:00 12/28/20 21:09 Tacrolimus 1 Mg Cap PO 4 mg QHS TIAN Administration Tamsulosin HCl 0.4 mg 12/25/20 22:00 12/28/20 21:06 Tamsulosin 0.4 Mg Cap PO 0.4 mg BID TIAN Administration Zinc Sulfate 220 mg 12/25/20 22:00 12/28/20 21:05 Zinc Sulfate 220 Mg Cap PO 220 mg BID TIAN Administration
[2020-12-29] MEDS: CHOLECALCIFEROL (VIT D3) 1000 UNIT (25 mcg) TAB PO SCH (11:03)
[2020-12-29] MEDS: TAMSULOSIN 0.4 MG CAP PO SCH ×2 (11:03→21:42)
[2020-12-29] MEDS: PANTOPRAZOLE 40 MG TAB PO SCH (11:03)
[2020-12-29] MEDS: ASCORBIC ACID 500 MG TAB PO SCH ×2 (11:03→21:42)
[2020-12-29] MEDS: LISINOPRIL 10 MG TAB PO SCH (11:03)
[2020-12-29] MEDS: NIFEdipine XL 30 MG TAB PO SCH (11:03)
[2020-12-29] MEDS: ZINC SULFATE 220 MG CAP PO SCH ×2 (11:03→21:42)
[2020-12-29] MEDS: TACROLIMUS 1 MG CAP PO SCH ×2 (11:04→21:41)
[2020-12-29] MEDS: METOPROLOL TARTRATE 100 MG TAB PO SCH ×2 (11:04→21:43)
[2020-12-29] MEDS: MYCOPHENOLATE 500 MG TAB PO SCH ×2 (11:04→21:41)
[2020-12-29] MEDS: guaiFENesin ER 600 MG TAB PO SCH ×2 (11:04→21:42)
--- NOTE | 2020-12-29 13:36 | Progress Note ---
Assessment and Plan 60 y/o male with acute respiratory failure secondary to COVID 19 pneumonia 12/29/20: No new recs for today. Prognosis remains very guarded. Patient already immunosuppressed from renal transplant meds. Must be mindful of oppurtunistic infections too while in house and so immunosuppressed. Got actemra yesterday. very very guarded prognosis. 12/28/20: Iv steroids, Proning, net negative volume state, guarded prognosis. 12/27/20: No new recs for today. Please see below. 1. IV steroids 2. Remdesivir 3. Ask about Actemra 4. Prone 5. Net negative volume state 6. Guarded prognosis Subjective Date of service: 12/29/20 Interval history: No changes. Sats the same on same amount of oxygen. Objective Vital Signs - 12hr 12/29/20 12/29/20 03:56 09:41 Temperature 98.3 F Pulse Rate 81 Respiratory 18 Rate Blood Pressure 116/76 O2 Sat by Pulse 84 89 Oximetry CBC and BMP: 12/28/20 10:02 12/28/20 10:02 ABG, PT/INR, D-dimer: ABG ABG pH 7.481 (7.320-7.450) H 12/25/20 10:13 POC ABG pCO2 20.7 mmHg (32.0-48.0) L 12/25/20 10:13 POC ABG pO2 62.0 mmHg (83-108) L 12/25/20 10:13 POC ABG HCO3 15.1 12/25/20 10:13 ABG O2 Saturation 92.4 (0-100) 12/25/20 10:13 PT/INR, D-dimer D-Dimer > 10265 ng/mlDDU (0-234) H 12/27/20 05:28 Abnormal lab findings: Abnormal Labs 12/25/20 12/25/20 12/25/20 08:33 08:33 08:33 WBC 15.9 H Hgb 15.3 H MCHC 36 H Plt Count 133 L Seg Neuts % (Manual) 98.0 H Lymphocytes % (Manual) 1.0 L Seg Neutrophils # Man 15.6 H Lymphocytes # (Manual) 0.2 L D-Dimer ABG pH POC ABG pCO2 POC ABG pO2 ABG Oxyhemoglobin ABG Sodium ABG Chloride ABG Glucose Sodium 120 L D Chloride 90.2 L Carbon Dioxide 16 L BUN Creatinine Glucose 116 H Lactic Acid 2.40 H* Ferritin Total Bilirubin 1.30 H C-Reactive Protein Albumin 3.1 L Arterial Blood Glucose Coronavirus (PCR) SARS-CoV-2 IgG Ab 12/25/20 12/25/20 12/26/20 10:13 11:13 04:58 WBC 13.1 H Hgb MCHC 35 H Plt Count 113 L Seg Neuts % (Manual) 96.0 H Lymphocytes % (Manual) 3.0 L Seg Neutrophils # Man 12.6 H Lymphocytes # (Manual) 0.4 L D-Dimer ABG pH 7.481 H POC ABG pCO2 20.7 L POC ABG pO2 62.0 L ABG Oxyhemoglobin 91.6 L ABG Sodium 119.3 L ABG Chloride 95.0 L ABG Glucose 122 H Sodium Chloride Carbon Dioxide BUN Creatinine Glucose Lactic Acid 2.20 H* Ferritin Total Bilirubin C-Reactive Protein Albumin Arterial Blood Glucose 122 H Coronavirus (PCR) SARS-CoV-2 IgG Ab 12/26/20 12/27/20 12/27/20 04:58 05:28 05:28 WBC 17.5 H Hgb MCHC 35 H Plt Count 108 L Seg Neuts % (Manual) Lymphocytes % (Manual) Seg Neutrophils # Man Lymphocytes # (Manual) D-Dimer ABG pH POC ABG pCO2 POC ABG pO2 ABG Oxyhemoglobin ABG Sodium ABG Chloride ABG Glucose Sodium 129 L D 131 L Chloride Carbon Dioxide 17 L 17 L BUN 21 H Creatinine 0.7 L Glucose 112 H 117 H Lactic Acid Ferritin Total Bilirubin C-Reactive Protein 22.20 H Albumin Arterial Blood Glucose Coronavirus (PCR) SARS-CoV-2 IgG Ab 12/27/20 12/27/20 12/28/20 05:28 Unknown 10:02 WBC 16.9 H Hgb 15.5 H MCHC 35 H Plt Count 106 L Seg Neuts % (Manual) Lymphocytes % (Manual) Seg Neutrophils # Man Lymphocytes # (Manual) D-Dimer > 31409 H ABG pH POC ABG pCO2 POC ABG pO2 ABG Oxyhemoglobin ABG Sodium ABG Chloride ABG Glucose Sodium Chloride Carbon Dioxide BUN Creatinine Glucose Lactic Acid Ferritin Total Bilirubin C-Reactive Protein Albumin Arterial Blood Glucose Coronavirus (PCR) Positive A SARS-CoV-2 IgG Ab 12/28/20 12/28/20 12/28/20 10:02 10:02 10:02 WBC Hgb MCHC Plt Count Seg Neuts % (Manual) Lymphocytes % (Manual) Seg Neutrophils # Man Lymphocytes # (Manual) D-Dimer ABG pH POC ABG pCO2 POC ABG pO2 ABG Oxyhemoglobin ABG Sodium ABG Chloride ABG Glucose Sodium 132 L Chloride Carbon Dioxide 16 L BUN 30 H Creatinine Glucose 127 H Lactic Acid Ferritin > 2000.0 H Total Bilirubin C-Reactive Protein 10.90 H Albumin 2.3 L Arterial Blood Glucose Coronavirus (PCR) SARS-CoV-2 IgG Ab Reactive A
[2020-12-29] MEDS: cefTRIAXone/NS 2 GM/100 ML 2 GM/100 ML BAG IV SCH (14:05)
[2020-12-29] MEDS: AZITHROMYCIN/NS 500 MG/250 ML 500 MG/250 ML BAG IV SCH (14:05)
--- NOTE | 2020-12-29 14:15 | Progress Note ---
Assessment and Plan Cultures: 12/15/2020 SARS CoV2 PCR: Positive 12/25/2020 blood culture: No growth 12/25/2020 urine culture: No growth A/P: 60-year-old male with obesity, renal transplant in 2017, hypertension, anemia was diagnosed with COVID-19 infection and was discharged on 12/22/2020 after having completed Remdesivir and was also receiving steroids has now been readmitted to the hospital with worsening shortness of breath: #Bilateral pneumonia: Secondary to COVID-19. D-dimer extremely high but VQ negative for PE and DVT scan also negative. CT scan showed progression of pneumonia, Hypoxia progressed to requiring nonrebreather mask with high flow nasal cannula. CRP 10.9, ferritin >2000 #Acute hypoxic respiratory failure: secondary to above. Progressed to requiring nonrebreather mask with high flow nasal cannula #Kidney transplant/immunosuppressed host: Currently on mycophenolate and tacrolimus. Recs: continue steroids, empiric abx Recently received remdesivir, no benefit with repeating course Received Actemra 12/28/2020 Fungitell, Aspergillus galactomannan ordered Given significant immunosuppression, Mepron ordered as prophylaxis high d-dimer, on anticoagulation Poor prognosis given disease progression in spite of treatment and his underlying immunosuppression Magno Goodrich MD, FACP [facility] ([facility] O: [phone] F: [phone] Subjective Date of service: 12/29/20 Interval history: No fever. Remains hypoxic. Received Actemra 12/28/2020. Objective - Exam Narrative Exam: Physical Exam (reviewed in chart to minimize risk of transmission) Constitutional: deferred Head, Ears, Nose: deferred Eyes: deferred Neck: deferred Oral: deferred Cardiovascular: deferred Respiratory: deferred GI: deferred Musculoskeletal: deferred Skin: deferred Hem/Lymphatic: deferred Psych: deferred Neurological: deferred - Constitutional Vitals: Vital Signs Temp Pulse Resp BP Pulse Ox 98.3 F 81 18 116/76 89 12/29/20 03:56 12/29/20 03:56 12/29/20 03:56 12/29/20 03:56 12/29/20 09:41 Temperature -Last 24 Hours Temperature 98.3 F Temperature 98.9 F - Labs CBC & Chem 7: 12/28/20 10:02 12/28/20 10:02
[2020-12-29] MEDS: ENOXAPARIN 100 MG/1 ML INJ SUB-Q SCH ×2 (18:42→23:31)
[2020-12-29] MEDS: ATOVAQUONE 750 MG/5 ML ORAL SUSP PO SCH ×2 (18:43→21:43)
[2020-12-29] MEDS: HYDROmorphone 1 MG/1 ML INJ IV PRN (21:58)
[2020-12-30] MEDS: methylPREDNISolone Sod Succinate 125 MG/2 ML INJ IV SCH ×3 (06:12→21:25)
--- NOTE | 2020-12-30 07:42 | Progress Note ---
Assessment and Plan Assessment and plan: 60 YO Male with Obesity Hypoventilation Syndrome, kidney transplant, HTN, GERD, Anemia Chronic Disease, Coronavirus Infection diagnosed 2 weeks and discharged 3 days sorry, who failed outpatient therapy and currently on 2L/min Home oxygen via [place], CKD S/P Renal Transplant currently on anti graft rejection therapy presents to ED for evaluation. Patient reports "I cannot breathe". Patient states that he has experienced shortness of breath over the past 1 week with persistent and worsening symptoms over the same timeframe. Patient was diagnosed with coronavirus infection 2 weeks ago and was treated with outpatient therapy as well as supplemental oxygen at 2 L via nasal cannula. Patient states that he has experienced worsening shortness of breath over the past 1 week, fatigue, malaise, generalized weakness. EMS was notified and upon arrival the patient was found to be in distress and was found to have a pulse oximetry in the 70s while on 2 L nasal cannula. The patient was treated with oxygen via nonrebreather mask and subsequently transported to [facility] for further care and evaluation of the aforementioned symptoms. The patient was seen and evaluated in the emergency department. All lab and imaging studies reviewed. Patient found to have a pulse oximetry in the 70s on submental oxygen and was subsequently placed on high flow supplemental oxygen due to acute hypoxemic respiratory failure. Patient underwent chest x- ray and was found to have bilateral pneumonia secondary to sepsis. Patient also found to have acidosis. Patient initiated on sepsis protocol as well as coronavirus pneumonia protocol and admitted to medical floor. Patient denies fever, chills, chest pain, palpitation, skin rash, trauma, or known ill contacts. Prior admission on 12/15/2020 reviewed. All medication listed at time of admission has been reconciled. Advanced care planning conducted in ED. Patient reports that he had both of his COVID-19 vaccines with past medical history of hypertension, GERD, kidney transplant in 2017 was brought to the emergency room because of abdominal pain, body aches, fever, cough for last 2 days. The patient had been treated on dexamethasone for total 10 days and remdesivir total 5 days as patient is immunocompromised patient,-Antibiotic was not required as procalcitonin level was normal, -Patient was given anticoagulation per protocol, Patient was deemed to be stable and was discharged on home oxygen but returned as noted above with worsening hypoxia and now on Full dose 12/26: Continue current management, will check d,dimer and possible VQ scan, Will keep on full dose anticoagulation until proven not to have Pulmonary Embolism. Check Doppler for DVT prophy. Monitor Plt. 12/27: Patient remains critically ill sepsis secondary to Covid plan to vaccine ID input noted patient had previously completed remdesivir no indication for noted. Continue steroid therapy and has home antirejection medications. No pulmonary embolism noted home or DVT noted continue to monitor on anticoagulation monitor thrombocytopenia closely. Will give additional dose of Lasix today for negative fluid balance we will monitor renal function closely 12/28: Continue supportive care, steroids, oxygen, anticoagulation. Wean oxygen as tolerated, nephrology consulted to assist with management as patient is a renal transplant. Patient still with tachycardic. Will likely need LTAC for slow weaning. Unfortunately I cannot place him in IMCU or ICU due to lack of b ed in the hospital ideally he is appropriate for dose units minimum stepdown unit. 12/29; patient is on 40 L of high flow oxygen. Was given Actemra yesterday. Continue with Solu-Medrol 40 mg 3 times daily. Pulmonary and ID is following. Patient may need LTAC placement at discharge. Patient is concerned about his transplant medications but they were resumed. 12/30; patient was on 40 L of high flow oxygen. Patient was given Actemra. Patient was given remdesivir on his previous admission and no need to repeat it. Patient is on Solu-Medrol 40 mg 3 times daily. Patient may need LTAC placem ent. His renal transplant medications were resumed. Nephrology is following. (1) Sepsis Current Visit: Yes Status: Acute Qualifiers: Acute respiratory failure type: with hypoxia Plan to address problem: Sepsis protocol: Chest x-ray, CBC, CMP, urinalysis, IV antibiotic therapy, IV fluid resuscitation therapy, monitor urine output every shift, monitor fluid balance, maintain mean arterial pressure greater than or equal to 65, blood culture. Serial lactic acid level. (2) Pneumonia secondary to COVID-19 Current Visit: Yes Status: Acute Plan to address problem: Pneumonia protocol: Chest x-ray, CBC, CMP, supplemental oxygen, pulse oximetry, nebulizer therapy, (3) Acidosis Current Visit: Yes Status: Acute Plan to address problem: Supportive care, BMP, repeat BMP in a.m. (4) Obesity hypoventilation syndrome Current Visit: Yes Status: Acute Plan to address problem: Balanced diet, increase physical activity discharge, outpatient pulmonary follow-up for sleep study. (5) Acute Hypoxia respiratory failure Current Visit: Yes Status: Acute Plan to address problem: Supplemental oxygen, pulse oximetry, nebulizer therapy, proposition while in bed, chest x-ray, pulmonary team consulted. (6) Hyponatremia (7) Thrombocytopenia (8) DVT prophylaxis Current Visit: Yes Status: Acute Plan to address problem: SCD to bilateral lower extremities while in bed, prophylactic anticoagulation (9) Advance care planning Current Visit: Yes Status: Acute Plan to address problem: Disease education conducted, care plan discussed, diagnosis discussed, prognosis discussed, patient is full code, patient knowledges understanding and agreement with care plan. History Interval history: Patient was seen and evaluated this morning Patient was on 40 L of high flow oxygen and 15 L of nonrebreather mask Hospitalist Physical - Physical exam Narrative exam: Patient was on 40 L of oxygen The patient is obese. Vital signs as documented. Head exam is unremarkable. No scleral icterus . Neck is without jugular venous distension, thyromegaly, or carotid bruits. Lungs patient has labored breathing Cardiac exam reveals regular rate and Rhythm. Abdominal exam reveals normal bowel sounds, nontender, no organomegaly. Extremities are nonedematous and both femoral and pedal pulses are normal. CENTRAL STERILE TECH: Alert and oriented 3. No focal weakness. - Constitutional Vitals: Temp Pulse Resp BP Pulse Ox 97.6 F 80 18 134/83 78 L 12/30/20 03:33 12/30/20 03:33 12/30/20 03:33 12/30/20 03:33 12/30/20 03:33 General appearance: Present: mild distress, obese HEART Score - HEART Score Troponin: Troponin T < 0.010 ng/mL (0.00-0.029) 12/25/20 08:33 Results - Labs CBC & Chem 7: 12/28/20 10:02 12/28/20 10:02 Labs: Laboratory Last Values WBC 16.9 K/mm3 (4.5-11.0) H 12/28/20 10:02 RBC 5.03 M/mm3 (3.65-5.03) 12/28/20 10:02 Hgb 15.5 gm/dl (11.8-15.2) H 12/28/20 10:02 Hct 44.6 % (35.5-45.6) 12/28/20 10:02 MCV 89 fl (84-94) 12/28/20 10:02 MCH 31 pg (28-32) 12/28/20 10:02 MCHC 35 % (32-34) H 12/28/20 10:02 RDW 14.4 % (13.2-15.2) 12/28/20 10:02 Plt Count 106 K/mm3 (140-440) L 12/28/20 10:02 Add Manual Diff Complete 12/26/20 04:58 Total Counted 100 12/26/20 04:58 Seg Neutrophils % Online Marketing Director 12/26/20 04:58 Seg Neuts % (Manual) 96.0 % (40.0-70.0) H 12/26/20 04:58 Band Neutrophils % 1.0 % 12/26/20 04:58 Lymphocytes % (Manual) 3.0 % (13.4-35.0) L 12/26/20 04:58 Nucleated RBC % Not Reportable 12/26/20 04:58 Seg Neutrophils # Man 12.6 K/mm3 (1.8-7.7) H 12/26/20 04:58 Band Neutrophils # 0.1 K/mm3 12/26/20 04:58 Lymphocytes # (Manual) 0.4 K/mm3 (1.2-5.4) L 12/26/20 04:58 Abs React Lymphs (Man) 0.0 K/mm3 12/26/20 04:58 Monocytes # (Manual) 0.0 K/mm3 (0.0-0.8) 12/26/20 04:58 Eosinophils # (Manual) 0.0 K/mm3 (0.0-0.4) 12/26/20 04:58 Basophils # (Manual) 0.0 K/mm3 (0.0-0.1) 12/26/20 04:58 Metamyelocytes # 0.0 K/mm3 12/26/20 04:58 Myelocytes # 0.0 K/mm3 12/26/20 04:58 Promyelocytes # 0.0 K/mm3 12/26/20 04:58 Blast Cells # 0.0 K/mm3 12/26/20 04:58 WBC Morphology Not Reportable 12/26/20 04:58 Hypersegmented Neuts Not Reportable 12/26/20 04:58 Hyposegmented Neuts Not Reportable 12/26/20 04:58 Hypogranular Neuts Not Reportable 12/26/20 04:58 Smudge Cells Not Reportable 12/26/20 04:58 Toxic Granulation Not Reportable 12/26/20 04:58 Toxic Vacuolation Not Reportable 12/26/20 04:58 Dohle Bodies Not Reportable 12/26/20 04:58 Pelger-Huet Anomaly Not Reportable 12/26/20 04:58 Marbin Rods Not Reportable 12/26/20 04:58 Platelet Estimate Consistent w auto 12/26/20 04:58 Clumped Platelets Not Reportable 12/26/20 04:58 Plt Clumps, EDTA Not Reportable 12/26/20 04:58 Large Platelets Not Reportable 12/26/20 04:58 Giant Platelets Not Reportable 12/26/20 04:58 Platelet Satelliting Not Reportable 12/26/20 04:58 Plt Morphology Comment Not Reportable 12/26/20 04:58 RBC Morphology Normal 12/26/20 04:58 Dimorphic RBCs Not Reportable 12/26/20 04:58 Polychromasia Not Reportable 12/26/20 04:58 Hypochromasia Not Reportable 12/26/20 04:58 Poikilocytosis Not Reportable 12/26/20 04:58 Anisocytosis Not Reportable 12/26/20 04:58 Microcytosis Not Reportable 12/26/20 04:58 Macrocytosis Not Reportable 12/26/20 04:58 Spherocytes Not Reportable 12/26/20 04:58 Pappenheimer Bodies Not Reportable 12/26/20 04:58 Sickle Cells Not Reportable 12/26/20 04:58 Target Cells Not Reportable 12/26/20 04:58 Tear Drop Cells Not Reportable 12/26/20 04:58 Ovalocytes Not Reportable 12/26/20 04:58 Helmet Cells Not Reportable 12/26/20 04:58 [place] Bodies Not Reportable 12/26/20 04:58 Kimberly Rings Not Reportable 12/26/20 04:58 Mukesh Cells Not Reportable 12/26/20 04:58 Bite Cells Not Reportable 12/26/20 04:58 Crenated Cell Not Reportable 12/26/20 04:58 Elliptocytes Not Reportable 12/26/20 04:58 Acanthocytes (Spur) Not Reportable 12/26/20 04:58 Rouleaux Not Reportable 12/26/20 04:58 Hemoglobin C Crystals Not Reportable 12/26/20 04:58 Schistocytes Not Reportable 12/26/20 04:58 Malaria parasites Not Reportable 12/26/20 04:58 Woodrow Bodies Not Reportable 12/26/20 04:58 Hem Pathologist Commnt No 12/26/20 04:58 APTT 32.3 Sec. (24.2-36.6) 12/25/20 08:33 D-Dimer > 62198 ng/mlDDU (0-234) H 12/27/20 05:28 ABG pH 7.481 (7.320-7.450) H 12/25/20 10:13 POC ABG pCO2 20.7 mmHg (32.0-48.0) L 12/25/20 10:13 POC ABG pO2 62.0 mmHg (83-108) L 12/25/20 10:13 POC ABG HCO3 15.1 12/25/20 10:13 ABG O2 Saturation 92.4 (0-100) 12/25/20 10:13 POC ABG Base Excess -5.8 12/25/20 10:13 ABG Hemoglobin 15.0 (12.0-17.5) 12/25/20 10:13 ABG Oxyhemoglobin 91.6 (94-98) L 12/25/20 10:13 ABG Methemoglobin 0.3 (0.0-1.5) 12/25/20 10:13 ABG Sodium 119.3 mmol/L (136.0-145.0) L 12/25/20 10:13 ABG Potassium 4.2 mmol/L (3.40-4.50) 12/25/20 10:13 ABG Chloride 95.0 mmol/L (98-107) L 12/25/20 10:13 ABG Glucose 122 mg/dL (65-95) H 12/25/20 10:13 Carboxyhemoglobin 0.6 (0.5-1.5) 12/25/20 10:13 FiO2 % 100.0 12/25/20 10:13 Sodium 132 mmol/L (137-145) L 12/28/20 10:02 Potassium 4.3 mmol/L (3.6-5.0) 12/28/20 10:02 Chloride 102.5 mmol/L (98-107) 12/28/20 10:02 Carbon Dioxide 16 mmol/L (22-30) L 12/28/20 10:02 Anion Gap 18 mmol/L 12/28/20 10:02 BUN 30 mg/dL (9-20) H 12/28/20 10:02 Creatinine 0.9 mg/dL (0.8-1.3) 12/28/20 10:02 Estimated GFR > 60 ml/min 12/28/20 10:02 BUN/Creatinine Ratio 33 % 12/28/20 10:02 Glucose 127 mg/dL (75-100) H 12/28/20 10:02 Osmolality 291 Mosm/kg 12/28/20 10:02 Lactic Acid 1.50 mmol/L (0.7-2.0) 12/25/20 23:38 Calcium 10.0 mg/dL (8.4-10.2) 12/28/20 10:02 Ferritin > 2000.0 ng/mL (30.0-300.0) H 12/28/20 10:02 Total Bilirubin 0.70 mg/dL (0.1-1.2) 12/28/20 10:02 AST 27 units/L (5-40) 12/28/20 10:02 ALT 16 units/L (7-56) 12/28/20 10:02 Alkaline Phosphatase 102 units/L (35-129) 12/28/20 10:02 Troponin T < 0.010 ng/mL (0.00-0.029) 12/25/20 08:33 C-Reactive Protein 10.90 mg/dL (0.00-1.30) H 12/28/20 10:02 Total Protein 6.8 g/dL (6.3-8.2) 12/28/20 10:02 Albumin 2.3 g/dL (3.9-5) L 12/28/20 10:02 Albumin/Globulin Ratio 0.5 % 12/28/20 10:02 Arterial Blood Glucose 122 mg/dL (65-95) H 12/25/20 10:13 Arterial Blood Ionized Calcium 4.8 mg/dL (4.6-5.3) 12/25/20 10:13 Urine Color Straw (Yellow) 12/25/20 13:30 Urine Turbidity Clear (Clear) 12/25/20 13:30 Urine pH 7.0 (5.0-7.0) 12/25/20 13:30 Ur Specific [place] 1.003 (1.003-1.030) 12/25/20 13:30 Urine Protein <15 mg/dl mg/dL (Negative) 12/25/20 13:30 Urine Glucose (UA) Neg mg/dL (Negative) 12/25/20 13:30 Urine Ketones Neg mg/dL (Negative) 12/25/20 13:30 Urine Blood Sm (Negative) 12/25/20 13:30 Urine Nitrite Neg (Negative) 12/25/20 13:30 Urine Bilirubin Neg (Negative) 12/25/20 13:30 Urine Urobilinogen < 2.0 mg/dL (<2.0) 12/25/20 13:30 Ur Leukocyte Esterase Neg (Negative) 12/25/20 13:30 Urine WBC (Auto) 1.0 /HPF (0.0-6.0) 12/25/20 13:30 Urine RBC (Auto) < 1.0 /HPF (0.0-6.0) 12/25/20 13:30 U Epithel Cells (Auto) < 1.0 /HPF (0-13.0) 12/25/20 13:30 Coronavirus (PCR) Positive (Negative) A 12/27/20 Unknown SARS-CoV-2 IgG Ab Reactive (NonReactive) A 12/28/20 10:02 Blood Type A POSITIVE 12/25/20 08:36 Antibody Screen Negative 12/25/20 08:36 Microbiology: Microbiology 12/25/20 08:33 Peripheral/Venous Blood Culture - Preliminary NO GROWTH AFTER 4 DAYS 12/25/20 08:33 Peripheral/Venous Blood Culture - Preliminary NO GROWTH AFTER 4 DAYS [place]/IV: Voiding Method Urinal Active Medications - Current Medications Current Medications: Generic Name Dose Route Start Last Admin Trade Name Freq PRN Reason Stop Dose Admin Acetaminophen 650 mg 12/25/20 11:59 Acetaminophen 325 Mg Tab PO Q4H PRN Pain MILD(1-3)/Fever >100.5/BHARDWAJ Albuterol 2.5 mg 12/25/20 11:59 Albuterol 2.5 Mg/3 Ml Nebu IH Q4HRT PRN Shortness Of Breath Ascorbic Acid 500 mg 12/25/20 22:00 12/29/20 21:42 Ascorbic Acid 500 Mg Tab PO 500 mg BID TIAN Administration Atovaquone 750 mg 12/29/20 15:00 12/29/20 21:43 Atovaquone 750 Mg/5 Ml Oral Susp PO 750 mg BID TIAN Administration Cholecalciferol 1,000 unit 12/26/20 10:00 12/29/20 11:03 Cholecalciferol (Vit D3) 1000 Unit (25 Mcg) Tab PO 1,000 unit QDAY [facility] Administration Enoxaparin Sodium 90 mg 12/26/20 15:00 12/29/20 23:31 Enoxaparin 100 Mg/1 Ml Inj 1 mg/kg (90 mg) 90 mg SUB-Q Administration BID [facility] Protocol Guaifenesin 600 mg 12/25/20 22:00 12/29/20 21:42 Guaifenesin Er 600 Mg Tab PO 600 mg BID TIAN Administration Hydromorphone HCl 0.5 mg 12/25/20 11:59 12/29/20 21:58 Hydromorphone 1 Mg/1 Ml Inj IV 0.5 mg Q12H PRN Administration Pain , Severe (7-10) Hydromorphone HCl 0.25 mg 12/25/20 12:10 Hydromorphone 1 Mg/1 Ml Inj IV Q4H PRN Pain, Moderate (4-6) Ceftriaxone Sodium 2 gm in 100 mls @ 200 mls/hr 12/25/20 14:00 12/29/20 14:05 Rocephin/Ns 2 Gm/100 Ml IV 200 mls/hr Q24H TIAN Administration Protocol Azithromycin 500 mg in 250 mls @ 250 mls/hr 12/25/20 13:00 12/29/20 14:05 Zithromax/Ns IV 250 mls/hr Q24H [facility] Administration Protocol Lisinopril 10 mg 12/26/20 10:00 12/29/20 11:03 Lisinopril 10 Mg Tab PO 10 mg QDAY TIAN Administration Methylprednisolone Sodium Succinate 40 mg 12/26/20 06:00 12/30/20 06:12 Methylprednisolone Sod Succinate 125 Mg/2 Ml Inj IV 40 mg Q8H TIAN Administration Metoprolol Tartrate 100 mg 12/25/20 22:00 12/29/20 21:43 Metoprolol Tartrate 100 Mg Tab PO 100 mg BID TIAN Administration Mycophenolate Mofetil 1,000 mg 12/25/20 22:00 12/29/20 21:41 Mycophenolate 500 Mg Tab PO 1,000 mg BID TIAN Administration Nifedipine 30 mg 12/26/20 10:00 12/29/20 11:03 Nifedipine Xl 30 Mg Tab PO 30 mg QDAY TIAN Administration Ondansetron HCl 4 mg 12/25/20 11:59 12/28/20 22:39 Ondansetron 4 Mg/2 Ml Inj IV 4 mg Q8H PRN Administration Nausea And Vomiting Oxycodone/Acetaminophen 1 tab 12/25/20 11:59 12/28/20 13:20 Oxycodone /Acetaminophen 5-325mg Tab PO 1 tab Q12H PRN Administration Pain, Moderate (4-6) Pantoprazole Sodium 40 mg 12/26/20 10:00 12/29/20 11:03 Pantoprazole 40 Mg Tab PO 40 mg DAILY TIAN Administration Sodium Chloride 10 ml 12/25/20 22:00 12/29/20 21:43 Sodium Chloride 0.9% 10 Ml Flush Syringe IV 10 ml BID TIAN Administration Sodium Chloride 10 ml 12/25/20 11:59 Sodium Chloride 0.9% 10 Ml Flush Syringe IV PRN PRN LINE FLUSH Tacrolimus 3 mg 12/26/20 10:00 12/29/20 11:04 Tacrolimus 1 Mg Cap PO 3 mg QAM TIAN Administration Tacrolimus 4 mg 12/26/20 22:00 12/29/20 21:41 Tacrolimus 1 Mg Cap PO 4 mg QHS TIAN Administration Tamsulosin HCl 0.4 mg 12/25/20 22:00 12/29/20 21:42 Tamsulosin 0.4 Mg Cap PO 0.4 mg BID TIAN Administration Zinc Sulfate 220 mg 12/25/20 22:00 12/29/20 21:42 Zinc Sulfate 220 Mg Cap PO 220 mg BID TIAN Administration
--- NOTE | 2020-12-30 08:59 | Progress Note ---
Assessment and Plan - Patient Problems (1) Hyponatremia Current Visit: No Status: Chronic Plan to address problem: In the setting of COVID-19 pneumonia, possible SIADH component. Serum sodium levels are showing slight improvement today. (2) Kidney transplant recipient Current Visit: No Status: Acute Plan to address problem: Continue current immunosuppression regimen. Overall renal allograft function remains stable. (3) Pneumonia due to COVID-19 virus Current Visit: No Status: Acute Plan to address problem: Continues on IV steriods and empiric antibiotics. Given dose of Acterma. CT chest was concerning for progression of b/l pneumonia. No clinical benefit from repeating another course of remdesivir, as he had completed the full regimen during his most recent hospital visit. ID recommendations appreciated. (4) HTN (hypertension) Current Visit: No Status: Acute Qualifiers: Hypertension type: essential hypertension Plan to address problem: Monitor blood pressure under current regimen. Subjective Date of service: 12/30/20 Principal diagnosis: MARSHA Interval history: on high flow nasal cannula. Renal function remained stable. Received dose of acterma and IV dexamethasone Objective - Exam Narrative Exam: Patient not directly examined in order to preserve PPE and decrease chance of transmission of COVID-19. Physical examination from primary notes reviewed. - Vital Signs Vital signs: Vital Signs - 12hr 12/29/20 12/29/20 12/30/20 21:43 22:20 02:38 Temperature Pulse Rate Respiratory 20 Rate Blood Pressure 120/83 O2 Sat by Pulse 89 90 Oximetry 12/30/20 12/30/20 12/30/20 02:46 03:33 07:50 Temperature 97.6 F Pulse Rate 80 Respiratory 18 Rate Blood Pressure 134/83 O2 Sat by Pulse 84 78 L 88 Oximetry 12/30/20 08:42 Temperature Pulse Rate Respiratory 20 Rate Blood Pressure O2 Sat by Pulse 90 Oximetry - Lab 12/28/20 10:02 12/28/20 10:02 Most recent lab results ABG pH 7.481 (7.320-7.450) H 12/25/20 10:13 ABG O2 Saturation 92.4 (0-100) 12/25/20 10:13 Calcium 10.0 mg/dL (8.4-10.2) 12/28/20 10:02 Medications & Allergies - Medications Allergies/Adverse Reactions: Allergies No Known Allergies Allergy (Verified 12/14/20 15:36) Home Medications: Home Medications Medication Instructions Recorded Confirmed Last Taken Type Metoprolol [Lopressor TAB] 100 mg PO BID 12/28/14 12/28/20 04/15/18 09:00 History Omeprazole 40 mg PO DAILY 04/10/18 12/28/20 04/15/18 09:00 History Prednisone [predniSONE (Mariluz) ER 5 mg PO QDAY 04/10/18 12/28/20 04/15/18 09:00 History TAB] Tamsulosin HCl [Flomax] 0.4 mg PO BID 04/10/18 12/28/20 04/15/18 09:00 History Albuterol Mdi (or & Nicu Only) 2 puff IH QID PRN #8.5 gram 12/22/20 12/28/20 Unknown Rx [ProAir HFA Inhaler] Mycophenolate [Cellcept] 1,000 mg PO BID #60 tablet 12/22/20 12/28/20 Unknown Rx NIFEdipine XL [Procardia Xl] 30 mg PO QDAY #30 tablet 12/22/20 12/28/20 Unknown Rx dexAMETHasone [Decadron] 6 mg PO DAILY #4 tablet 12/22/20 12/28/20 Unknown Rx guaiFENesin ER [Mucinex ER] 600 mg PO BID #14 tablet 12/22/20 12/28/20 Unknown Rx lisinopriL [Zestril TAB] 10 mg PO QDAY #30 tablet 12/22/20 12/28/20 Unknown Rx Tacrolimus [Prograf] 4 mg PO QAM 12/26/20 12/28/20 Unknown History Tacrolimus [Prograf] 5 mg PO QPM 12/26/20 12/28/20 Unknown History Active Medications: Generic Name Dose Route Start Last Admin Trade Name Freq PRN Reason Stop Dose Admin Acetaminophen 650 mg 12/25/20 11:59 Acetaminophen 325 Mg Tab PO Q4H PRN Pain MILD(1-3)/Fever >100.5/BHARDWAJ Albuterol 2.5 mg 12/25/20 11:59 Albuterol 2.5 Mg/3 Ml Nebu IH Q4HRT PRN Shortness Of Breath Ascorbic Acid 500 mg 12/25/20 22:00 12/29/20 21:42 Ascorbic Acid 500 Mg Tab PO 500 mg BID TIAN Administration Atovaquone 750 mg 12/29/20 15:00 12/29/20 21:43 Atovaquone 750 Mg/5 Ml Oral Susp PO 750 mg BID TIAN Administration Cholecalciferol 1,000 unit 12/26/20 10:00 12/29/20 11:03 Cholecalciferol (Vit D3) 1000 Unit (25 Mcg) Tab PO 1,000 unit QDAY TIAN Administration Enoxaparin Sodium 90 mg 12/26/20 15:00 12/29/20 23:31 Enoxaparin 100 Mg/1 Ml Inj 1 mg/kg (90 mg) 90 mg SUB-Q Administration BID [facility] Protocol Guaifenesin 600 mg 12/25/20 22:00 12/29/20 21:42 Guaifenesin Er 600 Mg Tab PO 600 mg BID TIAN Administration Hydromorphone HCl 0.5 mg 12/25/20 11:59 12/29/20 21:58 Hydromorphone 1 Mg/1 Ml Inj IV 0.5 mg Q12H PRN Administration Pain , Severe (7-10) Hydromorphone HCl 0.25 mg 12/25/20 12:10 Hydromorphone 1 Mg/1 Ml Inj IV Q4H PRN Pain, Moderate (4-6) Ceftriaxone Sodium 2 gm in 100 mls @ 200 mls/hr 12/25/20 14:00 12/29/20 14:05 Rocephin/Ns 2 Gm/100 Ml IV 200 mls/hr Q24H [facility] Administration Protocol Azithromycin 500 mg in 250 mls @ 250 mls/hr 12/25/20 13:00 12/29/20 14:05 Zithromax/Ns IV 250 mls/hr Q24H [facility] Administration Protocol Lisinopril 10 mg 12/26/20 10:00 12/29/20 11:03 Lisinopril 10 Mg Tab PO 10 mg QDAY [facility] Administration Methylprednisolone Sodium Succinate 40 mg 12/26/20 06:00 12/30/20 06:12 Methylprednisolone Sod Succinate 125 Mg/2 Ml Inj IV 40 mg Q8H TIAN Administration Metoprolol Tartrate 100 mg 12/25/20 22:00 12/29/20 21:43 Metoprolol Tartrate 100 Mg Tab PO 100 mg BID TIAN Administration Mycophenolate Mofetil 1,000 mg 12/25/20 22:00 12/29/20 21:41 Mycophenolate 500 Mg Tab PO 1,000 mg BID TIAN Administration Nifedipine 30 mg 12/26/20 10:00 12/29/20 11:03 Nifedipine Xl 30 Mg Tab PO 30 mg QDAY TIAN Administration Ondansetron HCl 4 mg 12/25/20 11:59 12/28/20 22:39 Ondansetron 4 Mg/2 Ml Inj IV 4 mg Q8H PRN Administration Nausea And Vomiting Oxycodone/Acetaminophen 1 tab 12/25/20 11:59 12/28/20 13:20 Oxycodone /Acetaminophen 5-325mg Tab PO 1 tab Q12H PRN Administration Pain, Moderate (4-6) Pantoprazole Sodium 40 mg 12/26/20 10:00 12/29/20 11:03 Pantoprazole 40 Mg Tab PO 40 mg DAILY TIAN Administration Sodium Chloride 10 ml 12/25/20 22:00 12/29/20 21:43 Sodium Chloride 0.9% 10 Ml Flush Syringe IV 10 ml BID TIAN Administration Sodium Chloride 10 ml 12/25/20 11:59 Sodium Chloride 0.9% 10 Ml Flush Syringe IV PRN PRN LINE FLUSH Tacrolimus 3 mg 12/26/20 10:00 12/29/20 11:04 Tacrolimus 1 Mg Cap PO 3 mg QAM TIAN Administration Tacrolimus 4 mg 12/26/20 22:00 12/29/20 21:41 Tacrolimus 1 Mg Cap PO 4 mg QHS TIAN Administration Tamsulosin HCl 0.4 mg 12/25/20 22:00 12/29/20 21:42 Tamsulosin 0.4 Mg Cap PO 0.4 mg BID TIAN Administration Zinc Sulfate 220 mg 12/25/20 22:00 12/29/20 21:42 Zinc Sulfate 220 Mg Cap PO 220 mg BID TIAN Administration
[2020-12-30] MEDS: guaiFENesin ER 600 MG TAB PO SCH ×2 (09:56→21:32)
[2020-12-30] MEDS: NIFEdipine XL 30 MG TAB PO SCH (09:56)
[2020-12-30] MEDS: ASCORBIC ACID 500 MG TAB PO SCH ×2 (09:56→21:33)
[2020-12-30] MEDS: METOPROLOL TARTRATE 100 MG TAB PO SCH ×2 (09:56→21:33)
[2020-12-30] MEDS: ZINC SULFATE 220 MG CAP PO SCH ×2 (09:57→21:33)
[2020-12-30] MEDS: PANTOPRAZOLE 40 MG TAB PO SCH (09:57)
[2020-12-30] MEDS: CHOLECALCIFEROL (VIT D3) 1000 UNIT (25 mcg) TAB PO SCH (09:57)
[2020-12-30] MEDS: TAMSULOSIN 0.4 MG CAP PO SCH ×2 (09:57→21:33)
[2020-12-30] MEDS: LISINOPRIL 10 MG TAB PO SCH (09:57)
[2020-12-30] MEDS: MYCOPHENOLATE 500 MG TAB PO SCH ×2 (09:58→21:32)
[2020-12-30] MEDS: ENOXAPARIN 100 MG/1 ML INJ SUB-Q SCH ×2 (09:59→21:25)
[2020-12-30] MEDS: TACROLIMUS 1 MG CAP PO SCH ×2 (09:59→21:31)
[2020-12-30] MEDS: oxyCODONE /ACETAMINOPHEN 5-325MG TAB PO PRN (10:00)
--- NOTE | 2020-12-30 11:29 | Progress Note ---
Assessment and Plan 60 y/o male with acute respiratory failure secondary to COVID 19 pneumonia 12/30/20: Reviewed ID note from yesterday and agree with assessment and plan. Will give lasix 40 IV today to see if this helps with oxygenation. Overall prognosis is guarded to poor. 1. IV steroids 2. Remdesivir 3. Ask about Actemra 4. Prone 5. Net negative volume state 6. Guarded prognosis Subjective Date of service: 12/30/20 Principal diagnosis: MARSHA Interval history: No acute events. Pulm status is unchanged. Still very very hypoxic. Objective Vital Signs - 12hr 12/30/20 12/30/20 12/30/20 02:38 02:46 03:33 Temperature 97.6 F Pulse Rate 80 Respiratory 20 18 Rate Blood Pressure 134/83 O2 Sat by Pulse 90 84 78 L Oximetry 12/30/20 12/30/20 12/30/20 07:50 08:42 10:00 Temperature Pulse Rate Respiratory 20 20 Rate Blood Pressure O2 Sat by Pulse 88 90 Oximetry 12/30/20 10:41 Temperature 97.0 F L Pulse Rate 106 H Respiratory 28 H Rate Blood Pressure 144/93 O2 Sat by Pulse 82 L Oximetry CBC and BMP: 12/28/20 10:02 12/28/20 10:02 ABG, PT/INR, D-dimer: ABG ABG pH 7.481 (7.320-7.450) H 12/25/20 10:13 POC ABG pCO2 20.7 mmHg (32.0-48.0) L 12/25/20 10:13 POC ABG pO2 62.0 mmHg (83-108) L 12/25/20 10:13 POC ABG HCO3 15.1 12/25/20 10:13 ABG O2 Saturation 92.4 (0-100) 12/25/20 10:13 PT/INR, D-dimer D-Dimer > 86284 ng/mlDDU (0-234) H 12/27/20 05:28 Abnormal lab findings: Abnormal Labs 12/25/20 12/25/20 12/25/20 08:33 08:33 08:33 WBC 15.9 H Hgb 15.3 H MCHC 36 H Plt Count 133 L Seg Neuts % (Manual) 98.0 H Lymphocytes % (Manual) 1.0 L Seg Neutrophils # Man 15.6 H Lymphocytes # (Manual) 0.2 L D-Dimer ABG pH POC ABG pCO2 POC ABG pO2 ABG Oxyhemoglobin ABG Sodium ABG Chloride ABG Glucose Sodium 120 L D Chloride 90.2 L Carbon Dioxide 16 L BUN Creatinine Glucose 116 H Lactic Acid 2.40 H* Ferritin Total Bilirubin 1.30 H C-Reactive Protein Albumin 3.1 L Arterial Blood Glucose Coronavirus (PCR) SARS-CoV-2 IgG Ab 12/25/20 12/25/20 12/26/20 10:13 11:13 04:58 WBC 13.1 H Hgb MCHC 35 H Plt Count 113 L Seg Neuts % (Manual) 96.0 H Lymphocytes % (Manual) 3.0 L Seg Neutrophils # Man 12.6 H Lymphocytes # (Manual) 0.4 L D-Dimer ABG pH 7.481 H POC ABG pCO2 20.7 L POC ABG pO2 62.0 L ABG Oxyhemoglobin 91.6 L ABG Sodium 119.3 L ABG Chloride 95.0 L ABG Glucose 122 H Sodium Chloride Carbon Dioxide BUN Creatinine Glucose Lactic Acid 2.20 H* Ferritin Total Bilirubin C-Reactive Protein Albumin Arterial Blood Glucose 122 H Coronavirus (PCR) SARS-CoV-2 IgG Ab 12/26/20 12/27/20 12/27/20 04:58 05:28 05:28 WBC 17.5 H Hgb MCHC 35 H Plt Count 108 L Seg Neuts % (Manual) Lymphocytes % (Manual) Seg Neutrophils # Man Lymphocytes # (Manual) D-Dimer ABG pH POC ABG pCO2 POC ABG pO2 ABG Oxyhemoglobin ABG Sodium ABG Chloride ABG Glucose Sodium 129 L D 131 L Chloride Carbon Dioxide 17 L 17 L BUN 21 H Creatinine 0.7 L Glucose 112 H 117 H Lactic Acid Ferritin Total Bilirubin C-Reactive Protein 22.20 H Albumin Arterial Blood Glucose Coronavirus (PCR) SARS-CoV-2 IgG Ab 12/27/20 12/27/20 12/28/20 05:28 Unknown 10:02 WBC 16.9 H Hgb 15.5 H MCHC 35 H Plt Count 106 L Seg Neuts % (Manual) Lymphocytes % (Manual) Seg Neutrophils # Man Lymphocytes # (Manual) D-Dimer > 26280 H ABG pH POC ABG pCO2 POC ABG pO2 ABG Oxyhemoglobin ABG Sodium ABG Chloride ABG Glucose Sodium Chloride Carbon Dioxide BUN Creatinine Glucose Lactic Acid Ferritin Total Bilirubin C-Reactive Protein Albumin Arterial Blood Glucose Coronavirus (PCR) Positive A SARS-CoV-2 IgG Ab 12/28/20 12/28/20 12/28/20 10:02 10:02 10:02 WBC Hgb MCHC Plt Count Seg Neuts % (Manual) Lymphocytes % (Manual) Seg Neutrophils # Man Lymphocytes # (Manual) D-Dimer ABG pH POC ABG pCO2 POC ABG pO2 ABG Oxyhemoglobin ABG Sodium ABG Chloride ABG Glucose Sodium 132 L Chloride Carbon Dioxide 16 L BUN 30 H Creatinine Glucose 127 H Lactic Acid Ferritin > 2000.0 H Total Bilirubin C-Reactive Protein 10.90 H Albumin 2.3 L Arterial Blood Glucose Coronavirus (PCR) SARS-CoV-2 IgG Ab Reactive A
[2020-12-30] MEDS ORDERED: FUROSEMIDE 40 MG/4 ML INJ IV ONE (12:00)
[2020-12-30] MEDS: AZITHROMYCIN/NS 500 MG/250 ML 500 MG/250 ML BAG IV SCH (12:26)
[2020-12-30] MEDS: ATOVAQUONE 750 MG/5 ML ORAL SUSP PO SCH ×2 (13:29→21:31)
[2020-12-30] MEDS: cefTRIAXone/NS 2 GM/100 ML 2 GM/100 ML BAG IV SCH (13:33)
[2020-12-30] MEDS ORDERED: LIP THERAPY VASELINE TP PRN (16:52)
[2020-12-30] MEDS ORDERED: MINERAL OIL/PETROLATUM, WHITE OPHTH OINT 3.5 GM OU PRN (16:52)
[2020-12-30] MEDS: ONDANSETRON 4 MG/2 ML INJ IV PRN (21:26)
[2020-12-30] MEDS ORDERED: FAMOTIDINE 20 MG/2 ML INJ IV SCH (22:00)
[2020-12-30] MEDS ORDERED: SENNOSIDES/DOCUSATE SODIUM 8.6/50 MG TAB FEEDTUBE SCH (22:00)
[2020-12-31] MEDS: methylPREDNISolone Sod Succinate 125 MG/2 ML INJ IV SCH ×3 (06:01→22:31)
--- NOTE | 2020-12-31 09:20 | Progress Note ---
Assessment and Plan 60 y/o male with acute respiratory failure secondary to COVID 19 pneumonia 12/31/20: No lasix today. Will discuss with team and patient about possible intubation if not able to maintain sats on Bipap. Very very poor prognosis given no real response to therapy on first admission 12/30/20: Reviewed ID note from yesterday and agree with assessment and plan. Will give lasix 40 IV today to see if this helps with oxygenation. Overall p rognosis is guarded to poor. 1. IV steroids 2. Remdesivir 3. Ask about Actemra 4. Prone 5. Net negative volume state 6. Guarded prognosis Subjective Date of service: 12/31/20 Principal diagnosis: MARSHA Interval history: Despite a one time dose of lasix with good output, patient still ended up requiring bipap therapy last night and remains on this. Sats in the high 80's. was intubated yesterday evening for sustained hypoxemia despite bipap. Objective Vital Signs - 12hr 12/30/20 12/31/20 12/31/20 21:12 03:00 03:34 Temperature 97.3 F L Pulse Rate 101 H Respiratory 16 34 H Rate Blood Pressure 113/78 O2 Sat by Pulse 82 L 90 90 Oximetry 12/31/20 12/31/20 12/31/20 05:27 08:24 08:27 Temperature 97.5 F L Pulse Rate 81 Respiratory 18 34 H Rate Blood Pressure 127/84 O2 Sat by Pulse 88 88 88 Oximetry CBC and BMP: 12/28/20 10:02 12/28/20 10:02 ABG, PT/INR, D-dimer: ABG ABG pH 7.481 (7.320-7.450) H 12/25/20 10:13 POC ABG pCO2 20.7 mmHg (32.0-48.0) L 12/25/20 10:13 POC ABG pO2 62.0 mmHg (83-108) L 12/25/20 10:13 POC ABG HCO3 15.1 12/25/20 10:13 ABG O2 Saturation 92.4 (0-100) 12/25/20 10:13 PT/INR, D-dimer D-Dimer > 18927 ng/mlDDU (0-234) H 12/27/20 05:28 Abnormal lab findings: Abnormal Labs 12/25/20 12/25/2012/25/21 08:33 08:33 08:33 WBC 15.9 H Hgb 15.3 H MCHC 36 H Plt Count 133 L Seg Neuts % (Manual) 98.0 H Lymphocytes % (Manual) 1.0 L Seg Neutrophils # Man 15.6 H Lymphocytes # (Manual) 0.2 L D-Dimer ABG pH POC ABG pCO2 POC ABG pO2 ABG Oxyhemoglobin ABG Sodium ABG Chloride ABG Glucose Sodium 120 L D Chloride 90.2 L Carbon Dioxide 16 L BUN Creatinine Glucose 116 H Lactic Acid 2.40 H* Ferritin Total Bilirubin 1.30 H C-Reactive Protein Albumin 3.1 L Arterial Blood Glucose Coronavirus (PCR) SARS-CoV-2 IgG Ab 12/25/20 12/25/20 12/26/20 10:13 11:13 04:58 WBC 13.1 H Hgb MCHC 35 H Plt Count 113 L Seg Neuts % (Manual) 96.0 H Lymphocytes % (Manual) 3.0 L Seg Neutrophils # Man 12.6 H Lymphocytes # (Manual) 0.4 L D-Dimer ABG pH 7.481 H POC ABG pCO2 20.7 L POC ABG pO2 62.0 L ABG Oxyhemoglobin 91.6 L ABG Sodium 119.3 L ABG Chloride 95.0 L ABG Glucose 122 H Sodium Chloride Carbon Dioxide BUN Creatinine Glucose Lactic Acid 2.20 H* Ferritin Total Bilirubin C-Reactive Protein Albumin Arterial Blood Glucose 122 H Coronavirus (PCR) SARS-CoV-2 IgG Ab 12/26/20 12/27/20 12/27/20 04:58 05:28 05:28 WBC 17.5 H Hgb MCHC 35 H Plt Count 108 L Seg Neuts % (Manual) Lymphocytes % (Manual) Seg Neutrophils # Man Lymphocytes # (Manual) D-Dimer ABG pH POC ABG pCO2 POC ABG pO2 ABG Oxyhemoglobin ABG Sodium ABG Chloride ABG Glucose Sodium 129 L D 131 L Chloride Carbon Dioxide 17 L 17 L BUN 21 H Creatinine 0.7 L Glucose 112 H 117 H Lactic Acid Ferritin Total Bilirubin C-Reactive Protein 22.20 H Albumin Arterial Blood Glucose Coronavirus (PCR) SARS-CoV-2 IgG Ab 12/27/20 12/27/20 12/28/20 05:28 Unknown 10:02 WBC 16.9 H Hgb 15.5 H MCHC 35 H Plt Count 106 L Seg Neuts % (Manual) Lymphocytes % (Manual) Seg Neutrophils # Man Lymphocytes # (Manual) D-Dimer > 41942 H ABG pH POC ABG pCO2 POC ABG pO2 ABG Oxyhemoglobin ABG Sodium ABG Chloride ABG Glucose Sodium Chloride Carbon Dioxide BUN Creatinine Glucose Lactic Acid Ferritin Total Bilirubin C-Reactive Protein Albumin Arterial Blood Glucose Coronavirus (PCR) Positive A SARS-CoV-2 IgG Ab 12/28/20 12/28/20 12/28/20 10:02 10:02 10:02 WBC Hgb MCHC Plt Count Seg Neuts % (Manual) Lymphocytes % (Manual) Seg Neutrophils # Man Lymphocytes # (Manual) D-Dimer ABG pH POC ABG pCO2 POC ABG pO2 ABG Oxyhemoglobin ABG Sodium ABG Chloride ABG Glucose Sodium 132 L Chloride Carbon Dioxide 16 L BUN 30 H Creatinine Glucose 127 H Lactic Acid Ferritin > 2000.0 H Total Bilirubin C-Reactive Protein 10.90 H Albumin 2.3 L Arterial Blood Glucose Coronavirus (PCR) SARS-CoV-2 IgG Ab Reactive A
[2020-12-31] MEDS: oxyCODONE /ACETAMINOPHEN 5-325MG TAB PO PRN (09:55)
[2020-12-31] MEDS: ATOVAQUONE 750 MG/5 ML ORAL SUSP PO SCH ×2 (09:55→22:31)
[2020-12-31] MEDS: MYCOPHENOLATE 500 MG TAB PO SCH ×2 (09:55→22:30)
[2020-12-31] MEDS: ASCORBIC ACID 500 MG TAB PO SCH ×2 (09:56→22:31)
[2020-12-31] MEDS: TAMSULOSIN 0.4 MG CAP PO SCH ×2 (09:56→22:31)
[2020-12-31] MEDS: guaiFENesin ER 600 MG TAB PO SCH ×2 (09:56→22:31)
[2020-12-31] MEDS: ENOXAPARIN 100 MG/1 ML INJ SUB-Q SCH ×2 (09:56→22:33)
[2020-12-31] MEDS: ZINC SULFATE 220 MG CAP PO SCH ×2 (09:56→22:31)
[2020-12-31] MEDS: ONDANSETRON 4 MG/2 ML INJ IV PRN (09:56)
[2020-12-31] MEDS: CHOLECALCIFEROL (VIT D3) 1000 UNIT (25 mcg) TAB PO SCH (09:57)
--- NOTE | 2020-12-31 09:59 | Progress Note ---
Assessment and Plan - Patient Problems (1) Hyponatremia Current Visit: No Status: Chronic Plan to address problem: In the setting of COVID-19 pneumonia, possible SIADH component. most recent serum sodium levels are improved. Follow up repeat BMP (2) Kidney transplant recipient Current Visit: No Status: Acute Plan to address problem: Continue current immunosuppression regimen. Overall renal allograft function remains stable. (3) Pneumonia due to COVID-19 virus Current Visit: No Status: Acute Plan to address problem: Continues on IV steriods and empiric antibiotics. Given dose of Acterma. CT chest was concerning for progression of b/l pneumonia. No clinical benefit from repeating another course of remdesivir, as he had completed the full regimen during his most recent hospital visit. ID recommendations appreciated. (4) HTN (hypertension) Current Visit: No Status: Acute Qualifiers: Hypertension type: essential hypertension Plan to address problem: Monitor blood pressure under current regimen. Subjective Date of service: 12/31/20 Principal diagnosis: MARSHA Interval history: on high flow nasal cannula. Received treatment with acterma and IV dexamethasone Objective - Exam Narrative Exam: Patient not directly examined in order to preserve PPE and decrease chance of transmission of COVID-19. Physical examination from primary notes reviewed. - Vital Signs Vital signs: Vital Signs - 12hr 12/31/20 12/31/20 12/31/20 03:00 03:34 05:27 Temperature 97.5 F L Pulse Rate 81 Respiratory 34 H 18 Rate Blood Pressure 127/84 O2 Sat by Pulse 90 90 88 Oximetry 12/31/20 12/31/20 08:24 08:27 Temperature Pulse Rate Respiratory 34 H Rate Blood Pressure O2 Sat by Pulse 88 88 Oximetry - Lab 12/28/20 10:02 12/28/20 10:02 Most recent lab results ABG pH 7.481 (7.320-7.450) H 12/25/20 10:13 ABG O2 Saturation 92.4 (0-100) 12/25/20 10:13 Calcium 10.0 mg/dL (8.4-10.2) 12/28/20 10:02 Medications & Allergies - Medications Allergies/Adverse Reactions: Allergies No Known Allergies Allergy (Verified 12/14/20 15:36) Home Medications: Home Medications Medication Instructions Recorded Confirmed Last Taken Type Metoprolol [Lopressor TAB] 100 mg PO BID 0812/28/20 04/15/18 09:00 History Omeprazole 40 mg PO DAILY 04/10/18 12/28/20 04/15/18 09:00 History Prednisone [predniSONE (Mariluz) ER 5 mg PO QDAY 04/10/18 12/28/20 04/15/18 09:00 History TAB] Tamsulosin HCl [Flomax] 0.4 mg PO BID 04/10/18 12/28/20 04/15/18 09:00 History Albuterol Mdi (or & Nicu Only) 2 puff IH QID PRN #8.5 gram 12/22/20 12/28/20 Unknown Rx [ProAir HFA Inhaler] Mycophenolate [Cellcept] 1,000 mg PO BID #60 tablet 12/22/20 12/28/20 Unknown Rx NIFEdipine XL [Procardia Xl] 30 mg PO QDAY #30 tablet 12/22/20 12/28/20 Unknown Rx dexAMETHasone [Decadron] 6 mg PO DAILY #4 tablet 12/22/20 12/28/20 Unknown Rx guaiFENesin ER [Mucinex ER] 600 mg PO BID #14 tablet 12/22/20 12/28/20 Unknown Rx lisinopriL [Zestril TAB] 10 mg PO QDAY #30 tablet 12/22/20 12/28/20 Unknown Rx Tacrolimus [Prograf] 4 mg PO QAM 12/26/20 12/28/20 Unknown History Tacrolimus [Prograf] 5 mg PO QPM 12/26/20 12/28/20 Unknown History Active Medications: Generic Name Dose Route Start Last Admin Trade Name Jonyq PRN Reason Stop Dose Admin Acetaminophen 650 mg 12/25/20 11:59 Acetaminophen 325 Mg Tab PO Q4H PRN Pain MILD(1-3)/Fever >100.5/BHARDWAJ Albuterol 2.5 mg 12/25/20 11:59 Albuterol 2.5 Mg/3 Ml Nebu IH Q4HRT PRN Shortness Of Breath Ascorbic Acid 500 mg 12/25/20 22:00 12/30/20 21:33 Ascorbic Acid 500 Mg Tab PO 500 mg BID TIAN Administration Atovaquone 750 mg 12/29/20 15:00 12/30/20 21:31 Atovaquone 750 Mg/5 Ml Oral Susp PO 750 mg BID TIAN Administration Cholecalciferol 1,000 unit 12/26/20 10:00 12/30/20 09:57 Cholecalciferol (Vit D3) 1000 Unit (25 Mcg) Tab PO 1,000 unit QDAY TIAN Administration Enoxaparin Sodium 90 mg 12/26/20 15:00 12/30/20 21:25 Enoxaparin 100 Mg/1 Ml Inj 1 mg/kg (90 mg) 90 mg SUB-Q Administration BID [facility] Protocol Guaifenesin 600 mg 12/25/20 22:00 12/30/20 21:32 Guaifenesin Er 600 Mg Tab PO 600 mg BID TIAN Administration Hydromorphone HCl 0.5 mg 12/25/20 11:59 12/29/20 21:58 Hydromorphone 1 Mg/1 Ml Inj IV 0.5 mg Q12H PRN Administration Pain , Severe (7-10) Hydromorphone HCl 0.25 mg 12/25/20 12:10 Hydromorphone 1 Mg/1 Ml Inj IV Q4H PRN Pain, Moderate (4-6) Ceftriaxone Sodium 2 gm in 100 mls @ 200 mls/hr 12/25/20 14:00 12/30/20 13:33 Rocephin/Ns 2 Gm/100 Ml IV 200 mls/hr Q24H TIAN Administration Protocol Azithromycin 500 mg in 250 mls @ 250 mls/hr 12/25/20 13:00 12/30/20 12:26 Zithromax/Ns IV 250 mls/hr Q24H TIAN Administration Protocol Lisinopril 10 mg 12/26/20 10:00 12/30/20 09:57 Lisinopril 10 Mg Tab PO 10 mg QDAY TIAN Administration Methylprednisolone Sodium Succinate 40 mg 12/26/20 06:00 12/31/20 06:01 Methylprednisolone Sod Succinate 125 Mg/2 Ml Inj IV 40 mg Q8H TIAN Administration Metoprolol Tartrate 100 mg 12/25/20 22:00 12/30/20 21:33 Metoprolol Tartrate 100 Mg Tab PO 100 mg BID TIAN Administration Mycophenolate Mofetil 1,000 mg 12/25/20 22:00 12/30/20 21:32 Mycophenolate 500 Mg Tab PO 1,000 mg BID TIAN Administration Nifedipine 30 mg 12/26/20 10:00 12/30/20 09:56 Nifedipine Xl 30 Mg Tab PO 30 mg QDAY TIAN Administration Ondansetron HCl 4 mg 12/25/20 11:59 12/30/20 21:26 Ondansetron 4 Mg/2 Ml Inj IV 4 mg Q8H PRN Administration Nausea And Vomiting Oxycodone/Acetaminophen 1 tab 12/25/20 11:59 12/30/20 10:00 Oxycodone /Acetaminophen 5-325mg Tab PO 1 tab Q12H PRN Administration Pain, Moderate (4-6) Pantoprazole Sodium 40 mg 12/26/20 10:00 12/30/20 09:57 Pantoprazole 40 Mg Tab PO 40 mg DAILY TIAN Administration Sodium Chloride 10 ml 12/25/20 22:00 12/30/20 21:34 Sodium Chloride 0.9% 10 Ml Flush Syringe IV 10 ml BID TIAN Administration Sodium Chloride 10 ml 12/25/20 11:59 Sodium Chloride 0.9% 10 Ml Flush Syringe IV PRN PRN LINE FLUSH Tacrolimus 3 mg 12/26/20 10:00 12/30/20 09:59 Tacrolimus 1 Mg Cap PO 3 mg QAM TIAN Administration Tacrolimus 4 mg 12/26/20 22:00 12/30/20 21:31 Tacrolimus 1 Mg Cap PO 4 mg QHS TIAN Administration Tamsulosin HCl 0.4 mg 12/25/20 22:00 12/30/20 21:33 Tamsulosin 0.4 Mg Cap PO 0.4 mg BID TIAN Administration Zinc Sulfate 220 mg 12/25/20 22:00 12/30/20 21:33 Zinc Sulfate 220 Mg Cap PO 220 mg BID TIAN Administration
[2020-12-31] MEDS: PANTOPRAZOLE 40 MG TAB PO SCH (10:03)
[2020-12-31] MEDS: NIFEdipine XL 30 MG TAB PO SCH (10:03)
[2020-12-31] MEDS: TACROLIMUS 1 MG CAP PO SCH ×2 (10:03→22:31)
[2020-12-31] MEDS: LISINOPRIL 10 MG TAB PO SCH (10:08)
[2020-12-31] MEDS: METOPROLOL TARTRATE 100 MG TAB PO SCH ×2 (10:08→22:32)
--- NOTE | 2020-12-31 12:38 | Progress Note ---
Subjective Date of service: 12/31/20 Principal diagnosis: MARSHA Interval history: 60 YO Male with Obesity Hypoventilation Syndrome, kidney transplant, HTN, GERD, Anemia Chronic Disease, Coronavirus Infection diagnosed 2 weeks and discharged 3 days sorry, who failed outpatient therapy and currently on 2L/min Home oxygen via NC, CKD S/P Renal Transplant currently on anti graft rejection therapy presents to ED for evaluation. Patient reports "I cannot breathe". Patient states that he has experienced shortness of breath over the past 1 week with persistent and worsening symptoms over the same timeframe. Patient was diagnosed with coronavirus infection 2 weeks ago and was treated with outpatient therapy as well as supplemental oxygen at 2 L via nasal cannula. Patient states that he has experienced worsening shortness of breath over the past 1 week, fatigue, malaise, generalized weakness. EMS was notified and upon arrival the patient was found to be in distress and was found to have a pulse oximetry in the 70s while on 2 L nasal cannula. The patient was treated with oxygen via nonrebreather mask and subsequently transported to [facility] for further care and evaluation of the aforementioned symptoms. The patient was seen and evaluated in the emergency department. All lab and imaging studies reviewed. Patient found to have a pulse oximetry in the 70s on submental oxygen and was subsequently placed on high flow supplemental oxygen due to acute hypoxemic respiratory failure. Patient underwent chest x- ray and was found to have bilateral pneumonia secondary to sepsis. Patient also found to have acidosis. Patient initiated on sepsis protocol as well as coronavirus pneumonia protocol and admitted to medical floor. Patient denies fever, chills, chest pain, palpitation, skin rash, trauma, or known ill contacts. Prior admission on 12/15/2020 reviewed. All medication listed at time of admission has been reconciled. Advanced care planning conducted in ED. Patient reports that he had both of his COVID-19 vaccines with past medical history of hypertension, GERD, kidney transplant in 2017 was brought to the emergency room because of abdominal pain, body aches, fever, cough for last 2 days. The patient had been treated on dexamethasone for total 10 days and remdesivir total 5 days as patient is immunocompromised patient,-Antibiotic was not required as procalcitonin level was normal, -Patient was given anticoagulation per protocol, Patient was deemed to be stable and was discharged on home oxygen but returned as noted above with worsening hypoxia and now on Full dose 12/26: Continue current management, will check d,dimer and possible VQ scan, Will keep on full dose anticoagulation until proven not to have Pulmonary Embolism. Check Doppler for DVT prophy. Monitor Plt. 12/27: Patient remains critically ill sepsis secondary to Covid plan to vaccine ID input noted patient had previously completed remdesivir no indication for noted. Continue steroid therapy and has home antirejection medications. No pulmonary embolism noted home or DVT noted continue to monitor on anticoagulation monitor thrombocytopenia closely. Will give additional dose of Lasix today for negative fluid balance we will monitor renal function closely 12/28: Continue supportive care, steroids, oxygen, anticoagulation. Wean oxygen as tolerated, nephrology consulted to assist with management as patient is a renal transplant. Patient still with tachycardic. Will likely need LTAC for slow weaning. Unfortunately I cannot place him in IMCU or ICU due to lack of bed in the hospital ideally he is appropriate for dose units minimum stepdown unit. 12/29; patient is on 40 L of high flow oxygen. Was given Actemra yesterday. Continue with Solu-Medrol 40 mg 3 times daily. Pulmonary and ID is following. Patient may need LTAC placement at discharge. Patient is concerned about his transplant medications but they were resumed. 12/30; patient was on 40 L of high flow oxygen. Patient was given Actemra. Patient was given remdesivir on his previous admission and no need to repeat it. Patient is on Solu-Medrol 40 mg 3 times daily. Patient may need LTAC placement. His renal transplant medications were resumed. Nephrology is following. 12/31 patient is alert and oriented and moderately dyspneic, he is on BiPAP with 100% FiO2, he denies any cough fever chills or chest pain. Pulmonary nephrology and ID notes reviewed (1) Sepsis ruled out Current Visit: Yes Status: Acute Qualifiers: Acute respiratory failure type: with hypoxia Plan to address problem: Blood cultures and urine cultures negative Leukocytosis likely secondary to steroids Continue empiric IV antibiotics as the patient is immunosuppressed ID note reviewed (2) Pneumonia secondary to COVID-19 Current Visit: Yes Status: Acute Plan to address problem: History of recently receiving remdesivir therapy Pulmonary and ID notes reviewed Continue steroids 3) D-dimer severely elevated VQ scan and lower extremity venous Doppler negative for PE/DVT (4) Obesity hypoventilation syndrome Current Visit: Yes Status: Acute Plan to address problem: Balanced diet, increase physical activity discharge, outpatient pulmonary follow-up for sleep study. (5) Acute Hypoxia respiratory failure Current Visit: Yes Status: Acute Plan to address problem: Continue BiPAP with 100% FiO2 Prognosis guarded to poor Pulmonary note reviewed and appreciated (6) Hyponatremia Improving Serum sodium 132 (7) Thrombocytopenia Stable Platelets 106 this morning Monitor (8) DVT prophylaxis Current Visit: Yes Status: Acute Plan to address problem: SCD to bilateral lower extremities while in bed, prophylactic anticoagulation Objective - Constitutional Vitals: Vital Signs - 12hr 12/31/20 12/31/20 12/31/20 03:00 03:34 05:27 Temperature 97.5 F L Pulse Rate 81 Respiratory 34 H 18 Rate Blood Pressure 127/84 Blood Pressure [Right] O2 Sat by Pulse 90 90 88 Oximetry 12/31/20 12/31/20 12/31/20 08:24 08:27 10:08 Temperature Pulse Rate 79 Respiratory 34 H Rate Blood Pressure Blood Pressure 122/80 [Right] O2 Sat by Pulse 88 88 Oximetry General appearance: Present: mild distress - EENT Eyes: PERRL, EOM intact ENT: hearing intact - Neck Neck: supple, normal ROM - Respiratory Respiratory effort: other (Moderately dyspneic) Respiratory: bilateral: diminished, rhonchi, wheezing - Cardiovascular Rhythm: regular Heart Sounds: Present: S1 & S2 Extremities: No edema - Gastrointestinal General gastrointestinal: Present: soft, non-tender Rectal Exam: deferred - Integumentary Integumentary: clear - Musculoskeletal Musculoskeletal: strength equal bilaterally - Neurologic Neurologic: no focal deficits - Psychiatric Psychiatric: appropriate mood/affect - Labs CBC & Chem 7: 12/28/20 10:02 12/28/20 10:02 HEART Score - HEART Score Troponin: Troponin T < 0.010 ng/mL (0.00-0.029) 12/25/20 08:33
[2020-12-31] MEDS: AZITHROMYCIN/NS 500 MG/250 ML 500 MG/250 ML BAG IV SCH (14:52)
[2020-12-31] MEDS: cefTRIAXone/NS 2 GM/100 ML 2 GM/100 ML BAG IV SCH (14:52)
[2021-01-01] MEDS: oxyCODONE /ACETAMINOPHEN 5-325MG TAB PO PRN ×2 (00:34→10:27)
[2021-01-01] MEDS ORDERED: ZOLPIDEM 5 MG TAB PO ONE (02:14)
[2021-01-01] MEDS: methylPREDNISolone Sod Succinate 125 MG/2 ML INJ IV SCH ×3 (06:51→23:14)
[2021-01-01 07:41] LABS: Hematocrit 53.7 % (35.5-45.6); Hemoglobin 17.9 gm/dl (11.8-15.2); Mean Corpuscular HGB Conc 33 % (32-34); Mean Corpuscular Volume 92 fl (84-94); Red Blood Count 5.85 M/mm3 (3.65-5.03); Red Cell Distribution Width 14.3 % (13.2-15.2)
[2021-01-01 07:54] LABS: Platelet Count 87 K/mm3 (140-440)
[2021-01-01 08:07] LABS: BUN/Creatinine Ratio TNR; Blood Urea Nitrogen TNR mg/dL (9-20)
[2021-01-01 08:08] LABS: Alanine Aminotransferase TNR units/L (7-56); Albumin TNR g/dL (3.9-5); C-Reactive Protein TNR mg/dL (0.00-1.30); Calcium TNR mg/dL (8.4-10.2); Hemolysis Index TNR
--- NOTE | 2021-01-01 09:30 | Progress Note ---
Assessment and Plan - Patient Problems (1) Hyponatremia Current Visit: No Status: Chronic Plan to address problem: In the setting of COVID-19 pneumonia, possible SIADH component. most recent serum sodium levels are improved. Follow up repeat BMP (2) Kidney transplant recipient Current Visit: No Status: Acute Plan to address problem: Continue current immunosuppression regimen. Overall renal allograft function remains stable. (3) Pneumonia due to COVID-19 virus Current Visit: No Status: Acute Plan to address problem: Continues on IV steriods and empiric antibiotics. Given dose of Acterma. CT chest was concerning for progression of b/l pneumonia. No clinical benefit from repeating another course of remdesivir, as he had completed the full regimen during his most recent hospital visit. ID recommendations appreciated. (4) HTN (hypertension) Current Visit: No Status: Acute Qualifiers: Hypertension type: essential hypertension Plan to address problem: Monitor blood pressure under current regimen. Subjective Date of service: 01/01/21 Principal diagnosis: MARSHA Interval history: on high flow NC. Received treatment with actemra and IV dexamethasone Objective - Exam Narrative Exam: Patient not directly examined in order to preserve PPE and decrease chance of transmission of COVID-19. Physical examination from primary notes reviewed. - Vital Signs Vital signs: Vital Signs - 12hr 12/31/20 12/31/20 01/01/21 22:19 22:24 01:17 Temperature 97.4 F L Pulse Rate 79 111 H Respiratory 32 H 18 Rate Blood Pressure 117/78 O2 Sat by Pulse 90 89 90 Oximetry 01/01/21 01/01/21 01/01/21 03:35 03:57 06:13 Temperature 97.7 F Pulse Rate 117 H Respiratory 32 H 18 Rate Blood Pressure 126/86 O2 Sat by Pulse 90 92 83 L Oximetry 01/01/21 06:47 Temperature Pulse Rate Respiratory Rate Blood Pressure O2 Sat by Pulse 91 Oximetry - Lab 01/01/21 07:06 01/01/21 07:06 Most recent lab results ABG pH 7.481 (7.320-7.450) H 12/25/20 10:13 ABG O2 Saturation 92.4 (0-100) 12/25/20 10:13 Calcium TNR 01/01/21 07:06 Medications & Allergies - Medications Allergies/Adverse Reactions: Allergies No Known Allergies Allergy (Verified 12/14/20 15:36) Home Medications: Home Medications Medication Instructions Recorded Confirmed Last Taken Type Metoprolol [Lopressor TAB] 100 mg PO BID 12/28/14 12/28/20 04/15/18 09:00 History Omeprazole 40 mg PO DAILY 04/10/18 12/28/20 04/15/18 09:00 History Prednisone [predniSONE (Mariluz) ER 5 mg PO QDAY 04/10/18 12/28/20 04/15/18 09:00 History TAB] Tamsulosin HCl [Flomax] 0.4 mg PO BID 04/10/18 12/28/20 04/15/18 09:00 History Albuterol Mdi (or & Nicu Only) 2 puff IH QID PRN #8.5 gram 12/22/20 12/28/20 Unknown Rx [ProAir HFA Inhaler] Mycophenolate [Cellcept] 1,000 mg PO BID #60 tablet 12/22/20 12/28/20 Unknown Rx NIFEdipine XL [Procardia Xl] 30 mg PO QDAY #30 tablet 12/22/20 12/28/20 Unknown Rx dexAMETHasone [Decadron] 6 mg PO DAILY #4 tablet 12/22/20 12/28/20 Unknown Rx guaiFENesin ER [Mucinex ER] 600 mg PO BID #14 tablet 12/22/20 12/28/20 Unknown Rx lisinopriL [Zestril TAB] 10 mg PO QDAY #30 tablet 12/22/20 12/28/20 Unknown Rx Tacrolimus [Prograf] 4 mg PO QAM 12/26/20 12/28/20 Unknown History Tacrolimus [Prograf] 5 mg PO QPM 12/26/20 12/28/20 Unknown History Active Medications: Generic Name Dose Route Start Last Admin Trade Name Freq PRN Reason Stop Dose Admin Acetaminophen 650 mg 12/25/20 11:59 Acetaminophen 325 Mg Tab PO Q4H PRN Pain MILD(1-3)/Fever >100.5/BHARDWAJ Albuterol 2.5 mg 12/25/20 11:59 Albuterol 2.5 Mg/3 Ml Nebu IH Q4HRT PRN Shortness Of Breath Ascorbic Acid 500 mg 12/25/20 22:00 12/31/20 22:31 Ascorbic Acid 500 Mg Tab PO 500 mg BID TIAN Administration Atovaquone 750 mg 12/29/20 15:00 12/31/20 22:31 Atovaquone 750 Mg/5 Ml Oral Susp PO 750 mg BID [facility] Administration Cholecalciferol 1,000 unit 12/26/20 10:00 12/31/20 09:57 Cholecalciferol (Vit D3) 1000 Unit (25 Mcg) Tab PO 1,000 unit QDAY [facility] Administration Enoxaparin Sodium 90 mg 12/26/20 15:00 12/31/20 22:33 Enoxaparin 100 Mg/1 Ml Inj 1 mg/kg (90 mg) 90 mg SUB-Q Administration BID [facility] Protocol Guaifenesin 600 mg 12/25/20 22:00 12/31/20 22:31 Guaifenesin Er 600 Mg Tab PO 600 mg BID [facility] Administration Hydromorphone HCl 0.5 mg 12/25/20 11:59 12/29/20 21:58 Hydromorphone 1 Mg/1 Ml Inj IV 0.5 mg Q12H PRN Administration Pain , Severe (7-10) Hydromorphone HCl 0.25 mg 12/25/20 12:10 Hydromorphone 1 Mg/1 Ml Inj IV Q4H PRN Pain, Moderate (4-6) Ceftriaxone Sodium 2 gm in 100 mls @ 200 mls/hr 12/25/20 14:00 12/31/20 14:52 Rocephin/Ns 2 Gm/100 Ml IV 200 mls/hr Q24H [facility] Administration Protocol Azithromycin 500 mg in 250 mls @ 250 mls/hr 12/25/20 13:00 12/31/20 14:52 Zithromax/Ns IV 250 mls/hr Q24H [facility] Administration Protocol Lisinopril 10 mg 12/26/20 10:00 12/31/20 10:08 Lisinopril 10 Mg Tab PO Not Given QDAY [facility] Methylprednisolone Sodium Succinate 40 mg 12/26/20 06:00 01/01/21 06:51 Methylprednisolone Sod Succinate 125 Mg/2 Ml Inj IV 40 mg Q8H [facility] Administration Metoprolol Tartrate 100 mg 12/25/20 22:00 12/31/20 22:32 Metoprolol Tartrate 100 Mg Tab PO 100 mg BID [facility] Administration Mycophenolate Mofetil 1,000 mg 12/25/20 22:00 12/31/20 22:30 Mycophenolate 500 Mg Tab PO 1,000 mg BID TIAN Administration Nifedipine 30 mg 12/26/20 10:00 12/31/20 10:03 Nifedipine Xl 30 Mg Tab PO 30 mg QDAY TIAN Administration Ondansetron HCl 4 mg 12/25/20 11:59 12/31/20 09:56 Ondansetron 4 Mg/2 Ml Inj IV 4 mg Q8H PRN Administration Nausea And Vomiting Oxycodone/Acetaminophen 1 tab 12/25/20 11:59 01/01/21 00:34 Oxycodone /Acetaminophen 5-325mg Tab PO 1 tab Q12H PRN Administration Pain, Moderate (4-6) Pantoprazole Sodium 40 mg 12/26/20 10:00 12/31/20 10:03 Pantoprazole 40 Mg Tab PO 40 mg DAILY TIAN Administration Sodium Chloride 10 ml 12/25/20 22:00 12/31/20 22:32 Sodium Chloride 0.9% 10 Ml Flush Syringe IV 10 ml BID TIAN Administration Sodium Chloride 10 ml 12/25/20 11:59 Sodium Chloride 0.9% 10 Ml Flush Syringe IV PRN PRN LINE FLUSH Tacrolimus 3 mg 12/26/20 10:00 12/31/20 10:03 Tacrolimus 1 Mg Cap PO 3 mg QAM TIAN Administration Tacrolimus 4 mg 12/26/20 22:00 12/31/20 22:31 Tacrolimus 1 Mg Cap PO 4 mg QHS TIAN Administration Tamsulosin HCl 0.4 mg 12/25/20 22:00 12/31/20 22:31 Tamsulosin 0.4 Mg Cap PO 0.4 mg BID TIAN Administration Zinc Sulfate 220 mg 12/25/20 22:00 12/31/20 22:31 Zinc Sulfate 220 Mg Cap PO 220 mg BID TIAN Administration
[2021-01-01] MEDS: ENOXAPARIN 100 MG/1 ML INJ SUB-Q SCH ×2 (09:50→21:59)
[2021-01-01 10:16] LABS: BUN/Creatinine Ratio 40; Blood Urea Nitrogen 44 mg/dL (9-20); Calcium 9.5 mg/dL (8.4-10.2); Hemolysis Index 128
[2021-01-01] MEDS: PANTOPRAZOLE 40 MG TAB PO SCH (10:16)
--- NOTE | 2021-01-01 10:19 | Progress Note ---
Assessment and Plan Cultures: 12/15/2020 SARS CoV2 PCR: Positive 12/25/2020 blood culture: No growth 12/25/2020 urine culture: No growth A/P: 60-year-old male with obesity, renal transplant in 2017, hypertension, anemia was diagnosed with COVID-19 infection and was discharged on 12/22/2020 after having completed Remdesivir and was also receiving steroids has now been readmitted to the hospital with worsening shortness of breath: #Bilateral pneumonia: Secondary to COVID-19. D-dimer extremely high but VQ negative for PE and DVT scan also negative. CT scan showed progression of pneumonia, Hypoxia progressed to requiring nonrebreather mask with high flow nasal cannula. CRP 10.9, ferritin >2000 #Acute hypoxic respiratory failure: secondary to above. Progressed to requiring BiPAP #Kidney transplant/immunosuppressed host: Currently on mycophenolate and tacrolimus. Recs: continue steroids, empiric abx (Complete 8 days of antibiotics) Recently received remdesivir, no benefit with repeating course Received Actemra 12/28/2020 Fungitell, Aspergillus galactomannan ordered; pending Given significant immunosuppression, Mepron ordered as prophylaxis high d-dimer, on anticoagulation Poor prognosis given disease progression in spite of treatment and his underlying immunosuppression Kai Rene MD [facility] O: [phone] F: [phone] Subjective Date of service: 01/01/21 Principal diagnosis: MARSHA Interval history: Afebrile, white count 16.4. Currently on BiPAP. Objective - Exam Narrative Exam: Physical exam deferred to reduce risk of transmission of COVID-19. Please refer to primary team's note. - Constitutional Vitals: Vital Signs Temp Pulse Resp BP Pulse Ox 97.7 F 103 H 31 H 126/86 92 01/01/21 06:13 01/01/21 09:44 01/01/21 09:44 01/01/21 06:13 01/01/21 09:44 Temperature -Last 24 Hours Temperature 97.7 F Temperature 97.4 F Temperature 97.8 F - Labs CBC & Chem 7: 01/01/21 07:06 01/01/21 08:55 Labs: Abnormal lab results 01/01/21 01/01/21 01/01/21 Range/Units 07:06 07:06 08:55 WBC 16.4 H (4.5-11.0) K/mm3 RBC 5.85 H (3.65-5.03) M/mm3 Hgb 17.9 H (11.8-15.2) gm/dl Hct 53.7 H (35.5-45.6) % Plt Count 87 L (140-440) K/mm3 D-Dimer 6202.36 H (0-234) ng/mlDDU Carbon Dioxide 17 L (22-30) mmol/L BUN 44 H (9-20) mg/dL Glucose 123 H (75-100) mg/dL
[2021-01-01] MEDS: ONDANSETRON 4 MG/2 ML INJ IV PRN (10:27)
[2021-01-01] MEDS: ALPRAZolam 0.25 MG TAB PO SCH ×2 (10:34→21:58)
[2021-01-01] MEDS: TACROLIMUS 1 MG CAP PO SCH ×2 (10:34→21:59)
[2021-01-01] MEDS: NIFEdipine XL 30 MG TAB PO SCH (10:34)
[2021-01-01] MEDS: MYCOPHENOLATE 500 MG TAB PO SCH ×2 (10:35→21:59)
[2021-01-01] MEDS: guaiFENesin ER 600 MG TAB PO SCH ×2 (10:35→21:58)
[2021-01-01] MEDS: ATOVAQUONE 750 MG/5 ML ORAL SUSP PO SCH ×2 (10:35→21:59)
[2021-01-01] MEDS: TAMSULOSIN 0.4 MG CAP PO SCH ×2 (10:35→21:58)
[2021-01-01] MEDS: METOPROLOL TARTRATE 100 MG TAB PO SCH ×2 (10:36→21:58)
[2021-01-01] MEDS: ZINC SULFATE 220 MG CAP PO SCH ×2 (10:36→21:58)
[2021-01-01] MEDS: ASCORBIC ACID 500 MG TAB PO SCH ×2 (10:37→21:58)
[2021-01-01] MEDS: CHOLECALCIFEROL (VIT D3) 1000 UNIT (25 mcg) TAB PO SCH (10:38)
[2021-01-01] MEDS: LISINOPRIL 10 MG TAB PO SCH (10:38)
[2021-01-01] MEDS ORDERED: SODIUM POLYSTYRENE 15 GM/60 ML ORAL LIQD PO NR (13:38)
--- NOTE | 2021-01-01 13:44 | Progress Note ---
Subjective Date of service: 01/01/21 Principal diagnosis: MARSHA Interval history: 60 YO Male with Obesity Hypoventilation Syndrome, kidney transplant, HTN, GERD, Anemia Chronic Disease, Coronavirus Infection diagnosed 2 weeks and discharged 3 days sorry, who failed outpatient therapy and currently on 2L/min Home oxygen via [place], CKD S/P Renal Transplant currently on anti graft rejection therapy presents to ED for evaluation. Patient reports "I cannot breathe". Patient states that he has experienced shortness of breath over the past 1 week with persistent and worsening symptoms over the same timeframe. Patient was diagnosed with coronavirus infection 2 weeks ago and was treated with outpatient therapy as well as supplemental oxygen at 2 L via nasal cannula. Patient states that he has experienced worsening shortness of breath over the past 1 week, fatigue, malaise, generalized weakness. EMS was notified and upon arrival the patient was found to be in distress and was found to have a pulse oximetry in the 70s while on 2 L nasal cannula. The patient was treated with oxygen via nonrebreather mask and subsequently transported to [facility] for further care and evaluation of the aforementioned symptoms. The patient was seen and evaluated in the emergency department. All lab and imaging studies reviewed. Patient found to have a pulse oximetry in the 70s on submental oxygen and was subsequently placed on high flow supplemental oxygen due to acute hypoxemic respiratory failure. Patient underwent chest x- ray and was found to have bilateral pneumonia secondary to sepsis. Patient also found to have acidosis. Patient initiated on sepsis protocol as well as coronavirus pneumonia protocol and admitted to medical floor. Patient denies fever, chills, chest pain, palpitation, skin rash, trauma, or known ill contacts. Prior admission on 12/15/2020 reviewed. All medication listed at time of admission has been reconciled. Advanced care planning conducted in ED. Patient reports that he had both of his COVID-19 vaccines with past medical history of hypertension, GERD, kidney transplant in 2017 was brought to the emergency room because of abdominal pain, body aches, fever, cough for last 2 days. The patient had been treated on dexamethasone for total 10 days and remdesivir total 5 days as patient is immunocompromised patient,-Antibiotic was not required as procalcitonin level was normal, -Patient was given anticoagulation per protocol, Patient was deemed to be stable and was discharged on home oxygen but returned as noted above with worsening hypoxia and now on Full dose 12/26: Continue current management, will check d,dimer and possible VQ scan, Will keep on full dose anticoagulation until proven not to have Pulmonary Embolism. Check Doppler for DVT prophy. Monitor Plt. 12/27: Patient remains critically ill sepsis secondary to Covid plan to vaccine ID input noted patient had previously completed remdesivir no indication for noted. Continue steroid therapy and has home antirejection medications. No pulmonary embolism noted home or DVT noted continue to monitor on anticoagulation monitor thrombocytopenia closely. Will give additional dose of Lasix today for negative fluid balance we will monitor renal function closely 12/28: Continue supportive care, steroids, oxygen, anticoagulation. Wean oxygen as tolerated, nephrology consulted to assist with management as patient is a renal transplant. Patient still with tachycardic. Will likely need LTAC for slow weaning. Unfortunately I cannot place him in IMCU or ICU due to lack of bed in the hospital ideally he is appropriate for dose units minimum stepdown unit. 12/29; patient is on 40 L of high flow oxygen. Was given Actemra yesterday. Continue with Solu-Medrol 40 mg 3 times daily. Pulmonary and ID is following. Patient may need LTAC placement at discharge. Patient is concerned about his transplant medications but they were resumed. 12/30; patient was on 40 L of high flow oxygen. Patient was given Actemra. Patient was given remdesivir on his previous admission and no need to repeat it. Patient is on Solu-Medrol 40 mg 3 times daily. Patient may need LTAC placement. His renal transplant medications were resumed. Nephrology is following. 12/31 patient is alert and oriented and moderately dyspneic, he is on BiPAP with 100% FiO2, he denies any cough fever chills or chest pain. Pulmonary nephrology and ID notes reviewed 02/01 remains on BiPAP, alert and oriented, lab results reviewed, (1) Sepsis ruled out Current Visit: Yes Status: Acute Qualifiers: Acute respiratory failure type: with hypoxia Plan to address problem: Blood cultures and urine cultures negative Leukocytosis likely secondary to steroids Continue empiric IV antibiotics as the patient is immunosuppressed ID note reviewed (2) Pneumonia secondary to COVID-19 Current Visit: Yes Status: Acute Plan to address problem: History of recently receiving remdesivir therapy Pulmonary and ID notes reviewed Continue steroids 3) D-dimer severely elevated VQ scan and lower extremity venous Doppler negative for PE/DVT (4) Obesity hypoventilation syndrome Current Visit: Yes Status: Acute Plan to address problem: Balanced diet, increase physical activity discharge, outpatient pulmonary follo w-up for sleep study. (5) Acute Hypoxia respiratory failure Current Visit: Yes Status: Acute Plan to address problem: Continue BiPAP with 100% FiO2 Prognosis guarded to poor Pulmonary note reviewed and appreciated (6) Hyponatremia Improving Serum sodium 132 (7) Thrombocytopenia Stable Platelets 106 this morning Monitor (8) DVT prophylaxis Current Visit: Yes Status: Acute Plan to address problem: SCD to bilateral lower extremities while in bed, prophylactic anticoagulation 9)hyperkalemia,-we will order Kayexalate and recheck electrolytes in a.m. Pulmonary following and note reviewed 10) we will add antianxiety medication as the patient looks anxious with the BiPAP Objective - Constitutional Vitals: Vital Signs - 12hr 01/01/21 01/01/21 01/01/21 03:35 03:57 06:13 Temperature 97.7 F Pulse Rate 117 H Respiratory 32 H 18 Rate Blood Pressure 126/86 Blood Pressure [Right] O2 Sat by Pulse 90 92 83 L Oximetry 01/01/21 01/01/21 01/01/21 06:47 09:44 10:32 Temperature 97 F L Pulse Rate 103 H 100 H Respiratory 31 H 28 H Rate Blood Pressure Blood Pressure 126/87 [Right] O2 Sat by Pulse 91 92 92 Oximetry General appearance: Present: mild distress, well-nourished - EENT Eyes: PERRL, EOM intact ENT: hearing intact - Neck Neck: supple, normal ROM, no masses or JVD - Respiratory Respiratory effort: labored Respiratory: bilateral: diminished - Cardiovascular Rhythm: regular Heart Sounds: Present: S1 & S2 Extremities: No edema - Gastrointestinal General gastrointestinal: Present: soft, non-tender - Integumentary Integumentary: clear - Musculoskeletal Musculoskeletal: strength equal bilaterally - Neurologic Neurologic: no focal deficits - Psychiatric Psychiatric: appropriate mood/affect - Labs CBC & Chem 7: 01/01/21 07:06 01/01/21 08:55 Labs: Abnormal lab results 01/01/21 01/01/21 01/01/21 Range/Units 07:06 07:06 08:55 WBC 16.4 H (4.5-11.0) K/mm3 RBC 5.85 H (3.65-5.03) M/mm3 Hgb 17.9 H (11.8-15.2) gm/dl Hct 53.7 H (35.5-45.6) % Plt Count 87 L (140-440) K/mm3 D-Dimer 6202.36 H (0-234) ng/mlDDU Potassium 5.7 H D (3.6-5.0) mmol/L Carbon Dioxide 17 L (22-30) mmol/L BUN 44 H (9-20) mg/dL Glucose 123 H (75-100) mg/dL HEART Score - HEART Score Troponin: Troponin T < 0.010 ng/mL (0.00-0.029) 12/25/20 08:33
--- NOTE | 2021-01-01 14:24 | Progress Note ---
Assessment and Plan 60 y/o male with acute respiratory failure secondary to COVID 19 pneumonia 01/01/21: Continued marginal sats on bipap. Very very poor prognosis if intubated. Did not respond to therapy on first admit. 12/31/20: No lasix today. Will discuss with team and patient about possible intubation if not able to maintain sats on Bipap. Very very poor prognosis given no real response to therapy on first admission 12/30/20: Reviewed ID note from yesterday and agree with assessment and plan. Will give lasix 40 IV today to see if this helps with oxygenation. Overall prognosis is guarded to poor. 1. IV steroids 2. Remdesivir 3. Ask about Actemra 4. Prone 5. Net negative volume state 6. Guarded prognosis Subjective Date of service: 01/01/21 Principal diagnosis: MARSHA Interval history: Now on continuous bipap therapy. Objective Vital Signs - 12hr 01/01/21 01/01/21 01/01/21 03:35 03:57 06:13 Temperature 97.7 F Pulse Rate 117 H Respiratory 32 H 18 Rate Blood Pressure 126/86 Blood Pressure [Right] O2 Sat by Pulse 90 92 83 L Oximetry 01/01/21 01/01/21 01/01/21 06:47 09:44 10:32 Temperature 97 F L Pulse Rate 103 H 100 H Respiratory 31 H 28 H Rate Blood Pressure Blood Pressure 126/87 [Right] O2 Sat by Pulse 91 92 92 Oximetry CBC and BMP: 01/01/21 07:06 01/01/21 08:55 ABG, PT/INR, D-dimer: ABG ABG pH 7.481 (7.320-7.450) H 12/25/20 10:13 POC ABG pCO2 20.7 mmHg (32.0-48.0) L 12/25/20 10:13 POC ABG pO2 62.0 mmHg (83-108) L 12/25/20 10:13 POC ABG HCO3 15.1 12/25/20 10:13 ABG O2 Saturation 92.4 (0-100) 12/25/20 10:13 PT/INR, D-dimer D-Dimer 6202.36 ng/mlDDU (0-234) H 01/01/21 07:06 Abnormal lab findings: Abnormal Labs 12/25/20 12/25/20 12/25/20 08:33 08:33 08:33 WBC 15.9 H RBC Hgb 15.3 H Hct MCHC 36 H Plt Count 133 L Seg Neuts % (Manual) 98.0 H Lymphocytes % (Manual) 1.0 L Seg Neutrophils # Man 15.6 H Lymphocytes # (Manual) 0.2 L D-Dimer ABG pH POC ABG pCO2 POC ABG pO2 ABG Oxyhemoglobin ABG Sodium ABG Chloride ABG Glucose Sodium 120 L D Potassium Chloride 90.2 L Carbon Dioxide 16 L BUN Creatinine Glucose 116 H Lactic Acid 2.40 H* Ferritin Total Bilirubin 1.30 H C-Reactive Protein Albumin 3.1 L Arterial Blood Glucose Coronavirus (PCR) SARS-CoV-2 IgG Ab 12/25/20 12/25/20 12/26/20 10:13 11:13 04:58 WBC 13.1 H RBC Hgb Hct MCHC 35 H Plt Count 113 L Seg Neuts % (Manual) 96.0 H Lymphocytes % (Manual) 3.0 L Seg Neutrophils # Man 12.6 H Lymphocytes # (Manual) 0.4 L D-Dimer ABG pH 7.481 H POC ABG pCO2 20.7 L POC ABG pO2 62.0 L ABG Oxyhemoglobin 91.6 L ABG Sodium 119.3 L ABG Chloride 95.0 L ABG Glucose 122 H Sodium Potassium Chloride Carbon Dioxide BUN Creatinine Glucose Lactic Acid 2.20 H* Ferritin Total Bilirubin C-Reactive Protein Albumin Arterial Blood Glucose 122 H Coronavirus (PCR) SARS-CoV-2 IgG Ab 12/26/20 12/27/20 12/27/20 04:58 05:28 05:28 WBC 17.5 H RBC Hgb Hct MCHC 35 H Plt Count 108 L Seg Neuts % (Manual) Lymphocytes % (Manual) Seg Neutrophils # Man Lymphocytes # (Manual) D-Dimer ABG pH POC ABG pCO2 POC ABG pO2 ABG Oxyhemoglobin ABG Sodium ABG Chloride ABG Glucose Sodium 129 L D 131 L Potassium Chloride Carbon Dioxide 17 L 17 L BUN 21 H Creatinine 0.7 L Glucose 112 H 117 H Lactic Acid Ferritin Total Bilirubin C-Reactive Protein 22.20 H Albumin Arterial Blood Glucose Coronavirus (PCR) SARS-CoV-2 IgG Ab 12/27/20 12/27/20 12/28/20 05:28 Unknown 10:02 WBC 16.9 H RBC Hgb 15.5 H Hct MCHC 35 H Plt Count 106 L Seg Neuts % (Manual) Lymphocytes % (Manual) Seg Neutrophils # Man Lymphocytes # (Manual) D-Dimer > 73666 H ABG pH POC ABG pCO2 POC ABG pO2 ABG Oxyhemoglobin ABG Sodium ABG Chloride ABG Glucose Sodium Potassium Chloride Carbon Dioxide BUN Creatinine Glucose Lactic Acid Ferritin Total Bilirubin C-Reactive Protein Albumin Arterial Blood Glucose Coronavirus (PCR) Positive A SARS-CoV-2 IgG Ab 12/28/20 12/28/20 12/28/20 10:02 10:02 10:02 WBC RBC Hgb Hct MCHC Plt Count Seg Neuts % (Manual) Lymphocytes % (Manual) Seg Neutrophils # Man Lymphocytes # (Manual) D-Dimer ABG pH POC ABG pCO2 POC ABG pO2 ABG Oxyhemoglobin ABG Sodium ABG Chloride ABG Glucose Sodium 132 L Potassium Chloride Carbon Dioxide 16 L BUN 30 H Creatinine Glucose 127 H Lactic Acid Ferritin > 2000.0 H Total Bilirubin C-Reactive Protein 10.90 H Albumin 2.3 L Arterial Blood Glucose Coronavirus (PCR) SARS-CoV-2 IgG Ab Reactive A 01/01/21 01/01/21 01/01/21 07:06 07:06 08:55 WBC 16.4 H RBC 5.85 H Hgb 17.9 H Hct 53.7 H MCHC Plt Count 87 L Seg Neuts % (Manual) Lymphocytes % (Manual) Seg Neutrophils # Man Lymphocytes # (Manual) D-Dimer 6202.36 H ABG pH POC ABG pCO2 POC ABG pO2 ABG Oxyhemoglobin ABG Sodium ABG Chloride ABG Glucose Sodium Potassium 5.7 H D Chloride Carbon Dioxide 17 L BUN 44 H Creatinine Glucose 123 H Lactic Acid Ferritin Total Bilirubin C-Reactive Protein Albumin Arterial Blood Glucose Coronavirus (PCR) SARS-CoV-2 IgG Ab
[2021-01-01] MEDS: cefTRIAXone/NS 2 GM/100 ML 2 GM/100 ML BAG IV SCH (15:46)
[2021-01-01] MEDS: AZITHROMYCIN/NS 500 MG/250 ML 500 MG/250 ML BAG IV SCH (15:46)
[2021-01-02] MEDS: methylPREDNISolone Sod Succinate 125 MG/2 ML INJ IV SCH ×3 (05:16→21:43)
[2021-01-02] MEDS ORDERED: SODIUM POLYSTYRENE 15 GM/60 ML ORAL LIQD PO NR (07:30)
--- NOTE | 2021-01-02 09:28 | Progress Note ---
Assessment and Plan - Patient Problems (1) Hyponatremia Current Visit: No Status: Chronic Plan to address problem: In the setting of COVID-19 pneumonia, possible SIADH component. Na normalized. (2) Kidney transplant recipient Current Visit: No Status: Acute Plan to address problem: Continue current immunosuppression regimen. Overall renal allograft function remains stable. (3) Pneumonia due to COVID-19 virus Current Visit: No Status: Acute Plan to address problem: Continues on IV steriods and empiric antibiotics. Given dose of Acterma. CT chest was concerning for progression of b/l pneumonia. No clinical benefit from repeating another course of remdesivir, as he had completed the full regimen during his most recent hospital visit. ID recommendations appreciated. (4) HTN (hypertension) Current Visit: No Status: Acute Qualifiers: Hypertension type: essential hypertension Plan to address problem: Monitor blood pressure under current regimen. (5) Hyperkalemia Current Visit: Yes Status: Acute Plan to address problem: treat with kayexelate, cont 2g K renal diet Subjective Date of service: 01/02/21 Principal diagnosis: MARSHA Interval history: On high flow NC. Received treatment with actemra and IV dexamethasone Objective - Exam Narrative Exam: Patient not directly examined in order to preserve PPE and decrease chance of transmission of COVID-19. Physical examination from primary notes reviewed. - Vital Signs Vital signs: Vital Signs - 12hr 01/01/21 01/01/21 01/01/21 21:56 21:57 22:10 Temperature Pulse Rate 97 H 97 H Respiratory Rate Blood Pressure O2 Sat by Pulse 93 95 95 Oximetry 01/01/21 01/02/21 01/02/21 23:43 03:59 05:58 Temperature 97.5 F L Pulse Rate 83 Respiratory 22 Rate Blood Pressure 119/88 O2 Sat by Pulse 91 92 91 Oximetry 01/02/21 07:32 Temperature Pulse Rate Respiratory Rate Blood Pressure O2 Sat by Pulse 94 Oximetry - Lab 01/01/21 07:06 01/01/21 08:55 Most recent lab results ABG pH 7.481 (7.320-7.450) H 12/25/20 10:13 ABG O2 Saturation 92.4 (0-100) 12/25/20 10:13 Calcium 9.5 mg/dL (8.4-10.2) 01/01/21 08:55 Medications & Allergies - Medications Allergies/Adverse Reactions: Allergies No Known Allergies Allergy (Verified 12/14/20 15:36) Home Medications: Home Medications Medication Instructions Recorded Confirmed Last Taken Type Metoprolol [Lopressor TAB] 100 mg PO BID 12/28/14 12/28/20 04/15/18 09:00 History Omeprazole 40 mg PO DAILY 04/10/18 12/28/20 04/15/18 09:00 History Prednisone [predniSONE (Mariluz) ER 5 mg PO QDAY 04/10/18 12/28/20 04/15/18 09:00 History TAB] Tamsulosin HCl [Flomax] 0.4 mg PO BID 04/10/18 12/28/20 04/15/18 09:00 History Albuterol Mdi (or & Nicu Only) 2 puff IH QID PRN #8.5 gram 12/22/20 12/28/20 Unknown Rx [ProAir HFA Inhaler] Mycophenolate [Cellcept] 1,000 mg PO BID #60 tablet 12/22/20 12/28/20 Unknown Rx NIFEdipine XL [Procardia Xl] 30 mg PO QDAY #30 tablet 12/22/20 12/28/20 Unknown Rx dexAMETHasone [Decadron] 6 mg PO DAILY #4 tablet 12/22/20 12/28/20 Unknown Rx guaiFENesin ER [Mucinex ER] 600 mg PO BID #14 tablet 12/22/20 12/28/20 Unknown Rx lisinopriL [Zestril TAB] 10 mg PO QDAY #30 tablet 12/22/20 12/28/20 Unknown Rx Tacrolimus [Prograf] 4 mg PO QAM 12/26/20 12/28/20 Unknown History Tacrolimus [Prograf] 5 mg PO QPM 12/26/20 12/28/20 Unknown History Active Medications: Generic Name Dose Route Start Last Admin Trade Name Freq PRN Reason Stop Dose Admin Acetaminophen 650 mg 12/25/20 11:59 Acetaminophen 325 Mg Tab PO Q4H PRN Pain MILD(1-3)/Fever >100.5/BHARDWAJ Albuterol 2.5 mg 12/25/20 11:59 Albuterol 2.5 Mg/3 Ml Nebu IH Q4HRT PRN Shortness Of Breath Alprazolam 0.25 mg 01/01/21 10:00 01/01/21 21:58 Alprazolam 0.25 Mg Tab PO 01/04/21 09:59 0.25 mg Q12HR TIAN Administration Ascorbic Acid 500 mg 12/25/20 22:00 01/01/21 21:58 Ascorbic Acid 500 Mg Tab PO 500 mg BID TIAN Administration Atovaquone 750 mg 12/29/20 15:00 01/01/21 21:59 Atovaquone 750 Mg/5 Ml Oral Susp PO 750 mg BID TIAN Administration Cholecalciferol 1,000 unit 12/26/20 10:00 01/01/21 10:38 Cholecalciferol (Vit D3) 1000 Unit (25 Mcg) Tab PO 1,000 unit QDAY [facility] Administration Enoxaparin Sodium 90 mg 12/26/20 15:00 01/01/21 21:59 Enoxaparin 100 Mg/1 Ml Inj 1 mg/kg (90 mg) 90 mg SUB-Q Administration BID [facility] Protocol Guaifenesin 600 mg 12/25/20 22:00 01/01/21 21:58 Guaifenesin Er 600 Mg Tab PO 600 mg BID TIAN Administration Hydromorphone HCl 0.5 mg 12/25/20 11:59 12/29/20 21:58 Hydromorphone 1 Mg/1 Ml Inj IV 0.5 mg Q12H PRN Administration Pain , Severe (7-10) Hydromorphone HCl 0.25 mg 12/25/20 12:10 Hydromorphone 1 Mg/1 Ml Inj IV Q4H PRN Pain, Moderate (4-6) Ceftriaxone Sodium 2 gm in 100 mls @ 200 mls/hr 12/25/20 14:00 01/01/21 15:46 Rocephin/Ns 2 Gm/100 Ml IV 200 mls/hr Q24H [facility] Administration Protocol Azithromycin 500 mg in 250 mls @ 250 mls/hr 12/25/20 13:00 01/01/21 15:46 Zithromax/Ns IV 250 mls/hr Q24H [facility] Administration Protocol Lisinopril 10 mg 12/26/20 10:00 01/01/21 10:38 Lisinopril 10 Mg Tab PO 10 mg QDAY [facility] Administration Methylprednisolone Sodium Succinate 40 mg 12/26/20 06:00 01/02/21 05:16 Methylprednisolone Sod Succinate 125 Mg/2 Ml Inj IV 40 mg Q8H TIAN Administration Metoprolol Tartrate 100 mg 12/25/20 22:00 01/01/21 21:58 Metoprolol Tartrate 100 Mg Tab PO 100 mg BID TIAN Administration Mycophenolate Mofetil 1,000 mg 12/25/20 22:00 01/01/21 21:59 Mycophenolate 500 Mg Tab PO 1,000 mg BID TIAN Administration Nifedipine 30 mg 12/26/20 10:00 01/01/21 10:34 Nifedipine Xl 30 Mg Tab PO 30 mg QDAY TIAN Administration Ondansetron HCl 4 mg 12/25/20 11:59 01/01/21 10:27 Ondansetron 4 Mg/2 Ml Inj IV 4 mg Q8H PRN Administration Nausea And Vomiting Oxycodone/Acetaminophen 1 tab 12/25/20 11:59 01/01/21 10:27 Oxycodone /Acetaminophen 5-325mg Tab PO 1 tab Q12H PRN Administration Pain, Moderate (4-6) Pantoprazole Sodium 40 mg 12/26/20 10:00 01/01/21 10:16 Pantoprazole 40 Mg Tab PO 40 mg DAILY TIAN Administration Sodium Chloride 10 ml 12/25/20 22:00 01/01/21 22:00 Sodium Chloride 0.9% 10 Ml Flush Syringe IV 10 ml BID TIAN Administration Sodium Chloride 10 ml 12/25/20 11:59 Sodium Chloride 0.9% 10 Ml Flush Syringe IV PRN PRN LINE FLUSH Sodium Polystyrene Sulfonate 30 gm 01/02/21 07:30 Sodium Polystyrene 15 Gm/60 Ml Oral Liqd PO 01/02/21 12:00 ONCE@0730 NR Tacrolimus 3 mg 12/26/20 10:00 01/01/21 10:34 Tacrolimus 1 Mg Cap PO 3 mg QAM TIAN Administration Tacrolimus 4 mg 12/26/20 22:00 01/01/21 21:59 Tacrolimus 1 Mg Cap PO 4 mg QHS TIAN Administration Tamsulosin HCl 0.4 mg 12/25/20 22:00 01/01/21 21:58 Tamsulosin 0.4 Mg Cap PO 0.4 mg BID TIAN Administration Zinc Sulfate 220 mg 12/25/20 22:00 01/01/21 21:58 Zinc Sulfate 220 Mg Cap PO 220 mg BID TIAN Administration
[2021-01-02] MEDS: ATOVAQUONE 750 MG/5 ML ORAL SUSP PO SCH ×2 (09:47→21:37)
[2021-01-02] MEDS: NIFEdipine XL 30 MG TAB PO SCH (09:48)
[2021-01-02] MEDS: TAMSULOSIN 0.4 MG CAP PO SCH ×2 (09:49→21:43)
[2021-01-02] MEDS: TACROLIMUS 1 MG CAP PO SCH ×2 (09:49→21:36)
[2021-01-02] MEDS: LISINOPRIL 10 MG TAB PO SCH (09:50)
[2021-01-02] MEDS: MYCOPHENOLATE 500 MG TAB PO SCH ×2 (09:50→21:34)
[2021-01-02] MEDS: PANTOPRAZOLE 40 MG TAB PO SCH (09:51)
[2021-01-02] MEDS: ZINC SULFATE 220 MG CAP PO SCH ×2 (09:52→21:43)
[2021-01-02] MEDS: guaiFENesin ER 600 MG TAB PO SCH ×2 (09:52→21:36)
[2021-01-02] MEDS: CHOLECALCIFEROL (VIT D3) 1000 UNIT (25 mcg) TAB PO SCH (09:52)
[2021-01-02] MEDS: METOPROLOL TARTRATE 100 MG TAB PO SCH ×2 (09:52→21:37)
[2021-01-02] MEDS: ASCORBIC ACID 500 MG TAB PO SCH ×2 (09:53→21:35)
[2021-01-02] MEDS: ONDANSETRON 4 MG/2 ML INJ IV PRN (09:53)
--- NOTE | 2021-01-02 10:11 | Progress Note ---
Assessment and Plan Cultures: 12/15/2020 SARS CoV2 PCR: Positive 12/25/2020 blood culture: No growth 12/25/2020 urine culture: No growth A/P: 60-year-old male with obesity, renal transplant in 2017, hypertension, anemia was diagnosed with COVID-19 infection and was discharged on 12/22/2020 after having completed Remdesivir and was also receiving steroids has now been readmitted to the hospital with worsening shortness of breath: #Bilateral pneumonia: Secondary to COVID-19. D-dimer extremely high but VQ negative for PE and DVT scan also negative. CT scan showed progression of pneumonia, Hypoxia progressed to requiring nonrebreather mask with high flow nasal cannula. CRP 10.9, ferritin >2000 #Acute hypoxic respiratory failure: secondary to above. Now on non-rebreather #Kidney transplant/immunosuppressed host: Currently on mycophenolate and tacrolimus. Recs: continue steroids, empiric abx (Complete 8 days of antibiotics) Recently received remdesivir, no benefit with repeating course Received Actemra 12/28/2020 Fungitell, Aspergillus galactomannan ordered; pending Given significant immunosuppression, Mepron ordered as prophylaxis high d-dimer, on anticoagulation Poor prognosis given disease progression in spite of treatment and his underlying immunosuppression Kai Rene MD [facility] O: [phone] F: [phone] Subjective Date of service: 01/02/21 Principal diagnosis: MARSHA Interval history: Afebrile, normal white count. On non-rebreather Objective - Exam Narrative Exam: Physical exam deferred to reduce risk of transmission of COVID-19. Please refer to primary team's note. - Constitutional Vitals: Vital Signs Temp Pulse Resp BP Pulse Ox 97.5 F L 100 H 22 127/89 85 01/02/21 05:58 01/02/21 09:50 01/02/21 05:58 01/02/21 09:50 01/02/21 09:53 Temperature -Last 24 Hours Temperature 97.5 F Temperature 97.7 F Temperature 98.0 F Temperature 97 F - Labs CBC & Chem 7: 01/01/21 07:06 01/01/21 08:55 Labs: Abnormal lab results 01/01/21 Range/Units 08:55 Potassium 5.7 H D (3.6-5.0) mmol/L Carbon Dioxide 17 L (22-30) mmol/L BUN 44 H (9-20) mg/dL Glucose 123 H (75-100) mg/dL
[2021-01-02] MEDS: ALPRAZolam 0.25 MG TAB PO SCH ×2 (10:13→21:38)
--- NOTE | 2021-01-02 10:26 | Progress Note ---
Assessment and Plan Assessment and plan: 60 YO Male with Obesity Hypoventilation Syndrome, kidney transplant, HTN, GERD, Anemia Chronic Disease, Coronavirus Infection diagnosed 2 weeks and discharged 3 days sorry, who failed outpatient therapy and currently on 2L/min Home oxygen via [place], CKD S/P Renal Transplant currently on anti graft rejection therapy presents to ED for evaluation. Patient reports "I cannot breathe". Patient states that he has experienced shortness of breath over the past 1 week with persistent and worsening symptoms over the same timeframe. Patient was diagnosed with coronavirus infection 2 weeks ago and was treated with outpatient therapy as well as supplemental oxygen at 2 L via nasal cannula. Patient states that he has experienced worsening shortness of breath over the past 1 week, fatigue, malaise, generalized weakness. EMS was notified and upon arrival the patient was found to be in distress and was found to have a pulse oximetry in the 70s while on 2 L nasal cannula. The patient was treated with oxygen via nonrebreather mask and subsequently transported to [facility] for further care and evaluation of the aforementioned symptoms. The patient was seen and evaluated in the emergency department. All lab and imaging studies reviewed. Patient found to have a pulse oximetry in the 70s on submental oxygen and was subsequently placed on high flow supplemental oxygen due to acute hypoxemic respiratory failure. Patient underwent chest x- ray and was found to have bilateral pneumonia secondary to sepsis. Patient also found to have acidosis. Patient initiated on sepsis protocol as well as coronavirus pneumonia protocol and admitted to medical floor. Patient denies fever, chills, chest pain, palpitation, skin rash, trauma, or known ill contacts. Prior admission on 12/15/2020 reviewed. All medication listed at time of admission has been reconciled. Advanced care planning conducted in ED. Patient reports that he had both of his COVID-19 vaccines with past medical history of hypertension, GERD, kidney transplant in 2017 was brought to the emergency room because of abdominal pain, body aches, fever, cough for last 2 days. The patient had been treated on dexamethasone for total 10 days and remdesivir total 5 days as patient is immunocompromised patient,-Antibiotic was not required as procalcitonin level was normal, -Patient was given anticoagulation per protocol, Patient was deemed to be stable and was discharged on home oxygen but returned as noted above with worsening hypoxia and now on Full dose 12/26: Continue current management, will check d,dimer and possible VQ scan, Will keep on full dose anticoagulation until proven not to have Pulmonary Embolism. Check Doppler for DVT prophy. Monitor Plt. 12/27: Patient remains critically ill sepsis secondary to Covid plan to vaccine ID input noted patient had previously completed remdesivir no indication for noted. Continue steroid therapy and has home antirejection medications. No pulmonary embolism noted home or DVT noted continue to monitor on anticoagulation monitor thrombocytopenia closely. Will give additional dose of Lasix today for negative fluid balance we will monitor renal function closely 12/28: Continue supportive care, steroids, oxygen, anticoagulation. Wean oxygen as tolerated, nephrology consulted to assist with management as patient is a renal transplant. Patient still with tachycardic. Will likely need LTAC for slow weaning. Unfortunately I cannot place him in IMCU or ICU due to lack of be d in the hospital ideally he is appropriate for dose units minimum stepdown unit. 12/29; patient is on 40 L of high flow oxygen. Was given Actemra yesterday. Continue with Solu-Medrol 40 mg 3 times daily. Pulmonary and ID is following. Patient may need LTAC placement at discharge. Patient is concerned about his transplant medications but they were resumed. 12/30; patient was on 40 L of high flow oxygen. Patient was given Actemra. Patient was given remdesivir on his previous admission and no need to repeat it. Patient is on Solu-Medrol 40 mg 3 times daily. Patient may need LTAC placeme nt. His renal transplant medications were resumed. Nephrology is following. 12/31 patient is alert and oriented and moderately dyspneic, he is on BiPAP with 100% FiO2, he denies any cough fever chills or chest pain. Pulmonary nephrology and ID notes reviewed 01/01 remains on BiPAP, alert and oriented, lab results reviewed, 01/02: Patient remains on high flow nasal cannula at home all the 100% no significant improvement. Unfortunately to my understanding the is on the vent at another facility. Prognosis remains poor despite immunosuppression. Continue HD for correction on Hyperkalemia Per pulmonary High mortality with intubation. Encourage proining (1) Sepsis ruled out Current Visit: Yes Status: Acute Qualifiers: Acute respiratory failure type: with hypoxia Plan to address problem: Blood cultures and urine cultures negative Leukocytosis likely secondary to steroids Continue empiric IV antibiotics as the patient is immunosuppressed ID note reviewed (2) Pneumonia secondary to COVID-19 Current Visit: Yes Status: Acute Plan to address problem: History of recently receiving remdesivir therapy Pulmonary and ID notes reviewed Continue steroids 3) D-dimer severely elevated VQ scan and lower extremity venous Doppler negative for PE/DVT (4) Obesity hypoventilation syndrome Current Visit: Yes Status: Acute Plan to address problem: Balanced diet, increase physical activity discharge, outpatient pulmonary follow-up for sleep study. (5) Acute Hypoxia respiratory failure Current Visit: Yes Status: Acute Plan to address problem: Continue BiPAP with 100% FiO2 Prognosis guarded to poor Pulmonary note reviewed and appreciated (6) Hyponatremia Improving Serum sodium 132 (7) Thrombocytopenia Stable Platelets 106 this morning Monitor (8) DVT prophylaxis Current Visit: Yes Status: Acute Plan to address problem: SCD to bilateral lower extremities while in bed, prophylactic anticoagulation 9)hyperkalemia,-we will order Kayexalate and recheck electrolytes in a.m. Pulmonary following and note reviewed 10) we will add anti anxiety medication as the patient looks anxious with the BiPAP History Interval history: Patient seen and examined, Hypoxic and on NRMB, High flow. While he is able to complete sentences he is still significantly hypoxic Hospitalist Physical - Physical exam Narrative exam: Limited physical exam due to COVID-19 pandemic to minimize transmission of the disease and to preserve PPE. Vital reviewed and stable. GENERAL: well-developed well-nourished lying in bed, acute shortness of breath on NRBM AND Highflow HEENT: Normocephalic. Atraumatic. NECK: Supple. CHEST/LUNGS: breathing labored. HEART/CARDIOVASCULAR: Heart rate stable on telemetry ABDOMEN: Visibly not distended SKIN: There is no rash, left UE AV Fistula NEURO: No focal motor deficit. Follows command. MUSCULOSKELETAL: No joint effusion EXTRIMITY: No swelling, clubbing. PSYCH: Cooperative. - Constitutional Vitals: Temp Pulse Resp BP Pulse Ox 97.5 F L 100 H 22 127/89 85 01/02/21 05:58 01/02/21 09:50 01/02/21 05:58 01/02/21 09:50 01/02/21 09:53 General appearance: Present: mild distress, well-nourished HEART Score - HEART Score Troponin: Troponin T < 0.010 ng/mL (0.00-0.029) 12/25/20 08:33 Results - Labs CBC & Chem 7: 01/02/21 11:23 01/02/21 11:23 Labs: Laboratory Last Values WBC 16.4 K/mm3 (4.5-11.0) H 01/01/21 07:06 RBC 5.85 M/mm3 (3.65-5.03) H 01/01/21 07:06 Hgb 17.9 gm/dl (11.8-15.2) H 01/01/21 07:06 Hct 53.7 % (35.5-45.6) H 01/01/21 07:06 MCV 92 fl (84-94) 01/01/21 07:06 MCH 31 pg (28-32) 01/01/21 07:06 MCHC 33 % (32-34) 01/01/21 07:06 RDW 14.3 % (13.2-15.2) 01/01/21 07:06 Plt Count 87 K/mm3 (140-440) L 01/01/21 07:06 Add Manual Diff Complete 12/26/20 04:58 Total Counted 100 12/26/20 04:58 Seg Neutrophils % [employer] 12/26/20 04:58 Seg Neuts % (Manual) 96.0 % (40.0-70.0) H 12/26/20 04:58 Band Neutrophils % 1.0 % 12/26/20 04:58 Lymphocytes % (Manual) 3.0 % (13.4-35.0) L 12/26/20 04:58 Nucleated RBC % Not Reportable 12/26/20 04:58 Seg Neutrophils # Man 12.6 K/mm3 (1.8-7.7) H 12/26/20 04:58 Band Neutrophils # 0.1 K/mm3 12/26/20 04:58 Lymphocytes # (Manual) 0.4 K/mm3 (1.2-5.4) L 12/26/20 04:58 Abs React Lymphs (Man) 0.0 K/mm3 12/26/20 04:58 Monocytes # (Manual) 0.0 K/mm3 (0.0-0.8) 12/26/20 04:58 Eosinophils # (Manual) 0.0 K/mm3 (0.0-0.4) 12/26/20 04:58 Basophils # (Manual) 0.0 K/mm3 (0.0-0.1) 12/26/20 04:58 Metamyelocytes # 0.0 K/mm3 12/26/20 04:58 Myelocytes # 0.0 K/mm3 12/26/20 04:58 Promyelocytes # 0.0 K/mm3 12/26/20 04:58 Blast Cells # 0.0 K/mm3 12/26/20 04:58 WBC Morphology Not Reportable 12/26/20 04:58 Hypersegmented Neuts Not Reportable 12/26/20 04:58 Hyposegmented Neuts Not Reportable 12/26/20 04:58 Hypogranular Neuts Not Reportable 12/26/20 04:58 Smudge Cells Not Reportable 12/26/20 04:58 Toxic Granulation Not Reportable 12/26/20 04:58 Toxic Vacuolation Not Reportable 12/26/20 04:58 Dohle Bodies Not Reportable 12/26/20 04:58 Pelger-Huet Anomaly Not Reportable 12/26/20 04:58 Marbin Rods Not Reportable 12/26/20 04:58 Platelet Estimate Consistent w auto 12/26/20 04:58 Clumped Platelets Not Reportable 12/26/20 04:58 Plt Clumps, EDTA Not Reportable 12/26/20 04:58 Large Platelets Not Reportable 12/26/20 04:58 Giant Platelets Not Reportable 12/26/20 04:58 Platelet Satelliting Not Reportable 12/26/20 04:58 Plt Morphology Comment Not Reportable 12/26/20 04:58 RBC Morphology Normal 12/26/20 04:58 Dimorphic RBCs Not Reportable 12/26/20 04:58 Polychromasia Not Reportable 12/26/20 04:58 Hypochromasia Not Reportable 12/26/20 04:58 Poikilocytosis Not Reportable 12/26/20 04:58 Anisocytosis Not Reportable 12/26/20 04:58 Microcytosis Not Reportable 12/26/20 04:58 Macrocytosis Not Reportable 12/26/20 04:58 Spherocytes Not Reportable 12/26/20 04:58 Pappenheimer Bodies Not Reportable 12/26/20 04:58 Sickle Cells Not Reportable 12/26/20 04:58 Target Cells Not Reportable 12/26/20 04:58 Tear Drop Cells Not Reportable 12/26/20 04:58 Ovalocytes Not Reportable 12/26/20 04:58 Helmet Cells Not Reportable 12/26/20 04:58 David-Jamul Bodies Not Reportable 12/26/20 04:58 [place] Rings Not Reportable 12/26/20 04:58 [place] Cells Not Reportable 12/26/20 04:58 Bite Cells Not Reportable 12/26/20 04:58 Crenated Cell Not Reportable 12/26/20 04:58 Elliptocytes Not Reportable 12/26/20 04:58 Acanthocytes (Spur) Not Reportable 12/26/20 04:58 Rouleaux Not Reportable 12/26/20 04:58 Hemoglobin C Crystals Not Reportable 12/26/20 04:58 Schistocytes Not Reportable 12/26/20 04:58 Malaria parasites Not Reportable 12/26/20 04:58 Woodrow Bodies Not Reportable 12/26/20 04:58 Hem Pathologist Commnt No 12/26/20 04:58 APTT 32.3 Sec. (24.2-36.6) 12/25/20 08:33 D-Dimer 6202.36 ng/mlDDU (0-234) H 01/01/21 07:06 ABG pH 7.481 (7.320-7.450) H 12/25/20 10:13 POC ABG pCO2 20.7 mmHg (32.0-48.0) L 12/25/20 10:13 POC ABG pO2 62.0 mmHg (83-108) L 12/25/20 10:13 POC ABG HCO3 15.1 12/25/20 10:13 ABG O2 Saturation 92.4 (0-100) 12/25/20 10:13 POC ABG Base Excess -5.8 12/25/20 10:13 ABG Hemoglobin 15.0 (12.0-17.5) 12/25/20 10:13 ABG Oxyhemoglobin 91.6 (94-98) L 12/25/20 10:13 ABG Methemoglobin 0.3 (0.0-1.5) 12/25/20 10:13 ABG Sodium 119.3 mmol/L (136.0-145.0) L 12/25/20 10:13 ABG Potassium 4.2 mmol/L (3.40-4.50) 12/25/20 10:13 ABG Chloride 95.0 mmol/L (98-107) L 12/25/20 10:13 ABG Glucose 122 mg/dL (65-95) H 12/25/20 10:13 Carboxyhemoglobin 0.6 (0.5-1.5) 12/25/20 10:13 FiO2 % 100.0 12/25/20 10:13 Sodium 137 mmol/L (137-145) 01/01/21 08:55 Potassium 5.7 mmol/L (3.6-5.0) H D 01/01/21 08:55 Chloride 105.8 mmol/L (98-107) 01/01/21 08:55 Carbon Dioxide 17 mmol/L (22-30) L 01/01/21 08:55 Anion Gap 20 mmol/L 01/01/21 08:55 BUN 44 mg/dL (9-20) H 01/01/21 08:55 Creatinine 1.1 mg/dL (0.8-1.3) 01/01/21 08:55 Estimated GFR > 60 ml/min 01/01/21 08:55 BUN/Creatinine Ratio 40 % 01/01/21 08:55 Glucose 123 mg/dL (75-100) H 01/01/21 08:55 Osmolality 291 Mosm/kg 12/28/20 10:02 Lactic Acid 1.50 mmol/L (0.7-2.0) 12/25/20 23:38 Calcium 9.5 mg/dL (8.4-10.2) 01/01/21 08:55 Ferritin > 2000.0 ng/mL (30.0-300.0) H 12/28/20 10:02 Total Bilirubin TNR 01/01/21 07:06 AST TNR 01/01/21 07:06 ALT TNR 01/01/21 07:06 Alkaline Phosphatase TNR 01/01/21 07:06 Lactate Dehydrogenase TNR 01/01/21 07:06 Troponin T < 0.010 ng/mL (0.00-0.029) 12/25/20 08:33 C-Reactive Protein TNR 01/01/21 07:06 Total Protein TNR 01/01/21 07:06 Albumin TNR 01/01/21 07:06 Albumin/Globulin Ratio TNR 01/01/21 07:06 Procalcitonin 0.68 ng/mL (<0.15) 12/28/20 10:02 Arterial Blood Glucose 122 mg/dL (65-95) H 12/25/20 10:13 Arterial Blood Ionized Calcium 4.8 mg/dL (4.6-5.3) 12/25/20 10:13 Urine Color Straw (Yellow) 12/25/20 13:30 Urine Turbidity Clear (Clear) 12/25/20 13:30 Urine pH 7.0 (5.0-7.0) 12/25/20 13:30 Ur Specific [place] 1.003 (1.003-1.030) 12/25/20 13:30 Urine Protein <15 mg/dl mg/dL (Negative) 12/25/20 13:30 Urine Glucose (UA) Neg mg/dL (Negative) 12/25/20 13:30 Urine Ketones Neg mg/dL (Negative) 12/25/20 13:30 Urine Blood Sm (Negative) 12/25/20 13:30 Urine Nitrite Neg (Negative) 12/25/20 13:30 Urine Bilirubin Neg (Negative) 12/25/20 13:30 Urine Urobilinogen < 2.0 mg/dL (<2.0) 12/25/20 13:30 Ur Leukocyte Esterase Neg (Negative) 12/25/20 13:30 Urine WBC (Auto) 1.0 /HPF (0.0-6.0) 12/25/20 13:30 Urine RBC (Auto) < 1.0 /HPF (0.0-6.0) 12/25/20 13:30 U Epithel Cells (Auto) < 1.0 /HPF (0-13.0) 12/25/20 13:30 Coronavirus (PCR) Positive (Negative) A 12/27/20 Unknown SARS-CoV-2 IgG Ab Reactive (NonReactive) A 12/28/20 10:02 Blood Type A POSITIVE 12/25/20 08:36 Antibody Screen Negative 12/25/20 08:36 Winters/IV: Voiding Method Urinal Active Medications - Current Medications Current Medications: Generic Name Dose Route Start Last Admin Trade Name Freq PRN Reason Stop Dose Admin Acetaminophen 650 mg 12/25/20 11:59 Acetaminophen 325 Mg Tab PO Q4H PRN Pain MILD(1-3)/Fever >100.5/BHARDWAJ Albuterol 2.5 mg 12/25/20 11:59 Albuterol 2.5 Mg/3 Ml Nebu IH Q4HRT PRN Shortness Of Breath Alprazolam 0.25 mg 01/01/21 10:00 01/02/21 10:13 Alprazolam 0.25 Mg Tab PO 01/04/21 09:59 0.25 mg Q12HR TIAN Administration Ascorbic Acid 500 mg 12/25/20 22:00 01/02/21 09:53 Ascorbic Acid 500 Mg Tab PO 500 mg BID TIAN Administration Atovaquone 750 mg 12/29/20 15:00 01/02/21 09:47 Atovaquone 750 Mg/5 Ml Oral Susp PO 750 mg BID TIAN Administration Cholecalciferol 1,000 unit 12/26/20 10:00 01/02/21 09:52 Cholecalciferol (Vit D3) 1000 Unit (25 Mcg) Tab PO 1,000 unit QDAY TIAN Administration Enoxaparin Sodium 90 mg 12/26/20 15:00 01/01/21 21:59 Enoxaparin 100 Mg/1 Ml Inj 1 mg/kg (90 mg) 90 mg SUB-Q Administration BID [facility] Protocol Guaifenesin 600 mg 12/25/20 22:00 01/02/21 09:52 Guaifenesin Er 600 Mg Tab PO 600 mg BID TIAN Administration Hydromorphone HCl 0.5 mg 12/25/20 11:59 12/29/20 21:58 Hydromorphone 1 Mg/1 Ml Inj IV 0.5 mg Q12H PRN Administration Pain , Severe (7-10) Hydromorphone HCl 0.25 mg 12/25/20 12:10 Hydromorphone 1 Mg/1 Ml Inj IV Q4H PRN Pain, Moderate (4-6) Ceftriaxone Sodium 2 gm in 100 mls @ 200 mls/hr 12/25/20 14:00 01/01/21 15:46 Rocephin/Ns 2 Gm/100 Ml IV 01/02/21 13:59 200 mls/hr Q24H TIAN Administration Protocol Azithromycin 500 mg in 250 mls @ 250 mls/hr 12/25/20 13:00 01/01/21 15:46 Zithromax/Ns IV 01/02/21 12:59 250 mls/hr Q24H TIAN Administration Protocol Lisinopril 10 mg 12/26/20 10:00 01/02/21 09:50 Lisinopril 10 Mg Tab PO 10 mg QDAY TIAN Administration Methylprednisolone Sodium Succinate 40 mg 12/26/20 06:00 01/02/21 05:16 Methylprednisolone Sod Succinate 125 Mg/2 Ml Inj IV 40 mg Q8H TIAN Administration Metoprolol Tartrate 100 mg 12/25/20 22:00 01/02/21 09:52 Metoprolol Tartrate 100 Mg Tab PO 100 mg BID TIAN Administration Mycophenolate Mofetil 1,000 mg 12/25/20 22:00 01/02/21 09:50 Mycophenolate 500 Mg Tab PO 1,000 mg BID TIAN Administration Nifedipine 30 mg 12/26/20 10:00 01/02/21 09:48 Nifedipine Xl 30 Mg Tab PO 30 mg QDAY TIAN Administration Ondansetron HCl 4 mg 12/25/20 11:59 01/02/21 09:53 Ondansetron 4 Mg/2 Ml Inj IV 4 mg Q8H PRN Administration Nausea And Vomiting Oxycodone/Acetaminophen 1 tab 12/25/20 11:59 01/01/21 10:27 Oxycodone /Acetaminophen 5-325mg Tab PO 1 tab Q12H PRN Administration Pain, Moderate (4-6) Pantoprazole Sodium 40 mg 12/26/20 10:00 01/02/21 09:51 Pantoprazole 40 Mg Tab PO 40 mg DAILY TIAN Administration Sodium Chloride 10 ml 12/25/20 22:00 01/02/21 09:54 Sodium Chloride 0.9% 10 Ml Flush Syringe IV 10 ml BID TIAN Administration Sodium Chloride 10 ml 12/25/20 11:59 Sodium Chloride 0.9% 10 Ml Flush Syringe IV PRN PRN LINE FLUSH Sodium Polystyrene Sulfonate 30 gm 01/02/21 07:30 01/02/21 09:46 Sodium Polystyrene 15 Gm/60 Ml Oral Liqd PO 01/02/21 12:00 30 gm ONCE@0730 NR Administration Tacrolimus 3 mg 12/26/20 10:00 01/02/21 09:49 Tacrolimus 1 Mg Cap PO 3 mg QAM TIAN Administration Tacrolimus 4 mg 12/26/20 22:00 01/01/21 21:59 Tacrolimus 1 Mg Cap PO 4 mg QHS TIAN Administration Tamsulosin HCl 0.4 mg 12/25/20 22:00 01/02/21 09:49 Tamsulosin 0.4 Mg Cap PO 0.4 mg BID TIAN Administration Zinc Sulfate 220 mg 12/25/20 22:00 01/02/21 09:52 Zinc Sulfate 220 Mg Cap PO 220 mg BID TIAN Administration Nutrition/Malnutrition Assess - Dietary Evaluation Nutrition/Malnutrition Findings: Nutrition Notes Start: 01/01/21 12:54 Freq: Status: Active Protocol: Document 01/01/21 12:54 (Rec: 01/01/21 12:59 [id number]) Nutrition Notes Need for Assessment generated from: LOS Initial or Follow up Assessment Current Diagnosis Sepsis,Respiratory Failure Other Pertinent Diagnosis hx of renal transplant, pneu, COVID 19 Current Diet Cardiac Labs/Tests K 5.7 BUN 44 Pertinent Medications Zofran Solu Medrol Height 5 ft 6 in Weight 88.5 kg [place] Body Weight (kg) 64.54 BMI 31.4 Weight Status Obese Subjective/Other Information Screen for LOS. Pt on bipap. RN reports pt was off bipap for a few minutes and was able to drink 1 cup water and 1 juice containers. Burn Absent Trauma Absent Current % PO Negligible Minimum of two criteria No #1 Nutrition Diagnosis Inadequate oral intake Etiology acute respiratory failure As Evidenced by Signs and Symptoms pt on continous bipap and consuming <10% of meals Is patient on ventilator? No Is Patient Ambulatory and/or Out of Bed No REE-([facility]-confined to bed) 1958.196 Kcal/Kg value to use for calculation 14 Approximate Energy Requirements Using 1239 kcal/Kg Calculation Used for Recommendations Kcal/kg Additional Notes Protein: (0.8-1g/kg AdjBW: 77kg) 62-77g Fluid: 1 ml/kcal or per MD Nutrition Intervention Change Diet Order: add renal Add Supplement/Snack (indicate name/kcal Nepro BID /protein ) Provides kCal: 850 Provides Protein (gm) 38 Goal #1 Meet needs as best as possbile while Anticipated Discharge Needs: Cardiac Follow-Up By: 01/03/21 Additional Comments F/u: intakes and ONS tolerance
--- NOTE | 2021-01-02 11:07 | Progress Note ---
Assessment and Plan 60 y/o male with acute respiratory failure secondary to COVID 19 pneumonia 01/02/21: suggest discussion with family as is on vent in unit so not able to help with decisions. Mortality high if intubated. very very poor prognosis. Continue supportive measures. 01/01/21: Continued marginal sats on bipap. Very very poor prognosis if intubated. Did not respond to therapy on first admit. 12/31/20: No lasix today. Will discuss with team and patient about possible intubation if not able to maintain sats on Bipap. Very very poor prognosis given no real response to therapy on first admission 12/30/20: Reviewed ID note from yesterday and agree with assessment and plan. Will give lasix 40 IV today to see if this helps with oxygenation. Overall prognosis is guarded to poor. 1. IV steroids 2. Remdesivir 3. Ask about Actemra 4. Prone 5. Net negative volume state 6. Guarded prognosis Subjective Date of service: 01/02/21 Principal diagnosis: MARSHA Interval history: Remains on combo therapy with sats in the mid to high 80's. Objective Vital Signs - 12hr 01/01/21 01/02/21 01/02/21 23:43 03:59 05:58 Temperature 97.5 F L Pulse Rate 83 Respiratory 22 Rate Blood Pressure 119/88 O2 Sat by Pulse 91 92 91 Oximetry 01/02/21 01/02/21 01/02/21 07:32 09:50 09:53 Temperature Pulse Rate 100 H Respiratory Rate Blood Pressure 127/89 O2 Sat by Pulse 94 85 Oximetry CBC and BMP: 01/01/21 07:06 01/01/21 08:55 ABG, PT/INR, D-dimer: ABG ABG pH 7.481 (7.320-7.450) H 12/25/20 10:13 POC ABG pCO2 20.7 mmHg (32.0-48.0) L 12/25/20 10:13 POC ABG pO2 62.0 mmHg (83-108) L 12/25/20 10:13 POC ABG HCO3 15.1 12/25/20 10:13 ABG O2 Saturation 92.4 (0-100) 12/25/20 10:13 PT/INR, D-dimer D-Dimer 6202.36 ng/mlDDU (0-234) H 01/01/21 07:06 Abnormal lab findings: Abnormal Labs 12/25/20 12/25/20 12/25/20 08:33 08:33 08:33 WBC 15.9 H RBC Hgb 15.3 H Hct MCHC 36 H Plt Count 133 L Seg Neuts % (Manual) 98.0 H Lymphocytes % (Manual) 1.0 L Seg Neutrophils # Man 15.6 H Lymphocytes # (Manual) 0.2 L D-Dimer ABG pH POC ABG pCO2 POC ABG pO2 ABG Oxyhemoglobin ABG Sodium ABG Chloride ABG Glucose Sodium 120 L D Potassium Chloride 90.2 L Carbon Dioxide 16 L BUN Creatinine Glucose 116 H Lactic Acid 2.40 H* Ferritin Total Bilirubin 1.30 H C-Reactive Protein Albumin 3.1 L Arterial Blood Glucose Coronavirus (PCR) SARS-CoV-2 IgG Ab 12/25/20 12/25/20 12/26/20 10:13 11:13 04:58 WBC 13.1 H RBC Hgb Hct MCHC 35 H Plt Count 113 L Seg Neuts % (Manual) 96.0 H Lymphocytes % (Manual) 3.0 L Seg Neutrophils # Man 12.6 H Lymphocytes # (Manual) 0.4 L D-Dimer ABG pH 7.481 H POC ABG pCO2 20.7 L POC ABG pO2 62.0 L ABG Oxyhemoglobin 91.6 L ABG Sodium 119.3 L ABG Chloride 95.0 L ABG Glucose 122 H Sodium Potassium Chloride Carbon Dioxide BUN Creatinine Glucose Lactic Acid 2.20 H* Ferritin Total Bilirubin C-Reactive Protein Albumin Arterial Blood Glucose 122 H Coronavirus (PCR) SARS-CoV-2 IgG Ab 12/26/20 12/27/20 12/27/20 04:58 05:28 05:28 WBC 17.5 H RBC Hgb Hct MCHC 35 H Plt Count 108 L Seg Neuts % (Manual) Lymphocytes % (Manual) Seg Neutrophils # Man Lymphocytes # (Manual) D-Dimer ABG pH POC ABG pCO2 POC ABG pO2 ABG Oxyhemoglobin ABG Sodium ABG Chloride ABG Glucose Sodium 129 L D 131 L Potassium Chloride Carbon Dioxide 17 L 17 L BUN 21 H Creatinine 0.7 L Glucose 112 H 117 H Lactic Acid Ferritin Total Bilirubin C-Reactive Protein 22.20 H Albumin Arterial Blood Glucose Coronavirus (PCR) SARS-CoV-2 IgG Ab 12/27/20 12/27/20 12/28/20 05:28 Unknown 10:02 WBC 16.9 H RBC Hgb 15.5 H Hct MCHC 35 H Plt Count 106 L Seg Neuts % (Manual) Lymphocytes % (Manual) Seg Neutrophils # Man Lymphocytes # (Manual) D-Dimer > 06962 H ABG pH POC ABG pCO2 POC ABG pO2 ABG Oxyhemoglobin ABG Sodium ABG Chloride ABG Glucose Sodium Potassium Chloride Carbon Dioxide BUN Creatinine Glucose Lactic Acid Ferritin Total Bilirubin C-Reactive Protein Albumin Arterial Blood Glucose Coronavirus (PCR) Positive A SARS-CoV-2 IgG Ab 12/28/20 12/28/20 12/28/20 10:02 10:02 10:02 WBC RBC Hgb Hct MCHC Plt Count Seg Neuts % (Manual) Lymphocytes % (Manual) Seg Neutrophils # Man Lymphocytes # (Manual) D-Dimer ABG pH POC ABG pCO2 POC ABG pO2 ABG Oxyhemoglobin ABG Sodium ABG Chloride ABG Glucose Sodium 132 L Potassium Chloride Carbon Dioxide 16 L BUN 30 H Creatinine Glucose 127 H Lactic Acid Ferritin > 2000.0 H Total Bilirubin C-Reactive Protein 10.90 H Albumin 2.3 L Arterial Blood Glucose Coronavirus (PCR) SARS-CoV-2 IgG Ab Reactive A 01/01/21 01/01/21 01/01/21 07:06 07:06 08:55 WBC 16.4 H RBC 5.85 H Hgb 17.9 H Hct 53.7 H MCHC Plt Count 87 L Seg Neuts % (Manual) Lymphocytes % (Manual) Seg Neutrophils # Man Lymphocytes # (Manual) D-Dimer 6202.36 H ABG pH POC ABG pCO2 POC ABG pO2 ABG Oxyhemoglobin ABG Sodium ABG Chloride ABG Glucose Sodium Potassium 5.7 H D Chloride Carbon Dioxide 17 L BUN 44 H Creatinine Glucose 123 H Lactic Acid Ferritin Total Bilirubin C-Reactive Protein Albumin Arterial Blood Glucose Coronavirus (PCR) SARS-CoV-2 IgG Ab
[2021-01-02] MEDS: ENOXAPARIN 100 MG/1 ML INJ SUB-Q SCH ×2 (11:15→22:53)
[2021-01-02 12:17] LABS: Hematocrit 47.6 % (35.5-45.6); Hemoglobin 15.7 gm/dl (11.8-15.2); Mean Corpuscular HGB Conc 33 % (32-34); Mean Corpuscular Volume 93 fl (84-94); Platelet Count 106 K/mm3 (140-440); Red Blood Count 5.11 M/mm3 (3.65-5.03); Red Cell Distribution Width 14.4 % (13.2-15.2)
[2021-01-02 12:29] LABS: BUN/Creatinine Ratio 46; Blood Urea Nitrogen 46 mg/dL (9-20); Calcium 9.3 mg/dL (8.4-10.2); Hemolysis Index 123
[2021-01-02] MEDS: HYDROmorphone 1 MG/1 ML INJ IV PRN (19:00)
[2021-01-02] MEDS: oxyCODONE /ACETAMINOPHEN 5-325MG TAB PO PRN (21:35)
[2021-01-03] MEDS: methylPREDNISolone Sod Succinate 125 MG/2 ML INJ IV SCH ×3 (05:33→22:12)
--- NOTE | 2021-01-03 09:36 | Progress Note ---
Assessment and Plan - Patient Problems (1) Hyponatremia Current Visit: No Status: Chronic Plan to address problem: In the setting of COVID-19 pneumonia, possible SIADH component. Na normalized. (2) Kidney transplant recipient Current Visit: No Status: Acute Plan to address problem: Continue current immunosuppression regimen. Overall renal allograft function remains stable. (3) Pneumonia due to COVID-19 virus Current Visit: No Status: Acute Plan to address problem: Continues on IV steriods and empiric antibiotics. Given dose of Acterma. CT chest was concerning for progression of b/l pneumonia. No clinical benefit from repeating another course of remdesivir, as he had completed the full regimen during his most recent hospital visit. ID recommendations appreciated. (4) HTN (hypertension) Current Visit: No Status: Acute Qualifiers: Hypertension type: essential hypertension Plan to address problem: Monitor blood pressure under current regimen. (5) Hyperkalemia Current Visit: Yes Status: Acute Plan to address problem: treated with kayexelate, cont 2g K renal diet. Will recheck BMP if persistent hyperkalemia along with metabolic acidosis noted, will start IV bicarb gtt Subjective Date of service: 01/03/21 Principal diagnosis: MARSHA Interval history: On high flow NC. Received treatment with actemra and IV dexamethasone Objective - Exam Narrative Exam: Patient not directly examined in order to preserve PPE and decrease chance of transmission of COVID-19. Physical examination from primary notes reviewed. - Vital Signs Vital signs: Vital Signs - 12hr 01/02/21 01/03/21 01/03/21 23:56 02:42 05:24 Temperature 98.3 F Pulse Rate 99 H Respiratory 33 H 24 Rate Blood Pressure 115/77 O2 Sat by Pulse 95 90 90 Oximetry - Lab 01/02/21 11:23 01/02/21 11:23 Most recent lab results ABG pH 7.481 (7.320-7.450) H 12/25/20 10:13 ABG O2 Saturation 92.4 (0-100) 12/25/20 10:13 Calcium 9.3 mg/dL (8.4-10.2) 01/02/21 11:23 Medications & Allergies - Medications Allergies/Adverse Reactions: Allergies No Known Allergies Allergy (Verified 12/14/20 15:36) Home Medications: Home Medications Medication Instructions Recorded Confirmed Last Taken Type Metoprolol [Lopressor TAB] 100 mg PO BID 12/28/14 12/28/20 04/15/18 09:00 History Omeprazole 40 mg PO DAILY 04/10/18 12/28/20 04/15/18 09:00 History Prednisone [predniSONE (Mariluz) ER 5 mg PO QDAY 04/10/18 12/28/20 04/15/18 09:00 History TAB] Tamsulosin HCl [Flomax] 0.4 mg PO BID 04/10/18 12/28/20 04/15/18 09:00 History Albuterol Mdi (or & Nicu Only) 2 puff IH QID PRN #8.5 gram 12/22/20 12/28/20 Unknown Rx [ProAir HFA Inhaler] Mycophenolate [Cellcept] 1,000 mg PO BID #60 tablet 12/22/20 12/28/20 Unknown Rx NIFEdipine XL [Procardia Xl] 30 mg PO QDAY #30 tablet 12/22/20 12/28/20 Unknown Rx dexAMETHasone [Decadron] 6 mg PO DAILY #4 tablet 12/22/20 12/28/20 Unknown Rx guaiFENesin ER [Mucinex ER] 600 mg PO BID #14 tablet 12/22/20 12/28/20 Unknown Rx lisinopriL [Zestril TAB] 10 mg PO QDAY #30 tablet 12/22/20 12/28/20 Unknown Rx Tacrolimus [Prograf] 4 mg PO QAM 12/26/20 12/28/20 Unknown History Tacrolimus [Prograf] 5 mg PO QPM 12/26/20 12/28/20 Unknown History Active Medications: Generic Name Dose Route Start Last Admin Trade Name Freq PRN Reason Stop Dose Admin Acetaminophen 650 mg 12/25/20 11:59 Acetaminophen 325 Mg Tab PO Q4H PRN Pain MILD(1-3)/Fever >100.5/BHARDWAJ Albuterol 2.5 mg 12/25/20 11:59 Albuterol 2.5 Mg/3 Ml Nebu IH Q4HRT PRN Shortness Of Breath Alprazolam 0.25 mg 01/01/21 10:00 01/02/21 21:38 Alprazolam 0.25 Mg Tab PO 01/04/21 09:59 0.25 mg Q12HR TIAN Administration Ascorbic Acid 500 mg 12/25/20 22:00 01/02/21 21:35 Ascorbic Acid 500 Mg Tab PO 500 mg BID TIAN Administration Atovaquone 750 mg 12/29/20 15:00 01/02/21 21:37 Atovaquone 750 Mg/5 Ml Oral Susp PO 750 mg BID TIAN Administration Cholecalciferol 1,000 unit 12/26/20 10:00 01/02/21 09:52 Cholecalciferol (Vit D3) 1000 Unit (25 Mcg) Tab PO 1,000 unit QDAY TIAN Administration Enoxaparin Sodium 90 mg 12/26/20 15:00 01/02/21 22:53 Enoxaparin 100 Mg/1 Ml Inj 1 mg/kg (90 mg) 90 mg SUB-Q Administration BID [facility] Protocol Guaifenesin 600 mg 12/25/20 22:00 01/02/21 21:36 Guaifenesin Er 600 Mg Tab PO 600 mg BID TIAN Administration Hydromorphone HCl 0.5 mg 12/25/20 11:59 01/02/21 19:00 Hydromorphone 1 Mg/1 Ml Inj IV 0.5 mg Q12H PRN Administration Pain , Severe (7-10) Hydromorphone HCl 0.25 mg 12/25/20 12:10 Hydromorphone 1 Mg/1 Ml Inj IV Q4H PRN Pain, Moderate (4-6) Methylprednisolone Sodium Succinate 40 mg 12/26/20 06:00 01/03/21 05:33 Methylprednisolone Sod Succinate 125 Mg/2 Ml Inj IV 40 mg Q8H TIAN Administration Metoprolol Tartrate 100 mg 12/25/20 22:00 01/02/21 21:37 Metoprolol Tartrate 100 Mg Tab PO 100 mg BID TIAN Administration Mycophenolate Mofetil 1,000 mg 12/25/20 22:00 01/02/21 21:34 Mycophenolate 500 Mg Tab PO 1,000 mg BID TIAN Administration Nifedipine 30 mg 12/26/20 10:00 01/02/21 09:48 Nifedipine Xl 30 Mg Tab PO 30 mg QDAY TIAN Administration Ondansetron HCl 4 mg 12/25/20 11:59 01/02/21 09:53 Ondansetron 4 Mg/2 Ml Inj IV 4 mg Q8H PRN Administration Nausea And Vomiting Oxycodone/Acetaminophen 1 tab 12/25/20 11:59 01/02/21 21:35 Oxycodone /Acetaminophen 5-325mg Tab PO 1 tab Q12H PRN Administration Pain, Moderate (4-6) Pantoprazole Sodium 40 mg 12/26/20 10:00 01/02/21 09:51 Pantoprazole 40 Mg Tab PO 40 mg DAILY TIAN Administration Sodium Chloride 10 ml 12/25/20 22:00 01/02/21 21:38 Sodium Chloride 0.9% 10 Ml Flush Syringe IV 10 ml BID TIAN Administration Sodium Chloride 10 ml 12/25/20 11:59 Sodium Chloride 0.9% 10 Ml Flush Syringe IV PRN PRN LINE FLUSH Sodium Polystyrene Sulfonate 30 gm 01/03/21 09:34 Sodium Polystyrene 15 Gm/60 Ml Oral Liqd PO 01/03/21 09:35 ONCE ONE Tacrolimus 3 mg 12/26/20 10:00 01/02/21 09:49 Tacrolimus 1 Mg Cap PO 3 mg QAM TIAN Administration Tacrolimus 4 mg 12/26/20 22:00 01/02/21 21:36 Tacrolimus 1 Mg Cap PO 4 mg QHS TIAN Administration Tamsulosin HCl 0.4 mg 12/25/20 22:00 01/02/21 21:43 Tamsulosin 0.4 Mg Cap PO 0.4 mg BID TIAN Administration Zinc Sulfate 220 mg 12/25/20 22:00 01/02/21 21:43 Zinc Sulfate 220 Mg Cap PO 220 mg BID TIAN Administration
[2021-01-03] MEDS ORDERED: SODIUM POLYSTYRENE 15 GM/60 ML ORAL LIQD PO NR ×2 (10:00→15:30)
[2021-01-03] MEDS: ENOXAPARIN 100 MG/1 ML INJ SUB-Q SCH ×2 (10:22→22:11)
[2021-01-03] MEDS: guaiFENesin ER 600 MG TAB PO SCH ×3 (10:23→22:22)
[2021-01-03] MEDS: ALPRAZolam 0.25 MG TAB PO SCH ×2 (10:23→22:15)
[2021-01-03] MEDS: PANTOPRAZOLE 40 MG TAB PO SCH (10:23)
[2021-01-03] MEDS: ASCORBIC ACID 500 MG TAB PO SCH ×2 (10:23→22:15)
[2021-01-03] MEDS: ATOVAQUONE 750 MG/5 ML ORAL SUSP PO SCH ×3 (10:23→22:23)
[2021-01-03] MEDS: MYCOPHENOLATE 500 MG TAB PO SCH ×2 (10:24→22:30)
[2021-01-03] MEDS: CHOLECALCIFEROL (VIT D3) 1000 UNIT (25 mcg) TAB PO SCH (10:24)
[2021-01-03] MEDS: TACROLIMUS 1 MG CAP PO SCH ×2 (10:26→22:32)
[2021-01-03] MEDS: ZINC SULFATE 220 MG CAP PO SCH ×2 (10:40→22:15)
[2021-01-03] MEDS: TAMSULOSIN 0.4 MG CAP PO SCH ×2 (10:40→22:15)
[2021-01-03] MEDS: NIFEdipine XL 30 MG TAB PO SCH (11:31)
[2021-01-03] MEDS: METOPROLOL TARTRATE 100 MG TAB PO SCH ×3 (11:32→22:22)
[2021-01-03 11:40] LABS: BUN/Creatinine Ratio TNR; Blood Urea Nitrogen TNR mg/dL (9-20); Calcium TNR mg/dL (8.4-10.2); Hemolysis Index TNR
--- NOTE | 2021-01-03 12:54 | Progress Note ---
Assessment and Plan Assessment and plan: 60 YO Male with Obesity Hypoventilation Syndrome, kidney transplant, HTN, GERD, Anemia Chronic Disease, Coronavirus Infection diagnosed 2 weeks and discharged 3 days sorry, who failed outpatient therapy and currently on 2L/min Home oxygen via [place], CKD S/P Renal Transplant currently on anti graft rejection therapy presents to ED for evaluation. Patient reports "I cannot breathe". Patient states that he has experienced shortness of breath over the past 1 week with persistent and worsening symptoms over the same timeframe. Patient was diagnosed with coronavirus infection 2 weeks ago and was treated with outpatient therapy as well as supplemental oxygen at 2 L via nasal cannula. Patient states that he has experienced worsening shortness of breath over the past 1 week, fatigue, malaise, generalized weakness. EMS was notified and upon arrival the patient was found to be in distress and was found to have a pulse oximetry in the 70s while on 2 L nasal cannula. The patient was treated with oxygen via nonrebreather mask and subsequently transported to [facility] for further care and evaluation of the aforementioned symptoms. The patient was seen and evaluated in the emergency department. All lab and imaging studies reviewed. Patient found to have a pulse oximetry in the 70s on submental oxygen and was subsequently placed on high flow supplemental oxygen due to acute hypoxemic respiratory failure. Patient underwent chest x- ray and was found to have bilateral pneumonia secondary to sepsis. Patient also found to have acidosis. Patient initiated on sepsis protocol as well as coronavirus pneumonia protocol and admitted to medical floor. Patient denies fever, chills, chest pain, palpitation, skin rash, trauma, or known ill contacts. Prior admission on 12/15/2020 reviewed. All medication listed at time of admission has been reconciled. Advanced care planning conducted in ED. Patient reports that he had both of his COVID-19 vaccines with past medical history of hypertension, GERD, kidney transplant in 2017 was brought to the emergency room because of abdominal pain, body aches, fever, cough for last 2 days. The patient had been treated on dexamethasone for total 10 days and remdesivir total 5 days as patient is immunocompromised patient,-Antibiotic was not required as procalcitonin level was normal, -Patient was given anticoagulation per protocol, Patient was deemed to be stable and was discharged on home oxygen but returned as noted above with worsening hypoxia and now on Full dose 12/26: Continue current management, will check d,dimer and possible VQ scan, Will keep on full dose anticoagulation until proven not to have Pulmonary Embolism. Check Doppler for DVT prophy. Monitor Plt. 12/27: Patient remains critically ill sepsis secondary to Covid plan to vaccine ID input noted patient had previously completed remdesivir no indication for noted. Continue steroid therapy and has home antirejection medications. No pulmonary embolism noted home or DVT noted continue to monitor on anticoagulation monitor thrombocytopenia closely. Will give additional dose of Lasix today for negative fluid balance we will monitor renal function closely 12/28: Continue supportive care, steroids, oxygen, anticoagulation. Wean oxygen as tolerated, nephrology consulted to assist with management as patient is a renal transplant. Patient still with tachycardic. Will likely need LTAC for slow weaning. Unfortunately I cannot place him in IMCU or ICU due to lack of be d in the hospital ideally he is appropriate for dose units minimum stepdown unit. 12/29; patient is on 40 L of high flow oxygen. Was given Actemra yesterday. Continue with Solu-Medrol 40 mg 3 times daily. Pulmonary and ID is following. Patient may need LTAC placement at discharge. Patient is concerned about his transplant medications but they were resumed. 12/30; patient was on 40 L of high flow oxygen. Patient was given Actemra. Patient was given remdesivir on his previous admission and no need to repeat it. Patient is on Solu-Medrol 40 mg 3 times daily. Patient may need LTAC placeme nt. His renal transplant medications were resumed. Nephrology is following. 12/31 patient is alert and oriented and moderately dyspneic, he is on BiPAP with 100% FiO2, he denies any cough fever chills or chest pain. Pulmonary nephrology and ID notes reviewed 01/01 remains on BiPAP, alert and oriented, lab results reviewed, 01/02: Patient remains on high flow nasal cannula at home all the 100% no significant improvement. Unfortunately to my understanding the is on the vent at another facility. Prognosis remains poor despite immunosuppression. Continue HD for correction on Hyperkalemia Per pulmonary High mortality with intubation. Encourage proning 01/03: Patient seen and examined, still significantly short of breath on high flow and NRBM. Continue supportive care. Increase steroid therapy. (1) Sepsis ruled out Current Visit: Yes Status: Acute Qualifiers: Acute respiratory failure type: with hypoxia Plan to address problem: Blood cultures and urine cultures negative Leukocytosis likely secondary to steroids Continue empiric IV antibiotics as the patient is immunosuppressed ID note reviewed (2) Pneumonia secondary to COVID-19 Current Visit: Yes Status: Acute Plan to address problem: History of recently receiving remdesivir therapy Pulmonary and ID notes reviewed Continue steroids 3) D-dimer severely elevated VQ scan and lower extremity venous Doppler negative for PE/DVT (4) Obesity hypoventilation syndrome Current Visit: Yes Status: Acute Plan to address problem: Balanced diet, increase physical activity discharge, outpatient pulmonary follow-up for sleep study. (5) Acute Hypoxia respiratory failure Current Visit: Yes Status: Acute Plan to address problem: Continue BiPAP with 100% FiO2 Prognosis guarded to poor Pulmonary note reviewed and appreciated (6) Hyponatremia Improving Serum sodium 132 (7) Thrombocytopenia Stable Platelets 106 this morning Monitor (8) DVT prophylaxis Current Visit: Yes Status: Acute Plan to address problem: SCD to bilateral lower extremities while in bed, prophylactic anticoagulation 9)hyperkalemia,-we will order Kayexalate and recheck electrolytes in a.m. Pulmonary following and note reviewed 10) we will add anti anxiety medication as the patient looks anxious with the BiPAP History Interval history: Patient seen and examined, Hypoxic and on NRMB, High flow. While he is able to complete sentences he is still significantly hypoxic Hospitalist Physical - Physical exam Narrative exam: Limited physical exam due to COVID-19 pandemic to minimize transmission of the disease and to preserve PPE. Vital reviewed and stable. GENERAL: well-developed well-nourished lying in bed, acute shortness of breath on NRBM AND Highflow HEENT: Normocephalic. Atraumatic. NECK: Supple. CHEST/LUNGS: breathing labored. HEART/CARDIOVASCULAR: Heart rate stable on telemetry ABDOMEN: Visibly not distended SKIN: There is no rash, left UE AV Fistula NEURO: No focal motor deficit. Follows command. MUSCULOSKELETAL: No joint effusion EXTRIMITY: No swelling, clubbing. PSYCH: Cooperative. - Constitutional Vitals: Temp Pulse Resp BP Pulse Ox 98.3 F 116 H 38 H 110/69 90 01/03/21 05:24 01/03/21 11:32 01/03/21 11:29 01/03/21 11:32 01/03/21 11:29 General appearance: Present: mild distress, well-nourished HEART Score - HEART Score Troponin: Troponin T < 0.010 ng/mL (0.00-0.029) 12/25/20 08:33 Results - Labs CBC & Chem 7: 01/02/21 11:23 01/03/21 10:50 Labs: Laboratory Last Values WBC 17.4 K/mm3 (4.5-11.0) H 01/02/21 11:23 RBC 5.11 M/mm3 (3.65-5.03) H 01/02/21 11:23 Hgb 15.7 gm/dl (11.8-15.2) H 01/02/21 11:23 Hct 47.6 % (35.5-45.6) H D 01/02/21 11:23 MCV 93 fl (84-94) 01/02/21 11:23 MCH 31 pg (28-32) 01/02/21 11:23 MCHC 33 % (32-34) 01/02/21 11:23 RDW 14.4 % (13.2-15.2) 01/02/21 11:23 Plt Count 106 K/mm3 (140-440) L 01/02/21 11:23 Add Manual Diff Complete 12/26/20 04:58 Total Counted 100 12/26/20 04:58 Seg Neutrophils % Heel Seat Fitter 12/26/20 04:58 Seg Neuts % (Manual) 96.0 % (40.0-70.0) H 12/26/20 04:58 Band Neutrophils % 1.0 % 12/26/20 04:58 Lymphocytes % (Manual) 3.0 % (13.4-35.0) L 12/26/20 04:58 Nucleated RBC % Not Reportable 12/26/20 04:58 Seg Neutrophils # Man 12.6 K/mm3 (1.8-7.7) H 12/26/20 04:58 Band Neutrophils # 0.1 K/mm3 12/26/20 04:58 Lymphocytes # (Manual) 0.4 K/mm3 (1.2-5.4) L 12/26/20 04:58 Abs React Lymphs (Man) 0.0 K/mm3 12/26/20 04:58 Monocytes # (Manual) 0.0 K/mm3 (0.0-0.8) 12/26/20 04:58 Eosinophils # (Manual) 0.0 K/mm3 (0.0-0.4) 12/26/20 04:58 Basophils # (Manual) 0.0 K/mm3 (0.0-0.1) 12/26/20 04:58 Metamyelocytes # 0.0 K/mm3 12/26/20 04:58 Myelocytes # 0.0 K/mm3 12/26/20 04:58 Promyelocytes # 0.0 K/mm3 12/26/20 04:58 Blast Cells # 0.0 K/mm3 12/26/20 04:58 WBC Morphology Not Reportable 12/26/20 04:58 Hypersegmented Neuts Not Reportable 12/26/20 04:58 Hyposegmented Neuts Not Reportable 12/26/20 04:58 Hypogranular Neuts Not Reportable 12/26/20 04:58 Smudge Cells Not Reportable 12/26/20 04:58 Toxic Granulation Not Reportable 12/26/20 04:58 Toxic Vacuolation Not Reportable 12/26/20 04:58 Dohle Bodies Not Reportable 12/26/20 04:58 Pelger-Huet Anomaly Not Reportable 12/26/20 04:58 Marbin Rods Not Reportable 12/26/20 04:58 Platelet Estimate Consistent w auto 12/26/20 04:58 Clumped Platelets Not Reportable 12/26/20 04:58 Plt Clumps, EDTA Not Reportable 12/26/20 04:58 Large Platelets Not Reportable 12/26/20 04:58 Giant Platelets Not Reportable 12/26/20 04:58 Platelet Satelliting Not Reportable 12/26/20 04:58 Plt Morphology Comment Not Reportable 12/26/20 04:58 RBC Morphology Normal 12/26/20 04:58 Dimorphic RBCs Not Reportable 12/26/20 04:58 Polychromasia Not Reportable 12/26/20 04:58 Hypochromasia Not Reportable 12/26/20 04:58 Poikilocytosis Not Reportable 12/26/20 04:58 Anisocytosis Not Reportable 12/26/20 04:58 Microcytosis Not Reportable 12/26/20 04:58 Macrocytosis Not Reportable 12/26/20 04:58 Spherocytes Not Reportable 12/26/20 04:58 Pappenheimer Bodies Not Reportable 12/26/20 04:58 Sickle Cells Not Reportable 12/26/20 04:58 Target Cells Not Reportable 12/26/20 04:58 Tear Drop Cells Not Reportable 12/26/20 04:58 Ovalocytes Not Reportable 12/26/20 04:58 Helmet Cells Not Reportable 12/26/20 04:58 David-Chiniak Bodies Not Reportable 12/26/20 04:58 [place] Rings Not Reportable 12/26/20 04:58 [place] Cells Not Reportable 12/26/20 04:58 Bite Cells Not Reportable 12/26/20 04:58 Crenated Cell Not Reportable 12/26/20 04:58 Elliptocytes Not Reportable 12/26/20 04:58 Acanthocytes (Spur) Not Reportable 12/26/20 04:58 Rouleaux Not Reportable 12/26/20 04:58 Hemoglobin C Crystals Not Reportable 12/26/20 04:58 Schistocytes Not Reportable 12/26/20 04:58 Malaria parasites Not Reportable 12/26/20 04:58 Woodrow Bodies Not Reportable 12/26/20 04:58 Hem Pathologist Commnt No 12/26/20 04:58 APTT 32.3 Sec. (24.2-36.6) 12/25/20 08:33 D-Dimer 6202.36 ng/mlDDU (0-234) H 01/01/21 07:06 ABG pH 7.481 (7.320-7.450) H 12/25/20 10:13 POC ABG pCO2 20.7 mmHg (32.0-48.0) L 12/25/20 10:13 POC ABG pO2 62.0 mmHg (83-108) L 12/25/20 10:13 POC ABG HCO3 15.1 12/25/20 10:13 ABG O2 Saturation 92.4 (0-100) 12/25/20 10:13 POC ABG Base Excess -5.8 12/25/20 10:13 ABG Hemoglobin 15.0 (12.0-17.5) 12/25/20 10:13 ABG Oxyhemoglobin 91.6 (94-98) L 12/25/20 10:13 ABG Methemoglobin 0.3 (0.0-1.5) 12/25/20 10:13 ABG Sodium 119.3 mmol/L (136.0-145.0) L 12/25/20 10:13 ABG Potassium 4.2 mmol/L (3.40-4.50) 12/25/20 10:13 ABG Chloride 95.0 mmol/L (98-107) L 12/25/20 10:13 ABG Glucose 122 mg/dL (65-95) H 12/25/20 10:13 Carboxyhemoglobin 0.6 (0.5-1.5) 12/25/20 10:13 FiO2 % 100.0 12/25/20 10:13 Sodium TNR 01/03/21 10:50 Potassium TNR 01/03/21 10:50 Chloride TNR 01/03/21 10:50 Carbon Dioxide TNR 01/03/21 10:50 Anion Gap TNR 01/03/21 10:50 BUN TNR 01/03/21 10:50 Creatinine TNR 01/03/21 10:50 Estimated GFR TNR 01/03/21 10:50 BUN/Creatinine Ratio TNR 01/03/21 10:50 Glucose TNR 01/03/21 10:50 Osmolality 291 Mosm/kg 12/28/20 10:02 Lactic Acid 1.50 mmol/L (0.7-2.0) 12/25/20 23:38 Calcium TNR 01/03/21 10:50 Ferritin > 2000.0 ng/mL (30.0-300.0) H 12/28/20 10:02 Total Bilirubin TNR 01/01/21 07:06 AST TNR 01/01/21 07:06 ALT TNR 01/01/21 07:06 Alkaline Phosphatase TNR 01/01/21 07:06 Lactate Dehydrogenase TNR 01/01/21 07:06 Troponin T < 0.010 ng/mL (0.00-0.029) 12/25/20 08:33 C-Reactive Protein TNR 01/01/21 07:06 Total Protein TNR 01/01/21 07:06 Albumin TNR 01/01/21 07:06 Albumin/Globulin Ratio TNR 01/01/21 07:06 Procalcitonin 0.68 ng/mL (<0.15) 12/28/20 10:02 Arterial Blood Glucose 122 mg/dL (65-95) H 12/25/20 10:13 Arterial Blood Ionized Calcium 4.8 mg/dL (4.6-5.3) 12/25/20 10:13 Urine Color Straw (Yellow) 12/25/20 13:30 Urine Turbidity Clear (Clear) 12/25/20 13:30 Urine pH 7.0 (5.0-7.0) 12/25/20 13:30 Ur Specific [place] 1.003 (1.003-1.030) 12/25/20 13:30 Urine Protein <15 mg/dl mg/dL (Negative) 12/25/20 13:30 Urine Glucose (UA) Neg mg/dL (Negative) 12/25/20 13:30 Urine Ketones Neg mg/dL (Negative) 12/25/20 13:30 Urine Blood Sm (Negative) 12/25/20 13:30 Urine Nitrite Neg (Negative) 12/25/20 13:30 Urine Bilirubin Neg (Negative) 12/25/20 13:30 Urine Urobilinogen < 2.0 mg/dL (<2.0) 12/25/20 13:30 Ur Leukocyte Esterase Neg (Negative) 12/25/20 13:30 Urine WBC (Auto) 1.0 /HPF (0.0-6.0) 12/25/20 13:30 Urine RBC (Auto) < 1.0 /HPF (0.0-6.0) 12/25/20 13:30 U Epithel Cells (Auto) < 1.0 /HPF (0-13.0) 12/25/20 13:30 Coronavirus (PCR) Positive (Negative) A 12/27/20 Unknown SARS-CoV-2 IgG Ab Reactive (NonReactive) A 12/28/20 10:02 Blood Type A POSITIVE 12/25/20 08:36 Antibody Screen Negative 12/25/20 08:36 Winters/IV: Voiding Method Urinal Active Medications - Current Medications Current Medications: Generic Name Dose Route Start Last Admin Trade Name Freq PRN Reason Stop Dose Admin Acetaminophen 650 mg 12/25/20 11:59 Acetaminophen 325 Mg Tab PO Q4H PRN Pain MILD(1-3)/Fever >100.5/BHARDWAJ Albuterol 2.5 mg 12/25/20 11:59 Albuterol 2.5 Mg/3 Ml Nebu IH Q4HRT PRN Shortness Of Breath Alprazolam 0.25 mg 01/01/21 10:00 01/03/21 10:23 Alprazolam 0.25 Mg Tab PO 01/04/21 09:59 0.25 mg Q12HR TIAN Administration Ascorbic Acid 500 mg 12/25/20 22:00 01/03/21 10:23 Ascorbic Acid 500 Mg Tab PO 500 mg BID [facility] Administration Atovaquone 750 mg 12/29/20 15:00 01/03/21 10:23 Atovaquone 750 Mg/5 Ml Oral Susp PO 750 mg BID [facility] Administration Cholecalciferol 1,000 unit 12/26/20 10:00 01/03/21 10:24 Cholecalciferol (Vit D3) 1000 Unit (25 Mcg) Tab PO 1,000 unit QDAY [facility] Administration Enoxaparin Sodium 90 mg 12/26/20 15:00 01/03/21 10:22 Enoxaparin 100 Mg/1 Ml Inj 1 mg/kg (90 mg) 90 mg SUB-Q Administration BID [facility] Protocol Guaifenesin 600 mg 12/25/20 22:00 01/03/21 10:23 Guaifenesin Er 600 Mg Tab PO 600 mg BID [facility] Administration Hydromorphone HCl 0.5 mg 12/25/20 11:59 01/02/21 19:00 Hydromorphone 1 Mg/1 Ml Inj IV 0.5 mg Q12H PRN Administration Pain , Severe (7-10) Hydromorphone HCl 0.25 mg 12/25/20 12:10 Hydromorphone 1 Mg/1 Ml Inj IV Q4H PRN Pain, Moderate (4-6) Methylprednisolone Sodium Succinate 80 mg 01/03/21 12:49 Methylprednisolone Sod Succinate 125 Mg/2 Ml Inj IV Q8H [facility] Metoprolol Tartrate 100 mg 12/25/20 22:00 01/03/21 11:32 Metoprolol Tartrate 100 Mg Tab PO 100 mg BID [facility] Administration Mycophenolate Mofetil 1,000 mg 12/25/20 22:00 01/03/21 10:24 Mycophenolate 500 Mg Tab PO 1,000 mg BID [facility] Administration Nifedipine 30 mg 12/26/20 10:00 01/03/21 11:31 Nifedipine Xl 30 Mg Tab PO Not Given QDAY [facility] Ondansetron HCl 4 mg 12/25/20 11:59 01/02/21 09:53 Ondansetron 4 Mg/2 Ml Inj IV 4 mg Q8H PRN Administration Nausea And Vomiting Oxycodone/Acetaminophen 1 tab 12/25/20 11:59 01/02/21 21:35 Oxycodone /Acetaminophen 5-325mg Tab PO 1 tab Q12H PRN Administration Pain, Moderate (4-6) Pantoprazole Sodium 40 mg 12/26/20 10:00 01/03/21 10:23 Pantoprazole 40 Mg Tab PO 40 mg DAILY TIAN Administration Sodium Chloride 10 ml 12/25/20 22:00 01/03/21 10:24 Sodium Chloride 0.9% 10 Ml Flush Syringe IV 10 ml BID TIAN Administration Sodium Chloride 10 ml 12/25/20 11:59 Sodium Chloride 0.9% 10 Ml Flush Syringe IV PRN PRN LINE FLUSH Sodium Polystyrene Sulfonate 30 gm 01/03/21 10:00 01/03/21 10:20 Sodium Polystyrene 15 Gm/60 Ml Oral Liqd PO 01/03/21 14:00 30 gm ONCE@1000 NR Administration Tacrolimus 3 mg 12/26/20 10:00 01/03/21 10:26 Tacrolimus 1 Mg Cap PO 3 mg QAM TIAN Administration Tacrolimus 4 mg 12/26/20 22:00 01/02/21 21:36 Tacrolimus 1 Mg Cap PO 4 mg QHS TIAN Administration Tamsulosin HCl 0.4 mg 12/25/20 22:00 01/03/21 10:40 Tamsulosin 0.4 Mg Cap PO 0.4 mg BID TIAN Administration Zinc Sulfate 220 mg 12/25/20 22:00 01/03/21 10:40 Zinc Sulfate 220 Mg Cap PO 220 mg BID TIAN Administration Nutrition/Malnutrition Assess - Dietary Evaluation Nutrition/Malnutrition Findings: Nutrition Notes Start: 01/01/21 12:54 Freq: Status: Active Protocol: Document 01/01/21 12:54 (Rec: 01/01/21 12:59 MARKUS [id number]) Nutrition Notes Need for Assessment generated from: LOS Initial or Follow up Assessment Current Diagnosis Sepsis,Respiratory Failure Other Pertinent Diagnosis hx of renal transplant, pneu, COVID 19 Current Diet Cardiac Labs/Tests K 5.7 BUN 44 Pertinent Medications Zofran Solu Medrol Height 5 ft 6 in Weight 88.5 kg [place] Body Weight (kg) 64.54 BMI 31.4 Weight Status Obese Subjective/Other Information Screen for LOS. Pt on bipap. RN reports pt was off bipap for a few minutes and was able to drink 1 cup water and 1 juice containers. Burn Absent Trauma Absent Current % PO Negligible Minimum of two criteria No #1 Nutrition Diagnosis Inadequate oral intake Etiology acute respiratory failure As Evidenced by Signs and Symptoms pt on continous bipap and consuming <10% of meals Is patient on ventilator? No Is Patient Ambulatory and/or Out of Bed No REE-([place]-confined to bed) 1958.196 Kcal/Kg value to use for calculation 14 Approximate Energy Requirements Using 1239 kcal/Kg Calculation Used for Recommendations Kcal/kg Additional Notes Protein: (0.8-1g/kg AdjBW: 77kg) 62-77g Fluid: 1 ml/kcal or per MD Nutrition Intervention Change Diet Order: add renal Add Supplement/Snack (indicate name/kcal Nepro BID /protein ) Provides kCal: 850 Provides Protein (gm) 38 Goal #1 Meet needs as best as possbile while Anticipated Discharge Needs: Cardiac Follow-Up By: 01/03/21 Additional Comments F/u: intakes and ONS tolerance
[2021-01-03 14:30] LABS: BUN/Creatinine Ratio 50; Blood Urea Nitrogen 60 mg/dL (9-20); Calcium 9.7 mg/dL (8.4-10.2); Hemolysis Index 27
--- NOTE | 2021-01-03 14:33 | Progress Note ---
Assessment and Plan Cultures: 12/15/2020 SARS CoV2 PCR: Positive 12/25/2020 blood culture: No growth 12/25/2020 urine culture: No growth A/P: 60-year-old male with obesity, renal transplant in 2017, hypertension, anemia was diagnosed with COVID-19 infection and was discharged on 12/22/2020 after having completed Remdesivir and was also receiving steroids has now been readmitted to the hospital with worsening shortness of breath: #Bilateral pneumonia: Secondary to COVID-19. D-dimer extremely high but VQ negative for PE and DVT scan also negative. CT scan showed progression of pneumonia, Hypoxia progressed to requiring nonrebreather mask with high flow nasal cannula. CRP 10.9, ferritin >2000 #Acute hypoxic respiratory failure: secondary to above. Now on non-rebreather #Kidney transplant/immunosuppressed host: Currently on mycophenolate and tacrolimus. Recs: continue steroids, empiric abx (Complete 8 days of antibiotics) Recently received remdesivir, no benefit with repeating course Received Actemra 12/28/2020 Fungitell, Aspergillus galactomannan ordered; pending Given significant immunosuppression, Mepron ordered as prophylaxis high d-dimer, on anticoagulation Poor prognosis given disease progression in spite of treatment and his underlying immunosuppression Kai Rene MD [facility] O: [phone] F: [phone] Subjective Date of service: 01/03/21 Principal diagnosis: MARSHA Interval history: Afebrile, white count 17.4. Currently on BiPAP. Objective - Exam Narrative Exam: Physical exam deferred to reduce risk of transmission of COVID-19. Please refer to primary team's note. - Constitutional Vitals: Vital Signs Temp Pulse Resp BP Pulse Ox 97.5 F L 104 H 26 H 127/81 96 01/03/21 12:20 01/03/21 12:20 01/03/21 12:20 01/03/21 12:20 01/03/21 12:20 Temperature -Last 24 Hours Temperature 97.5 F Temperature 98.3 F Temperature 97.9 F Temperature 98.2 F - Labs CBC & Chem 7: 01/02/21 11:23 01/03/21 10:50
--- NOTE | 2021-01-03 15:08 | Progress Note ---
Assessment and Plan 60 y/o male with acute respiratory failure secondary to COVID 19 pneumonia 01/03/21: Really need to have family meeting as patient is continuing to progress. Continue current measures now. Intubation would not fix the underlying disease and mortality rate would be very high. remains in unit, on vent. 01/02/21: suggest discussion with family as is on vent in unit so not able to help with decisions. Mortality high if intubated. very very poor prognosis. Continue supportive measures. 01/01/21: Continued marginal sats on bipap. Very very poor prognosis if intubated. Did not respond to therapy on first admit. 12/31/20: No lasix today. Will discuss with team and patient about possible intubation if not able to maintain sats on Bipap. Very very poor prognosis given no real response to therapy on first admission 12/30/20: Reviewed ID note from yesterday and agree with assessment and plan. Will give lasix 40 IV today to see if this helps with oxygenation. Overall prognosis is guarded to poor. 1. IV steroids 2. Remdesivir 3. Ask about Actemra 4. Prone 5. Net negative volume state 6. Guarded prognosis Subjective Date of service: 01/03/21 Principal diagnosis: MARSHA Interval history: Currently on bipap, 100%, with marginal sats. Objective Vital Signs - 12hr 01/03/21 01/03/21 01/03/21 05:24 09:50 11:29 Temperature 98.3 F Pulse Rate 99 H Respiratory 24 38 H Rate Blood Pressure 115/77 Blood Pressure [Right] O2 Sat by Pulse 90 90 90 Oximetry 01/03/21 01/03/21 11:32 12:20 Temperature 97.5 F L Pulse Rate 116 H 104 H Respiratory 26 H Rate Blood Pressure 110/69 Blood Pressure 127/81 [Right] O2 Sat by Pulse 96 Oximetry CBC and BMP: 01/02/21 11:23 01/03/21 13:50 ABG, PT/INR, D-dimer: ABG ABG pH 7.481 (7.320-7.450) H 12/25/20 10:13 POC ABG pCO2 20.7 mmHg (32.0-48.0) L 12/25/20 10:13 POC ABG pO2 62.0 mmHg (83-108) L 12/25/20 10:13 POC ABG HCO3 15.1 12/25/20 10:13 ABG O2 Saturation 92.4 (0-100) 12/25/20 10:13 PT/INR, D-dimer D-Dimer 6202.36 ng/mlDDU (0-234) H 01/01/21 07:06 Abnormal lab findings: Abnormal Labs 12/25/20 12/25/20 12/25/20 08:33 08:33 08:33 WBC 15.9 H RBC Hgb 15.3 H Hct MCHC 36 H Plt Count 133 L Seg Neuts % (Manual) 98.0 H Lymphocytes % (Manual) 1.0 L Seg Neutrophils # Man 15.6 H Lymphocytes # (Manual) 0.2 L D-Dimer ABG pH POC ABG pCO2 POC ABG pO2 ABG Oxyhemoglobin ABG Sodium ABG Chloride ABG Glucose Sodium 120 L D Potassium Chloride 90.2 L Carbon Dioxide 16 L BUN Creatinine Glucose 116 H Lactic Acid 2.40 H* Ferritin Total Bilirubin 1.30 H C-Reactive Protein Albumin 3.1 L Arterial Blood Glucose Coronavirus (PCR) SARS-CoV-2 IgG Ab 12/25/20 12/25/20 12/26/20 10:13 11:13 04:58 WBC 13.1 H RBC Hgb Hct MCHC 35 H Plt Count 113 L Seg Neuts % (Manual) 96.0 H Lymphocytes % (Manual) 3.0 L Seg Neutrophils # Man 12.6 H Lymphocytes # (Manual) 0.4 L D-Dimer ABG pH 7.481 H POC ABG pCO2 20.7 L POC ABG pO2 62.0 L ABG Oxyhemoglobin 91.6 L ABG Sodium 119.3 L ABG Chloride 95.0 L ABG Glucose 122 H Sodium Potassium Chloride Carbon Dioxide BUN Creatinine Glucose Lactic Acid 2.20 H* Ferritin Total Bilirubin C-Reactive Protein Albumin Arterial Blood Glucose 122 H Coronavirus (PCR) SARS-CoV-2 IgG Ab 12/26/20 12/27/20 12/27/20 04:58 05:28 05:28 WBC 17.5 H RBC Hgb Hct MCHC 35 H Plt Count 108 L Seg Neuts % (Manual) Lymphocytes % (Manual) Seg Neutrophils # Man Lymphocytes # (Manual) D-Dimer ABG pH POC ABG pCO2 POC ABG pO2 ABG Oxyhemoglobin ABG Sodium ABG Chloride ABG Glucose Sodium 129 L D 131 L Potassium Chloride Carbon Dioxide 17 L 17 L BUN 21 H Creatinine 0.7 L Glucose 112 H 117 H Lactic Acid Ferritin Total Bilirubin C-Reactive Protein 22.20 H Albumin Arterial Blood Glucose Coronavirus (PCR) SARS-CoV-2 IgG Ab 12/27/20 12/27/20 12/28/20 05:28 Unknown 10:02 WBC 16.9 H RBC Hgb 15.5 H Hct MCHC 35 H Plt Count 106 L Seg Neuts % (Manual) Lymphocytes % (Manual) Seg Neutrophils # Man Lymphocytes # (Manual) D-Dimer > 36575 H ABG pH POC ABG pCO2 POC ABG pO2 ABG Oxyhemoglobin ABG Sodium ABG Chloride ABG Glucose Sodium Potassium Chloride Carbon Dioxide BUN Creatinine Glucose Lactic Acid Ferritin Total Bilirubin C-Reactive Protein Albumin Arterial Blood Glucose Coronavirus (PCR) Positive A SARS-CoV-2 IgG Ab 12/28/20 12/28/20 12/28/20 10:02 10:02 10:02 WBC RBC Hgb Hct MCHC Plt Count Seg Neuts % (Manual) Lymphocytes % (Manual) Seg Neutrophils # Man Lymphocytes # (Manual) D-Dimer ABG pH POC ABG pCO2 POC ABG pO2 ABG Oxyhemoglobin ABG Sodium ABG Chloride ABG Glucose Sodium 132 L Potassium Chloride Carbon Dioxide 16 L BUN 30 H Creatinine Glucose 127 H Lactic Acid Ferritin > 2000.0 H Total Bilirubin C-Reactive Protein 10.90 H Albumin 2.3 L Arterial Blood Glucose Coronavirus (PCR) SARS-CoV-2 IgG Ab Reactive A 01/01/21 01/01/21 01/01/21 07:06 07:06 08:55 WBC 16.4 H RBC 5.85 H Hgb 17.9 H Hct 53.7 H MCHC Plt Count 87 L Seg Neuts % (Manual) Lymphocytes % (Manual) Seg Neutrophils # Man Lymphocytes # (Manual) D-Dimer 6202.36 H ABG pH POC ABG pCO2 POC ABG pO2 ABG Oxyhemoglobin ABG Sodium ABG Chloride ABG Glucose Sodium Potassium 5.7 H D Chloride Carbon Dioxide 17 L BUN 44 H Creatinine Glucose 123 H Lactic Acid Ferritin Total Bilirubin C-Reactive Protein Albumin Arterial Blood Glucose Coronavirus (PCR) SARS-CoV-2 IgG Ab 01/02/21 01/02/21 01/03/21 11:23 11:23 13:50 WBC 17.4 H RBC 5.11 H Hgb 15.7 H Hct 47.6 H D MCHC Plt Count 106 L Seg Neuts % (Manual) Lymphocytes % (Manual) Seg Neutrophils # Man Lymphocytes # (Manual) D-Dimer ABG pH POC ABG pCO2 POC ABG pO2 ABG Oxyhemoglobin ABG Sodium ABG Chloride ABG Glucose Sodium Potassium 5.9 H 6.2 H* Chloride 108.9 H 110.7 H Carbon Dioxide 15 L 17 L BUN 46 H 60 H Creatinine Glucose 112 H 153 H Lactic Acid Ferritin Total Bilirubin C-Reactive Protein Albumin Arterial Blood Glucose Coronavirus (PCR) SARS-CoV-2 IgG Ab
[2021-01-03] MEDS: oxyCODONE /ACETAMINOPHEN 5-325MG TAB PO PRN (16:32)
[2021-01-03] MEDS: HYDROmorphone 1 MG/1 ML INJ IV PRN (19:11)
[2021-01-03 23:41] VITALS: BP 100/52
[2021-01-03] MEDS ORDERED: INSULIN REGULAR, HUMAN 100 UNITS/1 ML ONE (23:41)
[2021-01-04 00:12] LABS: Calcium 9.7 mg/dL (8.4-10.2)
--- NOTE | 2021-01-04 01:29 | Event Note ---
Date: 01/03/21 KARIN MIMS called overhead I responded to the patient's room after overhearing KARIN MIMS called overhead. Upon arrival to the patient's room the patient was having active chest compressions with staff member who was not fully protected via PPE. I did asked that person to relieve assess for compressions and to put on PPE. A fully protected staff member took over chest compressions. When I enter the room was discovered that the patient was Covid positive and had been on BiPAP. Last time the patient was seen normal was before shift change. Initial evaluation shows the patient in PEA. Please see code sheet for details. There was a moment when the patient had V. tach and they were shot and amiodarone was given. It was discovered that the patient's potassium was elevated doing evening labs thus sodium bicarb, calcium chloride, IV insulin, and IV D50 were given. Please see the hospitalist note for time of Procedure Intubation 8.0 ET tube was used Navarro scope was used A 3 MAC was used Patient was preoxygenated via BVM 8.0 ET tube was placed without difficulty There was good color change of the kilometer Bilateral breath sounds heard on exam No complications during procedure
--- NOTE | 2021-01-04 03:54 | Event Note ---
Date: 01/03/21 KARIN MIMS called on patient who has been on admission for COVID-19 pneumonia, acute hypoxic respiratory failure. Resustative measures commenced according to ACLS protocol. He had multiple rounds of epinephrine, sodium Bicarbonate . Patient also went into V. tach and was appropriately shocked and also given IV amiodarone. Review of his labs are showed that patient had hyperkalemia of 6.2 earlier in the day. Kayexalate was said to have been given. Repeat potassium levels has not been drawn. Patient had insulin ,glucose and calcium gluconate. All resuscitative measures proved futile. O/E No response to verbal or tactile stimuli. Pupils were fixed and dilated Chest : No breath sounds CVS: No pulses and no heart sounds Abd: soft Ext: cold and clammy [employer]: No reflexes. Patient pronounced at 23:48 PM January 03, 2021 Family promptly notified.
[2021-01-04] MEDS ORDERED: DEXTROSE 50% IN WATER (25GM) 50 ML SYRINGE IV ONE (04:22)
[2021-01-04] MEDS ORDERED: EPINEPHrine 1 MG/10 ML SYRINGE ONE (04:22)
[2021-01-04] MEDS ORDERED: SODIUM BICARB 8.4% 50 MEQ/50 ML SYRINGE IV ONE (04:22)
[2021-01-04] MEDS ORDERED: AMIODARONE 150 MG/3 ML INJ IV ONE (04:22)
[2021-01-04] MEDS ORDERED: CALCIUM CHLORIDE 1,000 MG/10 ML SYRINGE IV ONE (04:22)
--- NOTE | 2021-01-04 08:12 | Death Summary ---
Summary - Providers Date of service: 01/04/21 Consults: 12/25/20 17:24 Consult to Physician [CONS] Routine Comment: Consulting Provider: SENTHIL LONDON Physician Instructions: Reason For Exam: pui 12/25/20 17:25 Consult to Physician [CONS] Routine Comment: Consulting Provider: SARAH ANSARI Physician Instructions: Reason For Exam: pui 12/27/20 13:20 Consult to Physician [CONS] Routine Comment: Consulting Provider: JENNIFER KILLIAN Physician Instructions: Reason For Exam: renal transplant patient. CKD Attending: CAMMY PARKER MD - summary Date of admission: 12/25/20 12:00 Date of : 01/03/21 Reason for admission: shortness of breath Significant findings: 60 YO Male with Obesity Hypoventilation Syndrome, kidney transplant, HTN, GERD, Anemia Chronic Disease, Coronavirus Infection diagnosed 2 weeks and discharged 3 days sorry, who failed outpatient therapy and currently on 2L/min Home oxygen via [place], CKD S/P Renal Transplant currently on anti graft rejection therapy presents to ED for evaluation. Patient reports "I cannot breathe". Patient states that he has experienced shortness of breath over the past 1 week with persistent and worsening symptoms over the same timeframe. Patient was diagnosed with coronavirus infection 2 weeks ago and was treated with outpatient therapy as well as supplemental oxygen at 2 L via nasal cannula. Patient states that he has experienced worsening shortness of breath over the past 1 week, fatigue, malaise, generalized weakness. EMS was notified and upon arrival the patient was found to be in distress and was found to have a pulse oximetry in the 70s while on 2 L nasal cannula. The patient was treated with oxygen via nonrebreather mask and subsequently transported to [facility] for further care and evaluation of the aforementioned symptoms. The patient was seen and evaluated in the emergency department. All lab and imaging studies reviewed. Patient found to have a pulse oximetry in the 70s on submental oxygen and was subsequently placed on high flow supplemental oxygen due to acute hypoxemic respiratory failure. Patient underwent chest x- ray and was found to have bilateral pneumonia secondary to sepsis. Patient also found to have acidosis. Patient initiated on sepsis protocol as well as coronavirus pneumonia protocol and admitted to medical floor. Patient denies fever, chills, chest pain, palpitation, skin rash, trauma, or known ill contacts. Prior admission on 12/15/2020 reviewed. All medication listed at time of admission has been reconciled. Advanced care planning conducted in ED. Patient reports that he had both of his COVID-19 vaccines with past medical history of hypertension, GERD, kidney transplant in 2017 was brought to the emergency room because of abdominal pain, body aches, fever, cough for last 2 days. The patient had been treated on dexamethasone for total 10 days and remdesivir total 5 days as patient is immunocompromised patient,-Antibiotic was not required as procalcitonin level was normal, -Patient was given anticoagulation per protocol, Patient was deemed to be stable and was discharged on home oxygen but returned as noted above with worsening hypoxia and now on Full dose 12/26: Continue current management, will check d,dimer and possible VQ scan, Will keep on full dose anticoagulation until proven not to have Pulmonary Embolism. Check Doppler for DVT prophy. Monitor Plt. 12/27: Patient remains critically ill sepsis secondary to Covid plan to vaccine ID input noted patient had previously completed remdesivir no indication for noted. Continue steroid therapy and has home antirejection medications. No pulmonary embolism noted home or DVT noted continue to monitor on anticoagulation monitor thrombocytopenia closely. Will give additional dose of Lasix today for negative fluid balance we will monitor renal function closely 12/28: Continue supportive care, steroids, oxygen, anticoagulation. Wean oxygen as tolerated, nephrology consulted to assist with management as patient is a renal transplant. Patient still with tachycardic. Will likely need LTAC for slow weaning. Unfortunately I cannot place him in IMCU or ICU due to lack of bed in the hospital ideally he is appropriate for dose units minimum stepdown unit. 12/29; patient is on 40 L of high flow oxygen. Was given Actemra yesterday. Continue with Solu-Medrol 40 mg 3 times daily. Pulmonary and ID is following. Patient may need LTAC placement at discharge. Patient is concerned about his transplant medications but they were resumed. 12/30; patient was on 40 L of high flow oxygen. Patient was given Actemra. Patient was given remdesivir on his previous admission and no need to repeat it. Patient is on Solu-Medrol 40 mg 3 times daily. Patient may need LTAC placement. His renal transplant medications were resumed. Nephrology is following. 12/31 patient is alert and oriented and moderately dyspneic, he is on BiPAP with 100% FiO2, he denies any cough fever chills or chest pain. Pulmonary nephrology and ID notes reviewed 01/01 remains on BiPAP, alert and oriented, lab results reviewed, 01/02: Patient remains on high flow nasal cannula at home all the 100% no significant improvement. Unfortunately to my understanding the is on the vent at another facility. Prognosis remains poor despite immunosuppression. Continue HD for correction on Hyperkalemia Per pulmonary High mortality with intubation. Encourage proning 01/03: Patient seen and examined, still significantly short of breath on high flow and NRBM. Continue supportive care. Increase steroid therapy. Patient unfortunately went into cardiopulmonary arrest and all efforts to resuscitate the patient was not successfull. Please see code note and documentation (1) Sepsis (2) Pneumonia secondary to COVID-19 3) D-dimer severely elevated (4) Obesity hypoventilation syndrome (5) Acute Hypoxia respiratory failure (6) Hyponatremia (7) Thrombocytopenia 9)hyperkalemia, Metabolic Acidosis
== END 2021-01-03 23:48 | DRG 871 ==
LOC: ED 06:46 → 3A 12:00
PROVIDERS: ADMIT Internal Medicine; ATTEND Internal Medicine
PROC: 5A0955A Assistance with Respiratory Ventilation, Greater than 96 Consecutive Hours, High Flow/Velocity Cannula (ICD-10-PCS; 2020-12-25)
PROC: XW033H5 Introduction of Tocilizumab into Peripheral Vein, Percutaneous Approach, New Technology Group 5 (ICD-10-PCS; principal; 2020-12-28)
PROC: 5A09357 Assistance with Respiratory Ventilation, Less than 24 Consecutive Hours, Continuous Positive Airway Pressure (ICD-10-PCS; 2020-12-31)
PROC: 5A09357 Assistance with Respiratory Ventilation, Less than 24 Consecutive Hours, Continuous Positive Airway Pressure (ICD-10-PCS; 2021-01-01)
PROC: 5A09357 Assistance with Respiratory Ventilation, Less than 24 Consecutive Hours, Continuous Positive Airway Pressure (ICD-10-PCS; 2021-01-02)
PROC: 5A09357 Assistance with Respiratory Ventilation, Less than 24 Consecutive Hours, Continuous Positive Airway Pressure (ICD-10-PCS; 2021-01-03)
PROC: 5A12012 Performance of Cardiac Output, Single, Manual (ICD-10-PCS; 2021-01-03)
DX: A41.89 Other specified sepsis (principal); U07.1 COVID-19; J96.01 Acute respiratory failure with hypoxia; J12.82 Pneumonia due to coronavirus disease 2019; E66.2 Morbid (severe) obesity with alveolar hypoventilation; E87.1 Hypo-osmolality and hyponatremia; Z94.0 Kidney transplant status; D84.9 Immunodeficiency, unspecified; N17.9 Acute kidney failure, unspecified; Z68.31 Body mass index [BMI] 31.0-31.9, adult; Z71.3 Dietary counseling and surveillance; I10 Essential (primary) hypertension; D69.6 Thrombocytopenia, unspecified; R79.1 Abnormal coagulation profile; K21.9 Gastro-esophageal reflux disease without esophagitis; Z90.49 Acquired absence of other specified parts of digestive tract; D63.8 Anemia in other chronic diseases classified elsewhere; E87.5 Hyperkalemia; I46.9 Cardiac arrest, cause unspecified
CPT/HCPCS: 36415; 71045; 71250; 78580; 80048; 80053; 81001; 82140; 82728; 82805; 82962; 83930; 84145; 84484; 85007; 85014; 85018; 85025; 85027; 85379; 85730; 86140; 86850; 86900; 86901; 87040; 87086; 93005; 93970; 94660; 94760; G0378; A9540; J0171; J0282; J0456; J0692; J0696; J1170; J1644; J1650; J1815; J1940; J2405; J2920; J2930; J3262; J7030; J7507; J7517; U0003